=== PATIENT | female | born 1980 | race Caucasian/White ===

== ENCOUNTER 2022-11-09 16:04 | Outpatient (REF) | payer OTHER, SELFPAY ==
--- NOTE | 2022-11-09 16:15 | CRLHL7_ITS ---
For Patients: As a result of the Century Cures Act, medical imaging exams and procedure reports are released immediately into your electronic medical record. You may view this report before your referring provider. If you have questions, please contact your health care provider. UNILATERAL LEFT DIGITAL SCREENING MAMMOGRAM WITH TOMOSYNTHESIS AND COMPUTER-AIDED DETECTION CLINICAL HISTORY: Routine screening exam. COMPARISON: 08/19/2021, 04/09/2019, 03/06/2018, 03/14/2017, 02/02/2016, 01/31/2015. TECHNIQUE: Digital mammogram in CC and MLO projections including computer-aided detection (CAD). Tomosynthesis utilized. BREAST COMPOSITION: The breast is extremely dense, which lowers the sensitivity of mammography. FINDINGS: LEFT Breast: Microcalcifications are present within the lower inner quadrant 7 cm from the nipple. IMPRESSION: LEFT breast calcifications. RECOMMENDATIONS: Spot compression magnification views of the calcifications in the LEFT breast in CC and ML projections. BI-RADS Category 0: Incomplete: Need additional Imaging Evaluation and/or Prior Mammograms for Comparison [facility] will contact the patient for follow-up. A lay language report of this examination will be provided to the patient. Dictated by Kyree Blackmon MD @ 11/19/2022 9:12:16 AM jj/Dictated by: Kyree Blackmon MD @ 11/19/2022 9:12:00 AM (Electronically Signed)
== END 2022-11-09 16:05 | disposition home or self-care (01) ==
LOC: MAMMO 16:04
PROVIDERS: Visit Provider Obstetrics & Gynecology
DX: Z12.31 Encounter for screening mammogram for malignant neoplasm of breast (principal); R92.2 Inconclusive mammogram; R92.0 Mammographic microcalcification found on diagnostic imaging of breast; R92.1 Mammographic calcification found on diagnostic imaging of breast
CPT/HCPCS: 77063; 77067

== ENCOUNTER 2022-12-24 10:57 | Outpatient (CLI) | payer MEDICAID, SELFPAY ==
--- NOTE | 2022-12-24 11:15 | CRLHL7_ITS ---
For Patients: As a result of the 21st Century Cures Act, medical imaging exams and procedure reports are released immediately into your electronic medical record. You may view this report before your referring provider. If you have questions, please contact your health care provider. ----- ADDENDUM ----- Addendum: Pathology is negative for metastatic carcinoma in this sampling. This may be disconcordant and recommend axillary node dissection. Dictated by Kyree Blackmon MD @ Noel 2022 6:17AM Signed by:?Kyree Blackmon MD @12/27/2022 10:50:48 AM ULTRASOUND-GUIDED LEFT AXILLARY LYMPH NODE BIOPSY CLINICAL HISTORY: Left breast cancer. COMPARISON STUDIES: MRI breast 12/17/2022 TECHNIQUE: Real-time ultrasound with image documentation was used for targeting the left axillary lymph node lesion. Core biopsy specimens were obtained using an automated gun with a 18-gauge biopsy needle. CONSENT and TIME OUT: The procedure, risks, and alternatives were explained to the patient and a consent was signed. [place] Protocol was followed including pre-procedure verification that relevant information/documentation was available, reviewed and properly matched to the patient; consent accurate and complete; and equipment and supplies available. Time Out was conducted just prior to starting procedure to verify the four required elements: patient identity, correct side/site marked (if applicable), procedure, relevant images/results properly labeled and displayed (if applicable). PROCEDURE: The patient was positioned supine on the ultrasound table. The left axilla was prepped with ChloraPrep. 10 cc of 1 percent lidocaine was used for local anesthesia. Core samples were obtained. A sterile metal biopsy clip was placed percutaneously to ena the lesion position within the breast. The specimens were placed in 10% formalin and sent to the pathology department. Pressure was held on the biopsy site until all bleeding subsided. The skin incision was closed with Steri-Strips. An ice pack was positioned over the biopsy site. Post-biopsy instructions were reviewed with the patient, and a written copy was given to her. LATERALITY: Left axilla LESION: Enlarged left axillary lymph node measuring 2.2 cm with thickened hypoechoic cortex SUSPICION FOR MALIGNANCY: High NUMBER OF SAMPLES: 5 BIOPSY CLIP SHAPE: Oval PROXIMITY OF CLIP TO TARGET: Within the lesion IMPRESSION: Ultrasound-guided left axillary lymph node biopsy. When the pathology report is available, an addendum to this report will be made. ACR not applicable Dictated by Kyree Blackmon MD @ 12/25/2022 6:17:05 AM (Electronically Signed)
== END 2022-12-24 10:58 | disposition home or self-care (01) ==
LOC: US 10:59
PROVIDERS: Visit Provider Surgery
DX: R92.8 Other abnormal and inconclusive findings on diagnostic imaging of breast (principal)
CPT/HCPCS: 38505; 76942; 88305; T1013; A4648; A4649

== ENCOUNTER 2022-12-28 07:45 | Day surgery (SDC) | payer MEDICAID, SELFPAY ==
[2022-12-28] VITALS (21 sets, daily range): BP systolic 94–144; BP diastolic 59–104; PULSE 72–108; RESP 16–23; TEMP 36.4–37.1; O2SAT 93–100; BMI 24.5; BMI 24.6
--- NOTE | 2022-12-28 | CRLHL7_ITS ---
For Patients: As a result of the Cures Act, medical imaging exams and procedure reports are released immediately into your electronic medical record. You may view this report before your referring provider. If you have questions, please contact your health care provider. LEFT BREAST SPECIMEN RADIOGRAPH CLINICAL HISTORY: New LEFT breast cancer. Previously biopsied LEFT axillary lymph node. COMPARISON: 12/28/2022. FINDINGS: Specimen film contains the biopsy lymph node along with biopsy clip and localization wire. IMPRESSION: Specimen film contains the biopsy lymph node. ACR not applicable Dictated by Kyree Blackmon MD @ 12/28/2022 12:51:25 PM jj/Dictated by: Kyree Blackmon MD @ 12/28/2022 12:51:00 PM (Electronically Signed)
--- NOTE | 2022-12-28 08:17 | CRLHL7_ITS ---
For Patients: As a result of the Cures Act, medical imaging exams and procedure reports are released immediately into your electronic medical record. You may view this report before your referring provider. If you have questions, please contact your health care provider. Left axillary lymph node WIRE LOCALIZATION USING ULTRASOUND GUIDANCE CLINICAL HISTORY: Left breast cancer. Previously biopsied left axillary lymph node. LATERALITY: Left axilla. LESION: Mildly prominent left axillary lymph node. LOCALIZATION WIRE: [place] hookwire. TECHNIQUE: The localization wire was placed using real-time ultrasound guidance with image documentation. CONSENT and TIME OUT: The procedure, risks, and alternatives were explained to the patient through an commercial baking teacher and a consent was signed. [place] Protocol was followed including pre-procedure verification that relevant information/documentation was available, reviewed and properly matched to the patient; consent accurate and complete; and equipment and supplies available. Time Out was conducted just prior to starting procedure to verify the four required elements: patient identity, correct side/site marked (if applicable), procedure, relevant images/results properly labeled and displayed (if applicable). PROCEDURE: The skin was prepped with ChloraPrep and 8 cc of 1% lidocaine was injected for local anesthesia. The localization wire was placed within the targeted left axillary lymph node lesion using ultrasound guidance. The patient tolerated the procedure well. PROXIMITY OF WIRE TO LESION: Within the lesion. IMPRESSION: Successful breast wire localization. ACR not applicable Dictated by Kyree Blackmon MD @ 12/28/2022 12:52:56 PM (Electronically Signed)
[2022-12-28 08:19] LABS: HCG Qualitative* Negative (Negative)
[2022-12-28] MEDS: SODIUM CHLORIDE 0.9 % (FLUSH) 10 ML SYRINGE IVF (08:34)
[2022-12-28] MEDS: LACTATED RINGERS 1000 ML 1,000 ML 100 ML IV (08:34)
--- NOTE | 2022-12-28 09:03 | CRLHL7_ITS ---
For Patients: As a result of the Century Cures Act, medical imaging exams and procedure reports are released immediately into your electronic medical record. You may view this report before your referring provider. If you have questions, please contact your health care provider. HISTORY: 42-year-old female. Left breast cancer. TECHNIQUE: 0.70 millicuries of [id number] sulfur colloid was injected in the left breast for sentinel lymph node localization. Images were not obtained. Dictated by Aristides Virk MD @ 12/28/2022 9:27:08 AM (Electronically Signed)
--- NOTE | 2022-12-28 10:12 | P.GSOP_ITS ---
Operative Note Date of procedure: 12/28/22 Pre-op diagnosis: 1. 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 2. Left enlarged axillary lymph node benign on core biopsy. Post-op diagnosis: Same Type of Procedure: 1. Left skin sparing mastectomy. 2. Left axillary sentinel lymph node biopsy. 3. Excision of previously biopsied left axillary lymph node. 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 Patient underwent a routine mammogram and was found to have a suspicious grouping of calcifications in the lower inner quadrant of the left breast. There was no defined mass. This was biopsied in 2 different spots at 9:00 5 cm and 8 cm from the nipple. Pathology of the biopsy at 9:00 5 cm from the nipple came back with multiple foci of micro invasive ductal carcinoma up to 1 mm with no angiolymphatic invasion and with associated grade 3 solid and comedo DCIS ER//NE negative and HER2 positive. The biopsy at 9:00 8 cm from the nipple showed grade 3 comedo and solid type DCIS with associated calcifications and necrosis. Patient then underwent a bilateral breast MRI that showed that nearly the entire inner quadrant of the left breast and extending into the upper inner quadrant there was mass a non mass enhancement measuring 8.8 x 6.4 cm. There was also adjacent post biopsy hematoma. There were 3 additional masses described in the left breast with this suspicious irregular mass noted at 2:00 9 cm from the nipple measuring 1 x 1.2 cm. There was an adjacent satellite mass measuring 0.4 cm. In addition, there was 1 lymph node in the left axilla was diffuse cortical thickening measuring 1.8 x 1.1 cm. This lymph node was biopsied and biopsy came back with benign lymphoid tissue with no evidence of metastatic disease. Given this patient's clinical history and her findings on MRI, a left mastectomy with left sentinel lymph node biopsy was recommended. We also discussed excising the biopsied left axillary node. The procedures were discussed in detail. The risks associated procedures including infection, bleeding, postoperative seroma, and the need for axillary node dissection were all discussed with the patient, and she agreed to proceed. Procedure Description: After discussing the risks and benefits of the procedure, the patient signed informed consent.? The operative site was marked and the patient was brought to the operating room and placed on the operating table in supine position.? Care was taken to pad the patient's pressure points.?? The patient was then intubated by anesthesia.??The Carrillo catheter was placed under sterile conditions. The operative site was then prepped and draped in the usual sterile fashion.? A time-out was then performed. I first proceeded with the left mastectomy. An elliptical horizontal skin incision was made around the nipple-areolar complex using a scalpel.? Dermis was divided with cautery.? Marlo retractors were used for retraction throughout the case.? There was essentially no subcutaneous fat between the skin Skin flaps were developed circumferentially in a relatively avascular placed between subcutaneous fat and breast tissue using manual traction between the skin flaps and breast tissue.? Dissection was performed to just below the clavicle superiorly, to the lateral border of pectoralis major muscle laterally, to the sternal border medially, and to the inframammary fold inferiorly.? This was all done with cautery.? Hemostasis throughout the case was achieved with cautery and Vicryl ties. ? When the breast tissue was dissected circumferentially, it was then removed in a medial to lateral fashion from Pectoralis using electrocautery. The pectoralis major fascia was included with the specimen. The specimen was labeled for orientation with a single stitch at 12:00 and sent to pathology for margins.? I then proceeded with left sentinel lymph node biopsy. Four ml (milliliters) of Lymphazurin blue was personally injected by me near the left nipple for sentinel lymph node identification prior to patient's left breast being prepped. We first excised wire localized left axillary node. I was able to palpate this node and was measuring slightly larger than 1 cm. The node was soft on palpation. The node was excised with cautery with the wire still in place. This had a count of 243. This was sent to mammography where the presence of the wire and biopsy clip were confirmed. This was then sent to pathology for frozen section. Now through the mastectomy incision a [place] counter was brought onto the field in the left axilla to identify sentinel nodes. Guided by the signal from the [place] counter, sentinel lymph node #1 with a count of 7136 was removed. This was sent to pathology for frozen section. This node was not green. Additional signal was noted in the left axilla. A second sentinel lymph node was excised with cautery. This had a count of 1773. All 3 nodes were evaluated by pathology, and preliminary results confirmed no presence of cancer. Axillary melania tissue was examined again with the [place] counter and and no additional significant signal was identified. Additional lymph melania tissue that was excised during search for sentinel nodes was sent to pathology as additional axillary melania tissue. Hemostasis was achieved with cautery. The axillary fascia was reapproximated with interrupted Vicryl sutures. Mastectomy cavity was irrigated with normal saline.? Hemostasis was achieved with cautery.? A 15F Ziyad drain was placed inferior and lateral to the breast through a small stab incision and secured in place with nylon suture. The edges of surgical incision were re-approximated using interrupted 3-0 Vicryl sutures.? The skin was closed with a running subcuticular 4-0 Monocryl stitch. Steri strips, sterile fluffs, and ABD pad were applied over the incision.? A drain sponge was placed under the drain.? The chest was wrapped with an Rasheed wrap.? All counts were correct at the end of the case. The patient tolerated this procedure well and was transferred to the?PACU in stable condition. Sterile dressings were then applied. ? The patient was then woken and transported to the recovery area in stable condition. ? The patient tolerated the procedure well. Findings: Two sentinel lymph nodes and previously biopsied lymph node were removed and wer e preliminary without metastatic disease. Anesthesia: GETA Surgeon: Zoe Correa MD Estimated blood loss (mL): 30 Additional Specimen Information: 1. Left mastectomy. 2. Left axillary wire localized lymph node. 3. Left sentinel lymph node 1. 4. Left sentinel lymph node 2. Condition: stable Disposition: PACU
[2022-12-28] MEDS: ISOSULFAN BLUE 5 ML VIAL 4 ML INJECTION (10:30)
[2022-12-28] MEDS: CEFAZOLIN 2 GM INJ IVP (10:32)
--- NOTE | 2022-12-28 10:50 | W.ANESCHARGE ---
Anesthesia Charges Start Date/Time Anesthesia Start Date: 12/28/22 Anesthesia Start Time: 10:12 Stop Date/Time Anesthesia Stop Date: 12/28/22 Anesthesia Stop Time: 13:13
--- NOTE | 2022-12-28 10:51 | W.PM.NB ---
Nerve Block Nerve Block Date Seen: 12/28/22 Type of block requested by surgeon for post-operative analgesia: intercostal and intercostal add on Side: left Time out performed: Yes Verification of patient name: Yes Verification of date of : Yes Site marking: site marked Name of person performing procedure: Cristopher Nicole, if any: Butch Continuous monitoring Was continuous monitoring of O2 sat, B/P, phototypesetting equipment monitor, recorded every 15 minutes?: Yes Procedure Checklist: sterile prep, needles and gloves Ultrasound guided. Images saved: Yes Medications given in 5ml increments after negative aspiration: Marcaine %: 0.25 mL: 20 Needle gauge: 20 and Exparel mL: 10 Needle gauge: 20 Patient tolerated procedure well: Yes Block Charges Block Charge (with Pro Fee): Intercostal Nerve Block Use of Ultrasound Machine for Block: Yes- US Guidance/pain block
--- NOTE | 2022-12-28 13:20 | W.ANESCHARGE ---
Anesthesia Charges Start Date/Time Anesthesia Start Date: 12/28/22 Anesthesia Start Time: 10:12 Stop Date/Time Anesthesia Stop Date: 12/28/22 Anesthesia Stop Time: 13:13
--- NOTE | 2022-12-28 13:51 | SUR.PHASEI ---
patient met discharge criteria per anesthesia
[2022-12-28] MEDS: LACTATED RINGERS 1000 ML 1,000 ML 35 ML IV (15:09)
[2022-12-28] MEDS: ACETAMINOPHEN 325 MG TABLET 650 MG PO ×2 (15:57→22:52)
--- NOTE | 2022-12-28 19:57 | PC.NURSE ---
[id number] Shift Summary? 89 C.F. 42 Left Mastectomy? Hx: Right mastectomy, Malignant neoplasm of breast,?IUD (intrauterine device) in place, cervical dysplasia, delivery? Pt arrived to floor around 1400. Tajik speaking but [place]an is her second language. Utilized buckle attacher x2 for assessment, orientation to room, and teaching. Family at bedside.?Post op vitals done. Some HTN toward end of vitals but otherwise stable. Been up to BR x2, SBA. Carrillo removed upon arrival- some bloody drainage/discharge on a pad on ashish area. Urine is blue/green from contrast dye. No Flatus or BM yet. On 100mL LR to R PIV. Upper torso is bandaged and wrapped with LYN. OLENA in place and emptied for 30mL of dark red fluid. On room air. Advanced to regular diet without nausea/vomiting. Some dizziness upon arrival but has since resolved. 7/10 pain managed with Tylenol. Aware of other PRNs. Likely to DC home with tomorrow. Needs some hands on teaching regarding cares and OLENA management. ?
[2022-12-28] MEDS: HYDROCODONE-ACETAMIN 5-325 MG 1 TAB PO (19:58)
[2022-12-28] MEDS: BENZOCAINE/MENTHOL 1 EACH LOZENGE MUCOUS MEM (21:38)
[2022-12-29] MEDS: LACTATED RINGERS 1000 ML 1,000 ML 35 ML IV (02:50)
[2022-12-29 03:06] VITALS: BP 108/73; PULSE 73; RESP 16; TEMP 36.8; O2SAT 97
[2022-12-29] MEDS: HYDROCODONE-ACETAMIN 5-325 MG 1 TAB PO ×2 (03:25→10:39)
--- NOTE | 2022-12-29 06:26 | PC.NURSE ---
[id number]: Patient pleasant and cooperative with cares. supportive and at bedside. OLENA drain intact and draining minimal amounts of sanguineous fluids. Pain controlled with PRN [place]. SBA. Chief Privacy Officer offered and declined by patient. Waiver form signed and in chart. Denies N/V. Eating and voiding.
[2022-12-29] MEDS: ACETAMINOPHEN 325 MG TABLET 650 MG PO (07:31)
[2022-12-29 07:45] VITALS: PULSE 76; RESP 16
[2022-12-29 08:00] VITALS: BP 115/80; PULSE 76; RESP 16; TEMP 36.6; O2SAT 96
--- NOTE | 2022-12-29 08:38 | P.DS_ITS ---
DS: Providers Provider Date Seen: 12/29/22 Primary care physician: Kyree Funez MD Attending Physician on discharge: Zoe Correa MD DS: Summary Hospital Course Hospital Course: Patient was admitted to the hospital after she underwent left mastectomy and left sentinel lymph node biopsy yesterday. Patient did well overnight. Her OLENA drain had minimal amounts of bloody serosanguineous fluid. She was tolerating regular diet, urinating, and ambulating. Time Spent with Patient Time attestation: Total time spent providing and/or coordinating discharge services: Exam Narrative: Exam Narrative: Left mastectomy incision without erythema. There is no expanding hematoma. The incision is healthy in appearance. OLENA drain with Mildly bloody serosanguineous fluid. Const: Vital Signs, click to edit/add: Vital Signs - 24 hr 12/28/22 13:09 12/28/22 13:15 12/28/22 13:20 Temperature 97.5 F L 97.5 F L 97.5 F L Pulse Rate 86 78 75 Pulse Rate [Pulse Oximeter] Respiratory Rate 23 19 16 Blood Pressure 101/62 94/59 L 97/61 Blood Pressure [Ri ght Arm] Pulse Oximetry 93 93 94 Oxygen Delivery Me thod Room Air Room Air Room Air 12/28/22 13:25 12/28/22 13:30 12/28/22 13:35 Temperature 97.5 F L 97.5 F L 97.7 F Pulse Rate 86 74 77 Pulse Rate [Pulse Oximeter] Respiratory Rate 20 17 16 Blood Pressure 105/68 101/67 105/73 Blood Pressure [Ri ght Arm] Pulse Oximetry 94 94 95 Oxygen Delivery Me thod Room Air Room Air Room Air 12/28/22 13:40 12/28/22 13:52 12/28/22 13:52 Temperature 97.7 F 97.5 F L 97.5 F L Pulse Rate 76 Pulse Rate [Pulse Oximeter] 84 76 Respiratory Rate 20 16 16 Blood Pressure 105/72 Blood Pressure [Ri ght Arm] 124/86 124/86 Pulse Oximetry 95 96 94 Oxygen Delivery Me thod Room Air Room Air Room Air 12/28/22 14:00 12/28/22 14:15 12/28/22 14:27 Temperature Pulse Rate Pulse Rate [Pulse Oximeter] 78 Respiratory Rate 16 18 16 Blood Pressure Blood Pressure [Ri ght Arm] 121/87 127/87 Pulse Oximetry 95 Oxygen Delivery Me thod Room Air Room Air Room Air 12/28/22 14:30 12/28/22 14:45 12/28/22 15:00 Temperature Pulse Rate Pulse Rate [Pulse Oximeter] 93 85 Respiratory Rate 18 18 Blood Pressure Blood Pressure [Ri ght Arm] 125/89 134/90 H 130/89 Pulse Oximetry 95 94 Oxygen Delivery Me thod Room Air Room Air Room Air 12/28/22 15:00 12/28/22 15:30 12/28/22 16:00 Temperature Pulse Rate Pulse Rate [Pulse Oximeter] 100 78 96 Respiratory Rate 16 18 Blood Pressure Blood Pressure [Ri ght Arm] 119/81 138/100 H Pulse Oximetry 96 Oxygen Delivery Me thod Room Air 12/28/22 17:35 12/28/22 18:30 12/28/22 20:00 Temperature 97.8 F Pulse Rate Pulse Rate [Pulse Oximeter] 100 108 H Respiratory Rate 16 18 Blood Pressure Blood Pressure [Ri ght Arm] 125/85 144/104 H 139/100 H Pulse Oximetry 95 100 Oxygen Delivery Me thod Room Air Room Air 12/28/22 22:26 12/29/22 03:06 Temperature 98.8 F 98.2 F Pulse Rate Pulse Rate [Pulse Oximeter] 89 73 Respiratory Rate 20 16 Blood Pressure Blood Pressure [Ri ght Arm] 121/85 108/73 Pulse Oximetry 99 97 Oxygen Delivery Me thod Room Air Room Air Discharge Plan Discharge Disposition: Home, Self-Care Discharging Surgeon: Zoe Correa Follow-Up Appointment: 1 week [facility] Morgan/Davis(drain removal), 1 weeks [facility] Prescriptions: New hydrocodone-acetaminophen 5-325 mg tablet 1 tab PO Q6H PRN (Reason: pain) Qty: 25 0RF Continued multivitamin Tablet 1 tab PO QAM Activity Level: No strenuous activity Activity Detail: Avoid lifting anything more than 10 lb with the left arm. Avoid reason your left arm above the shoulder level. Discharge Diet: Regular Patient Instructions: Surgical Site Infections (DC), Deep Sedation (DC), Breast Lumpectomy (DC), Post-Operative Instructions: Breast Surgery Additional Instructions: Continue wearing compressive dressing over your left breast all the time The next 2 weeks except okay to take off for showers. please see H the patient and her how to do drain care. The drain should be stripped at least 3 times a day. The drain output should be recorded daily. Follow-up: Zoe Correa MD [Staff Physician] - Discharge Orders: Discharge Order (Routine); Ordered 12/29/22 Ordered By: Zoe Correa
[2022-12-29 09:12] VITALS: BP 105/72; PULSE 76; RESP 16; TEMP 36.8
--- NOTE | 2022-12-29 12:07 | PC.NURSE ---
VSS AND AFEBRILE. PAIN CONTROLLED WITH PRN TYLENOL AND NORCO. TOLERATING REGULAR DIET WITH NO C/O N/V. REVIEWED OLENA USE WITH AND HE WAS ABLE TO DRAIN OLENA SUCCESSFULLY AND TAUGHT DRESSING CHANGE. EXTRA DRESSINGS SENT HOME WITH PATIENT. REVIEWED DC INSTRUCTIONS WITH INTEGRITY ASSESSOR, SHEEBA. BOTH PATIENT AND DENIED QUESTIONS OR CONCERNS. PATIENT DC'D HOME WITH .
== END 2022-12-29 11:30 | disposition home or self-care (01) ==
LOC: MEDSURG 13:21 → SS 14:35 → MEDSURG 14:35
PROVIDERS: PCP Family Medicine; Visit Provider Surgery
PROC: (CPT 19303; principal; 2022-12-28 09:45)
PROC: (CPT 19303; 2022-12-28 09:45)
DX: C50.812 Malignant neoplasm of overlapping sites of left female breast (principal); Z17.0 Estrogen receptor positive status [ER+]; G89.18 Other acute postprocedural pain
CPT/HCPCS: 19303; 38500; 01610; 10035; 38792; 64420; 64421; 76942; 84703; 88307; 88309; 88312; 88341; 88342; T1013; A9270; A9541; C1769; C9290; J0330; J0690; J1100; J1200; J1885; J2405; J2704; J3010; J3475; J3490; J7120

== ENCOUNTER 2023-04-11 15:50 | Outpatient (CLI) | payer OTHER, SELFPAY ==
--- NOTE | 2023-04-11 16:00 | CRLHL7_ITS ---
For Patients: As a result of the Century Cures Act, medical imaging exams and procedure reports are released immediately into your electronic medical record. You may view this report before your referring provider. If you have questions, please contact your health care provider. INDICATION: elevated LFTs. COMPARISON: none TECHNIQUE: Real time bocanegra scale imaging and color Doppler analysis was performed of the right upper quadrant. FINDINGS: There is no intrahepatic mass. The IVC is normal. The aorta is gassed out. There is no evidence of ascites. The gallbladder is of normal size and there are echogenic foci in fundal region. The gallbladder wall measures 1.4 mm in thickness. The common bile duct is of normal size and measures 3 mm in diameter at the level of the faisal hepatis. The pancreas appears normal. There is no evidence of a stone or hydronephrosis within the right kidney. The right kidney measures 9.8 cm in length. IMPRESSION: Mobile echogenic foci within the gallbladder lumen compatible with cholesterol stones. No biliary obstruction. No intrahepatic mass. Dictated by Kyree Blackmon MD @ 04/12/2023 9:27:08 AM (Electronically Signed)
== END 2023-04-11 15:51 | disposition home or self-care (01) ==
PROVIDERS: PCP Family Medicine; Visit Provider Physician Assistant
DX: R79.89 Other specified abnormal findings of blood chemistry (principal)
CPT/HCPCS: 76705; T1013

== ENCOUNTER 2023-05-12 14:52 | Outpatient (CLI) | payer MEDICAID, SELFPAY | END 2023-05-12 14:53 | disposition home or self-care (01) | LOC: RAD 14:53 | PROVIDERS: PCP Family Medicine; Visit Provider Physician Assistant | DX: C50.912 Malignant neoplasm of unspecified site of left female breast (principal); Z51.81 Encounter for therapeutic drug level monitoring; Z79.899 Other long term (current) drug therapy | CPT/HCPCS: 93306; T1013 ==

== ENCOUNTER 2023-07-07 10:30 | Outpatient (RCR) | payer MEDICAID, SELFPAY ==
[2023-01-13 11:20] LABS: Hemoglobin* 11.4 gm/dL (12.0-16.0); Red Blood Count 4.26 m/uL (4.00-5.20); White Blood Count* 8.24 K/uL (4.50-11.00)
[2023-01-13 11:21] LABS: Basophils Percent Auto 0.5 % (0.0-3.0); Eosinophils Percent Auto 2.8 % (0.0-7.0); Hematocrit 34.9 % (33.0-51.0); Lymphocytes Percent Auto 17.8 % (20-44); Mean Corpuscular HGB Conc 33 gm/dL (32-36); Mean Corpuscular Hemoglobin 27 pg (26-34); Mean Corpuscular Volume 82 fL (80-100); Neutrophils Percent Auto 72.9 % (42.0-72.0); Platelet Count* 377 K/uL (140-440); Slide Review Reflex No
[2023-01-13 11:22] LABS: Albumin* 4.6 g/dL (3.3-5.0)
[2023-01-13 11:23] LABS: Chloride* 105 mmol/L (96-114); Potassium* 4.1 mmol/L (3.6-5.1); Sodium* 138 mmol/L (135-149)
[2023-01-13 11:25] LABS: Bilirubin Total* 0.4 mg/dL (0.1-1.5); Carbon Dioxide* 23 mmol/L (20-32); Creatinine* 0.6 mg/dL (0.5-1.5); Estimated Glomerular Filt Rate 116 ml/min
[2023-01-13 11:26] LABS: Alanine Aminotransferase* 80 U/L (4-35); Alkaline Phosphatase* 136 U/L (40-150); Aspartate Amino Transferase* 46 U/L (12-35); Blood Urea Nitrogen* 14 mg/dL (5-24); Calcium* 9.2 mg/dL (8.4-10.6); Glucose* 126 mg/dL (60-115); Total Protein* 7.9 g/dL (6.0-8.3)
--- NOTE | 2023-01-20 11:59 | URNOTE ---
Request received for authorization for Docetaxel (J9171), Pertuzumab (J9306), Trastuzumab ([id number]). [place] 12/16/2022 to 02/14/2023. Prior [place] is not required per [place] schedule during this time frame.
--- NOTE | 2023-02-01 16:24 | ONC.NURNOTE ---
I met with patient for chemotherapy teaching. With the assistance of the medical interpreter, the contents of the chemotherapy binder were reviewed. Side effects of treatment reviewed. We discussed what to report and how to report side effects to provider. Plan of care reviewed including upcoming ECHO, labs and new start chemotherapy. Patient encouraged to call with questions or concerns.
[2023-02-07 15:59] LABS: Basophils Absolute Auto 0.04 K/uL (0.00-0.30); Basophils Percent Auto 0.4 % (0.0-3.0); Eosinophils Absolute Auto 0.23 K/uL (0.00-0.50); Eosinophils Percent Auto 2.5 % (0.0-7.0); Hematocrit 31.7 % (33.0-51.0); Hemoglobin* 10.3 gm/dL (12.0-16.0); Immature Granulocytes Abs Auto 0.01 K/uL (0.00-0.30); Immature Granulocytes Pct Auto 0.1 %; Lymphocytes Absolute Auto 2.39 K/uL (0.90-2.90); Lymphocytes Percent Auto 26.2 % (20-44); Mean Corpuscular HGB Conc 33 gm/dL (32-36); Mean Corpuscular Hemoglobin 27 pg (26-34); Mean Corpuscular Volume 82 fL (80-100); Monocytes Percent Auto 5.3 % (0.0-11.0); Neutrophils Absolute Auto 5.98 K/uL (1.7-7.0); Neutrophils Percent Auto 65.5 % (42.0-72.0); Platelet Count* 301 K/uL (140-440); RDW Coefficient of Variation % 14.3 % (11.5-15.5); Red Blood Count 3.86 m/uL (4.00-5.20); White Blood Count* 9.13 K/uL (4.50-11.00)
[2023-02-07 16:08] LABS: Slide Review Reflex No
[2023-02-07 16:24] LABS: Albumin* 4.1 g/dL (3.3-5.0); Chloride* 104 mmol/L (96-114)
[2023-02-07 16:25] LABS: Potassium* 3.7 mmol/L (3.6-5.1); Sodium* 139 mmol/L (135-149)
[2023-02-07 16:27] LABS: Alkaline Phosphatase* 107 U/L (40-150); Aspartate Amino Transferase* 33 U/L (12-35); Bilirubin Total* 0.2 mg/dL (0.1-1.5); Blood Urea Nitrogen* 12 mg/dL (5-24); Carbon Dioxide* 23 mmol/L (20-32); Creatinine* 0.5 mg/dL (0.5-1.5); Estimated Glomerular Filt Rate 121 ml/min; Total Protein* 7.3 g/dL (6.0-8.3)
[2023-02-07 16:28] LABS: Alanine Aminotransferase* 26 U/L (4-35); Calcium* 8.6 mg/dL (8.4-10.6); Glucose* 104 mg/dL (60-115)
[2023-02-10 08:27] VITALS: BP 101/68; PULSE 83; RESP 16; TEMP 36.3; O2SAT 99
[2023-02-10] MEDS: 0.9 % SODIUM CHLORIDE 250 ml IV (08:50)
[2023-02-10] MEDS: ONDANSETRON 2 MG/ML inj 8 MG IV (08:52)
[2023-02-10] MEDS: PERTUZUMAB 840 MG, TUBING SECONDARY 1 EACH in 0.9 % SODIUM CHLORIDE 250 ml 250 ML 278 MG IVPB (09:12)
--- NOTE | 2023-02-28 14:35 | URNOTE ---
Request received for authorization for Docetaxel (J9171), Pertuzumab (J9306), Trastuzumab (J9355). [place] starting 02/15/23- no end date noted when reveiwed 02/28/23. Prior authorization is not required Docetaxel (J9171), Pertuzumab (J9306), Trastuzumab (J9355) per [place].
[2023-03-02 12:01] LABS: Sodium* 141 mmol/L (135-149)
[2023-03-02 12:03] LABS: Basophils Absolute Auto 0.04 K/uL (0.00-0.30); Basophils Percent Auto 0.5 % (0.0-3.0); Eosinophils Absolute Auto 0.02 K/uL (0.00-0.50); Eosinophils Percent Auto 0.3 % (0.0-7.0); Hematocrit 32.5 % (33.0-51.0); Hemoglobin* 10.4 gm/dL (12.0-16.0); Lymphocytes Absolute Auto 1.73 K/uL (0.90-2.90); Lymphocytes Percent Auto 22.2 % (20-44); Mean Corpuscular HGB Conc 32 gm/dL (32-36); Mean Corpuscular Hemoglobin 26 pg (26-34); Mean Corpuscular Volume 82 fL (80-100); Monocytes Percent Auto 3.7 % (0.0-11.0); Neutrophils Percent Auto 73.3 % (42.0-72.0); Platelet Count* 456 K/uL (140-440); RDW Coefficient of Variation % 15.5 % (11.5-15.5); Red Blood Count 3.97 m/uL (4.00-5.20); White Blood Count* 7.78 K/uL (4.50-11.00)
[2023-03-02 12:12] LABS: Slide Review Reflex No
[2023-03-02 12:41] LABS: Albumin* 4.2 g/dL (3.3-5.0); Chloride* 104 mmol/L (96-114); Potassium* 4.2 mmol/L (3.6-5.1)
[2023-03-02 12:43] LABS: Creatinine* 0.6 mg/dL (0.5-1.5); Estimated Glomerular Filt Rate 116 ml/min
[2023-03-02 12:44] LABS: Alanine Aminotransferase* 44 U/L (4-35); Alkaline Phosphatase* 152 U/L (40-150); Aspartate Amino Transferase* 31 U/L (12-35); Bilirubin Total* 0.3 mg/dL (0.1-1.5); Blood Urea Nitrogen* 11 mg/dL (5-24); Carbon Dioxide* 27 mmol/L (20-32); Glucose* 106 mg/dL (60-115); Total Protein* 7.8 g/dL (6.0-8.3)
[2023-03-02 12:45] LABS: Calcium* 9.4 mg/dL (8.4-10.6)
[2023-03-03] MEDS: 0.9 % SODIUM CHLORIDE 250 ml IV (12:15)
[2023-03-03] MEDS: dexAMETHasone 20 MG in 0.9 % SODIUM CHLORIDE 100 ml 100 ML 420 MG IVPB (12:30)
[2023-03-03] MEDS: ONDANSETRON 2 MG/ML inj 8 MG IV (12:32)
[2023-03-03] MEDS: PERTUZUMAB 420 MG, TUBING SECONDARY 1 EACH in 0.9 % SODIUM CHLORIDE 250 ml 250 ML 528 MG IVPB (12:58)
[2023-03-03 14:18] VITALS: BP 96/63; PULSE 88; RESP 16; TEMP 36.3; O2SAT 96
[2023-03-23 11:49] LABS: Basophils Absolute Auto 0.06 K/uL (0.00-0.30); Basophils Percent Auto 0.6 % (0.0-3.0); Eosinophils Absolute Auto 0.07 K/uL (0.00-0.50); Eosinophils Percent Auto 0.7 % (0.0-7.0); Hematocrit 34.6 % (33.0-51.0); Hemoglobin* 11.1 gm/dL (12.0-16.0); Immature Granulocytes Abs Auto 0.01 K/uL (0.00-0.30); Immature Granulocytes Pct Auto 0.1 %; Lymphocytes Percent Auto 14.9 % (20-44); Mean Corpuscular HGB Conc 32 gm/dL (32-36); Mean Corpuscular Hemoglobin 26 pg (26-34); Mean Corpuscular Volume 81 fL (80-100); Monocytes Percent Auto 4.8 % (0.0-11.0); Neutrophils Percent Auto 78.9 % (42.0-72.0); Platelet Count* 356 K/uL (140-440); RDW Coefficient of Variation % 15.9 % (11.5-15.5); Red Blood Count 4.27 m/uL (4.00-5.20); White Blood Count* 10.54 K/uL (4.50-11.00)
[2023-03-23 11:51] LABS: Slide Review Reflex No
[2023-03-23 12:04] LABS: Albumin* 4.7 g/dL (3.3-5.0); Chloride* 104 mmol/L (96-114)
[2023-03-23 12:05] LABS: Potassium* 4.7 mmol/L (3.6-5.1); Sodium* 140 mmol/L (135-149)
[2023-03-23 12:07] LABS: Anion Gap 10 mEq/L (7-15); Bilirubin Total* 0.4 mg/dL (0.1-1.5); Carbon Dioxide* 26 mmol/L (20-32); Creatinine* 0.6 mg/dL (0.5-1.5); Estimated Glomerular Filt Rate 116 ml/min
[2023-03-23 12:08] LABS: Alanine Aminotransferase* 81 U/L (4-35); Alkaline Phosphatase* 129 U/L (40-150); Aspartate Amino Transferase* 62 U/L (12-35); Blood Urea Nitrogen* 12 mg/dL (5-24); Calcium* 9.7 mg/dL (8.4-10.6); Glucose* 99 mg/dL (60-115); Total Protein* 8.4 g/dL (6.0-8.3)
[2023-03-24] MEDS: PERTUZUMAB 420 MG, TUBING SECONDARY 1 EACH in 0.9 % SODIUM CHLORIDE 250 ml 250 ML 528 MG IVPB (10:25)
[2023-03-24] MEDS: dexAMETHasone 12 MG in 0.9 % SODIUM CHLORIDE 100 ml 100 ML 404.8 MG IVPB (11:44)
[2023-03-24] MEDS: ONDANSETRON 2 MG/ML inj 8 MG IV (11:44)
[2023-03-24] MEDS: 0.9 % SODIUM CHLORIDE 250 ml IV (13:28)
[2023-03-30 15:37] LABS: Albumin* 4.4 g/dL (3.3-5.0)
[2023-03-30 15:40] LABS: Alanine Aminotransferase* 101 U/L (4-35); Alkaline Phosphatase* 144 U/L (40-150); Aspartate Amino Transferase* 72 U/L (12-35); Bilirubin Total* 0.4 mg/dL (0.1-1.5); Total Protein* 7.9 g/dL (6.0-8.3)
[2023-03-30 19:23] LABS: Hepatitis B Surface Antigen* Negative (Negative)
[2023-03-30 19:40] LABS: Hepatitis C Virus Antibody* Negative (Negative)
--- NOTE | 2023-03-31 14:57 | ONC.NURNOTE ---
Sayra Bingham discussed pt labs with Dr. Castle. At this time ultrasound on hold, appt cancelled for next weeks ultrasound. Will continue to monitor labs and schedule Ultrasound if LFTS continue to worsen. Pt notified via panelboard tank [employer].
[2023-04-01 17:02] LABS: Hepatitis B Core Antibody, IgM Negative (Negative)
[2023-04-06 15:45] LABS: Albumin* 4.3 g/dL (3.3-5.0)
[2023-04-06 15:48] LABS: Aspartate Amino Transferase* 58 U/L (12-35); Bilirubin Total* 0.3 mg/dL (0.1-1.5); Total Protein* 7.9 g/dL (6.0-8.3)
[2023-04-06 15:49] LABS: Alanine Aminotransferase* 102 U/L (4-35); Alkaline Phosphatase* 208 U/L (40-150)
[2023-04-13 15:33] LABS: Basophils Absolute Auto 0.03 K/uL (0.00-0.30); Basophils Percent Auto 0.3 % (0.0-3.0); Eosinophils Absolute Auto 0.04 K/uL (0.00-0.50); Eosinophils Percent Auto 0.4 % (0.0-7.0); Hematocrit 34.6 % (33.0-51.0); Hemoglobin* 11.2 gm/dL (12.0-16.0); Immature Granulocytes Abs Auto 0.07 K/uL (0.00-0.30); Immature Granulocytes Pct Auto 0.8 %; Lymphocytes Absolute Auto 1.87 K/uL (0.90-2.90); Lymphocytes Percent Auto 20.6 % (20-44); Mean Corpuscular HGB Conc 32 gm/dL (32-36); Mean Corpuscular Hemoglobin 25 pg (26-34); Mean Corpuscular Volume 78 fL (80-100); Monocytes Percent Auto 5.3 % (0.0-11.0); Neutrophils Percent Auto 72.6 % (42.0-72.0); Platelet Count* 353 K/uL (140-440); RDW Coefficient of Variation % 16.7 % (11.5-15.5); Red Blood Count 4.42 m/uL (4.00-5.20); White Blood Count* 9.06 K/uL (4.50-11.00)
[2023-04-13 15:37] LABS: Slide Review Reflex No
[2023-04-13 15:52] LABS: Albumin* 4.7 g/dL (3.3-5.0); Chloride* 104 mmol/L (96-114); Potassium* 4.3 mmol/L (3.6-5.1); Sodium* 140 mmol/L (135-149)
[2023-04-13 15:54] LABS: Creatinine* 0.7 mg/dL (0.5-1.5); Estimated Glomerular Filt Rate 111 ml/min
[2023-04-13 15:55] LABS: Alanine Aminotransferase* 41 U/L (4-35); Alkaline Phosphatase* 143 U/L (40-150); Anion Gap 12 mEq/L (7-15); Aspartate Amino Transferase* 35 U/L (12-35); Bilirubin Total* 0.4 mg/dL (0.1-1.5); Blood Urea Nitrogen* 11 mg/dL (5-24); Calcium* 9.9 mg/dL (8.4-10.6); Carbon Dioxide* 24 mmol/L (20-32); Glucose* 113 mg/dL (60-115); Total Protein* 8.4 g/dL (6.0-8.3)
[2023-04-14] MEDS: ONDANSETRON 2 MG/ML inj 8 MG IV (11:03)
[2023-04-14] MEDS: dexAMETHasone 12 MG in 0.9 % SODIUM CHLORIDE 100 ml 100 ML 404.8 MG IVPB (11:03)
[2023-04-14] MEDS: PERTUZUMAB 420 MG, TUBING SECONDARY 1 EACH in 0.9 % SODIUM CHLORIDE 250 ml 250 ML 528 MG IVPB (11:26)
[2023-04-14] MEDS: 0.9 % SODIUM CHLORIDE 250 ml IV (15:29)
[2023-05-05 09:06] VITALS: BP 101/73; PULSE 88; RESP 16; TEMP 35.9; O2SAT 100
[2023-05-05 09:22] LABS: Basophils Absolute Auto 0.03 K/uL (0.00-0.30); Basophils Percent Auto 0.4 % (0.0-3.0); Eosinophils Absolute Auto 0.02 K/uL (0.00-0.50); Eosinophils Percent Auto 0.2 % (0.0-7.0); Hematocrit 34.3 % (33.0-51.0); Hemoglobin* 10.8 gm/dL (12.0-16.0); Immature Granulocytes Abs Auto 0.01 K/uL (0.00-0.30); Immature Granulocytes Pct Auto 0.1 %; Lymphocytes Percent Auto 20.3 % (20-44); Mean Corpuscular HGB Conc 32 gm/dL (32-36); Mean Corpuscular Hemoglobin 25 pg (26-34); Mean Corpuscular Volume 79 fL (80-100); Monocytes Percent Auto 4.2 % (0.0-11.0); Neutrophils Percent Auto 74.8 % (42.0-72.0); Platelet Count* 394 K/uL (140-440); RDW Coefficient of Variation % 17.6 % (11.5-15.5); Red Blood Count 4.35 m/uL (4.00-5.20); White Blood Count* 8.38 K/uL (4.50-11.00)
[2023-05-05 09:25] LABS: Slide Review Reflex No
[2023-05-05 09:35] LABS: Albumin* 4.4 g/dL (3.3-5.0); Chloride* 100 mmol/L (96-114); Sodium* 139 mmol/L (135-149)
[2023-05-05 09:36] LABS: Potassium* 4.6 mmol/L (3.6-5.1)
[2023-05-05 09:38] LABS: Alanine Aminotransferase* 40 U/L (4-35); Alkaline Phosphatase* 112 U/L (40-150); Anion Gap 15 mEq/L (7-15); Aspartate Amino Transferase* 48 U/L (12-35); Bilirubin Total* 0.5 mg/dL (0.1-1.5); Blood Urea Nitrogen* 12 mg/dL (5-24); Carbon Dioxide* 24 mmol/L (20-32); Creatinine* 0.6 mg/dL (0.5-1.5); Estimated Glomerular Filt Rate 116 ml/min; Glucose* 129 mg/dL (60-115); Total Protein* 7.7 g/dL (6.0-8.3)
[2023-05-05 09:39] LABS: Calcium* 8.9 mg/dL (8.4-10.6)
[2023-05-05] MEDS: 0.9 % SODIUM CHLORIDE 250 ml IV (10:15)
[2023-05-05] MEDS: PERTUZUMAB 420 MG, TUBING SECONDARY 1 EACH in 0.9 % SODIUM CHLORIDE 250 ml 250 ML 528 MG IV (10:32)
[2023-05-25 14:16] LABS: Basophils Absolute Auto 0.04 K/uL (0.00-0.30); Basophils Percent Auto 0.6 % (0.0-3.0); Eosinophils Absolute Auto 0.29 K/uL (0.00-0.50); Hematocrit 33.9 % (33.0-51.0); Hemoglobin* 10.8 gm/dL (12.0-16.0); Lymphocytes Absolute Auto 1.84 K/uL (0.90-2.90); Lymphocytes Percent Auto 25.5 % (20-44); Mean Corpuscular HGB Conc 32 gm/dL (32-36); Mean Corpuscular Hemoglobin 24 pg (26-34); Mean Corpuscular Volume 77 fL (80-100); Monocytes Percent Auto 5.4 % (0.0-11.0); Neutrophils Absolute Auto 4.66 K/uL (1.7-7.0); Neutrophils Percent Auto 64.5 % (42.0-72.0); Platelet Count* 403 K/uL (140-440); RDW Coefficient of Variation % 17.8 % (11.5-15.5); Red Blood Count 4.42 m/uL (4.00-5.20); White Blood Count* 7.22 K/uL (4.50-11.00)
[2023-05-25 14:22] LABS: Slide Review Reflex No
[2023-05-25 14:29] LABS: Albumin* 4.8 g/dL (3.3-5.0); Chloride* 105 mmol/L (96-114); Potassium* 4.2 mmol/L (3.6-5.1); Sodium* 140 mmol/L (135-149)
[2023-05-25 14:32] LABS: Alanine Aminotransferase* 40 U/L (4-35); Alkaline Phosphatase* 106 U/L (40-150); Anion Gap 9 mEq/L (7-15); Aspartate Amino Transferase* 33 U/L (12-35); Bilirubin Total* 0.4 mg/dL (0.1-1.5); Blood Urea Nitrogen* 14 mg/dL (5-24); Calcium* 9.3 mg/dL (8.4-10.6); Carbon Dioxide* 26 mmol/L (20-32); Creatinine* 0.7 mg/dL (0.5-1.5); Estimated Glomerular Filt Rate 111 ml/min; Glucose* 125 mg/dL (60-115)
[2023-05-26] MEDS: PERTUZUMAB 420 MG, TUBING SECONDARY 1 EACH in 0.9 % SODIUM CHLORIDE 250 ml 250 ML 528 MG IV (11:05)
[2023-05-26] MEDS: SODIUM CHLORIDE 0.9 % (FLUSH) 10 ML SYRINGE IVF (11:50)
[2023-05-26] MEDS: 0.9 % SODIUM CHLORIDE 250 ml IV (11:50)
[2023-06-15 14:37] LABS: Basophils Absolute Auto 0.02 K/uL (0.00-0.30); Basophils Percent Auto 0.3 % (0.0-3.0); Eosinophils Absolute Auto 0.21 K/uL (0.00-0.50); Eosinophils Percent Auto 3.2 % (0.0-7.0); Hematocrit 33.6 % (33.0-51.0); Hemoglobin* 10.7 gm/dL (12.0-16.0); Immature Granulocytes Abs Auto 0.01 K/uL (0.00-0.30); Immature Granulocytes Pct Auto 0.2 %; Mean Corpuscular HGB Conc 32 gm/dL (32-36); Mean Corpuscular Hemoglobin 24 pg (26-34); Mean Corpuscular Volume 77 fL (80-100); Monocytes Percent Auto 8.9 % (0.0-11.0); Neutrophils Absolute Auto 4.39 K/uL (1.7-7.0); Neutrophils Percent Auto 67.4 % (42.0-72.0); Platelet Count* 343 K/uL (140-440); RDW Coefficient of Variation % 17.7 % (11.5-15.5); Red Blood Count 4.39 m/uL (4.00-5.20); White Blood Count* 6.51 K/uL (4.50-11.00)
[2023-06-15 14:43] LABS: Slide Review Reflex No
[2023-06-15 14:50] LABS: Albumin* 4.7 g/dL (3.3-5.0)
[2023-06-15 14:51] LABS: Chloride* 103 mmol/L (96-114); Potassium* 4.2 mmol/L (3.6-5.1); Sodium* 140 mmol/L (135-149)
[2023-06-15 14:53] LABS: Anion Gap 12 mEq/L (7-15); Bilirubin Total* 0.4 mg/dL (0.1-1.5); Carbon Dioxide* 25 mmol/L (20-32); Creatinine* 0.6 mg/dL (0.5-1.5); Estimated Glomerular Filt Rate 116 ml/min
[2023-06-15 14:54] LABS: Alanine Aminotransferase* 33 U/L (4-35); Alkaline Phosphatase* 93 U/L (40-150); Aspartate Amino Transferase* 33 U/L (12-35); Blood Urea Nitrogen* 11 mg/dL (5-24); Calcium* 9.2 mg/dL (8.4-10.6); Glucose* 105 mg/dL (60-115)
[2023-06-16 09:07] VITALS: BP 110/72; PULSE 88; RESP 16; TEMP 36.1; O2SAT 98
[2023-06-16] MEDS: PERTUZUMAB 420 MG, TUBING SECONDARY 1 EACH in 0.9 % SODIUM CHLORIDE 250 ml 250 ML 528 MG IV (09:57)
[2023-06-16] MEDS: 0.9 % SODIUM CHLORIDE 250 ml IV (09:58)
[2023-06-16] MEDS: SODIUM CHLORIDE 0.9 % (FLUSH) 10 ML SYRINGE IVF (09:58)
[2023-07-06 14:38] LABS: Basophils Absolute Auto 0.03 K/uL (0.00-0.30); Basophils Percent Auto 0.4 % (0.0-3.0); Eosinophils Absolute Auto 0.18 K/uL (0.00-0.50); Eosinophils Percent Auto 2.7 % (0.0-7.0); Hematocrit 33.3 % (33.0-51.0); Hemoglobin* 10.5 gm/dL (12.0-16.0); Immature Granulocytes Abs Auto 0.06 K/uL (0.00-0.30); Immature Granulocytes Pct Auto 0.9 %; Lymphocytes Percent Auto 18.1 % (20-44); Mean Corpuscular HGB Conc 32 gm/dL (32-36); Mean Corpuscular Hemoglobin 24 pg (26-34); Mean Corpuscular Volume 77 fL (80-100); Monocytes Percent Auto 7.2 % (0.0-11.0); Neutrophils Absolute Auto 4.72 K/uL (1.7-7.0); Neutrophils Percent Auto 70.7 % (42.0-72.0); Platelet Count* 327 K/uL (140-440); RDW Coefficient of Variation % 17.2 % (11.5-15.5); Red Blood Count 4.32 m/uL (4.00-5.20); White Blood Count* 6.68 K/uL (4.50-11.00)
[2023-07-06 14:39] LABS: Slide Review Reflex No
[2023-07-06 14:50] LABS: Albumin* 4.7 g/dL (3.3-5.0); Chloride* 102 mmol/L (96-114); Potassium* 4.5 mmol/L (3.6-5.1); Sodium* 137 mmol/L (135-149)
[2023-07-06 14:52] LABS: Anion Gap 8 mEq/L (7-15); Aspartate Amino Transferase* 28 U/L (12-35); Bilirubin Total* 0.3 mg/dL (0.1-1.5); Carbon Dioxide* 27 mmol/L (20-32); Creatinine* 0.6 mg/dL (0.5-1.5); Estimated Glomerular Filt Rate 116 ml/min
[2023-07-06 14:53] LABS: Alanine Aminotransferase* 44 U/L (4-35); Alkaline Phosphatase* 112 U/L (40-150); Blood Urea Nitrogen* 19 mg/dL (5-24); Calcium* 8.9 mg/dL (8.4-10.6); Glucose* 83 mg/dL (60-115)
[2023-07-07 11:02] LABS: HCG Quantitative* < 2.39 mIU/mL
[2023-07-07] MEDS: PERTUZUMAB 420 MG, TUBING SECONDARY 1 EACH in 0.9 % SODIUM CHLORIDE 250 ml 250 ML 528 MG IV (11:21)
== END 2023-07-12 23:59 | disposition home or self-care (01) ==
LOC: CCIC 10:30
PROVIDERS: Clinical Nurse Specialist; Internal Medicine Hematology & Oncology; PCP Family Medicine; Referring Provider Family Medicine; Visit Provider Physician Assistant
DX: Z51.11 Encounter for antineoplastic chemotherapy (principal); C50.912 Malignant neoplasm of unspecified site of left female breast; Z17.1 Estrogen receptor negative status [ER-]; Z90.12 Acquired absence of left breast and nipple; R79.89 Other specified abnormal findings of blood chemistry; L58.9 Radiodermatitis, unspecified; Z51.81 Encounter for therapeutic drug level monitoring; Z79.899 Other long term (current) drug therapy; Z87.410 Personal history of cervical dysplasia
CPT/HCPCS: 36415; 80053; 80076; 84702; 85025; 86705; 86803; 87340; 93306; 96376; 96413; 96415; 96417; 99202; 99205; 99211; 99212; 99215; T1013; J1100; J2405; J7050; J9171; J9306; J9355

== ENCOUNTER 2023-08-05 10:03 | Outpatient (CLI) | payer MEDICAID, SELFPAY ==
--- OUTSIDE RECORDS SUMMARY | 2023-08-05 10:05 | XMS_ITS | Clinical Summary ---
Author Name Unknown Organization [facility] Address [address] [place] [address] Care Team Providers Care Multi Operation Forming Machine Setter Name Role Phone Suman Sheets MD Primary Care Provider [phone]- [phone] Source Comments You are receiving this document as you are listed as the primary care provider,follow-up provider, or the patient has been referred to you for consultation.This is in compliance with the Medicare and[facility] E[facility]centive [facility],which states Providers who transition their patient to another setting of careor provider of care or refers their patient to another provider of care shouldprovide summary care record for each transition of care or referral. [facility] Allergies No known active allergies Medications Medication Sig Dispensed Refills Start Date End Date Status MV-Min-Fe Fum-FA-DHA (+DHA OR)Indications:Pt is taking two kinds of PNV. One has DHA. Indications: Pt is taking two kinds of PNV. One has DHA. 0 Active polyethylene glycol (MIRALAX) 17 g packetIndications:Cons tipation in in second trimester Take 1 Packet by mouth daily. 21 Each 2 01/07/2020 Active Active Problems Problem Noted Date Diagnosed Date Careplan: [facility] 03/12/2020 Overview: This patient is enrolled in the [facility] Program. The program provides patients with support, education, referrals and resources during their . Reason for enrollment: Pyschosocial Next Urine Drug Screen: N/A For more information, please contact Gemini Guillaume RN, [facility]nings Specialist, at [phone]. 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 - Rx is optional, good uncorrected [facility]. Rx dispensed at patient request. 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 Discussed that discomfort, fatigue, redness, increased tearing, a shaylee/gritty or burning sensation, and/or fluctuating vision are all symptoms of surface dryness. - Start artificial tear ointment QHS both eyes (refills provided) - Increase artificial tears to QID both eyes (refills provided) - Return if symptoms worsen or do not improve as anticipated. Pterygium of left eye 05/01/2015 Overview: Last Assessment & Plan: Non-inflamed early nasal pterygium of the left eye, not encroaching on visual axis. - Avoid irritants including dust, dirt, wind, allergens, and direct eye rubbing. - Limit sun exposure with hats and consistent sunglasses wear. - Excisional surgery not recommended at this time. - Continue artificial tears QID PRN for discomfort/irritation and to help prevent further growth. Cervical high risk HPV (human papillomavirus) te st positive 08/01/2014 Overview: 10/16/2010- LGSIL Pap 11/30/2010 - Normal Colpo (ECC and cervical biopsy) 10/22/2011 - Normal Pap 06/29/2012 - Normal Pap 07/24/2013 - Normal Pap 08/15/2014 - Ascus Pap with positive HPV 09/13/2014 - Colpo normal. 09/01/2015 - Pap smear normal with positive HPV. Recommend repeat Pap smear in one year with co-testing. Rubi Fernandes MD, 09/15/2015 7:36 PM 2019 NILM, HPV High Risk Other Than 16/18 38 y.o. Plan: [place] BRCA negative 12/21/2012 Overview: Patient had BRCA gene testing, sequencing and large rearrangement panel. No mutations were detected in either the BRCA1 or BRCA2 genes. H/O mastectomy 04/26/2012 Malignant neoplasm of right female breast 2011 Overview: Last Assessment & Plan: History of Stage IIA (T2, N0, cM0) Right breast Neuroendocrine cancer, ER/WA positive, HER-2 negative, diagnosed 12/2011. S/p right mastectomy, chemotherapy, radiation.??She started endocrine therapy with Tamoxifen 07/2012 with a plan to continue for at least 5 years. Stopped Tamoxifen in fall 2016 due to depressed mood and weight gain. ?? At least visit we discussed obtaining BCI testing to evaluate benefit of further endocrine therapy. Discussed tat this test is not validated in general, especially with her rare pathology. Given her young age and results of ATLAS would recommend extended course of endocrine therapy for a total of 10 years to reduce risks of recurrence and mortality (absolute risk reduction in mortality is about 2.8%). After extensive discussion given her side effects and desire to have children in the near future, we have decided not to continued further adjuvant endocrine therapy. I will see her back in a few months when she is due for mammogram. Otherwise doing well. She did meet with Dr. Youssef on 10/20/17 regarding nipple reconstruction and plan to proceed with this procedure. Screening for breast cancer 10/28/2010 Overview: 10/16/10 - XFA 194 - FLORI visit with sherita at [facility]. Pap -na. Mammo - diagnostic right- ACR 0 Enrollment form sent:10/28/10 [place] summary form sent:01/25/11 DX Mammo or US form sent: benign 01/25/11 [facility] F/U sent: Plan : under age 40 for lump on cbe. mammo due age 41 Immunizations Name Administration Dates Next Due DTaP 11/20/2002 Flu Vac (3+ yrs) 10/18/2011,10/16/2010 Flu Vac Preserv Free (3+yrs) 05/26/2015,08/15/19 15,05/21/2013 HepB, Unspecified Formulation 11/20/2002 Influenza (Fluzone 0.25, 6-35 mos) 05/21/2013 Influenza IIV4 (Quadrivalent) 0.5mL (70127) 03/19,05/26/2015,08/15/2014 Influenza, Unspecified Formulation 10/18/2011, MMR 11/20/2002 Positive Rubella Titer 11/14/2019 Td 11/20/2002 Tdap 04/15/2020,08/13/2013 Tetanus Toxoid, Absorbed 11/20/2002 Family History Medical History Relation Name Comments Hypertension Mother Diabetes, Type II Negative Family History Relation Name Status Comments Mother Social History Tobacco Use Types Packs/Day Years Used Date Smoking Tobacco: Former Cigarettes Q uit: 07/27/2004 Smokeless Tobacco: Never Alcohol Use Standard Drinks/Week Comments Not Currently 0 (1 standard drink = 0.6 oz pur e alcohol) hasn't for 12 years Sex and Gender Information Value Date Recorded Sex Assigned at Not on file Gender Identity Not on file Sexual Orientation Not on file Last Filed Vital Signs Vital Sign Reading Time Taken Comments Blood Pressure 118/73 04/15/2020 11:27 AM CDT Pulse 90 04/15/2020 11:27 AM CDT Temperature 36.3 ??C (97.3 ??F) 11/01/2018 3:00 PM CD T Respiratory Rate 20 11/01/2018 3:00 PM CDT Oxygen Saturation 96% 11/01/2018 3:00 PM CDT Inhaled Oxygen Concentration - - Weight 76.8 kg (169 lb 6.4 oz) 04/15/2020 11:27 AM CDT Height 163 cm (5' 4.17) 11/14/2019 9:56 AM CDT Body Mass Index 28.92 11/14/2019 9:56 AM CDT Plan of Treatment Health Maintenance Due Date Last Done Comments Hep C Screening (Preventive Services) 1981 COVID-19 Vaccine (#1) 06/15/1982 Adult Preventive Visit 12/14/1999 HepB (2) 12/18/2002 11/20/2002 Cervical Cancer Screening 11/13/2020 11/14/2019 Influenza (#1) 2023 04/15/2020, 11/0 03/2015, 05/26/2015, Additional history exists DTaP/Tdap/Td (4 - Tdap) 04/15/2030 04/15/20 20, 08/13/2013, 11/20/2002, Additional history exists Zoster/Shingles (1 of 2) 12/14/2031 HIV Screening (Preventive Services) Completed 11/14/2019 HPV Vaccine Aged Out No longer eligi ble based on patient's age to complete this topic HepA Aged Out No longer eligi ble based on patient's age to complete this topic Hib Aged Out No longer eligi ble based on patient's age to complete this topic IPV (Polio) Aged Out No longer eligi ble based on patient's age to complete this topic MCV4 Aged Out No longer eligi ble based on patient's age to complete this topic Pneumococcal Aged Out No longer eligi ble based on patient's age to complete this topic Medical Devices Implanted Type Area Sql Server Consultant Device Identifier Shelf Expiration Date Model / Serial / Lot Imp Mamm Full th St 520cc - [id number] Implanted:Qty: 1 on 11/01/2018 by Yana Li MD at [facility] DEVICE Right: BREAST [employer] 04/03/2022 [facility]-520 / [id number] / [id number] Care Teams Multi Operation Forming Machine Setter Relationship Specialty Start Date End Date Suman Sheets MD [address] [place] [address] PCP - General Internal Medicine 11/01/18
--- OUTSIDE RECORDS SUMMARY | 2023-08-05 10:05 | XMS_ITS | Encounter Summary ---
Author Name Unknown Organization [facility] Address [address] [address] Care Team Providers Care Sprinkler Truck Driver Name Role Phone Suman Sheets MD Primary Care Provider [phone] Encounter Details Date Type Department Care Team Description 07/27/2018 Scanned History External to Transferred Record, Provider [facility] Social History Tobacco Use Types Packs/Day Years Used Date Smoking Tobacco: Former Cigarettes Q uit: 07/27/2004 Smokeless Tobacco: Never Alcohol Use Standard Drinks/Week Comments Not Currently 0 (1 standard drink = 0.6 oz pur e alcohol) Sex and Gender Information Value Date Recorded Sex Assigned at Not on file Gender Identity Not on file Sexual Orientation Not on file documented as of this encounter Plan of Treatment Not on file documented as of this encounter Visit Diagnoses Not on filedocumented in this encounter Care Teams Sprinkler Truck Driver Relationship Specialty Start Date End Date Suman Sheets MD [address] [place] [address] [id number] PCP - General Internal Medicine 11/01/18 documented as of this encounter
--- OUTSIDE RECORDS SUMMARY | 2023-08-05 10:05 | XMS_ITS | Encounter Summary ---
Author Name Unknown Organization [facility] Address [address], [place] [address] Care Team Providers Care Auto Transmission Technician Name Role Phone Suman Sheets MD Primary Care Provider [phone]- [phone] Encounter Details Date Type Department Care Team Description 07/27/2018 [facility] [address] [facility] [address] [facility] [place], [place] [id number] Yana Li MD [address] [place] [address] CONSIGNMENT [employer]PANDERS Social History Tobacco Use Types Packs/Day Years [...] on filedocumented in this encounter Care Teams Auto Transmission Technician Relationship Specialty Start Date End Date Suman Sheets MD [address] [address] PCP - General Internal Medicine 11/01/18 documented as of this encounter
--- OUTSIDE RECORDS SUMMARY | 2023-08-05 10:05 | XMS_ITS | Encounter Summary ---
Author Name Unknown Organization [facility] Address [address], [place] [address] Care Team Providers Care Patternmaker Plaster Name Role Phone Suman Sheets MD Primary Care Provider Encounter Details Date Type Department Care Team Description 11/01/2018 Consent for Procedure/Treatment [facility] Department INFORMED CONSENT RECORD Social History Tobacco Use Types Packs/Day Years [...] on filedocumented in this encounter Care Teams Patternmaker Plaster Relationship Specialty Start Date End Date Suman Sheets MD [address] [address] PCP - General Internal Medicine 11/01/18 documented as of this encounter
--- OUTSIDE RECORDS SUMMARY | 2023-08-05 10:06 | XMS_ITS | Encounter Summary ---
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 [address] [place] [address] T Radiation Oncology at [place] [address] [place] [phone] Referral ID Status Reason Start Date Expiration Date V isits Requested Visits Authorized [id number] Authorized 05/16/2023 02/02/2024 30 30 Encounter Details Date Type Department Care Team (Latest Contact Info) Description 06/24/2023 12:19 PM ASSEMBLY RIVETER - 06/24/2023 1:59 PM [facility] Hospital Encounter Department of Radiation Oncology in [address] [phone] Roslyn Colorado M.D. [address] [facility] [place] [phone] Discharge Disposition: Home or Self Care Social History Tobacco Use Types Packs/Day Years Used Date Smoking Tobacco: Former Cigarettes Smokeless Tobacco: Never Comments:Minimal smoking his tory, quit approximately 15 years ago. Alcohol Use Standard Drinks/Week Comments Not Currently 0 (1 standard drink = 0.6 oz pur e alcohol) Nutrition Answer Date Recorded Nutrition: EVOO Fat Source Unknown 01/10 Nutrition: Servings of Fruits/Vegetables per Day Not on file 01/10/2023 Dental Answer Date Recorded Dental: Regular Dentist Unknown 01/11/20 23 Sex and Gender Information Value Date Recorded Sex Assigned at Not on file Gender Identity Not on file Sexual Orientation Not on file documented as of this encounter Medications at Time of Discharge Medication Sig Dispensed Refills Start Date End Date multivitamin capsule Take 1 capsule by mouth daily. 0 documented as of this encounter Plan of Treatment Not on file documented as of this encounter Visit Diagnoses Not on filedocumented in this encounter
--- OUTSIDE RECORDS SUMMARY | 2023-08-05 10:06 | XMS_ITS | Encounter Summary ---
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 [address] [place] [address] T Radiation Oncology at [place] [address] [place] [phone] Referral ID Status Reason Start Date Expiration Date V isits Requested Visits Authorized [id number] Authorized 05/16/2023 02/02/2024 30 30 Encounter Details Date Type Department Care Team (Latest Contact Info) Description 06/27/2023 12:16 PM HOTEL SERVICES SUPERVISOR - 06/27/2023 11:59 PM [facility] Hospital Encounter Department of Radiation Oncology in [address] [address] Roslyn Colorado M.D. [address] [place] [phone] Discharge Disposition: Home or Self Care Social [...]
--- OUTSIDE RECORDS SUMMARY | 2023-08-05 10:06 | XMS_ITS | Encounter Summary ---
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 [address] [place] [address] T Radiation Oncology at [place] [address] [place] [phone] Referral ID Status Reason Start Date Expiration Date V isits Requested Visits Authorized [id number] Authorized 05/16/2023 02/02/2024 30 30 Encounter Details Date Type Department Care Team (Latest Contact Info) Description 06/17/2023 12:17 PM GUN SYNCHRONIZER - 06/17/2023 11:59 PM [facility] Hospital Encounter Department of Radiation Oncology in [address] [phone] Roslyn Colorado M.D. [address] [place] [phone] Discharge Disposition: Home or Self Care Social [...]
--- OUTSIDE RECORDS SUMMARY | 2023-08-05 10:06 | XMS_ITS | Encounter Summary ---
Author Name Unknown Organization [facility] Address [address] [place] [address] Care Team Providers Care Skin Installer Name Role Phone Unavailable Primary Care Provider Unavailabl e Encounter Details Date Type Department Care Team (Late st Contact Info) Description 06/27/2023 Documentation Department of Radiation Oncology in [place], [place] [address] [place] [phone] Roslyn Colorado M.D. [address] [place] [phone] Social History Tobacco Use Types Packs/Day Years [...] on file documented as of this encounter Miscellaneous Notes * Radiation Completion Notes - Corinna Givens R.N. - 06/27/2023 11:59 PM CST DIAGNOSIS: 1. 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 Treatment Intent: Curative Concomitant Therapy: None Single Plan Treatment Course: 1xBreast Plan ID Fractions Dose / Fraction (cGy) Dose Treated (cGy) Dose Planned (cGy) First Treatment Last Treatment Elapsed Days [id number] 17 220 3740 3740 05/23/2023 06/15/2023 23 [id number] 220 1760 1760 06/16/2023 06/27/2023 11 Treatment Site Summary 5500 5500 05/23/2023 06/27/2023 35 Course Summary 05/23/2023 06/27/2023 35 Radiation Modality: Photons CLINICAL SUMMARY Miss Carmen Angel completed radiation treatment as planned without interruptions. The course of treatment was tolerated well and with anticipated side effects. The patient experienced toxicities of grade 2 radiation dermatitis and grade 1 fatigue during radiation treatment. TREATMENT RESPONSE: Response to treatment will be determined by post-treatment imaging and/or laboratory work. RECOMMENDED FOLLOW UP: Primary Medical Oncologist. Dr. Castle Signed by: Corinna Givens R.N., 07/28/2023 10:12 AM ACCREDITATION COORDINATOR [facility] [address] [place] [address] EDITATION COORDINATOR documented in this encounter Plan of Treatment Not on file documented as of this encounter Visit Diagnoses Diagnosis Malignant Neoplasm Of Breast Lower Inner Quadrant Female Left (HCC)- Primary documented in this encounter
--- OUTSIDE RECORDS SUMMARY | 2023-08-05 10:06 | XMS_ITS | Encounter Summary ---
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 [address] [place] [address] T Radiation Oncology at [place] [address] [place] [phone] Referral ID Status Reason Start Date Expiration Date V isits Requested Visits Authorized [id number] Authorized 05/16/2023 02/02/2024 30 30 Encounter Details Date Type Department Care Team (Latest Contact Info) Description 06/21/2023 12:13 PM PUBLIC RELATIONS SUPERVISOR - 06/21/2023 12:48 PM [facility] Encounter Department of Radiation Oncology in [place], [place] [address] [place] [phone] Roslyn Colorado M.D. [address] [place] [phone] Discharge Disposition: Home or Self Care Social [...]
--- OUTSIDE RECORDS SUMMARY | 2023-08-05 10:06 | XMS_ITS | Encounter Summary ---
Author Name Unknown Organization [facility] Address [address] [place] [address] Care Team Providers Care Cement Kiln Operator Name Role Phone Unavailable Primary Care Provider Unavailabl e Reason for Referral * Radiation Therapy (Routine) - Authorized Specialty Diagnoses / Procedures Referred By Collins trevino Referred To Contact Diagnoses Malignant Neoplasm Of Breast Lower Inner Quadrant Female Left (HCC) Procedures Management Visit Roslyn Colorado M.D. [address] [place] [address] [facility] Region Referral ID Status Reason Start Date Expiration Date V isits Requested Visits Authorized [id number] Authorized 02/02/2023 02/02/2024 10 10 CASTER APPRENTICE Reason for Visit * Radiation Therapy (Routine) - Authorized Specialty Diagnoses / Procedures Referred By Collins trevino Referred To Contact Diagnoses Malignant Neoplasm Of Breast Lower Inner Quadrant Female Left (HCC) Procedures Management Visit Roslyn Colorado M.D. [address] [place] [address] [facility] Region Referral ID Status Reason Start Date Expiration Date V isits Requested Visits Authorized [id number] Authorized 02/02/2023 02/02/2024 10 10 Encounter Details Date Type Department Care Team (Latest Contact Info) Description 06/23/2023 12:31 PM SAND CASTER APPRENTICE - 06/23/2023 4:15 PM SAND CASTER APPRENTICE Hospital Encounter Department of Radiation Oncology in [place], [place] [address] [place] [address] Roslyn Colorado M.D. [address] [place] [address] Malignant Neoplasm Of Breast Lower Inner Quadrant Female Left (HCC) Social History Tobacco Use Types Packs/Day Years [...] on file documented as of this encounter Last Filed Vital Signs Vital Sign Reading Time Taken Comments Blood Pressure - - Pulse - - Temperature - - Respiratory Rate - - Oxygen Saturation - - Inhaled Oxygen Concentration - - Weight 68 kg (149 lb 14.6 oz) 06/23/2023 1:13 PM SAND CASTER APPRENTICE Height - - Body Mass Index - - documented in this encounter Medications at Time of Discharge Medication Sig Dispensed Refills Start Date End Date multivitamin capsule Take 1 capsule by mouth daily. 0 documented as of this encounter Progress Notes * Roslyn Colorado M.D. - 06/23/2023 1:00 PM CST ATTESTATION FOR MANAGEMENT VISIT I saw and evaluated the patient and participated in the hutchins portions of the service as noted below.I reviewed the documentation of Ms. Lottie Lima RN and agree with the findings and plan. The patient appears well on exam. We will continue with radiation as planned and we anticipate that she willcomplete treatments this coming Tuesday. We anticipate that Miss Carmen Angel will complete radiation treatment as planned without interruptions. The course of treatment was tolerated well. The patient experienced toxicities of grade 2 radiation dermatitis and grade 1 fatigue during radiation treatment. Follow-up will be with Dr. Castle; we will see her again as needed. We discussed the anticipated recovery from treatment. She knows to call us if she has difficulties. Roslyn Colorado M.D., 06/23/2023 SUBJECTIVE REASON FOR VISIT Evaluation for side effects while receiving radiation treatment for 1. Malignant Neoplasm Of Breast Lower Inner Quadrant Female Left (HCC) SUPERVISED BY: Roslyn Colorado M.D. HISTORY OF PRESENT ILLNESS Miss Carmen Angel is a 42 y.o. female with invasive ductal carcinoma of the left breast who is now undergoing radiotherapy. Treatment Course: 1xBreast Plan ID Fractions Dose / Fraction (cGy) Dose Treated (cGy) Dose Planned (cGy) First Treatment Last Treatment Elapsed Days [id number] 220 [id number] 3740 05/23/2023 06/15/2023 [id number] 220 1320 1760 06/16/2023 06/23/2023 7 Treatment Site Summary [id number] 05/23/2023 06/23/2023 Course Summary 05/23/2023 06/23/2023 31 The patient was seen and examined today with Dr. Colorado. Akash, [employer] Exercise Scientist ([id number]) was used during this visit. The patient reports that she is now completing white vinegar soaks and Aquaphor 4 times a day. Xeroform dressing changes twice a day to mid left chest region. Patient reports intermittent mild sunburn pain to treatment field area. Patient denies any changes to her upper extremity range of motion orother side effects from radiation therapy. PATIENT REPORTED SYMPTOM SCREEN FATIGUE (Scale: 0 = no fatigue; 10 = worst fatigue you can imagine): PAIN (Scale: 0 = no pain; 10 = worst pain you can imagine): 2-3 OVERALL QUALITY OF LIFE (Scale: 0 = as bad as can be; 10 = as good as can be): OBJECTIVE Wt 68 kg PHYSICAL EXAM General: Alert and oriented in no apparent distress. Skin: Hyperpigmentation noted to left chest and left axilla. Dryness noted to left axilla and mid left chest. Small area of moist desquamation and mild erythema to mid left chest. ASSESSMENT / PLAN #1 Stage IA (pT1c, pN0 (i+)(sn), cM0, G3, ER-, MA-, HER2+) invasive ductal carcinoma of the left breast s/p left breast mastectomy and left axillary lymph node excision on December 28, 2022 #2 Neuroendocrine tumor of the right breast s/p right mastectomy and sentinel lymph node excision on February 11, 2012 followed by chemotherapy, radiation therapy to the right chest wall, and tamoxifen for 5 years as well as reconstruction in 2012 #3 Radiotherapy to left breast initiated on May 23, 2023; anticipated date of completion 06/27/2023 The patient is tolerating radiation treatment well overall. Patient will continue with her current skin care routine. Mepitel to axilla region was bothering patient therefore removed today. Patient will apply Aquaphor to treatment areas not covered in Mepitel 4 times a day. Skin changes should start to improve in 2-3 weeks. White vinegar soaks and Xeroform application to continue until skin no longer opened/peeling. Aquaphor use can stop when skin not dry and any areas of erythema have resolved. Dr. Castle will follow up with patient assisted. We will keep Radiation Oncology follow up to an asneeded basis only. I provided patient with our phone contact card today. Our desk staff will contact Dr. Castle's office to ask that follow up appointment be scheduled and patient contacted. She will continue with radiation treatment as planned. She can contact our care team with any questions or concerns. Toxicities reviewed with Dr. Colorado today. Signed by: Lottie Lima R.N. 06/23/2023 1:30 PM SAND CASTER APPRENTICE CASTER APPRENTICE documented in this encounter Plan of Treatment Scheduled Orders Name Type Priority Associated Diagnoses Orde r Schedule Management Visit Radiation Oncology Routine Malignant Neoplasm Of Breast Lower Inner Quadrant Female Left (HCC) Once for 1 Occurrences starting 06/23/2023 until 06/23/2023 documented as of this encounter Visit Diagnoses Diagnosis Malignant Neoplasm Of Breast Lower Inner Quadrant Female Left (HCC) documented in this encounter
--- OUTSIDE RECORDS SUMMARY | 2023-08-05 10:06 | XMS_ITS | Encounter Summary ---
Author Name Unknown Organization [facility] Address [address] [place] [address] Care Team Providers Care Manager Compliance Name Role Phone Unavailable Primary Care Provider Unavailabl e Reason for Referral * Outpatient (Routine) - Authorized Specialty Diagnoses / Procedures Referred By Collins trevino Referred To Contact Radiation Oncology Diagnoses Malignant Neoplasm Of Breast Lower Inner Quadrant Female Left (HCC) Roslyn Colorado M.D. [address] [place] [address] [facility] Region Referral ID Status Reason Start Date Expiration Date V isits Requested Visits Authorized [id number] Authorized 06/13/2023 06/12/2026 10 10 WARE TECHNICIAN Reason for Visit * Outpatient (Routine) - Authorized Specialty Diagnoses / Procedures Referred By Collins trevino Referred To Contact Radiation Oncology Diagnoses Malignant Neoplasm Of Breast Lower Inner Quadrant Female Left (HCC) Roslyn Colorado M.D. [address] [place] [address] [facility] Region Referral ID Status Reason Start Date Expiration Date V isits Requested Visits Authorized [id number] Authorized 06/13/2023 06/12/2026 10 10 Encounter Details Date Type Department Care Team (Latest Contact Info) Description 06/21/2023 12:49 PM HARDWARE TECHNICIAN - 06/21/2023 2:59 PM HARDWARE TECHNICIAN Hospital Encounter Department of Radiation Oncology in [place], [place] [address] [place] [phone] Roslyn Colorado M.D. [address] [place] [address] Corinna Givens R.N. [address] [place] [address] Malignant Neoplasm Of Breast Lower Inner Quadrant [...] Date Recorded Dental: Regular Dentist Unknown 01/11/20 Sex and Gender Information Value Date Recorded Sex Assigned at Not on file Gender Identity Not on file Sexual Orientation Not on file documented as of this encounter Medications at Time of Discharge Medication Sig Dispensed Refills Start Date End Date multivitamin capsule Take 1 capsule by mouth daily. 0 documented as of this encounter Progress Notes * Lottie Lima RJaimee. - 06/21/2023 1:00 PM CST SUBJECTIVE REASON FOR VISIT Evaluation for side effects while receiving radiation treatment Nurse visit HISTORY OF PRESENT ILLNESS Miss Carmen Angel is a 42 y.o. female with invasive ductal carcinoma of the left breast who is now undergoing radiotherapy. Treatment Course: 1xBreast Plan ID Fractions Dose / Fraction (cGy) Dose Treated (cGy) Dose Planned (cGy) First Treatment Last Treatment Elapsed Days [id number] 220 3740 3740 05/23/2023 06/15/2023 23 [id number] 320 312 8500 06/16/2023 06/21/2023 5 Treatment Site Summary [id number] 05/23/2023 06/21/2023 29 Course Summary 05/23/2023 06/21/2023 29 Patient declined interpreting services today. Patient requested nurse visit today due to development of skin changes with in the treatment field area. Patient notices slight discomfort to the treatment field area. Patient asking if these symptoms are expected. Patient denies fevers or chills. OBJECTIVE There were no vitals taken for this visit. PHYSICAL EXAM General: Alert and oriented in no apparent distress. Skin: Area of moist desquamation with yellow tinged exudate noted to mid right side of left chest region. ASSESSMENT / PLAN I removed Mepitel that was covering area of moist skin desquamation. I had patient complete white vinegar soak to area of desquamation; air dry; then Aquaphor; then Xeroform covering and Pro Net to secure. Patient stated a full understanding on recommendations for white vinegar soaks 2-4 times a day depending her schedule; air dry; Aquaphor 3-4 times a day and Xeroform 2 times a day. I provided patient with samples of skin care products today. Patient states that she has white vinegar at home. We will reassess at management visit this week. She will continue with radiation treatment as planned. She can contact our care team with any questions or concerns. Signed by: Lottie Lima R.N. 06/21/2023 2:11 PM HARDWARE TECHNICIAN WARE TECHNICIAN documented in this encounter Plan of Treatment Scheduled Referrals Name Type Priority Associated Diagnoses Order Schedule Radiation Oncology nurse visit (clinic) Outpatient Referral Routine Malignant Neoplasm Of Breast Lower Inner Quadrant Female Left (HCC) Once for 1 Occurrences starting 06/21/2023 until 06/21/2023 documented as of this encounter Visit Diagnoses Diagnosis Malignant Neoplasm Of Breast Lower Inner Quadrant Female Left (HCC) documented in this encounter
--- OUTSIDE RECORDS SUMMARY | 2023-08-05 10:06 | XMS_ITS | Encounter Summary ---
Author Name Unknown Organization [facility] Address [address] [place] [address] Care Team Providers Care Supervisor Pairing And Inspecting Name Role Phone Unavailable Primary Care Provider Unavailabl e Reason for Referral * Radiation Therapy (Routine) - Authorized Specialty Diagnoses / Procedures Referred By Collins trevino Referred To Contact Diagnoses Malignant Neoplasm Of Breast Lower Inner Quadrant Female Left (HCC) Procedures Management Visit Roslyn Colorado M.D. [address] [place] [address] [facility] Region Referral ID Status Reason Start Date Expiration Date V isits Requested Visits Authorized [id number] Authorized 02/02/2023 02/02/2024 10 10 IFIED SOCIAL WORKERS IN HEALTH CARE Reason for Visit * Radiation Therapy (Routine) - Authorized Specialty Diagnoses / Procedures Referred By Collins trevino Referred To Contact Diagnoses Malignant Neoplasm Of Breast Lower Inner Quadrant Female Left (HCC) Procedures Management Visit Roslyn Colorado M.D. [address] [place] [address] [facility] Region Referral ID Status Reason Start Date Expiration Date V isits Requested Visits Authorized [id number] Authorized 02/02/2023 02/02/2024 10 10 Encounter Details Date Type Department Care Team (Latest Contact Info) Description 06/16/2023 12:20 PM CERTIFIED SOCIAL WORKERS IN HEALTH CARE - 06/16/2023 5:18 PM CERTIFIED SOCIAL WORKERS IN HEALTH CARE Hospital Encounter Department of Radiation Oncology in [place], [place] [address] [place] [address] Roslyn Colorado M.D. [address] [place] [address] Malignant Neoplasm Of Breast Lower Inner Quadrant [...] Pressure - - Pulse - - Temperature 36.4 ??C (97.6 ??F) 06/16/2023 12:[address] Respiratory Rate - - Oxygen Saturation - - Inhaled Oxygen Concentration - - Weight - - Height - - Body Mass Index - - documented in this encounter Medications at Time of Discharge Medication Sig Dispensed Refills Start Date End Date multivitamin capsule Take 1 capsule by mouth daily. 0 documented as of this encounter Progress Notes * Roslyn Colorado M.D. - 06/16/2023 1:00 PM CST ATTESTATION FOR MANAGEMENT VISIT I saw and evaluated the patient and participated in the hutchins portions of the service as noted below.I reviewed the documentation of Ms. Corinna Givens RN and agree with the findings and plan. Thepatient appears well on exam. We will continue with radiation as planned and monitor weekly. Roslyn Colorado M.D., 06/16/2023 SUBJECTIVE REASON FOR VISIT Evaluation for side [...] (cGy) First Treatment Last Treatment Elapsed Days [id number] 220 3740 3740 05/23/2023 06/15/2023 23 [id number] 201 312 4535 06/16/2023 06/16/2023 0 Treatment Site Summary [id number] 05/23/2023 06/16/2023 24 Course Summary 05/23/2023 06/16/2023 24 The patient was seen and examined today with Dr. Colorado. Ipad Home Designer was used during this visit. The patient reports to be feeling well overall. She reports mild upper back pain. She took Ibuprofen and reported that it was helpful. She reports numbness and pin/needles sensation along her scar line that this more noticeable this week. She denies any fatigue, skin concerns or chest discomfort. Mepitel is intact. PATIENT REPORTED SYMPTOM SCREEN FATIGUE (Scale: 0 = no fatigue; 10 = worst fatigue you can imagine): 0 PAIN (Scale: 0 = no pain; 10 = worst pain you can imagine): 2-3 OVERALL QUALITY OF LIFE (Scale: 0 = as bad as can be; 10 = as good as can be): 9 OBJECTIVE Temp 36.4 ??C (Temporal) PHYSICAL EXAM General: Alert and oriented in no apparent distress. Skin: No erythema or hyperpigmentation noted. Mepitel intact ASSESSMENT / PLAN #1 Stage IA (pT1c, pN0 (i+)(sn), cM0, G3, ER-, AR-, HER2+) invasive ductal carcinoma of the left breast s/p left breast mastectomy and left axillary lymph node excision on December 28, 2022 #2 Neuroendocrine tumor of the right breast s/p right mastectomy and sentinel lymph node excision on February 11, 2012 followed by chemotherapy, radiation therapy to the right chest wall, and tamoxifen for 5 years as well as reconstruction in 2013 #3 Radiotherapy to left breast initiated on May 23, 2023; anticipated date of completion 06/27/2023 The patient is tolerating radiation treatment well overall. Mepitel was patched during visit. She will continue with radiation treatment as planned. She can contact our care team with any questions or concerns. Signed by: Corinna Givens R.N. 06/16/2023 4:03 PM CERTIFIED SOCIAL WORKERS IN HEALTH CARE IFIED SOCIAL WORKERS IN HEALTH CARE documented in this encounter Plan of Treatment Scheduled Orders Name Type Priority Associated Diagnoses Orde r Schedule Management Visit Radiation Oncology Routine Malignant Neoplasm Of Breast Lower Inner Quadrant Female Left (HCC) Once for 1 Occurrences starting 06/16/2023 until 06/16/2023 documented as of this encounter Visit Diagnoses Diagnosis Malignant Neoplasm Of Breast Lower Inner Quadrant Female Left (HCC) documented in this encounter
--- OUTSIDE RECORDS SUMMARY | 2023-08-05 10:06 | XMS_ITS | Encounter Summary ---
Author Name Unknown Organization [facility] Address [address] [place] [address] Care Team Providers Care Supervisor Detasseling Crew Name Role Phone Unavailable Primary Care Provider Unavailabl e Reason for Referral * Outpatient (Routine) - Closed Specialty Diagnoses / Procedures Referred By Collins trevino Referred To Contact Social Work Diagnoses Malignant Neoplasm Of Breast Lower Inner Quadrant Female Left (HCC) Lizbet Babb P.A.-C., M.S. [address] [place] [address] [facility] Region Referral ID Status Reason Start Date Expiration Date Visits Re quested Visits Authorized [id number] Closed 05/12/2023 05/11/2024 1 1 UTER LAB PARA PROFESSIONAL Reason for Visit * Outpatient (Routine) - Closed Specialty Diagnoses / Procedures Referred By Collins trevino Referred To Contact Social Work Diagnoses Malignant Neoplasm Of Breast Lower Inner Quadrant Female Left (HCC) Lizbet Babb P.A.-C., M.S. [address] [place] [address] [facility] Region Referral ID Status Reason Start Date Expiration Date Visits Re quested Visits Authorized [id number] Closed 05/12/2023 05/11/2024 1 1 Encounter Details Date Type Department Care Team (Latest Contact Info) Description 06/24/2023 2:00 PM COMPUTER LAB PARA PROFESSIONAL - 06/24/2023 11:59 PM COMPUTER LAB PARA PROFESSIONAL Hospital Encounter Department of Radiation Oncology in [place], [place] [address] [place] [address] Lizbet Babb P.A.-C., M.S. [address] [place] [address] Malignant Neoplasm Of Breast Lower Inner Quadrant Female Left (HCC) Discharge Disposition: Home or Self Care Social [...] as of this encounter Plan of Treatment Scheduled Referrals Name Type Priority Associated Diagnoses Order Schedule Social Work - General consult (clinic) Outpatient Referral Routine Malignant Neoplasm Of Breast Lower Inner Quadrant Female Left (HCC) Once for 1 Occurrences starting 06/24/2023 until 06/24/2023 documented as of this encounter Visit Diagnoses Diagnosis Malignant Neoplasm Of Breast Lower Inner Quadrant Female Left (HCC) documented in this encounter
--- OUTSIDE RECORDS SUMMARY | 2023-08-05 10:06 | XMS_ITS | Referral Summary ---
Author Name Unknown Organization [facility] Address [address] [place] [address] Care Team Providers Care Treasury Analyst Name Role Phone Unavailable Primary Care Provider Unavailabl e Source Comments Patient records contain information from all sites at [facility]. For routine questions regarding patient records, call [phone] during business hours, M-F 8:00 AM - 5:00 PM Central Time. Record requests for emergency care only can be directed to [phone] at any time.[facility] Encounters Date Type Department Care Team Description 06/27/2023 Documentation Department of Radiation Oncology in [address] [phone] Roslyn Colorado M.D. 06/27/2023 12:16 PM SUPERVISOR PYROTECHNIC LOADING - 06/27/2023 11:59 PM SUPERVISOR PYROTECHNIC LOADING Hospital Encounter Department of Radiation Oncology in [address] [address] Roslyn Colorado M.D. Discharge Disposition: Home or Self Care 06/24/2023 2:00 PM SUPERVISOR PYROTECHNIC LOADING - 06/24/2023 11:59 PM SUPERVISOR PYROTECHNIC LOADING Hospital Encounter Department of Radiation Oncology in [address] [phone] Lizbet Babb P.A.-C., M.S. 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 Discharge Disposition: Home or Self Care 06/23/2023 12:31 PM SUPERVISOR PYROTECHNIC LOADING - 06/23/2023 4:15 PM SUPERVISOR PYROTECHNIC LOADING Hospital Encounter Department of Radiation Oncology in [address] [address] Roslyn Colorado M.D. 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 Discharge Disposition: Home or Self Care 06/22/2023 12:14 PM SUPERVISOR PYROTECHNIC LOADING - 06/22/2023 11:59 PM SUPERVISOR PYROTECHNIC LOADING Hospital Encounter Department of Radiation Oncology in [address] [address] Roslyn Colorado M.D. Discharge Disposition: Home or Self Care 06/21/2023 12:49 PM SUPERVISOR PYROTECHNIC LOADING - 06/21/2023 2:59 PM SUPERVISOR PYROTECHNIC LOADING Hospital Encounter Department of Radiation Oncology in [address] [phone] Roslyn Colorado M.D. Retterath, Chelsey A, R.N. 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 Discharge Disposition: Home or Self Care 06/20/2023 12:14 PM SUPERVISOR PYROTECHNIC LOADING - 06/20/2023 11:59 PM SUPERVISOR PYROTECHNIC LOADING Hospital Encounter Department of Radiation Oncology in [address] [address] Roslyn Colorado M.D. Discharge Disposition: Home or Self Care 06/17/2023 12:17 PM SUPERVISOR PYROTECHNIC LOADING - 06/17/2023 11:59 PM SUPERVISOR PYROTECHNIC LOADING Hospital Encounter Department of Radiation Oncology in [address] [address] Roslyn Colorado M.D. Discharge Disposition: Home or Self Care 06/16/2023 12:20 PM SUPERVISOR PYROTECHNIC LOADING - 06/16/2023 5:18 PM SUPERVISOR PYROTECHNIC LOADING Hospital Encounter Department of Radiation Oncology in [address] [address] Roslyn Colorado M.D. 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 Discharge Disposition: Home or Self Care 06/15/2023 12:17 PM SUPERVISOR PYROTECHNIC LOADING - 06/15/2023 11:59 PM SUPERVISOR PYROTECHNIC LOADING Hospital Encounter Department of Radiation Oncology in [address] [address] Roslyn Colorado M.D. Discharge Disposition: Home or Self Care 06/14/2023 12:16 PM SUPERVISOR PYROTECHNIC LOADING - 06/14/2023 11:59 PM SUPERVISOR PYROTECHNIC LOADING Hospital Encounter Department of Radiation Oncology in [address] [address] Roslyn Colorado M.D. Discharge Disposition: Home or Self Care 06/13/2023 12:54 PM SUPERVISOR PYROTECHNIC LOADING - 06/13/2023 11:59 PM SUPERVISOR PYROTECHNIC LOADING Hospital Encounter Department of Radiation Oncology in [address] [address] Roslyn Colorado M.D. 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 Discharge Disposition: Home or Self Care 06/10/2023 12:17 PM SUPERVISOR PYROTECHNIC LOADING - 06/10/2023 11:59 PM SUPERVISOR PYROTECHNIC LOADING Hospital Encounter Department of Radiation Oncology in [address] [address] Roslyn Colorado M.D. Discharge Disposition: Home or Self Care 06/08/2023 10:45 AM SUPERVISOR PYROTECHNIC LOADING - 06/08/2023 11:59 PM SUPERVISOR PYROTECHNIC LOADING Hospital Encounter Department of Radiation Oncology in [address] [address] Roslyn Colorado M.D. Discharge Disposition: Home or Self Care 06/07/2023 12:23 PM SUPERVISOR PYROTECHNIC LOADING - 06/07/2023 5:13 PM SUPERVISOR PYROTECHNIC LOADING Hospital Encounter Department of Radiation Oncology in [address] [address] Roslyn Colorado M.D. 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 Discharge Disposition: Home or Self Care 06/06/2023 12:12 PM SUPERVISOR PYROTECHNIC LOADING - 06/06/2023 11:59 PM SUPERVISOR PYROTECHNIC LOADING Hospital Encounter Department of Radiation Oncology in [address] [address] Roslyn Colorado M.D. Discharge Disposition: Home or Self Care 06/02/2023 12:15 PM SUPERVISOR PYROTECHNIC LOADING - 06/04/2023 6:45 AM SUPERVISOR PYROTECHNIC LOADING Hospital Encounter Department of Radiation Oncology in [address] [address] Roslyn Colorado M.D. 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 Discharge Disposition: Home or Self Care 06/02/2023 12:30 PM SUPERVISOR PYROTECHNIC LOADING - 06/02/2023 11:59 PM SUPERVISOR PYROTECHNIC LOADING Hospital Encounter Department of Radiation Oncology in [address] [phone] Roslyn Colorado M.D. Discharge Disposition: Home or Self Care 06/01/2023 11:21 AM SUPERVISOR PYROTECHNIC LOADING - 06/01/2023 11:59 PM SUPERVISOR PYROTECHNIC LOADING Hospital Encounter Department of Radiation Oncology in [address] [address] Roslyn Colorado M.D. Discharge Disposition: Home or Self Care 05/31/2023 12:16 PM SUPERVISOR PYROTECHNIC LOADING - 05/31/2023 11:59 PM SUPERVISOR PYROTECHNIC LOADING Hospital Encounter Department of Radiation Oncology in [address] [address] Roslyn Colorado M.D. Discharge Disposition: Home or Self Care 05/30/2023 12:17 PM SUPERVISOR PYROTECHNIC LOADING - 05/30/2023 11:59 PM SUPERVISOR PYROTECHNIC LOADING Hospital Encounter Department of Radiation Oncology in [address] [address] Roslyn Colorado M.D. Discharge Disposition: Home or Self Care 05/27/2023 12:16 PM SUPERVISOR PYROTECHNIC LOADING - 05/27/2023 1:30 PM SUPERVISOR PYROTECHNIC LOADING Hospital Encounter Department of Radiation Oncology in [address] [address] Roslyn Colorado M.D. 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 Discharge Disposition: Home or Self Care 05/26/2023 12:15 PM SUPERVISOR PYROTECHNIC LOADING - 05/26/2023 12:29 PM SUPERVISOR PYROTECHNIC LOADING Hospital Encounter Department of Radiation Oncology in [address] [address] Roslyn Colorado M.D. 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 Discharge Disposition: Home or Self Care 05/25/2023 12:18 PM SUPERVISOR PYROTECHNIC LOADING - 05/25/2023 11:59 PM SUPERVISOR PYROTECHNIC LOADING Hospital Encounter Department of Radiation Oncology in [address] [phone] Roslyn Colorado M.D. Discharge Disposition: Home or Self Care 05/24/2023 10:46 AM SUPERVISOR PYROTECHNIC LOADING - 05/24/2023 11:59 PM SUPERVISOR PYROTECHNIC LOADING Hospital Encounter Department of Radiation Oncology in [address] [address] Roslyn Colorado M.D. Discharge Disposition: Home or Self Care 05/23/2023 12:50 PM SUPERVISOR PYROTECHNIC LOADING - 05/23/2023 3:19 PM SUPERVISOR PYROTECHNIC LOADING Hospital Encounter Department of Radiation Oncology in [address] [address] Roslyn Colorado M.D. 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 Discharge Disposition: Home or Self Care 05/11/2023 10:30 AM CDT - 05/11/2023 12:30 PM CDT Hospital Encounter Department of Radiation Oncology in [address] [address] Roslyn Colorado M.D. 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 0 Active Active Problems Problem Noted Date Diagnosed Date Other Malignant Neuroendocrine Tumors 01/28/2023 Malignant Neoplasm Of Breast Lower Inner Quadrant Female Left 03/03/2012 Cancer Staging:Pathologic stage from 12/28/2022:Stage IA(pT1c, pN0(i+)(sn), cM0, G3, ER-, WA-, HER2+) - Unsigned Overview: Last Assessment & Plan: History of Stage IIA (T2, N0, cM0) Right breast Neuroendocrine cancer, ER/WA positive, HER-2 negative, diagnosed 12/2011. S/p right mastectomy, chemotherapy, radiation. She started endocrine therapy with Tamoxifen 07/2012 with a plan to continue for at least 5 years. Stopped Tamoxifen in fall 2016 due to depressed mood and weight gain. At least visit we discussed obtaining BCI [...] and plan to proceed with this procedure. Social History Tobacco Use Types Packs/Day Years [...] Sign Reading Time Taken Comments Blood Pressure 108/73 06/02/2023 12:23 PM SUPERVISOR PYROTECHNIC LOADING Pulse 88 06/02/2023 12:23 PM SUPERVISOR PYROTECHNIC LOADING Temperature 36.4 ??C (97.6 ??F) 06/16/2023 12:[address] Respiratory Rate - - Oxygen Saturation - - Inhaled Oxygen Concentration - - Weight 68 kg (149 lb 14.6 oz) 06/23/2023 1:13 PM SUPERVISOR PYROTECHNIC LOADING Height - - Body Mass Index - - Plan of Treatment Not on file Procedures Procedure Name Priority Date/Time Associated Diagnosis Comments ARIA COURSE COMPLETE TREATMENT INFORMATION Routine 06/27/2023 12:40 PM SUPERVISOR PYROTECHNIC LOADING ARIA DAILY TREATMENT INFORMATION Routine 06/27/2023 12:40 PM SUPERVISOR PYROTECHNIC LOADING ARIA DAILY TREATMENT INFORMATION Routine 06/24/2023 12:36 PM SUPERVISOR PYROTECHNIC LOADING ARIA DAILY TREATMENT INFORMATION Routine 06/23/2023 12:36 PM SUPERVISOR PYROTECHNIC LOADING ARIA DAILY TREATMENT INFORMATION Routine 06/22/2023 12:53 PM SUPERVISOR PYROTECHNIC LOADING ARIA DAILY TREATMENT INFORMATION Routine 06/21/2023 12:43 PM SUPERVISOR PYROTECHNIC LOADING ARIA DAILY TREATMENT INFORMATION Routine 06/20/2023 12:47 PM SUPERVISOR PYROTECHNIC LOADING ARIA DAILY TREATMENT INFORMATION Routine 06/17/2023 12:32 PM SUPERVISOR PYROTECHNIC LOADING ARIA DAILY TREATMENT INFORMATION Routine 06/16/2023 12:49 PM SUPERVISOR PYROTECHNIC LOADING ARIA DAILY TREATMENT INFORMATION Routine 06/15/2023 12:42 PM SUPERVISOR PYROTECHNIC LOADING ARIA DAILY TREATMENT INFORMATION Routine 06/14/2023 12:45 PM SUPERVISOR PYROTECHNIC LOADING ARIA DAILY TREATMENT INFORMATION Routine 06/13/2023 12:53 PM SUPERVISOR PYROTECHNIC LOADING ARIA DAILY TREATMENT INFORMATION Routine 06/10/2023 1:15 PM SUPERVISOR PYROTECHNIC LOADING ARIA DAILY TREATMENT INFORMATION Routine 06/08/2023 11:28 AM SUPERVISOR PYROTECHNIC LOADING ARIA DAILY TREATMENT INFORMATION Routine 06/07/2023 12:42 PM SUPERVISOR PYROTECHNIC LOADING ARIA DAILY TREATMENT INFORMATION Routine 06/06/2023 12:50 PM SUPERVISOR PYROTECHNIC LOADING ARIA DAILY TREATMENT INFORMATION Routine 06/03/2023 12:32 PM SUPERVISOR PYROTECHNIC LOADING ARIA DAILY TREATMENT INFORMATION Routine 06/02/2023 1:05 PM SUPERVISOR PYROTECHNIC LOADING ARIA DAILY TREATMENT INFORMATION Routine 06/01/2023 11:44 AM SUPERVISOR PYROTECHNIC LOADING ARIA DAILY TREATMENT INFORMATION Routine 05/31/2023 12:49 PM SUPERVISOR PYROTECHNIC LOADING ARIA DAILY TREATMENT INFORMATION Routine 05/30/2023 12:46 PM SUPERVISOR PYROTECHNIC LOADING ARIA DAILY TREATMENT INFORMATION Routine 05/27/2023 12:47 PM SUPERVISOR PYROTECHNIC LOADING ARIA DAILY TREATMENT INFORMATION Routine 05/26/2023 1:37 PM SUPERVISOR PYROTECHNIC LOADING ARIA DAILY TREATMENT INFORMATION Routine 05/25/2023 12:52 PM SUPERVISOR PYROTECHNIC LOADING ARIA DAILY TREATMENT INFORMATION Routine 05/24/2023 11:15 AM SUPERVISOR PYROTECHNIC LOADING ARIA DAILY TREATMENT INFORMATION Routine 05/23/2023 1:46 PM SUPERVISOR PYROTECHNIC LOADING ARIA COURSE COMPLETE TREATMENT INFORMATION Routine 05/20/2023 4:30 PM CDT ARIA COURSE COMPLETE TREATMENT INFORMATION Routine 05/20/2023 4:30 PM CDT INITIAL RAD ONC TREATMENT PLANNING CT SIMULATION Routine 05/11/2023 10:30 AM CDT 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 Pathologist [facility] [place] Course ID 1xBreast KELLOGG ARIA Course Start Date 3 09:27 SUPERVISOR PYROTECHNIC LOADING KELLOGG ARIA Course End Date 4 09:43 SUPERVISOR PYROTECHNIC LOADING KELLOGG ARIA First Treatment Date 3 13:41 SUPERVISOR PYROTECHNIC LOADING KELLOGG ARIA Last Treatment Date 3 12:40 SUPERVISOR PYROTECHNIC LOADING KELLOGG ARIA Treatment Elapsed Days 35 KELLOGG ARIA Reference Point [id number] KELLOGG ARIA Dosage Given to Date cGy 5500 KELLOGG ARIA Plan ID [id number] KELLOGG ARIA Fractions Treated to Date 8 KELLOGG ARIA Planned Total Fractions 8 KELLOGG ARIA Prescribed Dose Per Fraction 220 KELLOGG ARIA Prescription Dose in cGy 1760 KELLOGG ARIA Plan Primary Reference Point [id number] KELLOGG ARIA Plan ID [id number] KELLOGG ARIA Fractions Treated to Date 17 KELLOGG ARIA Planned Total Fractions 17 KELLOGG ARIA Prescribed Dose Per Fraction 220 KELLOGG ARIA Prescription Dose in cGy 3740 KELLOGG ARIA Plan Primary Reference Point [id number] KELLOGG ARIA 06/27/2023 12:4 0 PM SUPERVISOR PYROTECHNIC LOADING Provider Not In System RADIATION ONCOLOG Y ORDERABLES BESS RUIZ na * Aria Daily Treatment Information (06/27/2023 12:40 PM SUPERVISOR PYROTECHNIC LOADING) Only the most recent of25 resultswithin the time period is included. Course ID 1xBreast KELLOGG ARIA Course Start Date 3 09:27 SUPERVISOR PYROTECHNIC LOADING KELLOGG ARIA First Treatment Date 3 13:41 SUPERVISOR PYROTECHNIC LOADING KELLOGG ARIA Last Treatment Date 3 12:40 SUPERVISOR PYROTECHNIC LOADING KELLOGG ARIA Treatment Elapsed Days 35 KELLOGG ARIA Reference Point [id number] KELLOGG ARIA Dosage Given to Date cGy 5500 KELLOGG ARIA Session Dosage Given 220 KELLOGG ARIA Plan ID [id number] L KELLOGG ARIA Fractions Treated to Date 8 KELLOGG ARIA Planned Total Fractions 8 KELLOGG ARIA Prescribed Dose Per Fraction 220 KELLOGG ARIA Prescription Dose in cGy 1760 KELLOGG ARIA Plan Primary Reference Point [id number] KELLOGG ARIA 06/27/2023 12:4 0 PM SUPERVISOR PYROTECHNIC LOADING Provider Not In System RADIATION ONCOLOG Y ORDERABLES Performing Organization Address City/[facility] Co de Phone Number BESS RUIZ na * Initial Rad Onc Treatment Planning CT Simulation (05/11/2023 10:30 AM CDT) Narrative KELLOGG JIMA - 05/11/2023 10:30 AM CDT Marcella Whaley, RTT ? 05/11/2023 11:37 AM Initial Rad Onc Treatment Planning CT Simulation Performed by: Roslyn Colorado M.D. Authorized by: Roslyn Colorado M.D. ?? Roslyn Colorado M.D. RADIATION ONCOLOG Y ORDERABLES BESS RUIZ na from Last 3 Months
--- OUTSIDE RECORDS SUMMARY | 2023-08-05 10:06 | XMS_ITS ---
Author Name Unknown Organization [facility] Address [address] [place] [address] Care Team Providers Care Appeals Coordinator Name Role Phone Unavailable Primary Care Provider Unavailabl e Active Problems Problem Noted Date Diagnosed Date Other Malignant Neuroendocrine Tumors 01/28/2023 Malignant Neoplasm Of Breast Lower Inner Quadrant Female Left 03/03/2012 Cancer Staging:Pathologic stage from 12/28/2022:Stage IA(pT1c, pN0(i+)(sn), cM0, G3, ER-, [place]-, HER2+) - Unsigned Overview: Last Assessment & Plan: History of Stage IIA (T2, N0, cM0) Right breast Neuroendocrine cancer, ER/IL positive, HER-2 negative, diagnosed 12/2011. S/p right [...] and plan to proceed with this procedure. Current Oncology Plans No current plan information found. Past Plans No past plan information found. Radiation Treatments * Plan Last Treated On Elapsed Days Fractions Treated Prescribed Fraction Dose Prescribed Total Dose [id number] 06/27/2023 35 8 of 8 220 cGy 1,760 cG y [id number] 06/15/2023 23 17 of 17 220 cGy 3,740 cGy Reference Point Last Treated On Elapsed Days Session Dose Total Dose [id number] 06/27/2023 35 220 cGy 5,500 cGy
--- OUTSIDE RECORDS SUMMARY | 2023-08-05 10:06 | XMS_ITS | Encounter Summary ---
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 [address] [place] [address] [facility] [place] [address] [place] [phone] Referral ID Status Reason Start Date Expiration Date V isits Requested Visits Authorized [id number] Authorized 05/16/2023 02/02/2024 30 30 Encounter Details Date Type Department Care Team (Latest Contact Info) Description 06/23/2023 12:19 PM LEAD ELECTRICAL ENGINEER - 06/23/2023 12:30 PM [facility] Hospital Encounter Department of Radiation Oncology in [place], [place] [address] [place] [phone] Roslyn Colorado M.D. [address] [place] [phone] Discharge Disposition: Home or Self Care Social [...]
--- OUTSIDE RECORDS SUMMARY | 2023-08-05 10:06 | XMS_ITS | Clinical Summary ---
Author Name Unknown Organization [employer] [facility] Address [place], [place] [address] Care Team Providers Care Teacher Dramatics Name Role Phone Pcp, No Primary Care Provider Unavailabl e Encounters Date Type Department Care Team Description 05/12/2023 3:00 PM CDT Orders Only [facility] [address] [place] [address] 2 scans: (2-Ord) ECHO TTE COMPLETE WO CONTRAST ([id number]) from Last 3 Months Social History Tobacco Use Types Packs/Day Years Used Date Smoking Tobacco: Never Assessed Sex and Gender Information Value Date Recorded Sex Assigned at Not on file Gender Identity Not on file Sexual Orientation Not on file Plan of Treatment Health Maintenance Due Date Last Done Comments Tdap 1992 Depression screening for age 12+ 1993 HIV for age 15-65 1996 BMI (ht and wt on same day) for age 18+ 12/14/1999 Hepatitis C screening for age 18-79 12/14/1999 Tetanus booster 2001 COVID-19 vaccine series (2022- season) 2023 06/25/2021, 05/15/2021 Influenza for age 9-49 03/18/2023 Pap test for age 21-65 08/13/2025 , 08/13/2022, 07/23/2020, Additional history exists Pneumococcal series for age 6-64 Aged Out No longer eligible based on patient's age to complete this topic Procedures Procedure Name Priority Date/Time Associated Diagnosis Comments ECHO TTE COMPLETE WO CONTRAST Routine 05/12/2023 3:46 PM CDT Malignant neoplasm (HC) from Last 3 Months Results * ECHO TTE COMPLETE WO CONTRAST (05/12/2023 3:46 PM CDT) AORTIC VALVE MEAN PG 4 mmHg EJECTION FRACTION 54 % LVEDD 4.0 cm EJECTION FRACTION 60 - 65% Anatomical Region Laterality Modality Ultrasound 05/12/2023 3:11 PM CDT Narrative 05/12/2023 3:54 PM CDT ECHOCARDIOGRAM CARMEN ANGEL ? Accession#: ?? [id number] : ?1980 42 years Study Date: ?? 05/12/2023 3:11:51 PM Gender: F ?BP: ? 128/73 mmHg Height: 165.00 cm ?BSA: ?1.74 m? ? ? Weight: 67.00 kg ? Tech: ? MHR ? Referring MD: PROVIDER REFERRING Site: ? [facility] Reading Location: MOBILE OP Patient Location: Outpatient. Procedure: 2D, Color Doppler and Spectral Doppler. Indication for study: malignant neoplasm Cardiac Rhythm: Regular.Study quality: Fair. Final Impressions: 1. Normal LV size, normal wall thickness, normal function with an estimated EF of 60 - 65%. 2. Right ventricular cavity size is normal, global systolic RV function is normal. 3. No significant valve disease detected. Comparison Compared to prior exam of 02/07/2023, there has been no significant change. Chamber Sizes and Function Normal left ventricular size, normal wall thickness, normal global systolic function with an estimated EF of 60 - 65%. Left atrial size is normal. Left atrial pressure is normal. Right ventricular cavity size is normal, global systolic RV function is normal. RV wall thickness is normal. The right atrium is normal. Right atrial volume index is 13 ml/m? ? ?. Right atrial area is 10 cm? ? ?. The pulmonary artery is of normal size and origin. The sinus of Valsalva is normal sized. The ascending aorta is normal sized. Valves, RV Pressures and Diastolic Function The aortic valve is normal in structure and trileaflet, no stenosis and trivial regurgitation. The mitral valve is normal in structure, mild mitral regurgitation. Normal diastolic function. The tricuspid valve is normal in structure. Tricuspid regurgitation is trace regurgitation. The pulmonic valve is normal. No pulmonary regurgitation. Masses, Effusion, Shunts There is no pericardial effusion. The inferior vena cava is normal sized, respiratory size variation greater than 50%. No left to right shunting was detected by limited color flow Doppler interrogation of the interatrial septum. MEASUREMENTS AND CALCULATIONS 2-D Measurements and LV Function: LVID (d) ?4.0 cm LV FS% (2D) ?? 24 % LVID (s) ?3.0 cm LVOT diameter 2.0 cm IVS (d) ? 1.0 cm HR ?82 bpm LVPW (d) ?0.9 cm LA Vol index ??16 ml/m2 Ao Sinus ?2.8 cm RA Vol index ??13 ml/m2 Ao ST junct 2.3 cm RA area ? 10 cm? ? ? Asc Ao ?2.8 cm RV Max 4C (d) 2.3 cm LA ?3.6 cm Diastology: Mitral ?Tissue Doppler E Peak 0.7 m/s ??e', Septum ? 0.11 m/s A Peak 0.7 m/s ??e', Lateral ?0.15 m/s E/A ?1.0 ?E/e' Average ?? 5.39 DT ? 189 msec Aortic Valve: Vmax ? 1.2 m/s ??KEVEN (V) ?? 2.66 cm? ? ? VTI ?0.24 m ?? KEVEN (I) ?? 2.58 cm? ? ? LVOT V max 1.0 m/s ??Max PG ?6 mmHg LVOT VTI ?? 0.19 m ?? Mean PG ?? 4 mmHg SV ? 61 ml ?Dim Index 0.80 SV index ?? 35 ml/m? ? ? CO ?5.0 l/min ?CI ?2.9 l/min/m? ? ? Mitral Valve: MVA ?4.0 cm? ? ? MV P 1/2 55 msec Tricuspid Valve and estimated PA pressures: TAPSE 1.9 cm . This study was interpreted by an [facility] accredited facility. CC: [facility] ([facility]) [facility]. ??Final ?? Procedure Note Martin Mays MD - 05/12/2023 ECHOCARDIOGRAM CARMEN ANGEL : 1980 42 years Study Date: 05/12/2023 3:11:51 PM Gender: F BP: 128/73 mmHg Height: 165.00 cm BSA: 1.74 m? ? ? Weight: 67.00 kg Tech: [facility] Referring MD: PROVIDER REFERRING Site: [facility] Reading Location: MOBILE OP Patient Location: Outpatient. Procedure: 2D, Color Doppler and Spectral Doppler. Indication for study: malignant neoplasm Cardiac Rhythm: Regular.Study quality: Fair. Final Impressions: 1. Normal LV size, normal wall thickness, normal function with anestimated EF of 60 - 65%. 2. Right ventricular cavity size is normal, global systolic RV functionis normal. 3. No significant valve disease detected. Comparison Compared to prior exam of 02/07/2023, there has been no significantchange. Chamber Sizes and Function Normal left ventricular size, normal wall thickness, normal globalsystolic function with an estimated EF of 60 - 65%. Left atrial size isnormal. Left atrial pressure is normal. Right ventricular cavity size isnormal, global systolic RV function is normal. RV wall thickness isnormal. The right atrium is normal. Right atrial volume index is 13ml/m? ? ?. Right atrial area is 10 cm? ? ?. The pulmonary artery is of normalsize and origin. The sinus of Valsalva is normal sized. The ascendingaorta is normal sized. Valves, RV Pressures and Diastolic Function The aortic valve is normal in structure and trileaflet, no stenosis andtrivial regurgitation. The mitral valve is normal in structure, mildmitral regurgitation. Normal diastolic function. The tricuspid valve isnormal in structure. Tricuspid regurgitation is trace regurgitation. Thepulmonic valve is normal. No pulmonary regurgitation. Masses, Effusion, Shunts There is no pericardial effusion. The inferior vena cava is normal sized,respiratory size variation greater than 50%. No left to right shunting wasdetected by limited color flow Doppler interrogation of the interatrialseptum. MEASUREMENTS AND CALCULATIONS 2-D Measurements and LV Function: LVID (d) 4.0 cm LV FS% (2D) 24 % LVID (s) 3.0 cm LVOT diameter 2.0 cm IVS (d) 1.0 cm HR 82 bpm LVPW (d) 0.9 cm LA Vol index 16 ml/m2 Ao Sinus 2.8 cm RA Vol index 13 ml/m2 Ao ST junct 2.3 cm RA area 10 cm? ? ? Asc Ao 2.8 cm RV Max 4C (d) 2.3 cm LA 3.6 cm Diastology: Mitral Tissue Doppler E Peak 0.7 m/s e', Septum 0.11 m/s A Peak 0.7 m/s e', Lateral 0.15 m/s E/A 1.0 E/e' Average 5.39 DT 189 msec Aortic Valve: Vmax 1.2 m/s KEVEN (V) 2.66 cm? ? ? VTI 0.24 m KEVEN (I) 2.58 cm? ? ? LVOT V max 1.0 m/s Max PG 6 mmHg LVOT VTI 0.19 m Mean PG 4 mmHg SV 61 ml Dim Index 0.80 SV index 35 ml/m? ? ? CO 5.0 l/min CI 2.9 l/min/m? ? ? Mitral Valve: MVA 4.0 cm? ? ? MV P 1/2 55 msec Tricuspid Valve and estimated PA pressures: TAPSE 1.9 cm . This study was interpreted by an [facility] accredited facility. CC: RANDI (med records) [facility]. Final Provider Referring ECHO ORD from Last 3 Months Care Teams Teacher Dramatics Relationship Specialty Start Date End Date Pcp, No . PCP - General 06/23/23
--- OUTSIDE RECORDS SUMMARY | 2023-08-05 10:06 | XMS_ITS ---
Author Name Unknown Organization [facility] Address [address] [place] [address] Care Team Providers Care Optical Fabricator Name Role Phone Unavailable Unavailable Unavailable Surgery Details Not on file Complications Check Surgery Details section. Procedure Estimated Blood Loss Check Surgery Details section. Procedure Findings Check Surgery Details section. Procedure Specimens Taken Check Surgery Details section.
--- OUTSIDE RECORDS SUMMARY | 2023-08-05 10:06 | XMS_ITS | Encounter Summary ---
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 [address] [place] [address] [facility] at [place] [address] [place] [phone] Referral ID Status Reason Start Date Expiration Date V isits Requested Visits Authorized [id number] Authorized 05/16/2023 02/02/2024 30 30 Encounter Details Date Type Department Care Team (Latest Contact Info) Description 06/22/2023 12:14 PM FORMULA CHECKER - 06/22/2023 11:59 PM [facility] Hospital Encounter Department of Radiation Oncology in [address] [phone] Roslyn Colorado M.D. [address] [place] [address] Discharge Disposition: Home or Self Care Social [...]
--- OUTSIDE RECORDS SUMMARY | 2023-08-05 10:06 | XMS_ITS | Clinical Summary ---
Author Name Unknown Organization [facility] Address [address] [place] [address] Care Team Providers Care Universal Grinder Set Up Operator Name Role Phone Unavailable Primary Care Provider Unavailabl e Source Comments Patient records contain information from all sites at [facility]. For routine questions regarding patient records, call [phone] during business hours, M-F 8:00 AM - 5:00 PM Central Time. Record requests for emergency care only can be directed to [phone] at any time.[facility] Allergies No known active allergies Medications Medication Sig Dispensed Refills Start Date End Date Status multivitamin capsule Take 1 capsule by mouth daily. 0 Active Active Problems Problem Noted Date Diagnosed Date Other Malignant Neuroendocrine Tumors 01/28/2023 Malignant Neoplasm Of Breast Lower Inner Quadrant Female Left 03/03/2012 Cancer Staging:Pathologic stage from 12/28/2022:Stage IA(pT1c, pN0(i+)(sn), cM0, G3, ER-, UT-, HER2+) - Unsigned Overview: Last Assessment & Plan: History of Stage IIA (T2, N0, cM0) Right breast Neuroendocrine cancer, ER/UT positive, HER-2 negative, diagnosed 12/2011. S/p right [...] and plan to proceed with this procedure. Encounters Date Type Department Care Team Description 06/27/2023 12:16 PM CLINICAL SECRETARY - 06/27/2023 11:59 PM CLINICAL SECRETARY Hospital Encounter Department of Radiation Oncology in [address] [phone] Roslyn Colorado M.D. Discharge Disposition: Home or Self Care 06/27/2023 Documentation Department of Radiation Oncology in [address] [phone] Roslyn Colorado M.D. 06/24/2023 2:00 PM CLINICAL SECRETARY - 06/24/2023 11:59 PM CLINICAL SECRETARY Hospital Encounter Department of Radiation Oncology in [address] [phone] Lizbet Babb P.A.-C., M.S. Malignant Neoplasm Of Breast Lower Inner Quadrant Female Left (HCC) Discharge Disposition: Home or Self Care 06/24/2023 12:19 PM CLINICAL SECRETARY - 06/24/2023 1:59 PM CLINICAL SECRETARY Hospital Encounter Department of Radiation Oncology in [address] [address] Roslyn Colorado M.D. Discharge Disposition: Home or Self Care 06/23/2023 12:31 PM CLINICAL SECRETARY - 06/23/2023 4:15 PM CLINICAL SECRETARY Hospital Encounter Department of Radiation Oncology in [address] [address] Roslyn Colorado M.D. Malignant Neoplasm Of Breast Lower Inner Quadrant Female Left (HCC) 06/23/2023 12:19 PM CLINICAL SECRETARY - 06/23/2023 12:30 PM CLINICAL SECRETARY Hospital Encounter Department of Radiation Oncology in [address] [address] Roslyn Colorado M.D. Discharge Disposition: Home or Self Care 06/22/2023 12:14 PM CLINICAL SECRETARY - 06/22/2023 11:59 PM CLINICAL SECRETARY Hospital Encounter Department of Radiation Oncology in [address] [address] Roslyn Colorado M.D. Discharge Disposition: Home or Self Care 06/21/2023 12:49 PM CLINICAL SECRETARY - 06/21/2023 2:59 PM CLINICAL SECRETARY Hospital Encounter Department of Radiation Oncology in [address] [phone] Roslyn Colorado M.D. Retterath, Chelsey A, R.N. Malignant Neoplasm Of Breast Lower Inner Quadrant Female Left (HCC) 06/21/2023 12:13 PM CLINICAL SECRETARY - 06/21/2023 12:48 PM CLINICAL SECRETARY Hospital Encounter Department of Radiation Oncology in [address] [phone] Roslyn Colorado M.D. Discharge Disposition: Home or Self Care 06/20/2023 12:14 PM CLINICAL SECRETARY - 06/20/2023 11:59 PM CLINICAL SECRETARY Hospital Encounter Department of Radiation Oncology in [address] [phone] oRslyn Colorado M.D. Discharge Disposition: Home or Self Care 06/17/2023 12:17 PM CLINICAL SECRETARY - 06/17/2023 11:59 PM CLINICAL SECRETARY Hospital Encounter Department of Radiation Oncology in [address] [phone] Roslyn Colorado M.D. Discharge Disposition: Home or Self Care 06/16/2023 12:20 PM CLINICAL SECRETARY - 06/16/2023 5:18 PM CLINICAL SECRETARY Hospital Encounter Department of Radiation Oncology in [address] [address] Roslyn Colorado M.D. Malignant Neoplasm Of Breast Lower Inner Quadrant Female Left (HCC) 06/16/2023 12:19 PM CLINICAL SECRETARY Hospital Encounter Department of Radiation Oncology in [address] [address] Roslyn Colorado M.D. Discharge Disposition: Home or Self Care 06/15/2023 12:17 PM CLINICAL SECRETARY - 06/15/2023 11:59 PM CLINICAL SECRETARY Hospital Encounter Department of Radiation Oncology in [address] [phone] Roslyn Colorado M.D. Discharge Disposition: Home or Self Care 06/14/2023 12:16 PM CLINICAL SECRETARY - 06/14/2023 11:59 PM CLINICAL SECRETARY Hospital Encounter Department of Radiation Oncology in [address] [phone] Roslyn Colorado M.D. Discharge Disposition: Home or Self Care 06/13/2023 12:54 PM CLINICAL SECRETARY - 06/13/2023 11:59 PM CLINICAL SECRETARY Hospital Encounter Department of Radiation Oncology in [address] [address] Roslyn Colorado M.D. Grieman, Kari A, RLaishaNLaisha Malignant Neoplasm Of Breast Lower Inner Quadrant Female Left (HCC) Discharge Disposition: Home or Self Care 06/13/2023 12:17 PM CLINICAL SECRETARY - 06/13/2023 12:53 PM CLINICAL SECRETARY Hospital Encounter Department of Radiation Oncology in [address] [address] Roslyn Colorado M.D. Discharge Disposition: Home or Self Care 06/10/2023 12:17 PM CLINICAL SECRETARY - 06/10/2023 11:59 PM CLINICAL SECRETARY Hospital Encounter Department of Radiation Oncology in [address] [address] Roslyn Colorado M.D. Discharge Disposition: Home or Self Care 06/08/2023 10:45 AM CLINICAL SECRETARY - 06/08/2023 11:59 PM CLINICAL SECRETARY Hospital Encounter Department of Radiation Oncology in [address] [phone] Roslyn Colorado M.D. Discharge Disposition: Home or Self Care 06/07/2023 12:23 PM CLINICAL SECRETARY - 06/07/2023 5:13 PM CLINICAL SECRETARY Hospital Encounter Department of Radiation Oncology in [address] [phone] Roslyn Colorado M.D. Malignant Neoplasm Of Breast Lower Inner Quadrant Female Left (HCC) 06/07/2023 12:22 PM CLINICAL SECRETARY Hospital Encounter Department of Radiation Oncology in [address] [address] Roslyn Colorado M.D. Discharge Disposition: Home or Self Care 06/06/2023 12:12 PM CLINICAL SECRETARY - 06/06/2023 11:59 PM CLINICAL SECRETARY Hospital Encounter Department of Radiation Oncology in [address] [phone] Roslyn Colorado M.D. Discharge Disposition: Home or Self Care 06/03/2023 12:20 PM CLINICAL SECRETARY - 06/03/2023 11:59 PM CLINICAL SECRETARY Hospital Encounter Department of Radiation Oncology in [address] [address] Roslyn Colorado M.D. Discharge Disposition: Home or Self Care 06/02/2023 12:30 PM CLINICAL SECRETARY - 06/02/2023 11:59 PM CLINICAL SECRETARY Hospital Encounter Department of Radiation Oncology in [address] [address] Roslyn Colorado M.D. Discharge Disposition: Home or Self Care 06/02/2023 12:15 PM CLINICAL SECRETARY - 06/04/2023 6:45 AM CLINICAL SECRETARY Hospital Encounter Department of Radiation Oncology in [address] [phone] Roslyn Colorado M.D. Malignant Neoplasm Of Breast Lower Inner Quadrant Female Left (HCC) 06/01/2023 11:21 AM CLINICAL SECRETARY - 06/01/2023 11:59 PM CLINICAL SECRETARY Hospital Encounter Department of Radiation Oncology in [address] [address] Roslyn Colorado M.D. Discharge Disposition: Home or Self Care 05/31/2023 12:16 PM CLINICAL SECRETARY - 05/31/2023 11:59 PM CLINICAL SECRETARY Hospital Encounter Department of Radiation Oncology in [address] [address] Roslyn Colorado M.D. Discharge Disposition: Home or Self Care 05/30/2023 12:17 PM CLINICAL SECRETARY - 05/30/2023 11:59 PM CLINICAL SECRETARY Hospital Encounter Department of Radiation Oncology in [address] [address] Roslyn Colorado M.D. Discharge Disposition: Home or Self Care 05/27/2023 12:16 PM CLINICAL SECRETARY - 05/27/2023 1:30 PM CLINICAL SECRETARY Hospital Encounter Department of Radiation Oncology in [address] [address] Roslyn Colorado M.D. Grieman, Kari A, R.NLaisha Malignant Neoplasm Of Breast Lower Inner Quadrant Female Left (HCC) Discharge Disposition: Home or Self Care 05/27/2023 12:16 PM CLINICAL SECRETARY - 05/27/2023 11:59 PM CLINICAL SECRETARY Hospital Encounter Department of Radiation Oncology in [address] [phone] Roslyn Colorado M.D. Discharge Disposition: Home or Self Care 05/26/2023 12:30 PM CLINICAL SECRETARY - 05/26/2023 11:59 PM CLINICAL SECRETARY Hospital Encounter Department of Radiation Oncology in [address] [address] Roslyn Colorado M.D. Discharge Disposition: Home or Self Care 05/26/2023 12:15 PM CLINICAL SECRETARY - 05/26/2023 12:29 PM CLINICAL SECRETARY Hospital Encounter Department of Radiation Oncology in [address] [phone] Roslyn Colorado M.D. Malignant Neoplasm Of Breast Lower Inner Quadrant Female Left (HCC) 05/25/2023 12:18 PM CLINICAL SECRETARY - 05/25/2023 11:59 PM CLINICAL SECRETARY Hospital Encounter Department of Radiation Oncology in [address] [address] Roslyn Colorado M.D. Discharge Disposition: Home or Self Care 05/24/2023 10:46 AM CLINICAL SECRETARY - 05/24/2023 11:59 PM CLINICAL SECRETARY Hospital Encounter Department of Radiation Oncology in [address] [address] Roslyn Colorado M.D. Discharge Disposition: Home or Self Care 05/23/2023 12:50 PM CLINICAL SECRETARY - 05/23/2023 3:19 PM CLINICAL SECRETARY Hospital Encounter Department of Radiation Oncology in [address] [phone] Roslyn Colorado M.D. Grieman, Kari A, RLaishaNLaisha Malignant Neoplasm Of Breast Lower Inner Quadrant Female Left (HCC) (Primary Dx) 05/23/2023 12:50 PM CLINICAL SECRETARY - 05/23/2023 11:59 PM CLINICAL SECRETARY Hospital Encounter Department of Radiation Oncology in [address] [address] Roslyn Colorado M.D. Discharge Disposition: Home or Self Care 05/11/2023 10:30 AM CDT - 05/11/2023 12:30 PM CDT Hospital Encounter Department of Radiation Oncology in [address] [address] Roslyn Colorado M.D. Malignant Neoplasm Of Breast Lower Inner Quadrant Female Left (HCC) 05/11/2023 9:46 AM CDT - 05/11/2023 10:29 AM CDT Hospital Encounter Department of Radiation Oncology in [place], [place] [address] [place] [phone] Roslyn Colorado M.D. Malignant Neoplasm Of Breast Lower Inner Quadrant Female Left (HCC) (Primary Dx) from Last 3 Months Family History Medical History Relation Name Comments Gastric carcinoma Uncle Paternal Relation Name Status Comments Uncle Social History Tobacco Use Types Packs/Day Years [...] Comments Blood Pressure 108/73 06/02/2023 12:23 PM CLINICAL SECRETARY Pulse 88 06/02/2023 12:23 PM CLINICAL SECRETARY Temperature 36.4 ??C (97.6 ??F) 06/16/2023 12:[address] Respiratory Rate - - Oxygen Saturation - - Inhaled Oxygen Concentration - - Weight 68 kg (149 lb 14.6 oz) 06/23/2023 1:13 PM CLINICAL SECRETARY Height - - Body Mass Index - - Plan of Treatment Health Maintenance Due Date Last Done Comments Cervical Cancer Screening 1981 HIV Screening 1981 Hepatitis C Screening 1981 Lipid (Cholesterol) Screening 1981 Pneumococcal vaccine (0-64 years) (1 of 2 - PCV) 12/14/1987 Zoster Vaccines (1 of 2) 2000 Hepatitis B Vaccines (2 of 3 - 19+ 3-dose series) 12/18/2002 11/20/2002, 11/20/2002 COVID-19 Vaccine (3 - Pfizer risk series) 07/23/2021 06/25/2021, 05/15/2021 Influenza Vaccine (#1) 2023 0, 05/26/2015, 05/26/2015, Additional history exists Depression Screening (Annual PHQ-2) 07/18/2023 DTaP,Tdap,and Td Vaccines (5 - Td or Tdap) 04/15/2030 04/15/2020, 08/13/2013, 11/20/2002, Additional history exists Mammogram Discontinued 12/28/2022, 11/15, 12/02/2022, Additional history exists HPV Vaccines Aged Out No longer eligi ble based on patient's age to complete this topic Procedures Procedure Name Priority Date/Time Associated Diagnosis Comments ARIA COURSE COMPLETE TREATMENT INFORMATION Routine 06/27/2023 12:40 PM CLINICAL SECRETARY ARIA DAILY TREATMENT INFORMATION Routine 06/27/2023 12:40 PM CLINICAL SECRETARY ARIA DAILY TREATMENT INFORMATION Routine 06/24/2023 12:36 PM CLINICAL SECRETARY ARIA DAILY TREATMENT INFORMATION Routine 06/23/2023 12:36 PM CLINICAL SECRETARY ARIA DAILY TREATMENT INFORMATION Routine 06/22/2023 12:53 PM CLINICAL SECRETARY ARIA DAILY TREATMENT INFORMATION Routine 06/21/2023 12:43 PM CLINICAL SECRETARY ARIA DAILY TREATMENT INFORMATION Routine 06/20/2023 12:47 PM CLINICAL SECRETARY ARIA DAILY TREATMENT INFORMATION Routine 06/17/2023 12:32 PM CLINICAL SECRETARY ARIA DAILY TREATMENT INFORMATION Routine 06/16/2023 12:49 PM CLINICAL SECRETARY ARIA DAILY TREATMENT INFORMATION Routine 06/15/2023 12:42 PM CLINICAL SECRETARY ARIA DAILY TREATMENT INFORMATION Routine 06/14/2023 12:45 PM CLINICAL SECRETARY ARIA DAILY TREATMENT INFORMATION Routine 06/13/2023 12:53 PM CLINICAL SECRETARY ARIA DAILY TREATMENT INFORMATION Routine 06/10/2023 1:15 PM CLINICAL SECRETARY ARIA DAILY TREATMENT INFORMATION Routine 06/08/2023 11:28 AM CLINICAL SECRETARY ARIA DAILY TREATMENT INFORMATION Routine 06/07/2023 12:42 PM CLINICAL SECRETARY ARIA DAILY TREATMENT INFORMATION Routine 06/06/2023 12:50 PM CLINICAL SECRETARY ARIA DAILY TREATMENT INFORMATION Routine 06/03/2023 12:32 PM CLINICAL SECRETARY ARIA DAILY TREATMENT INFORMATION Routine 06/02/2023 1:05 PM CLINICAL SECRETARY ARIA DAILY TREATMENT INFORMATION Routine 06/01/2023 11:44 AM CLINICAL SECRETARY ARIA DAILY TREATMENT INFORMATION Routine 05/31/2023 12:49 PM CLINICAL SECRETARY ARIA DAILY TREATMENT INFORMATION Routine 05/30/2023 12:46 PM CLINICAL SECRETARY ARIA DAILY TREATMENT INFORMATION Routine 05/27/2023 12:47 PM CLINICAL SECRETARY ARIA DAILY TREATMENT INFORMATION Routine 05/26/2023 1:37 PM CLINICAL SECRETARY ARIA DAILY TREATMENT INFORMATION Routine 05/25/2023 12:52 PM CLINICAL SECRETARY ARIA DAILY TREATMENT INFORMATION Routine 05/24/2023 11:15 AM CLINICAL SECRETARY ARIA DAILY TREATMENT INFORMATION Routine 05/23/2023 1:46 PM CLINICAL SECRETARY ARIA COURSE COMPLETE TREATMENT INFORMATION Routine 05/20/2023 4:30 PM CDT ARIA COURSE COMPLETE TREATMENT INFORMATION Routine 05/20/2023 4:30 PM CDT INITIAL RAD ONC TREATMENT PLANNING CT SIMULATION Routine 05/11/2023 10:30 AM CDT Malignant Neoplasm Of Breast Lower Inner Quadrant Female Left (HCC) from Last 3 Months Results * Aria Course Complete Treatment Information (06/27/2023 12:40 PM CLINICAL SECRETARY) Only the most recent of3 resultswithin the time period is included. Course ID 1xBreast KELLOGG ARIA Course Start Date 3 09:27 CLINICAL SECRETARY KELLOGG ARIA Course End Date 4 09:43 CLINICAL SECRETARY KELLOGG ARIA First Treatment Date 3 13:41 CLINICAL SECRETARY KELLOGG ARIA Last Treatment Date 3 12:40 CLINICAL SECRETARY KELLOGG ARIA Treatment Elapsed Days 35 KELLOGG ARIA Reference Point [id number] KELLOGG ARIA Dosage Given to Date cGy 5500 KELLOGG ARIA Plan ID [id number] KELLOGG ARIA Fractions Treated to Date 8 KELLOGG ARIA Planned Total Fractions 8 KELLOGG ARIA Prescribed Dose Per Fraction 220 KELLOGG ARIA Prescription Dose in cGy 1760 KELLOGG ARIA Plan Primary Reference Point [id number] KELLOGG ARIA Plan ID [id number] KELLOGG ARIA Fractions Treated to Date 17 KELLOGG ARIA Planned Total Fractions 17 KELLOGG ARIA Prescribed Dose Per Fraction 220 KELLOGG ARIA Prescription Dose in cGy 3740 KELLOGG ARIA Plan Primary Reference Point [id number] KELLOGG ARIA 06/27/2023 12:4 0 PM CLINICAL SECRETARY Provider Not In System RADIATION ONCOLOG Y ORDERABLES KELLOGG SARA na * Aria Daily Treatment Information (06/27/2023 12:40 PM CLINICAL SECRETARY) Only the most recent of25 resultswithin the time period is included. Course ID 1xBreast KELLOGG ARIA Course Start Date 3 09:27 CLINICAL SECRETARY KELLOGG ARIA First Treatment Date 3 13:41 CLINICAL SECRETARY KELLOGG ARIA Last Treatment Date 3 12:40 CLINICAL SECRETARY KELLOGG ARIA Treatment Elapsed Days 35 KELLOGG ARIA Reference Point [id number] KELLOGG ARIA Dosage Given to Date cGy 5500 KELLOGG ARIA Session Dosage Given 220 KELLOGG ARIA Plan ID [id number] KELLOGG ARIA Fractions Treated to Date 8 KELLOGG ARIA Planned Total Fractions 8 KELLOGG ARIA Prescribed Dose Per Fraction 220 KELLOGG ARIA Prescription Dose in cGy 1760 KELLOGG ARIA Plan Primary Reference Point [id number] KELLOGG ARIA 06/27/2023 12:4 0 PM CLINICAL SECRETARY Provider Not In System RADIATION ONCOLOG Y ORDERABLES Performing Organization Address City/State/[facility] Co de Phone Number BESS RUIZ na * Initial Rad Onc Treatment Planning CT Simulation (05/11/2023 10:30 AM CDT) Narrative BESS RUIZ - 05/11/2023 10:30 AM CDT Marcella Whaley, RTT ? 05/11/2023 11:37 AM Initial Rad Onc Treatment Planning CT Simulation Performed by: Roslyn Colorado M.D. Authorized by: Roslyn Colorado M.D. ?? Roslyn Colorado M.D. RADIATION ONCOLOG Y ORDERABLES Performing Organization Address City/[facility] de Phone Number BESS RUIZ na from Last 3 Months
--- OUTSIDE RECORDS SUMMARY | 2023-08-05 10:06 | XMS_ITS | Encounter Summary ---
Author Name Unknown Organization [facility] Address [address] [place] [address] Care Team Providers Care Registered Art Therapist Name Role Phone Unavailable Primary Care Provider Unavailabl e Reason for Visit * Radiation Therapy (Routine) - Authorized Specialty Diagnoses / Procedures Referred By Collins t Referred To Contact Diagnoses Malignant Neoplasm Of Breast Lower Inner Quadrant Female Left (HCC) Procedures Prior Auth Rad Tx [place] RADTN TX DEL >=1 MEV COMPLEX 3D Roslyn Colorado M.D. [address] [place] [address] T Radiation Oncology at [place] [address] [place] [phone] Referral ID Status Reason Start Date Expiration Date V isits Requested Visits Authorized [id number] Authorized 05/16/2023 02/02/2024 30 30 Encounter Details Date Type Department Care Team (Latest Contact Info) Description 06/20/2023 12:14 PM ASSISTANT DIRECTOR OF ADMISSIONS - 06/20/2023 11:59 PM [facility] Hospital Encounter Department of Radiation Oncology in [address] [phone] Roslyn Colorado M.D. [address] [place] [phone] Discharge Disposition: Home or Self Care Social [...]
--- OUTSIDE RECORDS SUMMARY | 2023-08-05 10:06 | XMS_ITS | Encounter Summary ---
Author Name Unknown Organization [facility] Address [address] [place] [address] Care Team Providers Care Vegetable Cutter Name Role Phone Unavailable Primary Care Provider Unavailabl e Reason for Visit * Radiation Therapy (Routine) - Authorized Specialty Diagnoses / Procedures Referred By Collins t Referred To Contact Diagnoses Malignant Neoplasm Of Breast Lower Inner Quadrant Female Left (HCC) Procedures Prior Auth Rad Tx [place] RADTN [place] DEL >=1 MEV COMPLEX 3D Roslyn Colorado M.D. [address] [place] [address] T Radiation Oncology at [place] [address] [place] [phone] Referral ID Status Reason Start Date Expiration Date V isits Requested Visits Authorized [id number] Authorized 05/16/2023 02/02/2024 30 30 Encounter Details Date Type Department Care Team (Latest Contact Info) Description 06/16/2023 12:19 PM [facility] Hospital Encounter Department of Radiation Oncology in [place], [place] [address] [place] [phone] Roslyn Colorado M.D. [address] [place] [phone] Discharge Disposition: Home or Self Care Social [...]
--- OUTSIDE RECORDS SUMMARY | 2023-08-05 10:07 | XMS_ITS | Encounter Summary ---
Author Name Unknown Organization [facility] Address [address] [place] [address] Care Team Providers Care Hepatologist Name Role Phone Unavailable Primary Care Provider Unavailabl e Reason for Visit * Radiation Therapy (Routine) - Authorized Specialty Diagnoses / Procedures Referred By Collins t Referred To Contact Diagnoses Malignant Neoplasm Of Breast Lower Inner Quadrant Female Left (HCC) Procedures Prior Auth Rad Tx [place] RADTN TX DEL >=1 MEV COMPLEX 3D Roslyn Colorado M.D. [address] [place] [address] T Radiation Oncology at [place] [address] [place] [phone] Referral ID Status Reason Start Date Expiration Date V isits Requested Visits Authorized [id number] Authorized 05/16/2023 02/02/2024 30 30 Encounter Details Date Type Department Care Team (Latest Contact Info) Description 06/02/2023 12:30 PM FLOORING MACHINE OPERATOR - 06/02/2023 11:59 PM [facility] Hospital Encounter Department of Radiation Oncology in [place], [place] [address] [place] [phone] Roslyn Colorado M.D. [address] [place] [phone] Discharge Disposition: Home or Self Care Social [...]
--- OUTSIDE RECORDS SUMMARY | 2023-08-05 10:07 | XMS_ITS | Encounter Summary ---
Author Name Unknown Organization [facility] Address [address] [place] [address] Care Team Providers Care Electrogalvanizing Machine Operator Name Role Phone Unavailable Primary Care Provider Unavailabl e Reason for Visit * Radiation Therapy (Routine) - Authorized Specialty Diagnoses / Procedures Referred By Collins t Referred To Contact Diagnoses Malignant Neoplasm Of Breast Lower Inner Quadrant Female Left (HCC) Procedures Prior Auth Rad Tx [place] RADTN TX DEL >=1 MEV COMPLEX 3D Roslyn Colorado M.D. [address] [place] [address] T Radiation Oncology at [place] [address] [place] [phone] Referral ID Status Reason Start Date Expiration Date V isits Requested Visits Authorized [id number] Authorized 05/16/2023 02/02/2024 30 30 Encounter Details Date Type Department Care Team (Latest Contact Info) Description 06/06/2023 12:12 PM DISH ROOM WORKER - 06/06/2023 11:59 PM [facility] Hospital Encounter Department of Radiation Oncology in [place], [place] [address] [place] [phone] Roslyn Colorado M.D. [address] [place] [phone] Discharge Disposition: Home or Self [...]
--- OUTSIDE RECORDS SUMMARY | 2023-08-05 10:07 | XMS_ITS | Encounter Summary ---
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 [address] [place] [address] [facility] Region Referral ID Status Reason Start Date Expiration Date V isits Requested Visits Authorized [id number] Authorized 02/02/2023 02/02/2024 10 10 Encounter Details Date Type Department Care Team (Latest Contact Info) Description 05/26/2023 12:15 PM VICE PRESIDENT PROCESS - 05/26/2023 12:29 PM VICE PRESIDENT PROCESS Hospital Encounter Department of Radiation Oncology in [place], [place] [address] [place] [address] Roslyn Colorado M.D. [address] [place] [address] Malignant Neoplasm Of Breast Lower Inner Quadrant [...] Pressure - - Pulse - - Temperature 36.3 ??C (97.4 ??F) 05/26/2023 12:[address] Respiratory Rate - - Oxygen Saturation - - Inhaled Oxygen Concentration - - Weight 67.7 kg (149 lb 4 oz) 05/26/2023 12:39 PM VICE PRESIDENT PROCESS Height - - Body Mass Index - - documented in this encounter Medications at Time of Discharge Medication Sig Dispensed Refills Start Date End Date multivitamin capsule Take 1 capsule by mouth daily. 0 documented as of this encounter Progress Notes * Roslyn Colorado M.D. - 05/26/2023 12:15 PM CST ATTESTATION FOR MANAGEMENT VISIT I saw and evaluated the patient and participated in the hutchins portions of the service as noted below.I reviewed the documentation of Ms. Corinna Givens RN and agree with the findings and plan. Thepatient appears well on exam. We will continue with radiation as planned and monitor weekly. Roslyn Colorado M.D., 05/26/2023 SUBJECTIVE REASON FOR VISIT Evaluation for side [...] (cGy) First Treatment Last Treatment Elapsed Days [id number] 0235 05/23/2023 05/26/2023 3 Course Summary 05/23/2023 05/26/2023 3 The patient was seen and examined today with Dr. Colorado. Siding Installer Pauly [id number] The patient reports to be feeling well overall. She denies any side effects from radiation at this time. She is apply moisturizing lotion to left upper back. Mepitel is intact PATIENT REPORTED SYMPTOM SCREEN FATIGUE (Scale: 0 = no fatigue; 10 = worst fatigue you can imagine): PAIN (Scale: 0 = no pain; 10 = worst pain you can imagine): OVERALL QUALITY OF LIFE (Scale: 0 = as bad as can be; 10 = as good as can be): OBJECTIVE Temp 36.3 ??C (Temporal) Wt 67.7 kg PHYSICAL EXAM General: Alert and oriented in no apparent distress. 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 She will continue with radiation treatment as planned. She can contact our care team with any questions or concerns. Signed by: Corinna Givens R.N. 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
--- OUTSIDE RECORDS SUMMARY | 2023-08-05 10:07 | XMS_ITS | Encounter Summary ---
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 [address] [place] [address] T Radiation On[facility] at [place] [address] [place] [phone] Referral ID Status Reason Start Date Expiration Date V isits Requested Visits Authorized [id number] Authorized 05/16/2023 02/02/2024 30 30 Encounter Details Date Type Department Care Team (Latest Contact Info) Description 05/30/2023 12:17 PM LEATHER TOGGLER - 05/30/2023 11:59 PM [facility] Hospital Encounter Department of Radiation Oncology in [place], [place] [address] [place] [address] Roslyn Colorado M.D. [address] [place] [phone] Discharge Disposition: Home or Self Care Social [...]
--- OUTSIDE RECORDS SUMMARY | 2023-08-05 10:07 | XMS_ITS | Encounter Summary ---
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 [address] [place] [address] 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 [address] [place] [address] [facility] Region Referral ID Status Reason Start Date Expiration Date V isits Requested Visits Authorized [id number] Authorized 02/02/2023 02/02/2024 10 10 Encounter Details Date Type Department Care Team (Latest Contact Info) Description 06/07/2023 12:23 PM GLASS BLOCK INSTALLER - 06/07/2023 5:13 PM GLASS BLOCK INSTALLER Hospital Encounter Department of Radiation Oncology in [place], [place] [address] [place] [address] Roslyn Colorado M.D. [address] [place] [address] Malignant Neoplasm Of Breast Lower Inner Quadrant [...] - Inhaled Oxygen Concentration - - Weight 67.4 kg (148 lb 9.4 oz) 06/07/2023 12:58 PM GLASS BLOCK INSTALLER Height - - Body Mass Index - - documented in this encounter Medications at Time of Discharge Medication Sig Dispensed Refills Start Date End Date multivitamin capsule Take 1 capsule by mouth daily. 0 documented as of this encounter Progress Notes * Roslyn Colorado M.D. - 06/07/2023 1:00 PM CST ATTESTATION FOR MANAGEMENT VISIT I saw and evaluated the patient and participated in the hutchins portions of the service as noted below.I reviewed the documentation of Ms. Corinna Givens RN and agree with the findings and plan. Thepatient appears well on exam. We will continue with radiation as planned and monitor weekly. Roslyn Colorado M.D., 06/07/2023 SUBJECTIVE REASON FOR VISIT Evaluation for side [...] (cGy) First Treatment Last Treatment Elapsed Days [id number] 05/23/2023 06/07/2023 15 Course Summary 05/23/2023 06/07/2023 15 The patient was seen and examined today with Dr. Colorado. Port Crane Operator: [id number] Adama The patient reports to be feeling well overall. She reports that her skin itches and has a slight burning sensation at times. She is applying moisturizing lotion to left upper back. Mepitel is intact. She denies any other issues or concerns. PATIENT REPORTED SYMPTOM SCREEN FATIGUE (Scale: 0 = no fatigue; 10 = worst fatigue you can imagine): 1 PAIN (Scale: 0 = no pain; 10 = worst pain you can imagine): 0 OVERALL QUALITY OF LIFE (Scale: 0 = as bad as can be; 10 = as good as can be): 9 OBJECTIVE Wt 67.4 kg PHYSICAL EXAM General: Alert and oriented in no apparent distress. Skin: No erythema or hyperpigmentation noted. 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 Mepitel was patched during visit. Patient can trial Benadryl for pruritus if needed. She will continue with radiation treatment as planned.She can contact our care team with any questions or concerns. Signed by: Corinna Givens R.N. 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
--- OUTSIDE RECORDS SUMMARY | 2023-08-05 10:07 | XMS_ITS | Encounter Summary ---
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 [address] [place] [address] T Radiation Oncology at [place] [address] [place] [phone] Referral ID Status Reason Start Date Expiration Date V isits Requested Visits Authorized [id number] Authorized 05/16/2023 02/02/2024 30 30 Encounter Details Date Type Department Care Team (Latest Contact Info) Description 05/27/2023 12:16 PM REPAIR SERVICE DISPATCHER - 05/27/2023 11:59 PM [facility] Hospital Encounter Department of Radiation Oncology in [address] [address] Roslyn Colorado M.D. [address] [place] [phone] Discharge Disposition: Home or Self Care Social [...]
--- OUTSIDE RECORDS SUMMARY | 2023-08-05 10:07 | XMS_ITS | Encounter Summary ---
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 [address] [place] [address] [facility] Region Referral ID Status Reason Start Date Expiration Date V isits Requested Visits Authorized [id number] Authorized 02/02/2023 02/02/2024 10 10 Encounter Details Date Type Department Care Team (Latest Contact Info) Description 06/02/2023 12:15 PM MARKETING RESEARCH INTERN - 06/04/2023 6:45 AM MARKETING RESEARCH INTERN Hospital Encounter Department of Radiation Oncology in [place], [place] [address] [place] [address] Roslyn Colorado M.D. [address] [place] [address] Malignant Neoplasm Of Breast Lower Inner Quadrant [...] Comments Blood Pressure 108/73 06/02/2023 12:23 PM MARKETING RESEARCH INTERN Pulse 88 06/02/2023 12:23 PM MARKETING RESEARCH INTERN Temperature 36.3 ??C (97.4 ??F) 06/02/2023 1 2:23 PM MARKETING RESEARCH INTERN Respiratory Rate - - Oxygen Saturation - - Inhaled Oxygen Concentration - - Weight 67.1 kg (147 lb 14.9 oz) 023 12:23 PM MARKETING RESEARCH INTERN Height - - Body Mass Index - - documented in this encounter Medications at Time of Discharge Medication Sig Dispensed Refills Start Date End Date multivitamin capsule Take 1 capsule by mouth daily. 0 documented as of this encounter Progress Notes * Roslyn Colorado M.D. - 06/02/2023 12:15 PM CST ATTESTATION FOR MANAGEMENT VISIT I saw and evaluated the patient and participated in the hutchins portions of the service as noted below.I reviewed the documentation of Ms. Corinna Givens RN and agree with the findings and plan. Thepatient appears well on exam. We will continue with radiation as planned and monitor weekly. Roslyn Colorado M.D., 06/02/2023 SUBJECTIVE REASON FOR VISIT Evaluation for side [...] (cGy) First Treatment Last Treatment Elapsed Days [id number] 197905/23/2023 06/02/2023 10 Course Summary 05/23/2023 06/02/2023 10 The patient was seen and examined today with Dr. Colorado. Manuscript Editor: [id number] The patient reports to be feeling well overall. She notes chest pain over the treatment field and rates the pain a 5 out of 10. She isn't taking anything for pain. Patient reports that her Oncology doctor told her to avoid taking Tylenol but she could take Ibuprofen if needed. She is apply moisturizing lotion to left [...] = as good as can be): OBJECTIVE BP 108/73 (BP Location: Right arm, Patient Position: Sitting, Cuff Size: Regular) Pulse 88 Temp36.3 ??C (Temporal) Wt 67.1 kg PHYSICAL EXAM General: Alert and oriented in no apparent distress. Skin: No erythema or hyperpigmentation noted. 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 Patient can trial Ibuprofen for discomfort if needed. She will continue with radiation treatment as planned. She can contact our care team with any questions or concerns. Signed by: Corinna Givens R.N. 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
--- OUTSIDE RECORDS SUMMARY | 2023-08-05 10:07 | XMS_ITS | Encounter Summary ---
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 [address] [place] [address] T Radiation Oncology at [place] [address] [place] [phone] Referral ID Status Reason Start Date Expiration Date V isits Requested Visits Authorized [id number] Authorized 05/16/2023 02/02/2024 30 30 Encounter Details Date Type Department Care Team (Latest Contact Info) Description 05/25/2023 12:18 PM COMPUTER METEOROLOGIST - 05/25/2023 11:59 PM [facility] Hospital Encounter Department of Radiation Oncology in [address] [address] Roslyn Colorado M.D. [address] [place] [phone] Discharge Disposition: Home or Self Care Social [...]
--- OUTSIDE RECORDS SUMMARY | 2023-08-05 10:07 | XMS_ITS | Encounter Summary ---
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 [address] [place] [address] T Radiation Oncology at [place] [address] [place] [phone] Referral ID Status Reason Start Date Expiration Date V isits Requested Visits Authorized [id number] Authorized 05/16/2023 02/02/2024 30 30 Encounter Details Date Type Department Care Team (Latest Contact Info) Description 05/31/2023 12:16 PM BILINGUAL LEGAL ASSISTANT - 05/31/2023 11:59 PM [facility] Hospital Encounter Department of Radiation Oncology in [address] [address] Roslyn Colorado M.D. [address] [place] [phone] Discharge Disposition: Home or Self Care Social [...]
--- OUTSIDE RECORDS SUMMARY | 2023-08-05 10:07 | XMS_ITS | Encounter Summary ---
Author Name Unknown Organization 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 [address] [place] [address] T Radiation Oncology at [place] [address] [place] [phone] Referral ID Status Reason Start Date Expiration Date V isits Requested Visits Authorized [id number] Authorized 05/16/2023 02/02/2024 30 30 Encounter Details Date Type Department Care Team (Latest Contact Info) Description 06/13/2023 12:17 PM TRAINING AND DEVELOPMENT PROJECT LEADER - 06/13/2023 12:53 PM [facility] Hospital Encounter Department of Radiation Oncology in [place], [place] [address] [place] [phone] Roslyn Colorado M.D. [address] [place] [phone] Discharge Disposition: Home or Self [...]
--- OUTSIDE RECORDS SUMMARY | 2023-08-05 10:07 | XMS_ITS | Encounter Summary ---
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 [address] [place] [address] T Radiation Oncology at [place] [address] [place] [phone] Referral ID Status Reason Start Date Expiration Date V isits Requested Visits Authorized [id number] Authorized 05/16/2023 02/02/2024 30 30 Encounter Details Date Type Department Care Team (Latest Contact Info) Description 06/08/2023 10:45 AM MANAGER HOUSEKEEPING - 06/08/2023 11:59 PM [facility] Hospital Encounter Department of Radiation Oncology in [address] [address] Roslyn Colorado M.D. [address] [place] [phone] Discharge Disposition: Home or Self Care Social [...]
--- OUTSIDE RECORDS SUMMARY | 2023-08-05 10:07 | XMS_ITS | Encounter Summary ---
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 [address] [place] [address] T Radiation Oncology at [place] [address] [place] [phone] Referral ID Status Reason Start Date Expiration Date V isits Requested Visits Authorized [id number] Authorized 05/16/2023 02/02/2024 30 30 Encounter Details Date Type Department Care Team (Latest Contact Info) Description 06/07/2023 12:22 PM [facility] Hospital Encounter Department of Radiation Oncology in [place], [place] [address] [place] [address] Roslyn Colorado M.D. [address] [place] [phone] Discharge Disposition: Home or Self Care Social [...]
--- OUTSIDE RECORDS SUMMARY | 2023-08-05 10:07 | XMS_ITS | Encounter Summary ---
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 [address] [place] [address] T Radiation Oncology at [place] [address] [place] [phone] Referral ID Status Reason Start Date Expiration Date V isits Requested Visits Authorized [id number] Authorized 05/16/2023 02/02/2024 30 30 Encounter Details Date Type Department Care Team (Latest Contact Info) Description 06/10/2023 12:17 PM EMBEDDED FIRMWARE ENGINEER - 06/10/2023 11:59 PM [facility] Hospital Encounter Department of Radiation Oncology in [place], [place] [address] [place] [phone] Roslyn Colorado M.D. [address] [place] [phone] Discharge Disposition: Home or Self Care Social [...]
--- OUTSIDE RECORDS SUMMARY | 2023-08-05 10:07 | XMS_ITS | Encounter Summary ---
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 [address] [place] [address] T Radiation Oncology at [place] [address] [place] [phone] Referral ID Status Reason Start Date Expiration Date V isits Requested Visits Authorized [id number] Authorized 05/16/2023 02/02/2024 30 30 Encounter Details Date Type Department Care Team (Latest Contact Info) Description 06/14/2023 12:16 PM DISTRICT RECRUITER - 06/14/2023 11:59 PM [facility] Hospital Encounter Department of Radiation Oncology in [address] [address] Roslyn Colorado M.D. [address] [place] [phone] Discharge Disposition: Home or Self Care Social [...]
--- OUTSIDE RECORDS SUMMARY | 2023-08-05 10:07 | XMS_ITS | Encounter Summary ---
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 [address] [place] [address] T Rad[facility] On[facility] at [place] [address] [place] [phone] Referral ID Status Reason Start Date Expiration Date V isits Requested Visits Authorized [id number] Authorized 05/16/2023 02/02/2024 30 30 Encounter Details Date Type Department Care Team (Latest Contact Info) Description 06/03/2023 12:20 PM CUSHION PADDER - 06/03/2023 11:59 PM [facility] Hospital Encounter Department of Radiation Oncology in [place], [place] [address] [place] [phone] Roslyn Colorado M.D. [address] [place] [phone] Discharge Disposition: Home or Self [...]
--- OUTSIDE RECORDS SUMMARY | 2023-08-05 10:07 | XMS_ITS | Encounter Summary ---
Author Name Unknown Organization [facility] Address [address] [place] [address] Care Team Providers Care Department Operations Manager Name Role Phone Unavailable Primary Care Provider Unavailabl e Reason for Visit * Radiation Therapy (Routine) - Authorized Specialty Diagnoses / Procedures Referred By Collins t Referred To Contact Diagnoses Malignant Neoplasm Of Breast Lower Inner Quadrant Female Left (HCC) Procedures Prior Auth Rad Tx NM RADTN TX DEL >=1 MEV COMPLEX 3D Roslyn Colorado M.D. [address] [place] [address] T Radiation Oncology at [place] [address] [place] [phone] Referral ID Status Reason Start Date Expiration Date V isits Requested Visits Authorized [id number] Authorized 05/16/2023 02/02/2024 30 30 Encounter Details Date Type Department Care Team (Latest Contact Info) Description 06/15/2023 12:17 PM BIOLOGICAL ENGINEER - 06/15/2023 11:59 PM [facility] Hospital Encounter Department of Radiation Oncology in [place], [place] [address] [place] [phone] Roslyn Colorado M.D. [address] [place] [address] Discharge Disposition: Home or Self [...]
--- OUTSIDE RECORDS SUMMARY | 2023-08-05 10:07 | XMS_ITS | Encounter Summary ---
Author Name Unknown Organization [facility] Address [address] [place] [address] Care Team Providers Care Psychiatric Therapist Name Role Phone Unavailable Primary Care Provider Unavailabl e Reason for Visit * Radiation Therapy (Routine) - Authorized Specialty Diagnoses / Procedures Referred By Collins t Referred To Contact Diagnoses Malignant Neoplasm Of Breast Lower Inner Quadrant Female Left (HCC) Procedures Prior Auth Rad Tx CT RADTN TX DEL >=1 MEV COMPLEX 3D Roslyn Colorado M.D. [address] [place] [address] T Radiation Oncology at [place] [address] [place] [phone] Referral ID Status Reason Start Date Expiration Date V isits Requested Visits Authorized [id number] Authorized 05/16/2023 02/02/2024 30 30 Encounter Details Date Type Department Care Team (Latest Contact Info) Description 05/26/2023 12:30 PM CONSTRUCTION CREW MEMBER - 05/26/2023 11:59 PM [facility] Hospital Encounter Department of Radiation Oncology in [address] [phone] Roslyn Colorado M.D. [address] [place] [phone] Discharge Disposition: Home or Self Care Social [...]
--- OUTSIDE RECORDS SUMMARY | 2023-08-05 10:07 | XMS_ITS | Encounter Summary ---
Author Name Unknown Organization [facility] Address [address] [place] [id number] Care Team Providers Care Dry Cure Worker Name Role Phone Unavailable Primary Care Provider Unavailabl e Reason for Referral * Specialty Diagnoses / Procedures Referred By Collins trevino Referred To Contact Lizbet Babb P.A.-C., M.S. [address] [place] [phone] [facility] Region Referral ID Status Reason Start Date Expiration Date Visits Re quested Visits Authorized RANGE OPERATOR CLOTH Encounter Details Date Type Department Care Team (Latest Contact Info) Description 05/27/2023 12:16 PM DYE RANGE OPERATOR CLOTH - 05/27/2023 1:30 PM DYE RANGE OPERATOR CLOTH Hospital Encounter Department of Radiation Oncology in [place], [place] [address] [place] [phone] Roslyn Colorado M.D. [address] [place] [phone] Lottie Lima RLaishaNLaisha [address] [place] [phone] Malignant Neoplasm Of Breast Lower Inner Quadrant [...] Weight 67.7 kg (149 lb 4 oz) 05/27/2023 1:00 PM DYE RANGE OPERATOR CLOTH Height - - Body Mass Index - - documented in this encounter Medications at Time of Discharge Medication Sig Dispensed Refills Start Date End Date multivitamin capsule Take 1 capsule by mouth daily. 0 documented as of this encounter Progress Notes * Lottie Lima RLaishaN. - 05/27/2023 1:00 PM CST Patient was educated on side effects of radiation therapy. Their questions were answered to the best of my ability. The patient was encouraged to contact the team at any point, with questions or concerns. Social Work consult was offered to patient but patient notes not needed at this time. Sdv Pilot/Navigator/Dds OperatorCarlita, [id number] via iPAD utilized for today's appointment. RANGE OPERATOR CLOTH documented in this encounter Plan of Treatment Scheduled Referrals Name Type Priority Associated Diagnoses Order Schedule Radiation Oncology - Nurse education visit (clinic) Outpatient Referral Routine Malignant Neoplasm Of Breast Lower Inner Quadrant Female Left (HCC) Once for 1 Occurrences starting 05/27/2023 until 05/27/2023 documented as of this encounter Visit Diagnoses Diagnosis Malignant Neoplasm Of Breast Lower Inner Quadrant Female Left (HCC) documented in this encounter
--- OUTSIDE RECORDS SUMMARY | 2023-08-05 10:07 | XMS_ITS | Encounter Summary ---
Author Name Unknown Organization [facility] Address [address] [place] [address] Care Team Providers Care Key Carrier Name Role Phone Unavailable Primary Care Provider Unavailabl e Reason for Referral * Outpatient (Routine) - Authorized Specialty Diagnoses / Procedures Referred By Collins trevino Referred To Contact Radiation Oncology Diagnoses Malignant Neoplasm Of Breast Lower Inner Quadrant Female Left (HCC) Roslyn Colorado M.D. [address] [place] [address] [facility] Region Referral ID Status Reason Start Date Expiration Date V isits Requested Visits Authorized [id number] Authorized 06/13/2023 06/12/2026 10 10 RAFT ACCESSORIES MECHANIC Reason for Visit * Outpatient (Routine) - Authorized Specialty Diagnoses / Procedures Referred By Collins trevino Referred To Contact Radiation Oncology Diagnoses Malignant Neoplasm Of Breast Lower Inner Quadrant Female Left (HCC) Roslyn Colorado M.D. [address] [place] [address] [facility] Region Referral ID Status Reason Start Date Expiration Date V isits Requested Visits Authorized [id number] Authorized 06/13/2023 06/12/2026 10 10 Encounter Details Date Type Department Care Team (Latest Contact Info) Description 06/13/2023 12:54 PM AIRCRAFT ACCESSORIES MECHANIC - 06/13/2023 11:59 PM AIRCRAFT ACCESSORIES MECHANIC Hospital Encounter Department of Radiation Oncology in [place], [place] [address] [place] [phone] Roslyn Colorado M.D. [address] [place] [address] Lottie Lima R.N. [address] [place] [phone] Malignant Neoplasm Of Breast Lower Inner Quadrant [...] Left (HCC) Once for 1 Occurrences starting 06/13/2023 until 06/13/2023 documented as of this encounter Visit Diagnoses Diagnosis Malignant Neoplasm Of Breast Lower Inner Quadrant Female Left (HCC) documented in this encounter
--- OUTSIDE RECORDS SUMMARY | 2023-08-05 10:07 | XMS_ITS | Encounter Summary ---
Author Name Unknown Organization [facility] Address [address] [place] [address] Care Team Providers Care File Keeper Name Role Phone Unavailable Primary Care Provider Unavailabl e Reason for Visit * Radiation Therapy (Routine) - Authorized Specialty Diagnoses / Procedures Referred By Collins t Referred To Contact Diagnoses Malignant Neoplasm Of Breast Lower Inner Quadrant Female Left (HCC) Procedures Prior Auth Rad Tx ID RADTN TX DEL >=1 MEV COMPLEX 3D Roslyn Colorado M.D. [address] [place] [address] [facility] Radiation Oncology at [place] [address] [place] [phone] Referral ID Status Reason Start Date Expiration Date V isits Requested Visits Authorized [id number] Authorized 05/16/2023 02/02/2024 30 30 Encounter Details Date Type Department Care Team (Latest Contact Info) Description 06/01/2023 11:21 AM STRATEGY INTERN - 06/01/2023 11:59 PM [facility] Hospital Encounter Department of Radiation Oncology in [address] [phone] Roslyn Colorado M.D. [address] [place] [phone] Discharge Disposition: Home or Self Care Social [...]
--- OUTSIDE RECORDS SUMMARY | 2023-08-05 10:07 | XMS_ITS | Encounter Summary ---
Author Name Unknown Organization [facility] Address [address] [place] [address] Care Team Providers Care Stone Mason Name Role Phone Unavailable Primary Care Provider Unavailabl e Reason for Visit * Radiation Therapy (Routine) - Authorized Specialty Diagnoses / Procedures Referred By Collins t Referred To Contact Diagnoses Malignant Neoplasm Of Breast Lower Inner Quadrant Female Left (HCC) Procedures Prior Auth Rad Tx [place] RADTN TX DEL >=1 MEV COMPLEX 3D Roslyn Colorado M.D. [address] [place] [address] T Radiation Oncology at [place] [address] [place] [phone] Referral ID Status Reason Start Date Expiration Date V isits Requested Visits Authorized [id number] Authorized 05/16/2023 02/02/2024 30 30 Encounter Details Date Type Department Care Team (Latest Contact Info) Description 05/24/2023 10:46 AM TREATMENT TECHNICIAN - 05/24/2023 11:59 PM [facility] Hospital Encounter Department of Radiation Oncology in [address] [phone] Roslyn Colorado M.D. [address] [place] [phone] Discharge Disposition: Home or Self Care Social [...]
--- OUTSIDE RECORDS SUMMARY | 2023-08-05 10:08 | XMS_ITS | Encounter Summary ---
Author Name Unknown Organization [facility] Address [address] [place] [address] Care Team Providers Care Winder Tender Name Role Phone Unavailable Primary Care Provider Unavailabl e Reason for Referral * Radiation Therapy (Routine) - Closed Specialty Diagnoses / Procedures Referred By Collins trevino Referred To Contact Diagnoses Malignant Neoplasm Of Breast Lower Inner Quadrant Female Left (HCC) Procedures Initial Rad Onc Treatment Planning CT Simulation Roslyn Colorado M.D. [address] [place] [address] [facility] Region Referral ID Status Reason Start Date Expiration Date Visits Re quested Visits Authorized [id number] Closed 02/02/2023 02/02/2024 1 1 Reason for Visit * Radiation Therapy (Routine) - Closed Specialty Diagnoses / Procedures Referred By Collins trevino Referred To Contact Diagnoses Malignant Neoplasm Of Breast Lower Inner Quadrant Female Left (HCC) Procedures Initial Rad Onc Treatment Planning CT Simulation Roslyn Colorado M.D. [address] [place] [address] [facility] Region Referral ID Status Reason Start Date Expiration Date Visits Re quested Visits Authorized [id number] Closed 02/02/2023 02/02/2024 1 1 Encounter Details Date Type Department Care Team (Latest Contact Info) Description 05/11/2023 10:30 AM CDT - 05/11/2023 12:30 PM CDT Hospital Encounter Department of Radiation Oncology in [place] [phone] [place] [address] Roslyn Colorado M.D. [address] [place] [address] Malignant Neoplasm Of Breast Lower Inner Quadrant [...] daily. 0 documented as of this encounter Procedure Notes * Marcella Whaley, RTT - 05/11/2023 10:30 AM CDTAssociated Order(s): Initial Rad Onc Treatment Planning CT Simulation Pre-Procedure Diagnose(s): Malignant Neoplasm Of Breast Lower Inner Quadrant Female Left (HCC) Post-Procedure Diagnose(s): Malignant Neoplasm Of Breast Lower Inner Quadrant Female Left (HCC) Initial Rad Onc Treatment Planning CT Simulation Performed by: Roslyn Colorado M.D. Authorized by: Roslyn Colorado M.D. Simulation was performed under physician supervision based on physician order in preparation for radiation therapy. Physician was immediately available to provide assistance and direction throughout the procedure. Written consent for treatment was completed or confirmed. The patient was appropriately identified and placed in the treatment position using the necessary immobilization to ensure a reproducible treatment position. Reference torres were placed to facilitate marking of isocenter. Area scanned:Chest Contrast used for the simulation procedure: None Patient position:head first supine and arms up Custom immobilization: Vac-ludin and Knee Cushion Motion management: Breath hold scan Bolus: Yes CT guidance: Following positioning of the patient, a series of slices was obtained to be utilized in treatment planning. CT images were transferred to the easy2comply ([employer]) treatment planning system, after a reference isocenter was determined and marked. Segmentation and treatment planning will take place prior to treatment delivery. Patient set up and imaging was appropriate and completed without incident. Plumbing Warehouse Helper use:Yes, method: Celia roberson, Plumbing Warehouse Helper ID: [email or web address] Associated attestation - Roslyn Colorado M.D. - 05/11/2023 12:30 PM CDT I was present during all critical and hutchins portions of the procedure(s) and immediately available [facility] services the entire duration. See note for details. documented in this encounter Plan of Treatment Not on file documented as of this encounter Procedures Procedure Name Priority Date/Time Associated Diagnosis Comments INITIAL RAD ONC TREATMENT PLANNING CT SIMULATION Routine 05/11/2023 10:30 AM CDT Malignant Neoplasm Of Breast Lower Inner Quadrant Female Left (HCC) documented in this encounter Results * Initial Rad Onc Treatment Planning CT Simulation (05/11/2023 10:30 AM CDT) Narrative BESS RUIZ - 05/11/2023 10:30 AM CDT Marcella Whaley, RTT ? 05/11/2023 11:37 AM Initial Rad Onc Treatment Planning CT Simulation Performed by: Roslyn Coloraod M.D. Authorized by: Roslyn Colorado M.D. ?? Roslyn Colorado M.D. RADIATION ONCOLOG Y ORDERABLES BESS RUIZ na documented in this encounter Visit Diagnoses Diagnosis Malignant Neoplasm Of Breast Lower Inner Quadrant Female Left (HCC) documented in this encounter
--- OUTSIDE RECORDS SUMMARY | 2023-08-05 10:08 | XMS_ITS | Encounter Summary ---
Author Name Unknown Organization [facility] Address [address] [place] [address] Care Team Providers Care Oil Well Driller Name Role Phone Unavailable Primary Care Provider Unavailabl e Reason for Visit * Radiation Therapy (Routine) - Authorized Specialty Diagnoses / Procedures Referred By Collins t Referred To Contact Diagnoses Malignant Neoplasm Of Breast Lower Inner Quadrant Female Left (HCC) Procedures Prior Auth Rad Tx RI RADTN TX DEL >=1 MEV COMPLEX 3D Roslyn Colorado M.D. [address] [place] [address] T Radiation Oncology at [place] [address] [place] [phone] Referral ID Status Reason Start Date Expiration Date V isits Requested Visits Authorized [id number] Authorized 05/16/2023 02/02/2024 30 30 Encounter Details Date Type Department Care Team (Latest Contact Info) Description 05/23/2023 12:50 PM TESTS SUPERINTENDENT - 05/23/2023 11:59 PM [facility] Hospital Encounter Department of Radiation Oncology in [address] [phone] Roslyn Colorado M.D. [address] [place] [phone] Discharge Disposition: Home or Self [...]
--- OUTSIDE RECORDS SUMMARY | 2023-08-05 10:08 | XMS_ITS | Encounter Summary ---
Author Name Unknown Organization [facility] Address [address] [place] [address] Care Team Providers Care Ground Crew Supervisor Name Role Phone Unavailable Primary Care Provider Unavailabl e Encounter Details Date Type Department Care Team (Late st Contact Info) Description 01/13/2023 Orders Only Department of Oncology in [place], [place] [address] [place] [phone] Haily Castle M.D. [address] [place] [phone] Social History Tobacco Use Types Packs/Day Years Used Date Smoking Tobacco: Never Assessed Nutrition Answer Date Recorded Nutrition: EVOO Fat [...]
--- OUTSIDE RECORDS SUMMARY | 2023-08-05 10:08 | XMS_ITS | Encounter Summary ---
Author Name Unknown Organization [facility] Address [address] [place] [id number] Care Team Providers Care Human Resources District Manager Name Role Phone Unavailable Primary Care Provider Unavailabl e Reason for Referral * Outpatient (Routine) - Closed Specialty Diagnoses / Procedures Referred By Collins t Referred To Contact Radiation Oncology Roslyn Colorado M.D. [address] [place] [phone] [facility] Region Referral ID Status Reason Start Date Expiration Date Visits Re quested Visits Authorized [id number] Closed 02/02/2023 02/01/2026 1 1 * Specialty Diagnoses / Procedures Referred By Contac t Referred To Contact Lizbet Babb P.A.-C., M.S. [address] [place] [phone] [facility] Region Referral ID Status Reason Start Date Expiration Date Visits Re quested Visits Authorized * Specialty Diagnoses / Procedures Referred By Contac t Referred To Contact Lizbet Babb P.A.-C., M.S. [address] [place] [phone] [facility] Region Referral ID Status Reason Start Date Expiration Date Visits Re quested Visits Authorized * Radiation Therapy (Routine) - Authorized Specialty Diagnoses / Procedures Referred By Collins trevino Referred To Contact Diagnoses Malignant Neoplasm Of Breast Lower Inner Quadrant Female Left (HCC) Procedures Prior Auth Rad Tx CO RADTN TX DEL >=1 MEV COMPLEX 3D Roslyn Colorado M.D. [address] [place] [address] [facility] Radiation Oncology at [place] [address] [place] [phone] Referral ID Status Reason Start Date Expiration Date V isits Requested Visits Authorized [id number] Authorized 05/16/2023 02/02/2024 30 30 * Radiation Therapy (Routine) - Authorized Specialty Diagnoses / Procedures Referred By Collins trevino Referred To Contact Diagnoses Malignant Neoplasm Of Breast Lower Inner Quadrant Female Left (HCC) Procedures Management Visit Roslyn Colorado M.D. [address] [place] [phone] [facility] Region Referral ID Status Reason Start Date Expiration Date V isits Requested Visits Authorized [id number] Authorized 02/02/2023 02/02/2024 10 10 * Radiation Therapy (Routine) - Closed Specialty Diagnoses / Procedures Referred By Collins trevino Referred To Contact Diagnoses Malignant Neoplasm Of Breast Lower Inner Quadrant Female Left (HCC) Procedures Initial Rad Onc Treatment Planning CT Simulation Roslyn Colorado M.D. [address] [place] [address] [facility] Region Referral ID Status Reason Start Date Expiration Date Visits Re quested Visits Authorized [id number] Closed 02/02/2023 02/02/2024 1 1 * Outpatient (Routine) - Closed Specialty Diagnoses / Procedures Referred By Collins trevino Referred To Contact Radiation Oncology Roslyn Colorado M.D. [address] [place] [address] [place] [address] Referral ID Status Reason Start Date Expiration Date Visits Re quested Visits Authorized [id number] Closed 02/02/2023 02/01/2026 1 1 Scheduling Instructions Please schedule with simulation approximately 3 weeks after patient completes chemotherapy ([facility] - Dr. Castle), please get recent Med Onc notes and chemo records. Reason for Visit * Appointment Request (Routine) - Closed Specialty Diagnoses / Procedures Referred By Collins trevino Referred To Contact Radiation Oncology Diagnoses Malignant Neoplasm Of Unspecified Site Of Laterality Unknown Female Breast (HCC) Haily Castle M.D. [address] [place] [phone] Referral ID Status Reason Start Date Expiration Date Visits Re quested Visits Authorized [id number] Closed 01/20/2023 01/20/2024 1 1 Encounter Details Date Type Department Care Team (Latest Contact Info) Description 02/02/2023 1:18 PM CDT - 02/02/2023 4:59 PM CDT Hospital Encounter Department of Radiation Oncology in [place], [place] [address] [place] [phone] Roslyn Colorado M.D. [address] [place] [phone] Malignant Neoplasm Of Breast Lower Inner Quadrant Female Left (HCC) (Primary Dx) Social History Tobacco Use Types Packs/Day Years [...] Sign Reading Time Taken Comments Blood Pressure 110/73 02/02/2023 1:21 PM CDT Pulse 82 02/02/2023 1:21 PM CDT Temperature 36.7 ??C (98 ??F) 02/02/2023 1:21 PM CDT Respiratory Rate - - Oxygen Saturation - - Inhaled Oxygen Concentration - - Weight 65.9 kg (145 lb 3.2 oz) 02/02/2023 1:21 P M CDT Height - - Body Mass Index - - documented in this encounter Medications at Time of Discharge Medication Sig Dispensed Refills Start Date End Date multivitamin capsule Take 1 capsule by mouth daily. 0 documented as of this encounter Consult Notes * Lizbet Babb P.A.-C., M.S. - 02/02/2023 1:30 PM CDT SUBJECTIVE REQUESTING PROVIDER Haily Castle M.D. REASON FOR CONSULT 1. Malignant Neoplasm Of Breast Lower Inner Quadrant Female Left (HCC) SUPERVISED BY: Roslyn Colorado M.D. HISTORY OF PRESENT ILLNESS Miss Carmen Angel is a 42-year-old female with stage IA (pT1c, pN0 (i+)(sn), cM0, G3, ER-, CO-, HER2+) invasive ductal carcinoma of the left breast, who presents today for an opinion regarding the role of radiation therapy in the management of the patient's disease. Her oncologic history is as follows: Oncology History Malignant Neoplasm Of Breast Lower Inner Quadrant Female Left (HCC) 11/09/2022 Critical Imaging Screening mammogram demonstrated left breast microcalcifications present within the lower inner quadrant, 7 cm from the nipple. Recommended diagnostic mammogram. 12/01/2022 Critical Imaging Diagnostic mammogram of the left breast demonstrated a loosely grouped regional distribution of slightly pleomorphic calcifications within the lower inner quadrant left breast, new from prior studies, concerning for DCIS. Recommend stereotactic biopsy. BI-RADS category 4: Suspicious. 12/02/2022 Biopsy/Pathology Final Diagnosis A) LEFT BREAST, 9:00, 5 CM FROM NIPPLE, STEREOTACTIC-GUIDED CORE BIOPSY: 1. Multiple foci of microinvasive ductal carcinoma a. Size: Up to 1 mm in this sample b. Angio-lymphatic invasion: Absent c. Associated DCIS: Present d. Subtype: Solid and comedo with calcifications e. Grade of DCIS: 3 of 3 2. Breast Ancillary Testing: a. Hormone Receptors: Estrogen receptor: Negative Progesterone receptor: Negative b. HER2 by IHC: Positive (3+ by manual morphometry) B) LEFT BREAST, 9:00, 8 CM FROM NIPPLE, STEREOTACTIC-GUIDED CORE BIOPSY: 1. Ductal carcinoma in situ (DCIS) a. Subtype: Comedo and Solid b. Nuclear grade: 3 of 3 c. Calcifications: Are associated with DCIS d. Necrosis: Is associated with DCIS 2. Negative for invasive tumor 3. Estrogen receptor immunohistochemistry is deferred to part A 12/17/2022 Critical Imaging MRI bilateral breast Impression: Mass and non-mass enhancement occupying nearly the entire lower inner quadrant of the left breast as well as extending into the upper inner quadrant measures up to at least 8.8 cm on MRI and is consistent with the biopsy-proven malignancy Additional masses within the upper outer quadrant the largest of which is at 2 o'clock, posterior depth measuring up to 1.2 cm. If it would alter surgical/clinical management, recommend ultrasound and ultrasound-guided biopsy of 1 or more sites. Abnormal left axillary lymph node. Recommend ultrasound and ultrasound-guided biopsy Benign postsurgical changes in the right breast. No MRI evidence of contralateral malignancy. BI-RADS category 4: Suspicious 12/24/2022 Biopsy/Pathology Final Diagnosis A) LEFT AXILLA, LYMPH NODE, ULTRASOUND-GUIDED CORE BIOPSY: 1. Fragments of benign lymph node 2. Negative for metastatic carcinoma in this sampling 12/28/2022 Surgery and Procedures Left breast mastectomy with sentinel lymph node biopsy was performed by Dr. Zoe Correa. Final Diagnosis A) LEFT BREAST, MASTECTOMY: 1. Invasive ductal carcinoma, multifocal, Santosh grade III of III a. Size: Invasive tumors measure 14 mm, 10 mm and at least additional 20 foci measuring from 4 mm to less than 1 mm, see comment b. Breast Ancillary Testing: Performed on prior case ([id number]) Hormone Receptors: Estrogen receptor: Negative Progesterone receptor: Negative HER2 by IHC: Positive (3+ by manual morphometry) 2. Extensive ductal carcinoma in situ (DCIS), nuclear grade 3, Solid, cribriform and Comedo types a. Size: DCIS spans 180 mm 3. Margins: a. Invasive carcinoma is 2 mm from the anterior inferior margin and 4 mm from the posterior margin b. DCIS is present at the anterior inferior margin (focal - 1 mm span) and less than 1 mm from the posterior margin 4. Biopsy sites (2) identified 5. DCIS involves large ducts of nipple B) LEFT AXILLARY WIRE LOCALIZED LYMPH NODE, BIOPSY: 1. Isolated tumor cells measuring 0.1 mm involve 1 lymph node 2. Focal granulomatous inflammation, see comment C) LEFT AXILLARY SENTINEL LYMPH NODE, 1, BIOPSY: 1. Negative for malignancy in 1 lymph node (0/1) D) LEFT AXILLARY SENTINEL LYMPH NODE, 2, BIOPSY: 1. Negative for malignancy in 1 lymph node (0/1) E) ADDITIONAL LEFT AXILLARY TISSUE, BIOPSY: 1. Negative for malignancy in 2 lymph nodes (0/2) SYNOPTIC REPORTING INVASIVE CARCINOMA OF THE BREAST: Resection INVASIVE CARCINOMA OF THE BREAST: COMPLETE EXCISION - All Specimens SPECIMEN Procedure: Total mastectomy Specimen Laterality: Left TUMOR Tumor Site: Upper outer quadrant Tumor Site: Lower outer quadrant Tumor Site: Lower inner quadrant Tumor Site: Central Histologic Type: Invasive carcinoma of no special type (ductal) Histologic Grade (Weir Histologic Score): Glandular (Acinar) / Tubular Differentiation: Score 3 Nuclear Pleomorphism: Score 3 Mitotic Rate: Score 2 Overall Grade: Grade 3 (scores of 8 or 9) Tumor Size: Greatest dimension of largest invasive focus (Millimeters): 14 mm Tumor Focality: Multiple foci of invasive carcinoma Number of Foci: >20 (14 mm, 10 mm, 4 mm to less than 1 mm - at least 20) Ductal Carcinoma In Situ (DCIS): Present : Positive for extensive intraductal component (EIC) Size (Extent) of DCIS: Estimated size (extent) of DCIS is at least (Millimeters): 180 mm Architectural Patterns: Comedo Architectural Patterns: Cribriform Architectural Patterns: Solid Nuclear Grade: Grade III (high) Necrosis: Present, central (expansive comedo necrosis) Lobular Carcinoma In Situ (LCIS): Not identified Lymphovascular Invasion: Present Dermal Lymphovascular Invasion: Not identified Microcalcifications: Present in DCIS Treatment Effect in the Breast: No known presurgical therapy MARGINS Margin Status for Invasive Carcinoma: All margins negative for invasive carcinoma Distance from Invasive Carcinoma to Closest Margin: 2 mm Closest Margin(s) to Invasive Carcinoma: Anterior inferior Margin Status for DCIS: DCIS present at margin Margin(s) Involved by DCIS: Anterior inferior, focal Distance from DCIS to Posterior Margin: Less than: 1 mm REGIONAL LYMPH NODES Regional Lymph Node Status: : Tumor present in regional lymph node(s) Number of Lymph Nodes with Macrometastases: 0 Number of Lymph Nodes with Micrometastases: 0 Number of Lymph Nodes with Isolated Tumor Cells: 1 Size of Largest Michele Metastatic Deposit: 0.1 mm Extranodal Extension: Not identified Total Number of Lymph Nodes Examined (sentinel and non-sentinel): 5 Number of Nuevo Nodes Examined: 2 PATHOLOGIC STAGE CLASSIFICATION (pTNM, AJCC 8th Edition) TNM Descriptors: m (multiple foci of invasive carcinoma) pT Category: pT1c pN Category: pN0 (i+) 01/12/2023 Other Follow-up appointment with Dr. Correa who felt that the patient will likely need postoperative radiation. The patient had an appointment with Medical Oncology the next day for discussion of chemotherapy. Follow-up with surgery as needed. 01/13/[address] Haily Castle, Medical Oncology. Recommended trastuzumab/pertuzumab immunotherapy every 3 weeks for 1 year with concurrent Taxotere every 3 weeks for 4 cycles. Recommended radiation referral due to positive margins with DCIS. Other Malignant Neuroendocrine Tumors (HCC) 2011 Initial Diagnosis Patient noted to have palpable lump in right breast in October 2010. Initial workup demonstrated fibroadenoma. Mass continued to grow. Ultrasound of the right breast in November 2011 demonstrated 4.8 x 4.6 x 3.1 cm, and still consistent with fibroadenoma. 01/05/2012: Right breast biopsy demonstrated neuroendocrine tumor, ER/CO positive, HER2 not amplified. PET-CT and brain MRI demonstrated no evidence of metastatic disease. 02/11/2012: Right mastectomy with sentinel lymph node excision demonstrated neuroendocrine carcinoma, well differentiated (3.2 x 3.2 x 2.7 cm). Tumor was central and subareolar, negative margins (by 1.2 cm superiorly), negative sentinel lymph node biopsy (0/1). No evidence of lymph vascular or dermal invasion (pT2, pN0, cM0). ER+, CO+, HER2- by FISH, Ki67 18% 02/2012 - 05/2012: Received 2 cycles Carbo/Taxol, but due to elevated LFTs and transaminases with Taxol infusion switched to Adriamycin Cytoxan. She proceeded to receive 2 cycles of AC. 06/14/2012 - 07/2012: Received 5040 cGy in 28 fractions to the right chest wall at [facility]. Patient went onto complete 5 years of tamoxifen. 2013 Surgery and Procedures Right chest wall reconstruction. INTERVAL HISTORY The patient was seen and examined today with Dr. Colorado. A Macedonian interpretor was on the iPad language line today during our encounter. The patient reports doing well overall. She denies fatigue. She reports healing well overall following her recent surgery. She reports occasional, mild pain of the left chest wall that comes and goes. She denies left chest wall numbness, tingling, or swelling. She denies any surgical incision healing concerns. She does report that there was extra skin left behind to help with planned future reconstruction. She reports good left arm range of motion. She denies left arm lymphedema. She reports that she has her first physical therapy appointment later today. She denies shortness of breath or cough. The patient has had previous right chest wall radiation therapy. The patient reports that she semaj erated her previous radiation therapy well overall without any specific side effects that she recalls. She denies a history of connective tissue disorders or inflammatory bowel disease. Her ECOG performance status is 0. REVIEW OF SYSTEMS Review of systems was negative except as documented above. PATIENT REPORTED SYMPTOM SCREEN FATIGUE (Scale: 0 = no fatigue; 10 = worst fatigue you can imagine): 0 PAIN (Scale: 0 = no pain; 10 = worst pain you can imagine): 0 OVERALL QUALITY OF LIFE (Scale: 0 = as bad as can be; 10 = as good as can be): 10 PAST MEDICAL HISTORY Past Medical History: Diagnosis Date Cervical Dysplasia Personal History Malignant Neoplasm Of Breast Lower Inner Quadrant Female Left (HCC) 03/03/2012 Other Malignant Neuroendocrine Tumors (HCC) 01/28/2023 History of Stage IIA (T2, N0, cM0) Right breast Neuroendocrine cancer, ER/CO positive, HER-2 negative, diagnosed 12/2011. S/p right mastectomy, chemotherapy, radiation. She started endocrine therapy with Tamoxifen 07/2012 with a plan to continue for at least 5 years. Stopped Tamoxifen in fall 2016 due to depressed mood. PAST SURGICAL HISTORY Past Surgical History: Procedure Laterality Date SECTION, CLASSIC 05/2020 MASTECTOMY Right 01/2012 MASTECTOMY W/ SENTINEL NODE BIOPSY Left 12/2022 FAMILY HISTORY Family History Problem Relation Age of Onset Gastric carcinoma Uncle Paternal SOCIAL HISTORY Social History Socioeconomic History Marital status: Life Partnership Number of children: 1 Tobacco Use Smoking status: Former Types: Cigarettes Smokeless tobacco: Never Tobacco comments: Minimal smoking history, quit approximately 15 years ago. Vaping Use Vaping Use: never used Substance and Sexual Activity Alcohol use: Not Currently Social History Narrative She is a [id number] mom. She has a 2.5 year old daughter. OBJECTIVE BP 110/73 (BP Location: Right arm, Patient Position: Sitting, Cuff Size: Regular) Pulse 82 Temp36.7 ??C (Temporal) Wt 65.9 kg PHYSICAL EXAM GENERAL: Alert and oriented in no apparent distress. HEART: Regular rate and rhythm. LUNGS: Clear to auscultation bilaterally. LYMPH: No palpable cervical lymphadenopathy. ASSESSMENT / PLAN #1 Stage IA (pT1c, pN0 (i+)(sn), cM0, G3, ER-, CO-, HER2+) invasive ductal carcinoma of the left breast s/p left breast mastectomy and left axillary lymph node excision on December 28, 2022 #2 Neuroendocrine tumor of the right breast s/p right mastectomy and sentinel lymph node excision on February 11, 2012 followed by chemotherapy, radiation therapy to the right chest wall, and tamoxifen for 5 years as well as reconstruction in 2012 I had a discussion with the patient regarding her breast cancer diagnosis including information regarding her staging. We reviewed her oncologic history as detailed above. We also had a detailed discussion regarding the risks, benefits, and alternatives of radiotherapy in this setting. Dr. Colorado offered radiation therapy to the left chest wall and regional lymph nodes in 25 fractions. We also discussed the possible addition of a 5 fraction boost which would then equal a total of 30 fractions. I discussed the logistics as well as the acute and chronic side effects of radiotherapy. The acute side effects are common and include, but are not limited to, fatigue, radiation dermatitis, chest wall swelling and discomfort, and possible sore throat . Long-term side effects include, but are not limited to, skin changes and texture changes of the chest wall, pulmonary scarring, radiation pneumonitis, increased risk of rib fracture with significant trauma, lymphedema, small increased risk of coronary artery disease, very small risk of nerve injury to the brachial plexus, hypothyroidism, and cain small risk of secondary malignancy. We briefly discussed the use of Mepitel during radiation therapy. We also discussed utilizing a breath-hold technique for treatments. The patient was providedwith a written summary of recommendations (the patient reports that she does speak and read Englishand she declined having the written material translated to Macedonian). Her questions were answered toher verbalized satisfaction. The patient reports that she is scheduled to initiate chemotherapy on February 10, 2023. We reviewed that radiation therapy would typically begin approximately one month after completion of chemotherapy.The patient also reports that she is planning on future left breast reconstruction and she has already been told that this would be done after the completion of chemotherapy and radiation therapy. Dr. Colorado also met with the patient today, please see her attestation for details. We will order for a return visit with planned CT simulation to be scheduled here approximately 3 weeks after the patient completes chemotherapy. The patient was provided with our contact information. She will contact us with questions or concerns. She verbally expressed her understanding of the plan. EDUCATION Ready to learn, no apparent learning barriers were identified; learning preferences include listening. Explained diagnosis and treatment plan; patient expressed understanding of the content. PRIMARY PROVIDER Dr. Kyree Funez I personally spent 48 minutes in care of the patient today. Time includes both non face to face andface to face patient care. Signed by: Lizbet Babb P.A.-C., M.S. 02/02/2023 3:37 PM CDT [facility] [address] [place] [address] Associated attestation - Roslyn Colorado M.D. - 02/02/2023 4:58 PM CDT RADIATION ONCOLOGY CONSULT I saw and evaluated the patient and participated in the hutchins portions of the service. I reviewed thedocumentation of Ms. Lizbet Babb PA-C, and agree with the findings and plan. Please see Ms. Babb's detailed note for the patient's initial presentation and work-up. Briefly, Ms. Angel is a very pleasant 42 year old female with a history of a right sided breast cancer when she was 31 years old that was treated with surgery, radiation and chemotherapy who now has a left sided multifocal breast cancer that has positive DCIS margin and a single lymph node with ITCs (1 LN with 0.1mm focus), 4 additional nodes were negative. The breast had more than 20 tumors with the IDC measuring 14mm, 10mm and then most 1-4mm. The tumor was grade 3, ER/CO negative and HER2 positive. Margins were negative by 2mm on the invasive and DCIS was present at the anterior inferior margin. She is recovering well and anticipates starting chemotherapy next week. I have reviewed her imaging, operative and pathology reports. On exam, She appears well. She has no worrisome lumps or masses along her left mastectomy incision.She does have some extra skin, which is slightly tethered. No adenopathy. The right breast is reconstructed with no worrisome skin nodules or masses. We discussed the findings above and below in this note with the patient with the aid of a manager assisted living. We discussed her treatment alternatives. Given her young age, narrow margins, ER/CO negative status and ITC with in a lymph node, we discussed advjuant chest wall and michele radiation. She is hoping for reconstruction down the road, so we discussed conventional radiation therapy in 25-30 fractions. I think it would be good to present her case at our [facility] board for review and discussion. I did share her case with one of my [facility] [facility] On[facility] Subspecialist and they agreed with adjuvant therapy as well. We discussed the rationale, risks, side effects and goals of radiation therapy. We discussed the rationale, risks, side effects and adjuvant goals of radiation therapy. We discussed the acute as wellas buttermaker helper risks, including, but not limited to fatigue, skin erythema/desquamation, sore throat,fibrosis of the breast/chest wall, lymphedema, small risks of bone fracture, radiation pneumonitis,cardiac disease, brachial plexopathy and secondary malignancies. We discussed possibly utilizing a breath hold technique for treatment if this is better. They understood and their questions were answered. We will see her back 2-3 week after completion of chemotherapy. My thanks to Drs. Correa and Corrine for the opportunity to participate in this patient's care. EDUCATION Ready to learn, no apparent learning barriers were identified; learning preferences include listening. Explained diagnosis and treatment plan; patient expressed understanding of the content. CONSENT Discussed the risks, benefits, alternatives, and the necessity of other members of the healthcare team participating in the procedure. All questions answered and consent given. DIAGNOSIS #1 Stage IA (pT1c, pN0 (i+)(sn), cM0, G3, ER-, CO-, HER2+) invasive ductal carcinoma of the left breast s/p left breast mastectomy and left axillary lymph node excision on December 28, 2022 #2 Neuroendocrine tumor of the right breast s/p right mastectomy and sentinel lymph node excision on February 11, 2012 followed by chemotherapy, radiation therapy to the right chest wall, and tamoxifen for 5 years as well as reconstruction in 2012 Signed by: Roslyn Colorado M.D. 02/02/2023 4:48 PM CDT Radiation Oncology [facility] [address] [place], [place] [id number] documented in this encounter Plan of Treatment Scheduled Orders Name Type Priority Associated Diagnoses Order Schedule Management Visit Radiation Oncology Routine Malignant Neoplasm Of Breast Lower Inner Quadrant Female Left (HCC) 10 Occurrences starting 02/02/2023 until 02/03/2024 Prior Auth Rad Tx Radiation Oncology Routine Malignant Neoplasm Of Breast Lower Inner Quadrant Female Left (HCC) Ordered: 02/02/2023 Scheduled Referrals Name Type Priority Associated Diagnoses Orde r Schedule Radiation Oncology office visit (clinic) Outpatient Referral Routine Expected: 05/05/2023 (Approximate), Expires: 02/03/2024 Radiation Oncology - PRO education visit Outpatient Referral Routine Malignant Neoplasm Of Breast Lower Inner Quadrant Female Left (HCC) Expected: 02/02/2023 (Approximate), Expires: 05/05/2024 Radiation Oncology - Nurse education visit (clinic) Outpatient Referral Routine Malignant Neoplasm Of Breast Lower Inner Quadrant Female Left (HCC) Expected: 02/02/2023 (Approximate), Expires: 02/03/2024 Radiation Oncology nurse visit (clinic) Outpatient Referral Routine Expected: 02/02/2023 (Approximate), Expires: 05/05/2024 documented as of this encounter Results * Initial Rad Onc [...] Lower Inner Quadrant Female Left (HCC)- Primary Malignant Neoplasm Of Breast Lower Inner Quadrant Female Left (HCC) documented in this encounter
--- OUTSIDE RECORDS SUMMARY | 2023-08-05 10:08 | XMS_ITS | Encounter Summary ---
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 [address] [place] [phone] [facility] Region Referral ID Status Reason Start Date Expiration Date Visits Re quested Visits Authorized [id number] Closed 05/12/2023 05/11/2024 1 1 * Outpatient (Routine) - Closed Specialty Diagnoses / Procedures Referred By Collins trevino Referred To Contact Radiation Oncology Roslyn Colorado M.D. [address] [place] [phone] Roslyn Colorado M.D. [address] [place] [phone] Referral ID Status Reason Start Date Expiration Date Visits Re quested Visits Authorized [id number] Closed 02/02/2023 02/01/2026 1 1 Scheduling Instructions Please schedule with simulation approximately 3 weeks after patient completes chemotherapy ([facility] - Dr. Castle), please get recent Med Onc notes and chemo records. Reason for Visit * Outpatient (Routine) - Closed Specialty Diagnoses / Procedures Referred By Collins trevino Referred To Contact Radiation Oncology Roslyn Colorado M.D. [address] [place] [phone] Roslyn Colorado M.D. [address] [place] [phone] Referral ID Status Reason Start Date Expiration Date Visits Re quested Visits Authorized [id number] Closed 02/02/2023 02/01/2026 1 1 Encounter Details Date Type Department Care Team (Latest Contact Info) Description 05/11/2023 9:46 AM CDT - 05/11/2023 10:29 AM CDT Hospital Encounter Department of Radiation Oncology in [place], [place] [address] [place] [phone] Roslyn Colorado M.D. [address] [place] [phone] Malignant Neoplasm Of Breast Lower Inner Quadrant [...] Sign Reading Time Taken Comments Blood Pressure 114/75 05/11/2023 10:02 AM CDT Pulse 89 05/11/2023 10:02 AM CDT Temperature 37.1 ??C (98.7 ??F) 05/11/2023 10:02 AM C DT Respiratory Rate - - Oxygen Saturation - - Inhaled Oxygen Concentration - - Weight 67.2 kg (148 lb 2.4 oz) 05/11/2023 10:02 AM CDT Height - - Body Mass Index - - documented in this encounter Medications at Time of Discharge Medication Sig Dispensed Refills Start Date End Date multivitamin capsule Take 1 capsule by mouth daily. 0 documented as of this encounter Progress Notes * Lizbet Babb P.A.-C., M.S. - 05/11/2023 10:00 AM CDT SUBJECTIVE DIAGNOSIS 1. Malignant Neoplasm Of Breast Lower Inner Quadrant Female Left (HCC) SUPERVISED BY: Roslyn Colorado M.D. HISTORY OF PRESENT ILLNESS Miss Carmen Angel is a 42-year-old female with stage IA (pT1c, pN0 (i+)(sn), cM0, G3, ER-, WY-, HER2+) invasive ductal carcinoma of the left breast. Her oncologic history is as follows: Oncology [...] BREAST, MASTECTOMY: 1. Invasive ductal carcinoma, multifocal, [place] grade III of III a. Size: Invasive tumors measure 14 mm, 10 mm and at least additional 20 foci measuring from 4 mm to less than 1 mm, see comment b. Breast Ancillary Testing: Performed on prior case ([id number]) Hormone Receptors: Estrogen receptor: Negative Progesterone receptor: [...] of no special type (ductal) Histologic Grade (Santosh Histologic Score): Glandular (Acinar) / Tubular Differentiation: [...] Examined (sentinel and non-sentinel): 5 Number of [place] Nodes Examined: 2 PATHOLOGIC STAGE CLASSIFICATION (pTNM, [...] referral due to positive margins with DCIS. 02/10/2023 - 04/14/2023 Chemotherapy Taxotere/pertuzumab/trastuzumab x 4 cycles. 05/04/2023 - Biological/Targeted/Hormone Therapy Herceptin/Perjeta only 05/16/2023 - Radiation Therapy Radiation Therapy Treatment Details (Noted on 02/02/2023) Site: Left Chest wall Technique: No technique specified Goal: Curative Planned Treatment Start Date: 05/16/2023 Other Malignant Neuroendocrine Tumors (HCC) 2011 Initial Diagnosis Patient noted to have palpable lump in right breast in October 2010. Initial workup demonstrated fibroadenoma. Mass continued to grow. Ultrasound of the right breast in November 2011 demonstrated 4.8 x 4.6 x 3.1 cm, and still consistent with fibroadenoma. 01/05/2012: Right breast biopsy demonstrated neuroendocrine tumor, ER/WY positive, HER2 not amplified. PET-CT and brain MRI demonstrated no evidence of metastatic disease. 02/11/2012: Right mastectomy with sentinel lymph node excision demonstrated neuroendocrine carcinoma, well differentiated (3.2 x 3.2 x 2.7 cm). Tumor was central and subareolar, negative margins (by 1.2 cm superiorly), negative sentinel lymph node biopsy (0/1). No evidence of lymph vascular or dermal invasion (pT2, pN0, cM0). ER+, WY+, HER2- by FISH, Ki67 18% 02/2012 - 05/2012: Received 2 cycles Carbo/Taxol, but due to elevated LFTs and transaminases with Taxol infusion switched to Adriamycin Cytoxan. She proceeded to receive 2 cycles of AC. 06/14/2012 - 07/2012: Received 5040 cGy in 28 fractions to the right chest wall at [facility]. Patient went onto complete 5 years of tamoxifen. 2013 Surgery and Procedures Right chest wall reconstruction. INTERVAL HISTORY The patient was seen and examined today with Dr. Colorado. The encounter today was facilitated by a Divehi interpretor on the iPad. The patient reports doing well overall. She reports completing chemotherapy and starting immunotherapy only last week. She states that they were closely monitoring her liver during chemotherapy and that her labs had now improved. She otherwise denies any specific or persistent side effects with chemotherapy. She denies left chest wall pain, numbness, or tingling. She denies swelling of the left arm or left chest wall. She denies shortness of breath or cough. She reports good energy levels. REVIEW OF SYSTEMS Review of systems was negative except as documented above. PHYSICAL EXAM GENERAL: Alert and oriented in no apparent distress. ASSESSMENT / PLAN #1 Stage IA (pT1c, pN0 (i+)(sn), cM0, G3, ER-, WY-, HER2+) invasive ductal carcinoma of the left breast s/p left breast mastectomy and left axillary lymph node excision on December 28, 2022 #2 Neuroendocrine tumor of the right breast s/p right mastectomy and sentinel lymph node excision on February 11, 2012 followed by chemotherapy, radiation therapy to the right chest wall, and tamoxifen for 5 years as well as reconstruction in 2013 #3 Taxotere/trastuzumab/pertuzumab x 4 cycles completed on April 14, 2023 followed by trastuzumab/pertuzumab only for a planned one year The patient returns today in follow-up after completing 4 cycles of chemotherapy. She reports that she tolerated chemotherapy well overall and she denies any specific or persistent side effects or concerns at this time. We reviewed Dr. Colorado' recommendation for radiation therapy to the left chest wall and regional lymph nodes in 25 fractions. I reviewed the logistics as well as the acute and chronic side effects ofradiotherapy. For a complete listing of these, please see my consultation note from February 02, 2023. We discussed the use of Mepitel during radiation treatment and the patient was interested in using th is. She will receive complete Mepitel and skin care instructions from one of our nurses. Her questions were answered to her verbalized satisfaction. The patient was offered a social work consultation today and she was agreeable to wanting to proceed with this appointment. I have placed an order for this to be scheduled during her treatments. After discussion, the patient verbally stated that she would like to proceed with radiation treatment. She signed consent. She is scheduled for CT simulation today. She will be scheduled to initiate radiation treatment next week. Dr. Colorado also met with the patient today, please see her attestation for details. The patient was provided with our contact [...] procedure. All questions answered and consent given. I personally spent 35 minutes in care of the patient today. Time includes both non face to face andface to face patient care. Signed by: Lizbet Babb P.A.-C., M.S. 05/11/2023 11:06 AM CDT [facility] [address] [place] [address] Associated attestation - Roslyn Colorado M.D. - 05/11/2023 12:28 PM CDT RADIATION ONCOLOGY FOLLOW-UP VISIT I saw and evaluated the patient and participated in the hutchins portions of the service. I reviewed thedocumentation of Ms. Lizbet Babb PA-C, and agree with the findings and plan. Ms. Angel is a very pleasant 42 year old female with a history of a right sided breast cancer when she was 31 years old that was treated with surgery, radiation and chemotherapy who now has a left sided multifocal breast cancer that has positive DCIS margin and a single lymph node with ITCs (1 LNwith 0.1mm focus), 4 additional nodes were negative. The breast had more than 20 tumors with the IDC measuring 14mm, 10mm and then most 1-4mm. The tumor was grade 3, ER/WY negative and HER2 positive.Margins were negative by 2mm on the invasive and DCIS was present at the anterior inferior margin. She has now completed her chemotherapy and returns for continued discussion regarding radiation. We do have her prior radiation records. On exam, she appears well. She has no cervical, supra/infraclavicular or axillary adenopathy. Her right breast is intact with no nodules or skin changes. Her left breast is surgically absent. She hasa divot of tissue beneath where her breast was with some redundant skin tissue with no worrisome lumps, masses or skin changes. It does not feel tethered at this time. We discussed the rationale, risks, side effects and adjuvant goals of radiation therapy. 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 We discussed possibly utilizing a breath hold technique for treatment if this is better and she is able. We discussed the risks of re-irradiation which should be low. We might not treat the IMN lymph nodes with thecomprehensive michele panda. They understood and their questions were answered. She understood and her questions were answered. She wished to proceed with treatment. We tentatively plan on delivering 5000 cGy in 25 fractions to her chest wall and lymph nodes starting May 23, 2023. We also discussed a simultaneous integrated boost to her scar for the positive DCIS margin. We discussed how this could affect future reconstruction. My thanks to Drs. Correa and Corrine [...] IA (pT1c, pN0 (i+)(sn), cM0, G3, ER-, WY-, HER2+) invasive ductal carcinoma of the left [...] in 2012 Signed by: Roslyn Colorado M.D. 05/11/23 Radiation Oncology [facility] [address] [place] [phone] documented in this encounter Miscellaneous Notes * Addendum Note - Lizbet Babb P.A.-C., M.S. - 05/11/2023 10:00 AM CDTEncounter addended by: Lizbet Babb P.A.-C., M.S. on: 05/12/2023 9:28 AM Actions taken: Order list changed, Diagnosis association updated documented in this encounter Plan of Treatment Scheduled Referrals Name Type Priority Associated Diagnoses Order Schedule Radiation Oncology office visit (clinic) Outpatient Referral Routine Once for 1 Occurrences starting 05/11/2023 until 05/11/2023 Social Work - General consult (clinic) Outpatient Referral Routine Malignant Neoplasm Of Breast Lower Inner Quadrant Female Left (HCC) Expected: 05/12/2023 (Approximate), Expires: 08/12/2024 documented as of this encounter Visit Diagnoses Diagnosis Malignant Neoplasm Of Breast Lower Inner Quadrant Female Left (HCC)- Primary documented in this encounter
--- OUTSIDE RECORDS SUMMARY | 2023-08-05 10:08 | XMS_ITS | Encounter Summary ---
Author Name Unknown Organization [facility] Address [address] [place] [address] Care Team Providers Care Tapper Operator Name Role Phone Unavailable Primary Care Provider Unavailabl e Reason for Referral * Outpatient (Routine) - Closed Specialty Diagnoses / Procedures Referred By Collins trevino Referred To Contact Radiation Oncology Roslyn Colorado M.D. [address] [place] [phone] [facility] Referral ID Status Reason Start Date Expiration Date Visits Re quested Visits Authorized [id number] Closed 02/02/2023 02/01/2026 1 1 IZATION COORDINATOR Reason for Visit * Outpatient (Routine) - Closed Specialty Diagnoses / Procedures Referred By Collins trevino Referred To Contact Radiation Oncology Roslyn Colorado M.D. [address] [place] [phone] [facility] Referral ID Status Reason Start Date Expiration Date Visits Re quested Visits Authorized [id number] Closed 02/02/2023 02/01/2026 1 1 Encounter Details Date Type Department Care Team (Latest Contact Info) Description 05/23/2023 12:50 PM UTILIZATION COORDINATOR - 05/23/2023 3:19 PM UTILIZATION COORDINATOR Hospital Encounter Department of Radiation Oncology in [place], [place] [address] [place] [phone] Roslyn Colorado M.D. [address] [place] [phone] Lottie Lima R.N. [address] [place] [phone] Malignant Neoplasm Of Breast Lower Inner Quadrant [...] this encounter Progress Notes * Lottie Lima R.N. - 05/23/2023 1:45 PM CST Nurse visit [employer] Sugar Supervisor via iPad assisted with today's visit (#[id number]) Mepitel applied to radiation treatment field today. I reviewed Mepitel education with patient today. We will continue to see patient in weekly management visits through out her course of radiation therapy. Patient stated full understanding of nurse visit today. IZATION COORDINATOR documented in this encounter Plan of Treatment Scheduled Referrals Name Type Priority Associated Diagnoses Order Schedule Radiation Oncology nurse visit (clinic) Outpatient Referral Routine Once for 1 Occurrences starting 05/23/2023 until 05/23/2023 documented as of this encounter Visit Diagnoses Diagnosis Malignant Neoplasm Of Breast Lower Inner Quadrant Female Left (HCC)- Primary documented in this encounter
== END 2023-08-05 10:04 | disposition home or self-care (01) ==
PROVIDERS: PCP Family Medicine; Visit Provider Internal Medicine Hematology & Oncology
DX: C50.919 Malignant neoplasm of unspecified site of unspecified female breast (principal); Z51.81 Encounter for therapeutic drug level monitoring; Z79.899 Other long term (current) drug therapy
CPT/HCPCS: 93306; T1013

== ENCOUNTER 2023-12-20 10:15 | Outpatient (RCR) | payer MEDICAID, SELFPAY ==
--- NOTE | 2023-02-02 18:00 | OT.OPLE ---
OT Outpatient Lymphedema Eval OT Outpatient Lymphedema Eval Start: 02/01/23 18:09 Freq: Status: Active Protocol: Document 02/02/23 17:33 AMB (Rec: 02/02/23 18:00 AMB [id number]) E-signed By Pualine Qureshi, OTR/L, CLT, FINISHING INSPECTOR OT Outpatient Evaluation Details Type Type Eval Complexity Low OT OP Lymphedema Evaluation Insurance Information Insurance Information Medicaid Current Condition/Medical Diagnosis Referring Provider Dr Correa Treatment Diagnosis Left Breast Cancer / lymphedema risk Date Of Onset 12/28/22 left mastectomy Medical Contraindications CA Current Work Status Current Work Status Unemployed Subjective Subjective Pt states she has been feeling really good since her surgery . Pt denies pain today. Pt states she is looking forward to doing more exercise but states she hasn't done much since surgery, stays active caring for her 2 1/2 yo dtr. and tending to her garden. Pt states she also enjoys walking and jogging. Pt had consult with radiation yesterday, she will have 25-30 sessions of radiation which will start once she finishes her chemo. Pt states she will eventually have reconstruction on the left side as well. 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 Medical History Medical History Cancer Treatment/Surgery, Radiation,Diverticullitis Medical History Comments Pt has an extensive medical hx including breast cancer in the right breast. Pt had a right mastectomy in 2011, she also had chemo and radiation and eventually, reconstruction . Pt denied having LN removed on the right side but in medical chart, it was noted that pt had a SLN biopsy with her mastectomy. Pt is currently being treated now for left breast cancer see below (copied from oncology chart): Left Breast Cancer Oncology History #1 Presentation, premenopausal 11/09/2022 screening mammogram - microcalcifications within the lower inner quadrant left breast, 7cm from nipple 12/01/2022 diagnostic mammogram - loosely grouped mildly pleomorphic microcalcifications within the lower inner quadrant left breast, 6 cm from the nipple, concerning for DCIS - punctate group of calcifications posterior to this with no definitive underlying mass #2 Biopsy, Initial Diagnosis 12/02/2022 Biopsy Left Breast, 9:00, 5cm from nipple - multiple foci of microinvasive ductal carcinoma measuring up to 1 mm in this sample and without obvious ALI - 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 - ER negative <1% - OR negative <1% - HER2 positive (3+) 12/02/2022 Biopsy left breast, 9:00, 8cm from nipple - 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 and necrosis #3 Critical Imaging 12/17/2022 MRI Breast - mass and non-mass enhancement occupying nearly the entire lower inner quadrant of left breast and extending into upper inner quadrant, measuring at least 8 .8x4.9x6.4cm - 0.4cm mass at 3:00, anterior depth, adjacent to nipple - 0.9x0.9x0.8cm mass at 1:00, middle depth, 6cm from nipple - 1.0x1.2x1.2cm mass at 2:00, posterior depth, 9cm from nipple with adjacent 0.4cm satellite mass - abnormal left level 1 axillary lymph node with diffuse cortical thickening, 1 .8 x 1.1 cm - right breast with benign postsurgical changes #4 Biopsy 12/24/2022 ultrasound-guided left axillary lymph node biopsy - negative for metastatic carcinoma #5 Surgery 12/28/2022 left breast total mastectomy - multifocal grade 3 invasive ductal carcinoma with invasive tumors measuring 14 mm, 10 mm , and at least additional 20 foci measuring from 4 mm to less than 1 mm - extensive grade 3 solid, cribriform, and comedo type DCIS spanning 180 mm - DCIS is present at anterior inferior margin and <1 mm from posterior margin - DCIS involves large docs of nipple - 1 of 5 sampled left axillary lymph nodes with isolated tumor cells measuring 0.1 mm Stage: mpT1c pN0(i+), Stage IA #6 Genetics Endorses paternal uncle had gastric cancer. No other family history of malignancy including breast, ovarian, pancreatic, prostate, or melanoma cancers. Genetics done in 2011 negative for actionable mutations. As genetic testing panel has changed, this consult will be repeated. Results pending. Surgical History Surgical History and cancer surgeries as above. Medications Medications Per oncology record: Plan to proceed with adjuvant trastuzumab/pertuzumab given every 3 weeks for one year with concurrent taxotere given every 3 weeks for 4 cycles Family History Family History of Lymphedema No Living Situation Current Living Situation Home With Spouse Or SO Exercise History Does Patient Exercise Regularly Yes Exercise Comments Enjoys walking, jogging and riding bicycle Pain Pain No Loss of Function/Strength/Mobility Loss Of Function/Strength/Mobility No Loss Of Function/Strength/Mobility Mild limitations in LUE Comments shoulder ROM and strength. Pt will be seen in PT to address . Compression History Does Patient Currently Wear Compression No During Daytime Does Patient Currently Wear Compression No At Night Current Swelling (Location/Pitting/Texture) Pitting Scale: 0 = No pitting 1+ Tissue returns to normal almost immediately 2+ Tissue returns after 15-30 seconds 3+ Tissue returns after 1-1/2 minutes 4+ Tissue returns after 2-3 minutes N/A Tissue no longer pits due to induration Tissue texture: Soft or indurated Clinical Presentation Area Left chest wall, arm, axilla, hand, lateral trunk Clinical Presentation Pitting No swelling noted Staging Positive Stemmer's Sign No Skin Changes Skin Changes Comments Pt presents with mastectomy scar on left chest wall, very well healed, no drainage, no s /s of infection. Circumferential Measurements Upper Extremity Left Upper Extremity MCP 19.2 Palm 20.0 Wrist 15.5 10cm 18.3 20cm 23.8 30cm 24.9 40cm 27.2 50cm 34.5 Total 183.4 Right Upper Extremity MCP 19.4 Palm 20.2 Wrist 15.5 10cm 18.0 20cm 24.0 30cm 25.2 40cm 27.5 50cm 34.6 Total 184.4 Assessment Assessment Pt presents post-operatively for initiation of lymphedema surveillance program. Following her 12/28/22 left mastectomy with SLN biopsy x 5 , pt is at risk for lymphedema in her LUE / upper quadrant due to LN removal. Pt is also at risk for the development of lymphedema in her RUE secondary to right mastectomy with SLN biopsy and radiation. Pt will need radiation which would add to her risk. Pt will benefit from skilled OT intervention for pt education, monitoring / surveillance in order to provide early detection / intervention to assure best positive outcomes with fewer lymphedema related complications if the need arises. Pt demonstrates good interest and motivation to be an active participant in her care. Pt asked multiple pertinent questions and received satisfactory answers. Pt was given contact info and encouraged to reach out if more questions arise. Pt does like to regular exercise, especially swimming, and likes to keep active, lives a healthy lifestyle and acknowledges the value in regular medical visits. Problem List Problem List Limited Knowledge of Lymphedema Treatment/Condition /Precautions,Limited Knowledge of Skin Care & Infection Precautions,Significant Risk For Infection For Lymphedema Related Complications,Does Not Have a HEP Patient Goals Patient Goals 1. Pt will demonstrate a general understanding of the lymphatic system, s/s of lymphedema, treatment of lymphedema, implications of untreated lymphedema, s/s of infection and the correlation of infection related to lymphedema. 3 months 2. Pt will be compliant with quarterly assessments for lymphedema surveillance in order to obtain early intervention with best outcomes if needed. 12 months Treatment Plan Treatment Plan Evaluation,Edema Control,Joint Mobilization,Manual Therapy, Ultrasound,Wound Care/Scar Management,Therapeutic Exercise,Therapeutic Activities,Self-Care/Home Management,Caregiver Training, Education Expected Frequency Q 3months Expected Duration 12 months Certification Certification I Certify That: Therapy Services Provided, Therapy Plan Established Recertification Information Recertification Information Initial Certification Date 02/02/23 Recertification Due Date 05/03/23 Reasons to Continue Skilled Therapy Initiated lymphedema surveillance program following Left mastectomy. Rehabilitation Potential Good. Continued Plan of Care and Interventions Please see above Provider Signature Shows Agreement With POC & Medical Necessity Physician Comment/Change Comment or Changes Physician NPI Number #
--- NOTE | 2023-02-14 10:13 | ONC.NURNOTE ---
Addendum entered by Sandra Romero RN 02/16/23 11:18: Called pt via [employer] to f/u. She reports Tylenol worked well for her bone aches. She continues to have scant red vaginal drainage and will continue to monitor. Her nose is improving with use of vaporub; denies bloody noses and just notes scant blood when blowing nose. She is also asking if ok to take a B-Complex MVI; reviewed that regular strength MVI should be ok and cautioned against extremely high dose supplements. Asked pt to bring in bottle to review with Dr. Braswell at next appt; pt agreeable to this plan. Original Note: Pt called via [employer] today following first chemo 02/10. She notes she was feeling well Fri-Sun daytime, then now is having significant bone aches. She denies fevers and is asking how to manage. This is common with this regimen, especially with loading doses of Herceptin and Perjeta and with the timing of finishing her oral Dex for Taxotere on Tue. Recommended beginning Claritin daily through the week, to alternate Tylenol and Ibuprofen ~ every 3 hrs throughout daytime and to try warm showers/baths. She is agreeable to this plan. Pt also notes she is having scant blood-tinged drainage vaginal drainage; LMP was just finishing a few days ago and then this discharge has returned. Reviewed pt's gyncologic hx including colposcopy 2020; last Pap 08/2022. Her IUD is in place. 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 Pt is agreeable to this plan. Pt also notes scant blood in her nasal discharge and is asking if ok to use menthol vaporub. Recommended pt use a humidifier, saline nasal spray and vaseline as needed for likely dry nose/membrane changes and cautioned use of menthol rub if it irritates her nose. Pt agreeable to this plan. When asked about other side effects, pt denies nausea but notes she is starting to have constipation and is asking about using stool softeners from previous surgery. Recommended pt can use stool softeners on hand, but if having cramping/loose stools to try a gentler softeners like generic Miralax. Pt agreeable to this plan.
--- NOTE | 2023-05-05 16:36 | OT.OPLDN ---
OT Outpatient Lymphedema Daily Note OT Outpatient Lymphedema Daily Note Start: 02/01/23 18:09 Freq: Status: Active Protocol: Document 05/05/23 16:01 AMB (Rec: 05/05/23 16:34 AMB [id number]) E-signed By Pauline Qureshi, OTR/L, CLT, SUPERVISOR RUBBER COVERING OT OP Lymphedema Daily/Progress Note Note Type Note Type Daily,Recert/Progress Note Insurance Authorized Visits 2 Insurance Information Insurance Information Medicaid Current Condition/Medical Diagnosis Referring Provider Dr Correa Treatment Diagnosis Left Breast Cancer / lymphedema risk Date Of Onset 12/28/22 left mastectomy Medical Contraindications CA Recert Due Recert Due 05/03/23 Subjective Subjective Pt doing well, finished chemo 04/14/23 and is receiving immunotherapy currently. Pt will meet with radiation oncologist on 05/11/23 to discuss radiation. Pt is still considering reconstruction. Home Program Compliant To Home Program Yes Home Program Specifics Self monitoring, scar tissue mobilization Circumferential Measurements Upper Extremity Left Upper Extremity MCP 18.8 Palm 19.8 Wrist 15.5 10cm 18.3 20cm 24.0 30cm 24.9 40cm 27.4 50cm 34.5 Total 183.2 Right Upper Extremity MCP 19.4 Palm 20.2 Wrist 15.5 10cm 18.0 20cm 24.0 30cm 25.2 40cm 27.5 50cm 34.6 Total 184.4 Treatment Self Care Provided review of patient education regarding the lymphatic system, s/s of lymphedema, treatment options for lymphedema, implications of untreated lymphedema, infection and it's correlation to lymphedema as well as implications of untreated infection. Discussed risk reduction practices including skin care and monitoring strategies. Discussed the importance of regular exercise and healthy habits. Self Care Activity Minutes (minutes) 12 Therapeutic Activities Re-assessment of limb circumference, skin condition, ROM and strength of LUE. Therapeutic Activity Minutes (minutes) 7 Assessment Pt demonstrates full AROM and strength of the LUE, skin condition is good, no scar adhesions, full tissue mobility. There are no s/s of lymphedema or concerns for lymphedema expressed by patient. Plan for re- assessment in 3 months, sooner if concerns arise. Problem List Limited Knowledge of Lymphedema Treatment/Condition /Precautions,Limited Knowledge of Skin Care & Infection Precautions,Significant Risk For Infection For Lymphedema Related Complications,Does Not Have a HEP Patient Goals Patient Goals 1. Pt will demonstrate a general understanding of the lymphatic system, s/s of lymphedema, treatment of lymphedema, implications of untreated lymphedema, s/s of infection and the correlation of infection related to lymphedema. 3 months 2. Pt will be compliant with quarterly assessments for lymphedema surveillance in order to obtain early intervention with best outcomes if needed. 12 months Treatment Plan Treatment Plan Evaluation,Edema Control,Joint Mobilization,Manual Therapy, Ultrasound,Wound Care/Scar Management,Therapeutic Exercise,Therapeutic Activities,Self-Care/Home Management,Caregiver Training, Education Expected Frequency Q 3months Expected Duration 12 months Treatment Minutes Timed Treatment Minutes 19 Total Timed Treatment Minutes 19 Occupational Therapy Billing Units Billing Units Self Care/Home Management 1 Certification Certification I Certify That: Therapy Services Provided, Therapy Plan Established Recertification Information Recertification Information Initial Certification Date 02/02/23 Recertification Start Date 05/03/23 Recertification Due Date 08/03/23 Reasons to Continue Skilled Therapy Pt is participating in a lymphedema surveillance program and will benefit from continued surveillance to provide early intervention and treatment in the event that she develops lymphedema in order to achieve best outcomes as well as continued pt education on risk reduction practices. Rehabilitation Potential Good. Continued Plan of Care and Interventions Please see above Provider Signature Shows Agreement With POC & Medical Necessity Physician Comment/Change Comment or Changes Physician NPI Number #
--- NOTE | 2023-10-21 17:15 | OT.OPLDN ---
OT Outpatient Lymphedema Daily Note OT Outpatient Lymphedema Daily Note Start: 02/01/23 18:09 Freq: Status: Active Protocol: Document 10/20/23 15:38 AMB (Rec: 10/20/23 20:28 AMB [id number]) E-signed By Pauline Qureshi, OTR/L, CLT, BRIDGE PAINTER OT OP Lymphedema Daily/Progress Note Note Type Note Type Daily,Recert/Progress Note Insurance Authorized Visits 4 Insurance Information Insurance Information Medicaid Current Condition/Medical Diagnosis Referring Provider Dr Correa Treatment Diagnosis Left Breast Cancer / lymphedema risk Date Of Onset 12/28/22 left mastectomy Medical Contraindications CA Recert Due Recert Due 05/03/23 Subjective Subjective Pt feels she is doing well, her skin has healed from radiation. Pt is currently receiving immunotherapy every 3 weeks through January. 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 Pt states she has been trying to increase her activity levels, enjoys walking now that the weather is getting nicer. Pt states she has not noticed any major swelling anywhere but feels her scar is a little different, also having some tightness in her left shoulder . Pt is planning on having her reconstruction sometime this summer, not sure yet when. Home Program Compliant To Home Program Yes Home Program Specifics Self monitoring, scar tissue mobilization Circumferential Measurements Upper Extremity Left Upper Extremity MCP 18.7 Palm 19.8 Wrist 15.5 10cm 17.8 20cm 23.2 30cm 24.4 40cm 26.8 50cm 33.8 Total 180.0 Right Upper Extremity MCP 19.4 Palm 20.2 Wrist 15.5 10cm 18.0 20cm 24.0 30cm 25.2 40cm 27.5 50cm 34.6 Total 184.4 Treatment Self Care Provided reivew of good skin care practices today due to the significant skin changes following XRT and residual dryness in the treatment area. Recommended pt use her Eucerine cream 2x daily. Self Care Activity Minutes (minutes) 7 Therapeutic Exercise Pt demonstrates full AROM of the LUE shoulder but does have tightness at EROM of flex and abd. Discussed HEP, pt states she did have PT for a little while but stopped going because insurance would not pay. Provided pt training and practice in AROM for shoulder flex with end range stretch and chicken wing ex. for abd/ flex combo stretch. Inst pt to do this exercise 4 reps 3x daily to ensure that she does not loose ROM since she is already tight at EROM, pt agreeable. Therapeutic Exercise Minutes (minutes) 10 Therapeutic Activities Re-assessment of limb circumference, skin condition, ROM and strength of SUZANNA. Therapeutic Activity Minutes (minutes) 12 Assessment Pt returns for her 3 month lymphedema surveillance visit. Pt states she is feeling good , although she does notice some tightness in her left shoulder and had a question about a spot on her chest wall scar. SUZANNA shoulder is somewhat tight at end range of shoulder flexion with ER, however, following simple stretch it improves, she also had a concern about a small area on her left chest wall that she thought might be swollen. The are appears to be part of a normal scar, no s /s of lymphedema here and no s /s of lymphedema in her her L upper quadrant. Pt remains motivated to continue with lymphedema surveillance program. Pt was encouraged to contact designer/writer if she has any questions or concerns prior to her next visit. Will re- assess in 3 months, which will ikely be her final visit. Problem List Limited Knowledge of Lymphedema Treatment/Condition /Precautions,Limited Knowledge of Skin Care & Infection Precautions,Significant Risk For Infection For Lymphedema Related Complications,Does Not Have a HEP Patient Goals Patient Goals 1. Pt will demonstrate a general understanding of the lymphatic system, s/s of lymphedema, treatment of lymphedema, implications of untreated lymphedema, s/s of infection and the correlation of infection related to lymphedema. 3 months 2. Pt will be compliant with quarterly assessments for lymphedema surveillance in order to obtain early intervention with best outcomes if needed. 12 months Treatment Plan Treatment Plan Evaluation,Edema Control,Joint Mobilization,Manual Therapy, Ultrasound,Wound Care/Scar Management,Therapeutic Exercise,Therapeutic Activities,Self-Care/Home Management,Caregiver Training, Education Expected Frequency Q 3months Expected Duration 12 months Treatment Minutes Timed Treatment Minutes 29 Total Timed Treatment Minutes 29 Occupational Therapy Billing Units Billing Units Self Care/Home Management 1 Therapeutic Activities 1 Certification Certification I Certify That: Therapy Services Provided, Therapy Plan Established Recertification Information Recertification Information Initial Certification Date 02/02/23 Recertification Start Date 08/03/23 Recertification Due Date 11/02/23 Reasons to Continue Skilled Therapy Pt is participating in a lymphedema surveillance program and will benefit from continued surveillance to provide early intervention and treatment in the event that she develops lymphedema in order to achieve best outcomes as well as continued pt education on risk reduction practices. Rehabilitation Potential Good. Continued Plan of Care and Interventions Please see above Provider Signature Shows Agreement With POC & Medical Necessity Physician Comment/Change Comment or Changes Physician NPI Number #
--- NOTE | 2023-12-20 11:57 | OT.OPLDN ---
OT Outpatient Lymphedema Daily Note OT Outpatient Lymphedema Daily Note Start: 02/01/23 18:09 Freq: Status: Active Protocol: Document 12/20/23 10:08 AMB (Rec: 12/20/23 11:56 AMB [id number]) E-signed By Pauline Qureshi, OTR/L, CLT, AUDOGRAPH OPERATOR OT OP Lymphedema Daily/Progress Note Note Type Note Type Daily,Discharge Note,Recert/ Progress Note Insurance Authorized Visits 5 Insurance Information Insurance Information Medicaid Current Condition/Medical Diagnosis Referring Provider Dr Correa Treatment Diagnosis Left Breast Cancer / lymphedema risk Date Of Onset 12/28/22 left mastectomy Medical Contraindications CA Recert Due Recert Due 05/03/23 Subjective Subjective Pt having pain in her right shoulder scapula and into her right side, pt states she gets numbness goes from her shoulder blade into her breast . Pt had a fall a few weeks ago, laded on her back, wonders if that is why. Also states she noticed increased discomfort approximately 2-3 weeks ago after spending a lot of time out in the yard digging and pulling weeds. Regarding the left side, pt has not noticed any swelling or discomfort in this area, feels this has healed well. Pt still planning on reconstruction for the left side, hoping for some time this summer, has not yet been scheduled as she had to wait 6 months from the time she finished her XRT which was in June. Pt still working on increasing her activity levels , works hard around her house and caring for her very active 3yo daughter. Tightness in the LUE shoulder has resolved with the exs that were provided at last visit. Home Program Compliant To Home Program Yes Home Program Specifics Self monitoring, scar tissue mobilization Circumferential Measurements Upper Extremity Left Upper Extremity MCP 18.4 Palm 19.8 Wrist 15.5 10cm 17.8 20cm 23.0 30cm 24.0 40cm 26.6 50cm 33.5 Total 178.6 Right Upper Extremity MCP 19.0 Palm 20.2 Wrist 15.5 10cm 17.9 20cm 23.4 30cm 24.0 40cm 26.7 50cm 34.1 Total 180.8 Treatment Manual Therapy Provided MT to the RUE periscapular muscles with focus on MFR and TPR along with scapular mobilization. Manual Therapy Minutes (minutes) 20 Self Care Provided review of patient education regarding the lymphatic system, s/s of lymphedema, treatment options for lymphedema, implications of untreated lymphedema, infection and it's correlation to lymphedema as well as implications of untreated infection. Discussed risk reduction practices including skin care and monitoring strategies. Self Care Activity Minutes (minutes) 9 Therapeutic Exercise Pt demonstrates significant tightness and myofascial tightness throughout the right periscapular and UB area. Provided training and practice in stretch including child's pose, standing lat stretch at countertop, and seated side bending stretch with overhead reach. Following demo, pt is able to complete all exs with minimal cues. Pt was provided with written / photo instructions for use at home as well. Therapeutic Exercise Minutes (minutes) 14 Therapeutic Activities Re-assessment of limb circumference, skin condition, ROM and strength of BUE. [ End ] Therapeutic Activity Minutes (minutes) 10 Assessment Pt returns for her 3 month lymphedema surveillance visit. Skin condition has improved, LUE shoulder tightness has improved. Pt is now experiencing tightness in the RUE scapular region with occasional numbness from this area into her right breast. Pt has reported it to Dr Louise. Pt states she feels it has something to do with a fall she had but states it was much worse following a day where she spent a long time working in her yard, pulling weeds and digging. Pt states it hurts more when she lays on her left side. Pt has full AROM and good strength in her RUE and neck. Pt has many TPs throughout her lat, trap, and rhomboids, pt felt much better following MT during today's treatment. Her pain appears to be related to mm spasm/ tightness and myofascial restrictions. Pt was inst to try the exs for a couple weeks avoiding any position or stretch that causes numbness or pain, if the sxs are not better after a couple weeks, she should see her PCP Pt agreeable Pt has not had any s/s of lymphedema and verbalizes an understanding of precaution and s/s. Pt feels ready to discharge to independent monitoring. Problem List Limited Knowledge of Lymphedema Treatment/Condition /Precautions,Limited Knowledge of Skin Care & Infection Precautions,Significant Risk For Infection For Lymphedema Related Complications,Does Not Have a HEP Patient Goals Patient Goals 12/20/23 Goals have been met. 1. Pt will demonstrate a general understanding of the lymphatic system, s/s of lymphedema, treatment of lymphedema, implications of untreated lymphedema, s/s of infection and the correlation of infection related to lymphedema. 3 months 2. Pt will be compliant with quarterly assessments for lymphedema surveillance in order to obtain early intervention with best outcomes if needed. 12 months Treatment Plan Treatment Plan Evaluation,Edema Control,Joint Mobilization,Manual Therapy, Ultrasound,Wound Care/Scar Management,Therapeutic Exercise,Therapeutic Activities,Self-Care/Home Management,Caregiver Training, Education Expected Frequency Q 3months Expected Duration 12 months Treatment Minutes Timed Treatment Minutes 53 Total Timed Treatment Minutes 53 Occupational Therapy Billing Units Billing Units Manual Therapy 1 Self Care/Home Management 1 Therapeutic Activities 1 Therapeutic Exercise 1 Certification Certification I Certify That: Therapy Services Provided, Therapy Plan Established Recertification Information Recertification Information Initial Certification Date 02/02/23 Recertification Start Date 11/02/23 Recertification Due Date 01/15/24 Reasons to Continue Skilled Therapy Pt is participating in a lymphedema surveillance program and has been monitored for the past 12 months on a quarterly basis. Today will be pt's final visit. Pt has been seen for a total of 5 visits from 02/03/24 through today. Pt has met all of her goals and feels she is doing ok regarding lymphedema. However, pt has developed some pain/ tightness and myofascial restrictions in her RUE periscapular area. Pt will work on stretches that she has learned today, if sxs do not improve, she will see her PCP. [ End ] Rehabilitation Potential Good. Continued Plan of Care and Interventions Please see above Provider Signature Shows Agreement With POC & Medical Necessity Physician Comment/Change Comment or Changes Physician NPI Number # Discharge Note Discharge Note Discharge Summary Pt is participating in a lymphedema surveillance program and has been monitored for the past 12 months on a quarterly basis. Today will be pt's final visit. Pt has been seen for a total of 5 visits from 02/03/24 through today. Pt has met all of her goals and feels she is doing ok regarding lymphedema. However, pt has developed some pain/ tightness and myofascial restrictions in her RUE periscapular area. Pt will work on stretches that she has learned today, if sxs do not improve, she will see her PCP. [ End ] Interventions Provided During Treatment Manual Therapy,Therapeutic Activities,Therapeutic Exercise,Self Care/Home Management Recommendations/Reason for Discharge Met All Therapy Goals Discharge Instructions Follow up with PCP if right side periscapular pain does not resolve.
== END 2023-12-20 12:01 | disposition home or self-care (01) ==
PROVIDERS: PCP Family Medicine; Visit Provider Surgery
DX: C50.912 Malignant neoplasm of unspecified site of left female breast (principal); Z51.89 Encounter for other specified aftercare
CPT/HCPCS: 97110; 97140; 97161; 97165; 97530; 97535; T1013; X5282

== ENCOUNTER 2023-12-21 14:51 | Outpatient (CLI) | payer MEDICAID, SELFPAY ==
--- OUTSIDE RECORDS SUMMARY | 2023-12-21 14:53 | XMS_ITS ---
Author Organization [facility] Address [address] [place] [address] Care Team Providers Care Refrigerating Engineer Head Name Role Phone Unavailable Unavailable Unavailable Surgery Details Not on file Complications Check Surgery Details section. Procedure Estimated Blood Loss Check Surgery Details section. Procedure Findings Check Surgery Details section. Procedure Specimens Taken Check Surgery Details section.
--- OUTSIDE RECORDS SUMMARY | 2023-12-21 14:53 | XMS_ITS | Encounter Summary ---
[facility] Address [address], [place] [address] Care Team Providers Care Lapper Name Role Phone Suman Sheets MD Primary Care Provider [phone] Encounter Details Date Type Department Care Team (Late st Contact Info) Description 07/27/2018 Scanned History External to Transferred Record, Provider [facility] Social History Tobacco Use Types Packs/Day [...] on filedocumented in this encounter Care Teams Lapper Relationship Specialty Start Date End Date Suman Sheets MD [address] [address] PCP - General Internal Medicine 11/01/18 documented as of this encounter
--- OUTSIDE RECORDS SUMMARY | 2023-12-21 14:53 | XMS_ITS | Referral Summary ---
Author Organization [facility] Address [address] [place] [address] Care Team Providers Care Management Development Specialist Name Role Phone Unavailable Primary Care Provider Unavailabl e Source Comments Patient records contain information from all sites at [facility]. For routine questions regarding patient records, call [phone] during business hours, M-F 8:00 AM - 5:00 PM Central Time. Record requests for emergency care only can be directed to [phone] at any time.[facility] Allergies No known active allergies Medications Medication Sig Dispensed Refills Start Date End Date Status multivitamin capsule Take 1 capsule by mouth daily. Active Active Problems Problem Noted Date Diagnosed Date Other Malignant Neuroendocrine Tumors 01/28/2023 Malignant Neoplasm Of Breast Lower Inner Quadrant Female Left 03/03/2012 Cancer Staging:Pathologic stage from 12/28/2022:Stage IA(pT1c, pN0(i+)(sn), cM0, G3, ER-, [place]-, HER2+) - Unsigned Overview: Last Assessment & Plan: History of Stage IIA (T2, N0, cM0) Right breast Neuroendocrine cancer, ER/AK positive, HER-2 negative, diagnosed 12/2011. S/p right [...] Comments Blood Pressure 108/73 06/02/2023 12:23 PM SENIOR DENTIST Pulse 88 06/02/2023 12:23 PM SENIOR DENTIST Temperature 36.4 ??C (97.6 ??F) 06/16/2023 12:[address] Respiratory Rate - - Oxygen Saturation - - Inhaled Oxygen Concentration - - Weight 68 kg (149 lb 14.6 oz) 06/23/2023 1:13 PM SENIOR DENTIST Height - - Body Mass Index - - Plan of Treatment Not on file Procedures Procedure Name Priority Date/Time Associated Diagnosis Comments OUTSIDE MG MAMMOGRAM Routine 12/28/2022 12:15 PM CDT from Last 3 Months or Most Recently Relevant to Health Maintenance Results * MM surgical specimen LT-Outside Mammogram (12/28/2022 12:15 PM CDT) Narrative IIMS - 01/25/2023 9:09 AM CDT This order has been created and auto-finalized to support the import of outside images. If available, original interpretation can be found on the Media Tab in Chart Review, in Document Viewer, or as an image in QREADS. If a re-interpretation or overread is required please follow defined workflow. ?? Provider Not In System IMG BI PROCEDURES IIMS NA from Last 3 Months or Most Recently Relevant to Health Maintenance
--- OUTSIDE RECORDS SUMMARY | 2023-12-21 14:53 | XMS_ITS | Clinical Summary ---
Author Organization [facility] Address [address] [place] [address] Care Team Providers Care Transitions Manager Rn Name Role Phone Suman Sheets MD Primary Care Provider [phone] Source Comments You are receiving this document as you are listed as the primary care provider,follow-up provider, or the patient has been referred to you for consultation.This is in compliance with the Medicare and[facility] EHR Incentive Program,which states Providers who transition [...] two kinds of PNV. One has DHA. Active polyethylene glycol (MIRALAX) 17 g packetIndications:Cons [...] Gemini Guillaume RN, Healthy Beginnings Specialist, at [phone]. 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 Plan: [place] BRCA negative 12/21/2012 Overview: Patient had BRCA gene testing, sequencing and large rearrangement panel. No mutations were detected in either the BRCA1 or BRCA2 genes. H/O mastectomy 04/26/2012 Malignant neoplasm of right female breast 2011 Overview: Last Assessment & Plan: History of Stage IIA (T2, N0, cM0) Right breast Neuroendocrine cancer, ER/NM positive, HER-2 negative, diagnosed 12/2011. S/p right [...] 194 - [place] [facility] [place] -na. Mammo - diagnostic right- ACR 0 Enrollment form sent:10/28/10 [place] summary form sent:01/25/11 DX Mammo or US form sent: benign 01/25/11 F/U sent: Plan : under age 40 for lump on cbe. mammo due age 40 Immunizations Name Administration Dates Next Due DTaP 11/20/2002 Flu Vac (3+ yrs) 10/18/2011,10/16/2010 Flu Vac Preserv Free (3+yrs) 05/26/2015,08/15/19 15,05/21/2013 HepB, Unspecified Formulation 11/20/2002 Influenza (Fluzone 0.25, 6-35 mos) 05/21/2013 Influenza IIV4 (Quadrivalent) 0.5mL (20131) 03/19,05/26/2015,08/15/2014 Influenza, Unspecified Formulation 10/18/2011, MMR 11/20/2002 [...] Comments Hep C Screening (Preventive Services) 1981 Adult Preventive Visit 12/14/1999 HepB (2) 12/18/2002 11/20/2002 Cervical Cancer Screening 11/13/2020 11/14/2019 COVID-19 Vaccine (1 - 2023-24 season) 2023 Influenza (Season Ended) 2024 020, 05/26/2015, 05/26/2015, Additional history exists DTaP/Tdap/Td (4 - [...] this topic Medical Devices Implanted Type Area Accelerator Systems Director Device Identifier Shelf Expiration Date Model / Serial / Lot Imp Mamm Full th St 520cc - [id number] Implanted:Qty: 1 on 11/01/2018 by Yana Li MD at [facility] Same Day Surgery DEVICE Right: BREAST [employer] 04/03/2022 [facility]-520 / [id number] / [id number] Procedures Procedure Name Priority Date/Time Associated Diagnosis Comments PAP TEST Routine 11/14/2019 11:23 AM CDT Pap smear for cervical cancer screening HIV 1/2 AG/AB 4TH GEN Routine 11/14/2019 10:47 AM CDT Supervision of high-risk of elderly primigravida from Last 3 Months or Most Recently Relevant to Health Maintenance Results * PAP Test (11/14/2019 11:23 AM CDT) Case Report Pap ? Case: [id number] ? Authorizing Provider: ??Jackeline Harris APRN, Collected: ? 11/14/2019 11:23 AM ? CNM ? Ordering Location: ? [facility] ?Received: ?11/14/2019 11:26 AM ? Obstetrics and Gynecology ? First Screen: ?Gwendolyn Hess ? Specimen: ?Pap Test, Routine, Cervix/Endocervix ? 11/16/2019 9:56 AM [facility] Pap Specimen Adequacy Satisfactory for evaluation, endocervical/lorenz sformation zone component present. 11/16/2019 9:56 AM [facility] Pap Interpretation Negative for intraepithelial lesion or malignancy (NILM). 11/16/2019 9:56 AM [facility] Pap Disclaimer The Pap test is a screening test designed to aid in the detection of cervical cancer and its precursor lesions. It is not a diagnostic procedure and should not be used as the sole means of detecting cervical cancer. Both false-positive and false-negative reports may occur. 11/16/2019 9:56 AM [facility] Gross Description The specimen is received in SurePath fixative and properly labeled. 1 Pap-stained SurePath slide is prepared. 11/16/2019 9:56 AM [facility] Embedded Images 0 9:56 AM [facility] Other Specimen Type ENTIRE ENDOCERVIX / Unknown 11/14/2019 11:23 AM CDT 11/14/2019 11:26 AM CDT Comment:LMP: Patient's last menstrual period was 09/12/2019. Jackeline Harris APRN, CNM LAB PATHOLO GY Performing Organization Address City/[facility]/[place] [address], [facility] [phone] * HIV 1/2 AG/AB 4TH GEN (11/14/2019 10:47 AM CDT) HIV 1/2 Antigen/Anti body (4th generation) Negative (Non Reactive) Negative (Non Reactive) 11/14/2019 6:57 PM CDT [facility] Comment:HIV-1 p24 Antigen an d HIV-1/HIV-2 Antibody not detected Blood Venipuncture Butterfly / Unknown 11/14/2019 10:47 AM CDT 11/14/2019 10:48 AM CDT Jackeline Harris APRN, CNM LAB_1 [facility] [address] [address], [facility] [phone] from Last 3 Months or Most Recently Relevant to Health Maintenance Care Teams Transitions Manager Rn Relationship Specialty Start Date End Date Suman Sheets MD [address] [facility] [address] [address] PCP - General Internal Medicine 11/01/18
--- OUTSIDE RECORDS SUMMARY | 2023-12-21 14:53 | XMS_ITS ---
Author Organization [facility] Address [address] [place] [address] Care Team Providers Care Police Aide Name Role Phone Unavailable Primary Care Provider Unavailabl e Active Problems Problem Noted Date Diagnosed Date Other Malignant Neuroendocrine Tumors 01/28/2023 Malignant Neoplasm Of Breast Lower Inner Quadrant Female Left 03/03/2012 Cancer Staging:Pathologic stage from 12/28/2022:Stage IA(pT1c, pN0(i+)(sn), cM0, G3, ER-, [place]-, HER2+) - Unsigned Overview: Last Assessment & Plan: History of Stage IIA (T2, N0, cM0) Right breast Neuroendocrine cancer, ER/[place] positive, HER-2 negative, diagnosed 12/2011. S/p right [...] Treated Prescribed Fraction Dose Prescribed Total Dose [id number] 06/27/2023 35 8 of 8 220 cGy 1,760 cG y [id number] 06/15/2023 23 17 of 17 220 cGy 3,740 cGy Reference Point Last Treated On Elapsed Days Session Dose Total Dose [id number] 06/27/2023 35 220 cGy 5,500 cGy
--- OUTSIDE RECORDS SUMMARY | 2023-12-21 14:53 | XMS_ITS | Clinical Summary ---
Author Organization [facility] Address [address] [place] [address] Care Team Providers Care Side Stitcher Name Role Phone Unavailable Primary Care Provider Unavailabl e Source Comments Patient records contain information from all sites at [facility]. For routine questions regarding patient records, call [phone] during business hours, M-F 8:00 AM - 5:00 PM Central Time. Record requests for emergency care only can be directed to [phone] at any time.[facility] Allergies No known active allergies Medications Medication Sig Dispensed Refills Start Date End Date Status multivitamin capsule Take 1 capsule by mouth daily. Active Active Problems Problem Noted Date Diagnosed Date Other Malignant Neuroendocrine Tumors 01/28/2023 Malignant Neoplasm Of Breast Lower Inner Quadrant Female Left 03/03/2012 Cancer Staging:Pathologic stage from 12/28/2022:Stage IA(pT1c, pN0(i+)(sn), cM0, G3, ER-, [place]-, HER2+) - Unsigned Overview: Last Assessment & Plan: History of Stage IIA (T2, N0, cM0) Right breast Neuroendocrine cancer, ER/NH positive, HER-2 negative, diagnosed 12/2011. S/p right [...] and plan to proceed with this procedure. Family History Medical History Relation Name Comments [...] Comments Blood Pressure 108/73 06/02/2023 12:23 PM HOG STOMACH PREPARER Pulse 88 06/02/2023 12:23 PM HOG STOMACH PREPARER Temperature 36.4 ??C (97.6 ??F) 06/16/2023 12:[address] Respiratory Rate - - Oxygen Saturation - - Inhaled Oxygen Concentration - - Weight 68 kg (149 lb 14.6 oz) 06/23/2023 1:13 PM HOG STOMACH PREPARER Height - - Body Mass Index - - Plan of Treatment Health Maintenance Due Date Last Done Comments HIV Screening 1981 Hepatitis C Screening 1981 Lipid (Cholesterol) Screening 1981 Pneumococcal vaccine (0-64 years) (1 of 2 - PCV) 12/14/1987 Zoster Vaccines (1 of 2) 2000 Hepatitis B Vaccines (2 of 3 - 19+ 3-dose series) 12/18/2002 11/20/2002 COVID-19 Vaccine (3 - Pfizer risk series) 07/23/2021 06/25/2021, 05/15/2021 Cervical Cancer Screening 11/13/2022 11/14/2019 Influenza Vaccine (#1) 2023 0, 05/26/2015, 08/15/2014, Additional history exists Depression Screening (Annual PHQ-2) [...]
--- OUTSIDE RECORDS SUMMARY | 2023-12-21 14:53 | XMS_ITS | Clinical Summary ---
Author Organization [facility] Address [place], [place] [address] Care Team Providers Care Well Driller Helper Name Role Phone Pcp, No Primary Care Provider Unavailabl e Social History Tobacco Use Types Packs/Day Years Used Date Smoking Tobacco: Never Assessed Sex and Gender Information Value Date Recorded Sex Assigned at Not on file Gender Identity Not on file Sexual Orientation Not on file Plan of Treatment Upcoming Encounters Date Type Department Care Team (Late st Contact Info) Description 12/21/2023 3:00 PM CDT Ancillary Procedure [facility] [address] [place] [address] Health Maintenance Due Date Last Done Comments Tdap 1992 Depression screening for age 12+ 1993 HIV for age 15-65 1996 BMI (ht and wt on same day) for age 18+ 12/14/1999 Hepatitis C screening for age 18-79 12/14/1999 Tetanus booster 2001 COVID-19 vaccine series (2022-24 season) 2023 06/25/2021, 05/15/2021 Influenza for age 9-49 03/18/2024 Pap test for age 21-65 08/13/2025 , 08/13/2022, 07/23/2020, Additional history exists Pneumococcal series for age 6-64 Aged Out No longer eligible based on patient's age to complete this topic Procedures Procedure Name Priority Date/Time Associated Diagnosis Comments HPV THIN PREP Routine 08/13/2022 9:45 AM CONTENT COORDINATOR from Last 3 Months or Most Recently Relevant to Health Maintenance Results * HPV HIGH RISK (08/13/2022 9:45 AM CONTENT COORDINATOR) TYPE 16 Negative Negative 08/19/2022 4:45 PM CONTENT COORDINATOR [facility] TYPE 18 Negative Negative 08/19/2022 4:45 PM CONTENT COORDINATOR [facility] OTHER HIGH RISK TYPES Negative Negative 08/19/2022 4:45 PM CONTENT COORDINATOR [facility] Other (Cervical) 08/13/2022 9:45 AM CONTENT COORDINATOR 08/17/2022 11:37 AM CONTENT COORDINATOR Narrative [facility] - 08/19/2022 4:45 PM CONTENT COORDINATOR HPV types 16, 18, 31, 33, 35, 39, 45, 51, 52, 56, 58, 59, 66 and 68 DNA were undetectable or below the pre-set threshold. Methodology: Linnette Luann 4800 HPV Test Saima Millan MD [facility] G[facility] [address] [place] [address], [place] from Last 3 Months or Most Recently Relevant to Health Maintenance Care Teams Well Driller Helper Relationship Specialty Start Date End Date Pcp, No . PCP - General 06/23/23
--- OUTSIDE RECORDS SUMMARY | 2023-12-21 14:53 | XMS_ITS | Encounter Summary ---
[facility] Address [address], [place] [address] Care Team Providers Care Fitter/Welder Name Role Phone Suman Sheets MD Primary Care Provider [phone] Encounter Details Date Type Department Care Team (Late st Contact Info) Description 11/01/2018 Consent for Procedure/Treatme nt [facility] INFORMED CONSENT RECORD Social History [...] on filedocumented in this encounter Care Teams Fitter/Welder Relationship Specialty Start Date End Date Suman Shetes MD [address] [address] PCP - General Internal Medicine 11/01/18 documented as of this encounter
--- OUTSIDE RECORDS SUMMARY | 2023-12-21 14:53 | XMS_ITS | Encounter Summary ---
Author Organization [facility] Address [address], [place] [address] Care Team Providers Care Senior Editor Name Role Phone Suman Sheets MD Primary Care Provider +1- [phone] Encounter Details Date Type Department Care Team (Late st Contact Info) Description 07/27/2018 [facility] 401 Plastic & Hand Surgery 401 [facility]. [place], [place] [id number] Yana Li MD [address] [place] [address] CONSIGNMENT IMPLANT AND EXPANDERS Social History Tobacco [...] on filedocumented in this encounter Care Teams Senior Editor Relationship Specialty Start Date End Date Suman Sheets MD 701 [facility] [address] [address] PCP - General Internal Medicine 11/01/18 documented as of this encounter
== END 2023-12-21 14:52 | disposition home or self-care (01) ==
LOC: RAD 14:51
PROVIDERS: PCP Family Medicine; Visit Provider Physician Assistant
DX: C50.912 Malignant neoplasm of unspecified site of left female breast (principal); Z51.81 Encounter for therapeutic drug level monitoring; Z79.899 Other long term (current) drug therapy
CPT/HCPCS: 93306; T1013

== ENCOUNTER 2024-01-12 10:00 | Outpatient (RCR) | payer MEDICAID, SELFPAY ==
--- NOTE | 2023-07-25 12:10 | URNOTE ---
Docetaxel (J9171), Pertuzumab (J9306), Trastuzumab (J9355) are pending approval of [facility] Emergency Medical Assistance.
[2023-07-27 15:28] LABS: Basophils Absolute Auto 0.05 K/uL (0.00-0.30); Basophils Percent Auto 0.7 % (0.0-3.0); Eosinophils Absolute Auto 0.25 K/uL (0.00-0.50); Eosinophils Percent Auto 3.4 % (0.0-7.0); Hematocrit 33.8 % (33.0-51.0); Hemoglobin* 10.6 gm/dL (12.0-16.0); Immature Granulocytes Abs Auto 0.01 K/uL (0.00-0.30); Immature Granulocytes Pct Auto 0.1 %; Lymphocytes Percent Auto 19.3 % (20-44); Mean Corpuscular HGB Conc 31 gm/dL (32-36); Mean Corpuscular Hemoglobin 24 pg (26-34); Mean Corpuscular Volume 76 fL (80-100); Monocytes Percent Auto 6.6 % (0.0-11.0); Neutrophils Absolute Auto 5.19 K/uL (1.7-7.0); Neutrophils Percent Auto 69.9 % (42.0-72.0); Platelet Count* 384 K/uL (140-440); RDW Coefficient of Variation % 17.3 % (11.5-15.5); Red Blood Count 4.45 m/uL (4.00-5.20); White Blood Count* 7.42 K/uL (4.50-11.00)
[2023-07-27 15:50] LABS: HCG Qualitative Serum* Negative (Negative)
[2023-07-27 15:57] LABS: Albumin* 4.7 g/dL (3.3-5.0)
[2023-07-27 15:58] LABS: Chloride* 104 mmol/L (96-114); Potassium* 4.2 mmol/L (3.6-5.1); Sodium* 141 mmol/L (135-149)
[2023-07-27 16:00] LABS: Anion Gap 13 mEq/L (7-15); Aspartate Amino Transferase* 61 U/L (12-35); Bilirubin Total* 0.2 mg/dL (0.1-1.5); Carbon Dioxide* 24 mmol/L (20-32); Creatinine* 0.6 mg/dL (0.5-1.5); Estimated Glomerular Filt Rate 116 ml/min; Total Protein* 8.3 g/dL (6.0-8.3)
[2023-07-27 16:01] LABS: Alanine Aminotransferase* 260 U/L (4-35); Alkaline Phosphatase* 236 U/L (40-150); Blood Urea Nitrogen* 10 mg/dL (5-24); Calcium* 9.4 mg/dL (8.4-10.6); Glucose* 118 mg/dL (60-115)
[2023-07-27 16:03] LABS: Slide Review Reflex No
[2023-07-28 09:06] VITALS: BP 107/70; PULSE 95; RESP 16; TEMP 35.8; O2SAT 97
--- NOTE | 2023-07-28 09:41 | PC.NURSE ---
Pt present for treatment today. RN reviewed labs, LFT's elevated (see lab results). Pt reports that she was sick last week and took a lot of NyQuil. Pt also takes Ibuprofen and multivitamin from [place]. Reviewed with Dr. Castle. Chemo held today. Pt will return next week for LFT recheck. Pt was also instructed to hold her MVI at this time. Carmen verbalizes understanding. Pt scheduled for labs on 08/03/2023 and infusion on 08/04/2023. [employer] services and Breast NN aware. ALLEY Dove will follow results next week and call [employer] dedicated truck driver services who will call Carmen with results.
[2023-08-03 11:28] LABS: Albumin* 4.5 g/dL (3.3-5.0)
[2023-08-03 11:31] LABS: Alanine Aminotransferase* 54 U/L (4-35); Alkaline Phosphatase* 135 U/L (40-150); Aspartate Amino Transferase* 26 U/L (12-35); Bilirubin Total* 0.2 mg/dL (0.1-1.5); Total Protein* 7.9 g/dL (6.0-8.3)
[2023-08-03 13:46] LABS: HCG Quantitative* < 2.39 mIU/mL
[2023-08-04 09:57] VITALS: BP 104/66; PULSE 84; RESP 16; TEMP 35.9; O2SAT 98
[2023-08-04] MEDS: PERTUZUMAB 420 MG, TUBING SECONDARY 1 EACH in 0.9 % SODIUM CHLORIDE 250 ml 250 ML 528 MG IV (10:46)
[2023-08-24 14:36] LABS: Albumin* 4.6 g/dL (3.3-5.0); Chloride* 105 mmol/L (96-114)
[2023-08-24 14:37] LABS: Potassium* 4.4 mmol/L (3.6-5.1); Sodium* 138 mmol/L (135-149)
[2023-08-24 14:39] LABS: Anion Gap 13 mEq/L (7-15); Aspartate Amino Transferase* 41 U/L (12-35); Bilirubin Total* 0.3 mg/dL (0.1-1.5); Carbon Dioxide* 20 mmol/L (20-32); Creatinine* 0.6 mg/dL (0.5-1.5); Estimated Glomerular Filt Rate 116 ml/min
[2023-08-24 14:40] LABS: Alanine Aminotransferase* 46 U/L (4-35); Alkaline Phosphatase* 133 U/L (40-150); Blood Urea Nitrogen* 12 mg/dL (5-24); Calcium* 8.9 mg/dL (8.4-10.6); Glucose* 98 mg/dL (60-115); Total Protein* 7.9 g/dL (6.0-8.3)
[2023-08-24 15:49] LABS: Basophils Absolute Auto 0.02 K/uL (0.00-0.30); Basophils Percent Auto 0.3 % (0.0-3.0); Eosinophils Absolute Auto 0.17 K/uL (0.00-0.50); Eosinophils Percent Auto 2.2 % (0.0-7.0); Hematocrit 33.2 % (33.0-51.0); Hemoglobin* 10.6 gm/dL (12.0-16.0); Immature Granulocytes Abs Auto 0.01 K/uL (0.00-0.30); Immature Granulocytes Pct Auto 0.1 %; Lymphocytes Percent Auto 18.9 % (20-44); Mean Corpuscular HGB Conc 32 gm/dL (32-36); Mean Corpuscular Hemoglobin 24 pg (26-34); Mean Corpuscular Volume 75 fL (80-100); Monocytes Absolute Auto 0.43 K/UL (0.00-0.90); Monocytes Percent Auto 5.7 % (0.0-11.0); Neutrophils Percent Auto 72.8 % (42.0-72.0); Platelet Count* 292 K/uL (140-440); RDW Coefficient of Variation % 16.8 % (11.5-15.5); Red Blood Count 4.45 m/uL (4.00-5.20); White Blood Count* 7.61 K/uL (4.50-11.00)
[2023-08-24 15:59] LABS: Slide Review Reflex No
[2023-08-25 09:42] LABS: HCG Quantitative* < 2.39 mIU/mL
[2023-08-25] MEDS: 0.9 % SODIUM CHLORIDE 250 ml IV (10:30)
[2023-08-25] MEDS: SODIUM CHLORIDE 0.9 % (FLUSH) 10 ML SYRINGE IVF (10:30)
[2023-08-25] MEDS: PERTUZUMAB 420 MG, TUBING SECONDARY 1 EACH in 0.9 % SODIUM CHLORIDE 250 ml 250 ML 528 MG IV (10:37)
--- NOTE | 2023-09-07 13:58 | URNOTE ---
Odansetron(J2405, Docetaxel (J9171) and Dexamethasone (J1100)have been approved 03/03/2023-04/17/2023 Trastuzumab ([id number]) has been approved 03/03/2023-07/17/2023 Pertuzumab ([id number])has been approved 03/03/2023-10/12/2023
[2023-09-14 14:31] LABS: Basophils Absolute Auto 0.02 K/uL (0.00-0.30); Basophils Percent Auto 0.3 % (0.0-3.0); Eosinophils Percent Auto 2.7 % (0.0-7.0); Hematocrit 35.8 % (33.0-51.0); Hemoglobin* 11.5 gm/dL (12.0-16.0); Immature Granulocytes Abs Auto 0.01 K/uL (0.00-0.30); Immature Granulocytes Pct Auto 0.1 %; Lymphocytes Percent Auto 19.9 % (20-44); Mean Corpuscular HGB Conc 32 gm/dL (32-36); Mean Corpuscular Hemoglobin 25 pg (26-34); Mean Corpuscular Volume 76 fL (80-100); Monocytes Percent Auto 6.3 % (0.0-11.0); Neutrophils Absolute Auto 5.14 K/uL (1.7-7.0); Neutrophils Percent Auto 70.7 % (42.0-72.0); Platelet Count* 289 K/uL (140-440); RDW Coefficient of Variation % 19.4 % (11.5-15.5); Red Blood Count 4.69 m/uL (4.00-5.20); White Blood Count* 7.28 K/uL (4.50-11.00)
[2023-09-14 14:50] LABS: Slide Review Reflex No
[2023-09-14 15:02] LABS: Albumin* 4.4 g/dL (3.3-5.0); Chloride* 105 mmol/L (96-114)
[2023-09-14 15:03] LABS: Potassium* 4.1 mmol/L (3.6-5.1); Sodium* 139 mmol/L (135-149)
[2023-09-14 15:05] LABS: Alkaline Phosphatase* 148 U/L (40-150); Anion Gap 11 mEq/L (7-15); Aspartate Amino Transferase* 57 U/L (12-35); Bilirubin Total* 0.4 mg/dL (0.1-1.5); Carbon Dioxide* 23 mmol/L (20-32); Creatinine* 0.5 mg/dL (0.5-1.5); Est. Creatinine Clearance* 133.24; Estimated Glomerular Filt Rate 121 ml/min; Total Protein* 8.1 g/dL (6.0-8.3)
[2023-09-14 15:06] LABS: Alanine Aminotransferase* 69 U/L (4-35); Blood Urea Nitrogen* 15 mg/dL (5-24); Calcium* 9.3 mg/dL (8.4-10.6); Glucose* 100 mg/dL (60-115)
[2023-09-14 15:57] LABS: HCG Qualitative Serum* Negative (Negative)
[2023-09-15 08:55] VITALS: BP 98/62; PULSE 87; RESP 16; TEMP 36.2; O2SAT 97
[2023-09-15] MEDS: PERTUZUMAB 420 MG, TUBING SECONDARY 1 EACH in 0.9 % SODIUM CHLORIDE 250 ml 250 ML 528 MG IV (09:37)
[2023-09-15] MEDS: 0.9 % SODIUM CHLORIDE 250 ml IV (09:40)
[2023-09-15] MEDS: SODIUM CHLORIDE 0.9 % (FLUSH) 10 ML SYRINGE IVF (09:40)
[2023-10-05 14:20] LABS: Basophils Absolute Auto 0.01 K/uL (0.00-0.30); Basophils Percent Auto 0.1 % (0.0-3.0); Eosinophils Absolute Auto 0.23 K/uL (0.00-0.50); Eosinophils Percent Auto 3.1 % (0.0-7.0); Hemoglobin* 12.5 gm/dL (12.0-16.0); Immature Granulocytes Abs Auto 0.01 K/uL (0.00-0.30); Immature Granulocytes Pct Auto 0.1 %; Lymphocytes Absolute Auto 1.74 K/uL (0.90-2.90); Lymphocytes Percent Auto 23.5 % (20-44); Mean Corpuscular HGB Conc 33 gm/dL (32-36); Mean Corpuscular Hemoglobin 26 pg (26-34); Mean Corpuscular Volume 78 fL (80-100); Monocytes Percent Auto 6.6 % (0.0-11.0); Neutrophils Absolute Auto 4.92 K/uL (1.7-7.0); Neutrophils Percent Auto 66.6 % (42.0-72.0); Platelet Count* 235 K/uL (140-440); RDW Coefficient of Variation % 19.3 % (11.5-15.5); Red Blood Count 4.87 m/uL (4.00-5.20)
[2023-10-05 14:25] LABS: Slide Review Reflex No
[2023-10-05 14:38] LABS: Albumin* 4.5 g/dL (3.3-5.0); Chloride* 106 mmol/L (96-114); Potassium* 4.2 mmol/L (3.6-5.1); Sodium* 140 mmol/L (135-149)
[2023-10-05 14:40] LABS: Bilirubin Total* 0.5 mg/dL (0.1-1.5); Creatinine* 0.5 mg/dL (0.5-1.5); Est. Creatinine Clearance* 133.24; Estimated Glomerular Filt Rate 121 ml/min
[2023-10-05 14:41] LABS: Alanine Aminotransferase* 113 U/L (4-35); Alkaline Phosphatase* 196 U/L (40-150); Anion Gap 10 mEq/L (7-15); Aspartate Amino Transferase* 87 U/L (12-35); Blood Urea Nitrogen* 13 mg/dL (5-24); Calcium* 9.7 mg/dL (8.4-10.6); Carbon Dioxide* 24 mmol/L (20-32); Glucose* 118 mg/dL (60-115); Total Protein* 8.1 g/dL (6.0-8.3)
[2023-10-05 16:48] LABS: HCG Quantitative* < 2.39 mIU/mL
[2023-10-12 14:22] LABS: Albumin* 4.4 g/dL (3.3-5.0)
[2023-10-12 14:25] LABS: Aspartate Amino Transferase* 42 U/L (12-35); Bilirubin Direct* 0.1 mg/dL (0.0-0.5); Bilirubin Total* 0.3 mg/dL (0.1-1.5); Total Protein* 8.2 g/dL (6.0-8.3)
[2023-10-12 14:26] LABS: Alanine Aminotransferase* 75 U/L (4-35); Alkaline Phosphatase* 156 U/L (40-150)
--- NOTE | 2023-10-12 15:39 | ONC.NURNOTE ---
Labs reviewed. With the assistance of the interpreters, patient was informed that her LFTs have improved to acceptable levels to continue treatment. Patient should keep her infusion appointment for 10/12.
[2023-10-13 11:10] VITALS: BP 113/71; PULSE 82; RESP 16; TEMP 36.1; O2SAT 98
[2023-10-13] MEDS: PERTUZUMAB 420 MG, TUBING SECONDARY 1 EACH in 0.9 % SODIUM CHLORIDE 250 ml 250 ML 528 MG IV (12:07)
[2023-10-13] MEDS: SODIUM CHLORIDE 0.9 % (FLUSH) 10 ML SYRINGE IVF (14:00)
[2023-10-13] MEDS: 0.9 % SODIUM CHLORIDE 250 ml IV (14:00)
[2023-11-03 10:36] VITALS: BP 101/62; PULSE 92; RESP 16; TEMP 35.9; O2SAT 96
[2023-11-03 10:54] LABS: Basophils Absolute Auto 0.02 K/uL (0.00-0.30); Basophils Percent Auto 0.3 % (0.0-3.0); Eosinophils Absolute Auto 0.22 K/uL (0.00-0.50); Eosinophils Percent Auto 2.9 % (0.0-7.0); Hematocrit 38.3 % (33.0-51.0); Hemoglobin* 12.6 gm/dL (12.0-16.0); Lymphocytes Percent Auto 18.8 % (20-44); Mean Corpuscular HGB Conc 33 gm/dL (32-36); Mean Corpuscular Hemoglobin 27 pg (26-34); Mean Corpuscular Volume 81 fL (80-100); Monocytes Percent Auto 4.3 % (0.0-11.0); Neutrophils Percent Auto 73.7 % (42.0-72.0); Platelet Count* 360 K/uL (140-440); RDW Coefficient of Variation % 17.6 % (11.5-15.5); Red Blood Count 4.75 m/uL (4.00-5.20)
[2023-11-03 11:01] LABS: Slide Review Reflex No
[2023-11-03 11:15] LABS: Albumin* 4.2 g/dL (3.3-5.0); Chloride* 110 mmol/L (96-114); Potassium* 3.9 mmol/L (3.6-5.1); Sodium* 138 mmol/L (135-149)
[2023-11-03 11:17] LABS: Creatinine* 0.6 mg/dL (0.5-1.5); Est. Creatinine Clearance* 111.03; Estimated Glomerular Filt Rate 116 ml/min
[2023-11-03 11:18] LABS: Alanine Aminotransferase* 24 U/L (4-35); Alkaline Phosphatase* 137 U/L (40-150); Anion Gap 3 mEq/L (7-15); Aspartate Amino Transferase* 22 U/L (12-35); Bilirubin Total* 0.4 mg/dL (0.1-1.5); Blood Urea Nitrogen* 13 mg/dL (5-24); Calcium* 9.1 mg/dL (8.4-10.6); Carbon Dioxide* 25 mmol/L (20-32); Glucose* 113 mg/dL (60-115)
[2023-11-03 11:42] LABS: HCG Quantitative* < 2.39 mIU/mL
[2023-11-03] MEDS: PERTUZUMAB 420 MG, TUBING SECONDARY 1 EACH in 0.9 % SODIUM CHLORIDE 250 ml 250 ML 528 MG IV (11:59)
[2023-11-03] MEDS: 0.9 % SODIUM CHLORIDE 250 ml IV (12:00)
[2023-11-03] MEDS: SODIUM CHLORIDE 0.9 % (FLUSH) 10 ML SYRINGE IVF (12:00)
--- NOTE | 2023-11-08 10:11 | URNOTE ---
Trastuzumab ([id number]) has been approved for a total of 9 doses, 400mg every 3 weeks. PA#[id number] 10/13/2023-04/09/2024 Pertuzumab ([id number]) has been approved for a total of 9 doses, 420mg every 3 weeks. PA#[id number] 10/13/2023-04/09/2024
[2023-11-24 09:18] LABS: Basophils Absolute Auto 0.03 K/uL (0.00-0.30); Basophils Percent Auto 0.5 % (0.0-3.0); Eosinophils Absolute Auto 0.25 K/uL (0.00-0.50); Eosinophils Percent Auto 3.9 % (0.0-7.0); Hematocrit 39.5 % (33.0-51.0); Hemoglobin* 12.9 gm/dL (12.0-16.0); Lymphocytes Percent Auto 19.9 % (20-44); Mean Corpuscular HGB Conc 33 gm/dL (32-36); Mean Corpuscular Hemoglobin 27 pg (26-34); Mean Corpuscular Volume 83 fL (80-100); Monocytes Percent Auto 5.4 % (0.0-11.0); Neutrophils Absolute Auto 4.53 K/uL (1.7-7.0); Neutrophils Percent Auto 70.3 % (42.0-72.0); Platelet Count* 287 K/uL (140-440); RDW Coefficient of Variation % 16.5 % (11.5-15.5); Red Blood Count 4.78 m/uL (4.00-5.20); Slide Review Reflex No; White Blood Count* 6.44 K/uL (4.50-11.00)
[2023-11-24 09:31] LABS: Albumin* 4.8 g/dL (3.3-5.0); Chloride* 105 mmol/L (96-114); Potassium* 3.8 mmol/L (3.6-5.1); Sodium* 141 mmol/L (135-149)
[2023-11-24 09:33] LABS: Creatinine* 0.7 mg/dL (0.5-1.5); Est. Creatinine Clearance* 95.17; Estimated Glomerular Filt Rate 111 ml/min
[2023-11-24 09:34] LABS: Alanine Aminotransferase* 23 U/L (4-35); Alkaline Phosphatase* 137 U/L (40-150); Anion Gap 6 mEq/L (7-15); Aspartate Amino Transferase* 30 U/L (12-35); Bilirubin Total* 0.6 mg/dL (0.1-1.5); Blood Urea Nitrogen* 17 mg/dL (5-24); Carbon Dioxide* 30 mmol/L (20-32); Glucose* 98 mg/dL (60-115); Total Protein* 8.7 g/dL (6.0-8.3)
[2023-11-24 09:35] LABS: Calcium* 9.2 mg/dL (8.4-10.6)
[2023-11-24 10:50] LABS: Magnesium* 2.3 mg/dL (1.5-2.6)
[2023-11-24 11:12] LABS: HCG Quantitative* < 2.39 mIU/mL
[2023-11-24] MEDS: PERTUZUMAB 420 MG, TUBING SECONDARY 1 EACH in 0.9 % SODIUM CHLORIDE 250 ml 250 ML 528 MG IV (11:34)
[2023-11-24 11:40] LABS: Vitamin B12* 927 pg/mL (243-894)
[2023-11-24] MEDS: 0.9 % SODIUM CHLORIDE 250 ml IV (12:10)
[2023-11-25 07:09] LABS: Folate, Serum >22.3 ng/mL (>=5.9)
[2023-12-15 10:06] LABS: Basophils Absolute Auto 0.02 K/uL (0.00-0.30); Basophils Percent Auto 0.2 % (0.0-3.0); Eosinophils Absolute Auto 0.15 K/uL (0.00-0.50); Eosinophils Percent Auto 1.7 % (0.0-7.0); Hematocrit 36.3 % (33.0-51.0); Hemoglobin* 12.1 gm/dL (12.0-16.0); Immature Granulocytes Abs Auto 0.01 K/uL (0.00-0.30); Immature Granulocytes Pct Auto 0.1 %; Lymphocytes Percent Auto 12.8 % (20-44); Mean Corpuscular HGB Conc 33 gm/dL (32-36); Mean Corpuscular Hemoglobin 28 pg (26-34); Mean Corpuscular Volume 83 fL (80-100); Monocytes Percent Auto 6.7 % (0.0-11.0); Neutrophils Percent Auto 78.5 % (42.0-72.0); Platelet Count* 307 K/uL (140-440); RDW Coefficient of Variation % 14.5 % (11.5-15.5); Red Blood Count 4.39 m/uL (4.00-5.20); White Blood Count* 8.83 K/uL (4.50-11.00)
[2023-12-15 10:12] LABS: Albumin* 4.6 g/dL (3.3-5.0); Chloride* 106 mmol/L (96-114); Sodium* 139 mmol/L (135-149)
[2023-12-15 10:13] LABS: Potassium* 3.8 mmol/L (3.6-5.1); Slide Review Reflex No
[2023-12-15 10:15] VITALS: BP 111/77; PULSE 85; RESP 16; TEMP 36.1; O2SAT 99
[2023-12-15 10:15] LABS: Alkaline Phosphatase* 207 U/L (40-150); Anion Gap 6 mEq/L (7-15); Aspartate Amino Transferase* 200 U/L (12-35); Bilirubin Total* 0.7 mg/dL (0.1-1.5); Blood Urea Nitrogen* 14 mg/dL (5-24); Carbon Dioxide* 27 mmol/L (20-32); Creatinine* 0.6 mg/dL (0.5-1.5); Est. Creatinine Clearance* 109.91; Estimated Glomerular Filt Rate 115 ml/min; Total Protein* 8.7 g/dL (6.0-8.3)
[2023-12-15 10:16] LABS: Alanine Aminotransferase* 135 U/L (4-35); Calcium* 8.7 mg/dL (8.4-10.6); Glucose* 110 mg/dL (60-115)
[2023-12-15 10:38] LABS: HCG Quantitative* < 2.39 mIU/mL
--- NOTE | 2023-12-15 10:51 | PC.NURSE ---
Pt present for labs and treatment. LFT's elevated. Discussed with Sayra Bingham PA-C. Treatment held and pt rescheduled for labs next Tuesday and potential treatment next . Discussed with pt without an sales and marketing vice president. Pt verbalized understanding. Of note, [place] states that she was sick last week and took NyQuill. Pt is not currently taking any. Pt also states that she drinks no alcohol. Again, Sayra Bingham PA-C aware.
[2023-12-21 15:05] LABS: Basophils Absolute Auto 0.01 K/uL (0.00-0.30); Basophils Percent Auto 0.1 % (0.0-3.0); Eosinophils Absolute Auto 0.22 K/uL (0.00-0.50); Hematocrit 35.5 % (33.0-51.0); Hemoglobin* 11.6 gm/dL (12.0-16.0); Immature Granulocytes Abs Auto 0.12 K/uL (0.00-0.30); Immature Granulocytes Pct Auto 1.1 %; Mean Corpuscular HGB Conc 33 gm/dL (32-36); Mean Corpuscular Hemoglobin 27 pg (26-34); Mean Corpuscular Volume 83 fL (80-100); Monocytes Percent Auto 5.9 % (0.0-11.0); Neutrophils Percent Auto 76.9 % (42.0-72.0); Platelet Count* 373 K/uL (140-440); RDW Coefficient of Variation % 13.9 % (11.5-15.5); Red Blood Count 4.26 m/uL (4.00-5.20); White Blood Count* 10.87 K/uL (4.50-11.00)
[2023-12-21 15:06] LABS: Slide Review Reflex No
[2023-12-21 15:19] LABS: Albumin* 4.5 g/dL (3.3-5.0); Chloride* 102 mmol/L (96-114)
[2023-12-21 15:20] LABS: Potassium* 4.3 mmol/L (3.6-5.1); Sodium* 137 mmol/L (135-149)
[2023-12-21 15:22] LABS: Anion Gap 6 mEq/L (7-15); Aspartate Amino Transferase* 55 U/L (12-35); Bilirubin Total* 0.6 mg/dL (0.1-1.5); Carbon Dioxide* 29 mmol/L (20-32); Creatinine* 0.6 mg/dL (0.5-1.5); Est. Creatinine Clearance* 109.91; Estimated Glomerular Filt Rate 115 ml/min
[2023-12-21 15:23] LABS: Alanine Aminotransferase* 109 U/L (4-35); Alkaline Phosphatase* 261 U/L (40-150); Blood Urea Nitrogen* 11 mg/dL (5-24); Calcium* 8.8 mg/dL (8.4-10.6); Glucose* 104 mg/dL (60-115); Total Protein* 8.3 g/dL (6.0-8.3)
[2023-12-21 15:39] LABS: HCG Qualitative Serum* Negative (Negative)
--- NOTE | 2023-12-22 08:14 | ONC.NURNOTE ---
12/20 lab results reviewed with ALOK Luna. Okay to proceed with treatment today. Will continue to work on GI referral.
[2023-12-22 11:19] VITALS: BP 103/70; PULSE 97; RESP 16; TEMP 35.9; O2SAT 96
[2023-12-22] MEDS: PERTUZUMAB 420 MG, TUBING SECONDARY 1 EACH in 0.9 % SODIUM CHLORIDE 250 ml 250 ML 528 MG IV (12:06)
[2023-12-22] MEDS: 0.9 % SODIUM CHLORIDE 250 ml IV (12:07)
--- NOTE | 2024-01-04 10:05 | ONC.NURNOTE ---
SUMAN has been working with Melyssa Martinez, Fuel Operator at [facility] to coordinate GI Referral. [facility] is [facility] with [facility] to add an extension to her current [facility] care plan for her elevated LFTs.
[2024-01-11 12:18] LABS: Basophils Absolute Auto 0.03 K/uL (0.00-0.30); Basophils Percent Auto 0.4 % (0.0-3.0); Eosinophils Percent Auto 3.6 % (0.0-7.0); Hematocrit 35.4 % (33.0-51.0); Hemoglobin* 11.5 gm/dL (12.0-16.0); Immature Granulocytes Abs Auto 0.02 K/uL (0.00-0.30); Immature Granulocytes Pct Auto 0.2 %; Lymphocytes Percent Auto 19.8 % (20-44); Mean Corpuscular HGB Conc 33 gm/dL (32-36); Mean Corpuscular Hemoglobin 27 pg (26-34); Mean Corpuscular Volume 84 fL (80-100); Monocytes Percent Auto 5.1 % (0.0-11.0); Neutrophils Absolute Auto 5.85 K/uL (1.7-7.0); Neutrophils Percent Auto 70.9 % (42.0-72.0); Platelet Count* 104 K/uL (140-440); RDW Coefficient of Variation % 13.9 % (11.5-15.5); Red Blood Count 4.22 m/uL (4.00-5.20); White Blood Count* 8.25 K/uL (4.50-11.00)
[2024-01-11 12:19] LABS: Slide Review Reflex No
[2024-01-11 12:34] LABS: Albumin* 4.4 g/dL (3.3-5.0); Chloride* 104 mmol/L (96-114); Potassium* 4.6 mmol/L (3.6-5.1); Sodium* 138 mmol/L (135-149)
[2024-01-11 12:37] LABS: Alanine Aminotransferase* 95 U/L (4-35); Alkaline Phosphatase* 166 U/L (40-150); Anion Gap 8 mEq/L (7-15); Aspartate Amino Transferase* 53 U/L (12-35); Bilirubin Total* 0.6 mg/dL (0.1-1.5); Blood Urea Nitrogen* 11 mg/dL (5-24); Carbon Dioxide* 26 mmol/L (20-32); Creatinine* 0.5 mg/dL (0.5-1.5); Est. Creatinine Clearance* 131.89; Estimated Glomerular Filt Rate 120 ml/min; Glucose* 90 mg/dL (60-115); Total Protein* 8.1 g/dL (6.0-8.3)
[2024-01-11 13:20] LABS: HCG Quantitative* < 2.39 mIU/mL
[2024-01-12] MEDS: PERTUZUMAB 420 MG, TUBING SECONDARY 1 EACH in 0.9 % SODIUM CHLORIDE 250 ml 250 ML 528 MG IV (10:25)
[2024-01-12] MEDS: 0.9 % SODIUM CHLORIDE 250 ml IV (10:27)
[2024-01-12] MEDS: SODIUM CHLORIDE 0.9 % (FLUSH) 10 ML SYRINGE IVF (10:27)
== END 2024-01-23 23:59 | disposition home or self-care (01) ==
LOC: CCIC 10:00
PROVIDERS: Clinical Nurse Specialist; Physician Assistant; PCP Family Medicine; Referring Provider Family Medicine; Visit Provider Internal Medicine Hematology & Oncology
DX: C50.812 Malignant neoplasm of overlapping sites of left female breast (principal); Z51.12 Encounter for antineoplastic immunotherapy; Z17.1 Estrogen receptor negative status [ER-]; R79.89 Other specified abnormal findings of blood chemistry; D69.6 Thrombocytopenia, unspecified
CPT/HCPCS: 36415; 80053; 80076; 82607; 82746; 83735; 84443; 84702; 84703; 85025; 93306; 96413; 96415; 96417; 99211; 99213; 99214; 99215; G0463; T1013; J7050; J9306; J9355; Q5114

== ENCOUNTER 2024-04-16 10:30 | Outpatient (RCR) | payer MEDICAID, SELFPAY | END 2024-05-17 15:33 | disposition home or self-care (01) | PROVIDERS: PCP Family Medicine; Visit Provider Physician Assistant | DX: M54.9 Dorsalgia, unspecified (principal); M25.519 Pain in unspecified shoulder; M54.6 Pain in thoracic spine; Z51.89 Encounter for other specified aftercare | CPT/HCPCS: 97110; 97140; 97161; 97535; T1013 ==

== ENCOUNTER 2024-05-18 13:53 | Outpatient (CLI) | payer MEDICAID, SELFPAY ==
--- OUTSIDE RECORDS SUMMARY | 2024-05-18 13:56 | XMS_ITS ---
Author Organization [facility] Address [address] [place] [address] Care Team Providers Care Saw Edge Fuser Circular Name Role Phone Unavailable Primary Care Provider Unavailabl e Active Problems Problem Noted Date Diagnosed Date Other Malignant Neuroendocrine Tumors 01/28/2023 Malignant Neoplasm Of Breast Lower Inner Quadrant Female Left 03/03/2012 Cancer Staging:Pathologic stage from 12/28/2022:Stage IA(pT1c, pN0(i+)(sn), cM0, G3, ER-, NC-, HER2+) - Unsigned Overview (01/28/2023): Last Assessment & Plan: History of Stage IIA (T2, N0, cM0) Right breast Neuroendocrine cancer, ER/NC positive, HER-2 negative, diagnosed 12/2011. S/p right [...] Treated Prescribed Fraction Dose Prescribed Total Dose [id number] 06/27/2023 35 8 of 8 220 cGy 1,760 cG y [id number] 06/15/2023 23 17 of 17 220 cGy 3,740 cGy Reference Point Last Treated On Elapsed Days Session Dose Total Dose [id number] 06/27/2023 35 220 cGy 5,500 cGy
--- OUTSIDE RECORDS SUMMARY | 2024-05-18 13:56 | XMS_ITS | Encounter Summary ---
Author Organization [facility] Address [address], [place] [address] Care Team Providers Care Greenstone Polisher Operator Name Role Phone Suman Sheets MD Primary Care Provider [phone]- [phone] Encounter Details Date Type Department Care Team (Late st Contact Info) Description 07/27/2018 [facility] 401 Plastic & Hand Surgery 401 [facility]. [place], [place] [id number] Yana Li MD [address] [place] [address] CONSIGNMENT IMPLANT AND EXPANDERS Social History Tobacco [...] on filedocumented in this encounter Care Teams Greenstone Polisher Operator Relationship Specialty Start Date End Date Suman Sheets MD 701 [facility] [address] [id number] PCP - General Internal Medicine 11/01/18 documented as of this encounter
--- OUTSIDE RECORDS SUMMARY | 2024-05-18 13:56 | XMS_ITS | Referral Summary ---
Author Organization [facility] Address [address] [place] [address] Care Team Providers Care Geoduck Diver Name Role Phone Unavailable Primary Care Provider Unavailabl e Source Comments Patient records contain information from all sites at [facility]. For routine questions regarding patient records, call [phone] during business hours, M-F 8:00 AM - 5:00 PM Central Time. Record requests for emergency care only can be directed to [phone] at any time.[facility] Allergies No known active allergies Medications multivitamin capsule Take 1 capsule by mouth daily. Active Active Problems Problem Noted Date Diagnosed Date Other Malignant Neuroendocrine Tumors 01/28/2023 Malignant Neoplasm Of Breast Lower Inner Quadrant Female Left 03/03/2012 Cancer Staging:Pathologic stage from 12/28/2022:Stage IA(pT1c, pN0(i+)(sn), cM0, G3, ER-, [place]-, HER2+) - Unsigned Overview (01/28/2023): Last Assessment [...] Date Recorded Dental: Regular Dentist Unknown 01/11/20 Comments Unknown Sex and Gender Information Value Date Recorded Sex Assigned at Not on file Legal Sex Female 3:56 PM CDT Gender Identity Not on file Sexual Orientation Not on file Last Filed Vital Signs Vital Sign Reading Time Taken Comments Blood Pressure 108/73 06/02/2023 12:23 PM MATERIAL MAN Pulse 88 06/02/2023 12:23 PM MATERIAL MAN Temperature 36.4 ??C (97.6 ??F) 06/16/2023 12:[address] Respiratory Rate - - Oxygen Saturation - - Inhaled Oxygen Concentration - - Weight 68 kg (149 lb 14.6 oz) 06/23/2023 1:13 PM MATERIAL MAN Height - - Body Mass Index - - Plan of Treatment Not on file Procedures Procedure Name Priority Date/Time Associated Diagnosis Comments OUTSIDE CT BODY Routine 05/14/2024 2:15 PM CDT OUTSIDE NM PET Routine 05/10/2024 3:30 PM CDT OUTSIDE MG MAMMOGRAM Routine 12/28/2022 12:15 PM CDT from Last 3 Months or Most Recently Relevant to Health Maintenance Results * CT Angio Chest PE Protocol-Outside CT Body (05/14/2024 2:15 PM CDT) Narrative [facility] - 05/14/2024 8:58 PM CDT This order has been created and auto-finalized to support the import of outside images. If available, original interpretation can be found on the Media Tab in Chart Review, in Document Viewer, as an image in QREADS or as an Addendum. If a re-interpretation or overread is required please follow defined workflow.?? us Provider Not In System IMG CT PROCEDURES Final R esult Performing Organization Address [facility] de Phone Number [facility] NA * PET skull to mid thigh-Outside NM Pet (05/10/2024 3:30 PM CDT) Narrative [facility] - 05/10/2024 9:13 PM CDT This order has been created and auto-finalized to support the import of outside images. If available, original interpretation can be found on the Media Tab in Chart Review, in Document Viewer, as an image in QREADS or as an Addendum. If a re-interpretation or overread is required please follow defined workflow.?? us Provider Not In System IMG NM PROCEDURES Final R esult Performing Organization Address [facility] de Phone Number [facility] NA * MM surgical specimen LT-Outside Mammogram (12/28/2022 12:15 PM CDT) Narrative [facility] - 01/25/2023 9:09 AM CDT This order has been created and auto-finalized to support the import of outside images. If available, original interpretation can be found on the Media Tab in Chart Review, in Document Viewer, or as an image in QREADS. If a re-interpretation or overread is required please follow defined workflow. ?? us Provider Not In System IMG BI PROCEDURES Final R esult Performing Organization Address [facility] de Phone Number [facility] NA from Last 3 Months or Most Recently Relevant to Health Maintenance Insurance [place]
--- OUTSIDE RECORDS SUMMARY | 2024-05-18 13:56 | XMS_ITS | Clinical Summary ---
Author Organization [facility] Address [address] [place] [address] Care Team Providers Care Assembler Dielectric Heater Name Role Phone Suman Sheets MD Primary Care Provider [phone] Source Comments You are receiving this document as you are listed as the primary care provider,follow-up provider, or the patient has been referred to you for consultation.This is in compliance with the Medicare and[facility] EHR Incentive Program,which states Providers who transition [...] Date Diagnosed Date Careplan: Healthy Beginnings 03/12/2020 Overview (03/12/2020): This patient is enrolled in the Healthy Beginnings Program. The program provides patients with support, education, referrals and resources during their . Reason for enrollment: Pyschosocial Next Urine Drug Screen: N/A For more information, please contact Gemini Guillaume RN, Healthy Beginnings Specialist, at [phone]. Not immune to hepatitis B virus 11/15/2019 Primigravida of advanced maternal age in first t rimester 11/14/2019 Overview (11/14/2019): EDC 06/18/2020 by LMP, confirmed by U/S at 9 wks NIPS discussed RI CNM pt Needs per diem interpreter Encounter for screening mammogram for breast can cer 10/27/2018 Personal history of malignant neoplasm of breast 09/07/2018 Overview (09/07/2018): Added automatically from request for surgery [id number] Myopia of both eyes with astigmatism 02/09/2018 Overview (10/27/2018): Last Assessment & Plan: Refractive Error - Discussed results of refraction with the patient and a new glasses Rx dispensed. - Rx is optional, good uncorrected [facility]. Rx dispensed at patient request. Dry eyes, bilateral 05/01/2015 Overview (10/27/2018): Last Assessment & Plan: Symptomatic ocular surface [...] as anticipated. Pterygium of left eye 05/01/2015 Overview (10/27/2018): Last Assessment & Plan: Non-inflamed early nasal [...] HPV (human papillomavirus) te st positive 08/01/2014 Overview (11/19/2019): 10/16/2010- LGSIL Pap 11/30/2010 - Normal Colpo [...] Risk Other Than 16/18 38 y.o. Plan: Pedro BRCA negative 12/21/2012 Overview (10/27/2018): Patient had BRCA gene testing, sequencing and large rearrangement panel. No mutations were detected in either the BRCA1 or BRCA2 genes. H/O mastectomy 04/26/2012 Malignant neoplasm of right female breast 2011 Overview (10/27/2018): Last Assessment & Plan: History of Stage IIA (T2, N0, cM0) Right breast Neuroendocrine cancer, ER/VT positive, HER-2 negative, diagnosed 12/2011. S/p right [...] this procedure. Screening for breast cancer 10/28/2010 Overview (10/27/2018): 10/16/10 - XFA 194 - FLORI visit with sherita at [facility]. Pap -na. Mammo - diagnostic right- ACR 0 Enrollment form sent:10/28/10 [facility] summary form sent:01/25/11 DX Mammo or US form sent: benign 01/25/11 [facility] F/U sent: Plan : under age 40 for lump on cbe. mammo due age 40 Immunizations Name Administration Dates Next Due DTaP 11/20/2002 Flu Vac (3+ yrs) 10/18/2011,10/16/2010 Flu Vac Preserv Free (3+yrs) 05/26/2015,08/15/19 15,05/21/2013 HepB, Unspecified Formulation 11/20/2002 Influenza (Fluzone 0.25, 6-35 mos) 05/21/2013 Influenza IIV4 (Quadrivalent) 0.5mL ([id number]) 03/19,05/26/2015,08/15/2014 Influenza, Unspecified Formulation 10/18/2011, MMR 11/20/2002 [...] Comments Hep C Screening (Preventive Services) 1981 Mammogram 1981 Adult Preventive Visit 12/14/1999 HepB (2) 12/18/2002 11/20/2002 Cervical Cancer Screening 11/13/2020 11/14/2019 COVID-19 Vaccine ( season) 2024 Influenza (#1) 2024 04/15/2020, 11/0 03/2015, 05/26/2015, Additional history exists DTaP/Tdap/Td (4 - Tdap) 04/15/2030 04/15/20, 08/13/2013, 11/20/2002, Additional history exists Zoster/Shingles (1 [...] on patient's age to complete this topic RSV Aged Out No longer eligi ble based on patient's age to complete this topic MCV4 Aged Out No longer eligi ble based on patient's age to complete this topic Pneumococcal Aged Out No longer eligi ble based on patient's age to complete this topic Medical Devices Implanted Type Area Warping Machine Operator Device Identifier Shelf Expiration Date Model / Serial / Lot Imp Mamm Full [facility] 520cc - [id number] Implanted:Qty: 1 on 11/01/2018 by Yana Li MD at [facility] DEVICE Right: BREAST [employer] 04/03/2022 [facility]-520 / [id number] / [id number] Procedures Procedure Name Priority Date/Time Associated Diagnosis Comments PAP TEST Routine 11/14/2019 11:23 AM CDT Pap smear for cervical cancer screening HIV 1/2 AG/AB 4TH GEN Routine 11/14/2019 10:47 AM CDT Supervision of high-risk of elderly primigravida from Last 3 Months or Most Recently Relevant to Health Maintenance Results * PAP Test (11/14/2019 11:23 AM CDT) Case Report Pap ? Case: [id number] ? Authorizing Provider: ??Jackeline Harris, NOÉ, Collected: ? 11/14/2019 11:23 AM ? CNM ? [facility]ing Location: ? [facility] ?Received: ?11/14/2019 11:26 AM ? Obstetrics and Gynecology ? First Screen: ?Gwendolyn Hess ? Specimen: ?Pap Test, Routine, Cervix/Endocervix ? 11/16/2019 9:56 AM [facility] Pap Specimen Adequacy Satisfactory for evaluation, endocervical/lorenz sformation zone component present. 11/16/2019 9:56 AM [facility] Pap Interpretation Negative for intraepithelial lesion or malignancy (NILM). 11/16/2019 9:56 AM [facility] Pap Disclaimer The Pap test is a screening test designed to aid in the detection of cervical cancer and its precursor lesions. It is not a diagnostic procedure and should not be used as the sole means of detecting cervical cancer. Both false-positive and false-negative reports may occur. 11/16/2019 9:56 AM [facility] Gross Description The specimen is received in SurePath fixative and properly labeled. 1 Pap-stained SurePath slide is prepared. 11/16/2019 9:56 AM [facility] Embedded Images 0 9:56 AM [facility] Other Specimen Type ENTIRE ENDOCERVIX / Unknown 11/14/2019 11:23 AM CDT 11/14/2019 11:26 AM CDT Comment:LMP: Patient's last menstrual period was 09/12/2019. Jackeline Harris APRN, [facility] PATHOLO GY Performing Organization Address [facility]/State/[facility] Co de Phone Number [address] [address], [facility] [phone] * HIV 1/2 AG/AB 4TH GEN (11/14/2019 10:47 AM CDT) HIV 1/2 Antigen/Anti body (4th generation) Negative (Non Reactive) Negative (Non Reactive) 11/14/2019 6:57 PM CDT [facility] Comment:HIV-1 p24 Antigen an d HIV-1/HIV-2 Antibody not detected Blood Venipuncture Butterfly / Unknown 11/14/2019 10:47 AM CDT 11/14/2019 10:48 AM CDT [facility] Yeyo Harris APRN, CNM LAB_1 [facility] [address] [place] [id number] [phone] from Last 3 Months or Most Recently Relevant to Health Maintenance Care Teams Assembler Dielectric Heater Relationship Specialty Start Date End Date Suman Sheets MD [address] [place] [address] [address] PCP - General Internal Medicine 11/01/18
--- OUTSIDE RECORDS SUMMARY | 2024-05-18 13:56 | XMS_ITS ---
Author Organization [facility] Address [address] [place] [address] Care Team Providers Care Modern Languages Professor Name Role Phone Unavailable Unavailable Unavailable Surgery Details Not on file Complications Check Surgery Details section. Procedure Estimated Blood Loss Check Surgery Details section. Procedure Findings Check Surgery Details section. Procedure Specimens Taken Check Surgery Details section.
--- OUTSIDE RECORDS SUMMARY | 2024-05-18 13:56 | XMS_ITS | Encounter Summary ---
Author Organization [facility] Address [address], [place] [address] Care Team Providers Care Millinery Designer Name Role Phone Suman Sheets MD Primary Care Provider [phone]- [phone] Encounter Details Date Type Department Care Team [...] on filedocumented in this encounter Care Teams Millinery Designer Relationship Specialty Start Date End Date Suman Sheets MD [address] [address] PCP - General Internal Medicine 11/01/18 documented as of this encounter
--- OUTSIDE RECORDS SUMMARY | 2024-05-18 13:56 | XMS_ITS | Clinical Summary ---
Author Organization [facility] Address [address] [place] [address] Care Team Providers Care Fish Farm Laborer Name Role Phone Unavailable Primary Care Provider Unavailabl e Source Comments Patient records contain information from all sites at [facility]. For routine questions regarding patient records, call [phone] during business hours, M-F 8:00 AM - 5:00 PM Central Time. Record requests for emergency care only can be directed to [phone] at any time.[facility] Allergies No known active allergies Medications multivitamin capsule Take 1 capsule by mouth daily. Active Active Problems Problem Noted Date Diagnosed Date Other Malignant Neuroendocrine Tumors 01/28/2023 Malignant Neoplasm Of Breast Lower Inner Quadrant Female Left 03/03/2012 Cancer Staging:Pathologic stage from 12/28/2022:Stage IA(pT1c, pN0(i+)(sn), cM0, G3, ER-, [place]-, HER2+) - Unsigned Overview (01/28/2023): Last Assessment & Plan: History of Stage IIA (T2, N0, cM0) Right breast Neuroendocrine cancer, ER/HI positive, HER-2 negative, diagnosed 12/2011. S/p right [...] doing well. She did meet with Dr. Youssfe on 10/20/17 regarding nipple reconstruction and plan [...] Comments Blood Pressure 108/73 06/02/2023 12:23 PM CONTENT ASSISTANT Pulse 88 06/02/2023 12:23 PM CONTENT ASSISTANT Temperature 36.4 ??C (97.6 ??F) 06/16/2023 12:[address] Respiratory Rate - - Oxygen Saturation - - Inhaled Oxygen Concentration - - Weight 68 kg (149 lb 14.6 oz) 06/23/2023 1:13 PM CONTENT ASSISTANT Height - - Body Mass Index - [...] - Pfizer risk series) 07/23/2021 06/25/2021, 05/15/2021 Cervical/Vaginal Cancer Screening 11/13/2022 11/14/2019 Depression Screening (Annual PHQ-2) 07/18/2023 Influenza Vaccine (#1) 2024 0, 05/26/2015, 08/15/2014, Additional history exists DTaP,Tdap,and Td Vaccines (5 - Td or Tdap) 04/15/2030 04/15/2020, 08/13/2013, 11/20/2002, Additional history exists Mammogram Discontinued 12/28/2022, 11/15, 12/02/2022, Additional history exists HPV Vaccines Aged Out No longer eligi ble based on patient's age to complete this topic IPV Vaccines Aged Out No longer eligi ble [...] CT Body (05/14/2024 2:15 PM CDT) Narrative [facility] - 05/14/2024 8:58 PM CDT This order [...] System IMG CT PROCEDURES Final R esult [facility] NA * PET skull to mid thigh-Outside NM Pet (05/10/2024 3:30 PM CDT) Narrative [facility] - 05/10/2024 9:13 PM CDT This order [...] PROCEDURES Final R esult Performing Organization Address [facility] Co de Phone Number [facility] NA * MM [...] PROCEDURES Final R esult Performing Organization Address [facility] de Phone Number I[facility] NA from Last 3 Months or Most Recently Relevant to Health Maintenance Insurance [place]
--- OUTSIDE RECORDS SUMMARY | 2024-05-18 13:56 | XMS_ITS | Encounter Summary ---
[facility] Address [address], [place] [address] Care Team Providers Care Laundry Route Driver Name Role Phone Suman Sheets MD Primary Care Provider [phone] Encounter Details Date Type Department Care Team (Late st Contact Info) Description 07/27/2018 Scanned History External to Transferred Record, Provider [facility] Social History Tobacco Use Types Packs/Day [...] on filedocumented in this encounter Care Teams Laundry Route Driver Relationship Specialty Start Date End Date Suman Sheets MD [address] [address] PCP - General Internal Medicine 11/01/18 documented as of this encounter
--- OUTSIDE RECORDS SUMMARY | 2024-05-18 13:56 | XMS_ITS | Clinical Summary ---
Author Organization [facility] Address [place], [place] [address] Care Team Providers Care Tugboat Mate Name Role Phone Pcp, No Primary Care Provider Unavailabl e Encounters Date Type Department Care Team Description 05/17/2024 Telephone [facility] [address] [place] [address] Lee Ann Davison Cancer Genetics 05/17/2024 Orders Only [facility] [address] [place] [address] Haily [place] 1 scan: (1-Ord) [facility], PET SKULL TO MID THIGH, 05/10/2024 05/16/2024 Telephone [facility] Alfred [address] [facility] [address] [place] [phone] Jose Daniel MD 05/14/2024 Orders Only [facility] Scanner 1 scan: (1-Ord) [facility], CT ANGIO CHEST PE PROTOCOL, 05/14/2024 05/14/2024 Transcribe Orders [facility] [address] [place] [address] Syeda Bingham PA-C from Last 3 Months Social History Tobacco Use Types Packs/Day Years Used Date Smoking Tobacco: Never Assessed Sex and Gender Information Value Date Recorded Sex Assigned at Not on file Gender Identity Not on file Sexual Orientation Not on file Plan of Treatment Upcoming Encounters Date Type Department Care Team (Late st Contact Info) Description 05/18/2024 2:00 PM CDT Ancillary Procedure [facility] [address] [place] [address] 05/22/2024 1:00 PM FRUIT FARMWORKER Telemedicine [facility] [address] [place] [address] Tish Roberts, MS, [facility] [address] [facility] Daniel [address] [place] [address] Arrived 05/25/2024 8:00 AM FRUIT FARMWORKER Appointment [facility] [address] [place] [address] Health Maintenance Due Date Last Done Comments Tdap 1992 Depression screening for age 12+ 1993 HIV for age 15-65 1996 BMI (ht and wt on same day) for age 18+ 12/14/1999 Hepatitis C screening for age 18-79 12/14/1999 Tetanus booster 2001 COVID-19 vaccine series ( season) 2024 06/25/2021, 05/15/2021 Influenza for age 9-49 03/18/2024 Pap test for age 21-65 08/13/2025 3, 08/13/2022, 07/23/2020, Additional history exists Pneumococcal series for age 6-64 Aged Out No longer eligible based on patient's age to complete this topic Procedures Procedure Name Priority Date/Time Associated Diagnosis Comments SCAN-CT INTERPRETATION 12:[address] SKULL BASE TO MID THIGH SUBSEQUENT TREAT Routine 05/10/2024 12:00 AM CDT Malignant neoplasm of midline of breast, left (HC) HPV HIGH RISK Routine 08/13/2022 9:45 AM FRUIT FARMWORKER from Last 3 Months or Most Recently Relevant to Health Maintenance Results * SCAN-CT INTERPRETATION (05/14/2024 12:00 AM CDT) Anatomical Region Laterality Modality Other Scanner OTHER * PET CT SKULL BASE TO MID THIGH SUBSEQUENT TREAT (05/10/2024 12:00 AM CDT) Anatomical Region Laterality Modality Positron Emissio n Tomography (PET) [place] PET * HPV HIGH RISK (08/13/2022 9:45 AM FRUIT FARMWORKER) TYPE 16 Negative Negative 08/19/2022 4:45 PM FRUIT FARMWORKER [facility] TYPE 18 Negative Negative 08/19/2022 4:45 PM FRUIT FARMWORKER [facility] OTHER HIGH RISK TYPES Negative Negative 08/19/2022 4:45 PM FRUIT FARMWORKER [facility] Other (Cervical) 08/13/2022 9:45 AM FRUIT FARMWORKER 08/17/2022 11:37 AM FRUIT FARMWORKER Narrative [facility] - 08/19/2022 4:45 PM FRUIT FARMWORKER HPV types 16, 18, 31, 33, 35, 39, 45, 51, 52, 56, 58, 59, 66 and 68 DNA were undetectable or below the pre-set threshold. Methodology: Linnette Luann 4800 HPV Test Saima Millan MD MICROBIOLO GY [facility] [address] [place] [address], [place] from Last 3 Months or Most Recently Relevant to Health Maintenance Care Teams Tugboat Mate Relationship Specialty Start Date End Date Pcp, No . PCP - General 06/23/23
== END 2024-05-18 13:54 | disposition home or self-care (01) ==
LOC: RAD 13:54
PROVIDERS: PCP Family Medicine; Visit Provider Physician Assistant
DX: Z51.81 Encounter for therapeutic drug level monitoring (principal); C50.812 Malignant neoplasm of overlapping sites of left female breast
CPT/HCPCS: 93306; T1013

== ENCOUNTER 2024-06-01 14:55 | Outpatient (CLI) | payer MEDICAID, SELFPAY ==
--- OUTSIDE RECORDS SUMMARY | 2024-05-31 15:24 | XMS_ITS | Clinical Summary ---
Author Organization [facility] Address [address] [place] [address] Care Team Providers Care Liability Claims Manager Name Role Phone Unavailable Primary Care Provider Unavailabl e Source Comments Patient records contain information from all sites at [facility]. For routine questions regarding patient records, call [phone] during business hours, M-F 8:00 AM - 5:00 PM Central Time. Record requests for emergency care only can be directed to [phone] at any time.[facility] Allergies No known active allergies Medications multivitamin capsule Take 1 capsule by mouth daily. Active Active Problems Problem Noted Date Diagnosed Date Other Malignant Neuroendocrine Tumors 01/28/2023 Malignant Neoplasm Of Breast Lower Inner Quadrant Female Left 03/03/2012 Cancer Staging:Pathologic stage from 12/28/2022:Stage IA(pT1c, pN0(i+)(sn), cM0, G3, ER-, WI-, HER2+) - Unsigned Overview (01/28/2023): Last Assessment & Plan: History of Stage IIA (T2, N0, cM0) Right breast Neuroendocrine cancer, ER/WI positive, HER-2 negative, diagnosed 12/2011. S/p right [...] Blood Pressure 108/73 06/02/2023 12:23 PM MARKETING AUTOMATION ANALYST Pulse 88 06/02/2023 12:23 PM MARKETING AUTOMATION ANALYST Temperature 36.4 ??C (97.6 ??F) 06/16/2023 12:[address] Respiratory Rate - - Oxygen Saturation - - Inhaled Oxygen Concentration - - Weight 68 kg (149 lb 14.6 oz) 06/23/2023 1:13 PM MARKETING AUTOMATION ANALYST Height - - Body Mass Index - [...] CT Body (05/14/2024 2:15 PM CDT) Narrative [facility] - 05/14/2024 8:58 PM CDT This order [...] NM Pet (05/10/2024 3:30 PM CDT) Narrative [facility] - 05/10/2024 9:13 PM CDT This order [...] PROCEDURES Final R esult Performing Organization Address City/[facility] Co de Phone Number IIMS NA * [...] PROCEDURES Final R esult Performing Organization Address [facility] de Phone Number IIMS NA from Last 3 Months or Most Recently Relevant to Health Maintenance Insurance [place] MED[place]
--- OUTSIDE RECORDS SUMMARY | 2024-05-31 15:24 | XMS_ITS | Encounter Summary ---
Author Organization [facility] Address [address], [place] [address] Care Team Providers Care Toolroom Checker Name Role Phone Suman Sheets MD Primary Care Provider [phone] Encounter Details Date Type Department Care Team (Late st Contact Info) Description 07/27/2018 Scanned History External to Transferred Record, Provider [facility] Social History Tobacco Use Types Packs/Day [...] on filedocumented in this encounter Care Teams Toolroom Checker Relationship Specialty Start Date End Date Suman Sheets MD [address] [address] PCP - General Internal Medicine 11/01/18 documented as of this encounter
--- OUTSIDE RECORDS SUMMARY | 2024-05-31 15:24 | XMS_ITS | Encounter Summary ---
Author Organization [facility] Address [address], [place] [address] Care Team Providers Care Child And Youth Program Assistant Name Role Phone Suman Sheets MD Primary Care Provider [phone]- [phone] Encounter Details Date Type Department Care Team [...] on filedocumented in this encounter Care Teams Child And Youth Program Assistant Relationship Specialty Start Date End Date Suman Sheets MD [address] [address] PCP - General Internal Medicine 11/01/18 documented as of this encounter
--- OUTSIDE RECORDS SUMMARY | 2024-05-31 15:24 | XMS_ITS | Clinical Summary ---
Author Organization [facility] Address [address] [place] [address] Care Team Providers Care Mule Tender Name Role Phone Suman Sheets MD Primary Care Provider [phone] Source Comments You are receiving this document as you are listed as the primary care provider,follow-up provider, or the patient has been referred to you for consultation.This is in compliance with the Medicare and[facility] Cent[facility]any EHR Incentive Program,which states Providers who transition [...] Gemini Guillaume RN, Healthy Beginnings Specialist, at [phone]. Not immune to hepatitis B virus 11/15/2019 Primigravida of advanced maternal age in first t rimester 11/14/2019 Overview (11/14/2019): EDC 06/18/2020 by LMP, confirmed by U/S at 9 wks NIPS discussed RI CNM pt Needs rug cleaner Encounter for screening mammogram for breast can cer 10/27/2018 Personal history of malignant neoplasm of breast 09/07/2018 Overview (09/07/2018): Added automatically from request for surgery [id number] Myopia of both eyes with astigmatism 02/09/2018 [...] Risk Other Than 16/18 38 y.o. Plan: [place] BRCA negative 12/21/2012 Overview (10/27/2018): Patient had BRCA gene testing, sequencing and large rearrangement panel. No mutations were detected in either the BRCA1 or BRCA2 genes. H/O mastectomy 04/26/2012 Malignant neoplasm of right female breast 2011 Overview (10/27/2018): Last Assessment & Plan: History of Stage IIA (T2, N0, cM0) Right breast Neuroendocrine cancer, ER/ND positive, HER-2 negative, diagnosed 12/2011. S/p right [...] 194 - FLORI visit with sherita at [facility]. Pap -na. Mammo - diagnostic right- ACR 0 Enrollment form sent:10/28/10 [place] summary form sent:01/25/11 DX Mammo or US form sent: benign 01/25/11 [facility] F/U sent: Plan : under age 40 for lump on cbe. mammo due age 40 Immunizations Name Administration Dates Next Due DTaP 11/20/2002 Flu Vac (3+ yrs) 10/18/2011,10/16/2010 Flu Vac Preserv Free (3+yrs) 05/26/2015,08/15/19 15,05/21/2013 HepB, Unspecified Formulation 11/20/2002 Influenza (Fluzone 0.25, 6-35 mos) 05/21/2013 Influenza IIV4 (Quadrivalent) 0.5mL ([id number]) 03/19,05/26/2015,08/15/2014 Influenza, Unspecified Formulation 10/18/2011, MMR 11/20/2002 [...] this topic Medical Devices Implanted Type Area Travel Guide Device Identifier Shelf Expiration Date Model / Serial / Lot Imp Mamm Full [facility] 520cc - [id number] Implanted:Qty: 1 on 11/01/2018 by Yana Li MD at [facility] Same Day Surgery DEVICE Right: BREAST [employer] 04/03/2022 [facility]-520 / [id number] / [id number] Procedures Procedure Name Priority Date/Time Associated Diagnosis Comments PAP TEST Routine 11/14/2019 11:23 AM CDT Pap smear for cervical cancer screening HIV 1/2 AG/AB 4TH GEN Routine 11/14/2019 10:47 AM CDT Supervision of high-risk of elderly primigravida from Last 3 Months or Most Recently Relevant to Health Maintenance Results * PAP Test (11/14/2019 11:23 AM CDT) Case Report Pap ? Case: [id number] ? Authorizing Provider: ??Jackeline Harris, NOÉ, Collected: ? 11/14/2019 11:23 AM ? CNM ? [facility] ?Received: ?11/14/2019 11:26 AM ? Obstetrics and Gynecology ? First Screen: ?Gwendolyn Hess ? Specimen: ?Pap Test, Routine, Cervix/Endocervix ? 11/16/2019 9:56 AM [facility] Pap Specimen Adequacy Satisfactory for evaluation, endocervical/lorenz sformation zone component present. 11/16/2019 9:56 AM [facility] Pap Interpretation Negative for intraepithelial lesion or malignancy (NILM). 11/16/2019 9:56 AM [facility] Pap Disclaimer The Pap test is a screening test designed to aid in the detection of cervical cancer and its precursor lesions. It is not a diagnostic procedure and should not be used as the sole means of detecting cervical cancer. Both false-positive and false-negative reports may occur. 11/16/2019 9:56 AM [facility] Gross Description The specimen is received in SurePath fixative and properly labeled. 1 Pap-stained SurePath slide is prepared. 11/16/2019 9:56 AM [facility] Embedded Images 0 9:56 AM [facility] Other Specimen Type ENTIRE ENDOCERVIX / Unknown 11/14/2019 11:23 AM CDT 11/14/2019 11:26 AM CDT Comment:LMP: Patient's last menstrual period was 09/12/2019. Jackeline Harris APRN, [facility] PATHOLO GY Performing Organization Address [facility]/State/[facility] Co de Phone Number [address] [address], [facility] [phone] * HIV 1/2 AG/AB 4TH GEN (11/14/2019 10:47 AM CDT) HIV 1/2 Antigen/Anti body (4th generation) Negative (Non Reactive) Negative (Non Reactive) 11/14/2019 6:57 PM CDT [facility] Comment:HIV-1 p24 Antigen an d HIV-1/HIV-2 Antibody not detected Blood Venipuncture Butterfly / Unknown 11/14/2019 10:47 AM CDT 11/14/2019 10:48 AM CDT Yadytato Yeyo Harris APRN, CNM LAB_1 [facility] [address] [place] [address] [phone] from Last 3 Months or Most Recently Relevant to Health Maintenance Care Teams Mule Tender Relationship Specialty Start Date End Date Suman Sheets MD [address] [address] PCP - General Internal Medicine 11/01/18
--- OUTSIDE RECORDS SUMMARY | 2024-05-31 15:24 | XMS_ITS | Encounter Summary ---
Author Organization [facility] Address [address], [place] [address] Care Team Providers Care Operations Leader Name Role Phone Suman Sheets MD Primary Care Provider [phone] Encounter Details Date Type Department Care Team (Late st Contact Info) Description 07/27/2018 [facility] [address] Plastic [facility] Surgery [address] [facility] [place], [place] [id number] Yana Li MD [address] [place] [address] [employer] Social History Tobacco [...] on filedocumented in this encounter Care Teams Operations Leader Relationship Specialty Start Date End Date Suman Sheets MD [address] [facility] [address] [address] PCP - General Internal Medicine 11/01/18 documented as of this encounter
--- OUTSIDE RECORDS SUMMARY | 2024-05-31 15:24 | XMS_ITS ---
Author Organization [facility] Address [address] [place] [address] Care Team Providers Care Wireless Team Member Name Role Phone Unavailable Primary Care Provider Unavailabl e Active Problems Problem Noted Date Diagnosed Date Other Malignant Neuroendocrine Tumors 01/28/2023 Malignant Neoplasm Of Breast Lower Inner Quadrant Female Left 03/03/2012 Cancer Staging:Pathologic stage from 12/28/2022:Stage IA(pT1c, pN0(i+)(sn), cM0, G3, ER-, GA-, HER2+) - Unsigned Overview (01/28/2023): Last Assessment & Plan: History of Stage IIA (T2, N0, cM0) Right breast Neuroendocrine cancer, ER/GA positive, HER-2 negative, diagnosed 12/2011. S/p right [...] Treated Prescribed Fraction Dose Prescribed Total Dose [id number] 06/27/2023 35 8 of 8 220 cGy 1,760 cG y [id number] 06/15/2023 23 17 of 17 220 cGy 3,740 cGy Reference Point Last Treated On Elapsed Days Session Dose Total Dose [id number] 06/27/2023 35 220 cGy 5,500 cGy
--- OUTSIDE RECORDS SUMMARY | 2024-05-31 15:24 | XMS_ITS | Clinical Summary ---
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 Active multivit with iron,minerals (MULTIVITAMIN AND MINERALS ORAL) Take by mouth. Active Active Problems Problem Noted Date Diagnosed Date Malignant neoplasm of overla pping sites of left female breast 05/23/2024 Encounters Date Type Department Care Team Description 05/28/2024 Telephone [facility] [address] [place] [address] Anthony Mckinley MD 05/25/2024 7:59 AM GRAY MIXING OPERATOR - 05/25/2024 11:59 PM GRAY MIXING OPERATOR Hospital Encounter [facility] [address] [place] [address] Syeda Bingham PA-C Breast cancer (HC) 05/25/2024 Travel 05/23/2024 3:00 PM GRAY MIXING OPERATOR Anesthesia Event [facility] [address] [place] [address] Lata Fontanez MD Dylla, Kimberly Marie, CRNA 05/23/2024 1:44 PM GRAY MIXING OPERATOR - 05/23/2024 2:46 PM GRAY MIXING OPERATOR Surgery [facility] [address] [place] [address] Anthony Mckinley MD ENDOBRONCHIAL ULTRASOUND FNA 05/23/2024 12:51 PM GRAY MIXING OPERATOR - 05/23/2024 5:10 PM GRAY MIXING OPERATOR Hospital Encounter [facility] [address] [place] [address] Anthony Mckinley MD Discharge Disposition: Home Self Care 05/23/2024 Travel 05/22/2024 1:00 PM GRAY MIXING OPERATOR Telemedicine [facility] [place] [address] [place] [address] Tish Roberts MS, CGC Counseling (Cancer genetic counseling) 05/21/2024 Telephone [facility] [place] [address] [place] [phone] Jose Daniel MD Prior Authorization (MARKETING MANAGER (Care Plan Certificate) needed for DOS 05/23 CAROL) 05/18/2024 2:00 PM CDT Ancillary Procedure [facility] [address] [place] [address] 05/18/2024 Travel 05/17/2024 Telephone [facility] [address] [place] [phone] Lee Ann Davison Cancer Genetics 05/17/2024 Orders Only [facility] [address] [place] [address] Haily [place] 1 scan: (1-Ord) [facility], PET SKULL TO MID THIGH, 05/10/2024 05/16/2024 Telephone [facility] [place] [address] [place] [phone] Jose Daniel MD 05/14/2024 Orders Only [facility] Scanner 1 scan: (1-Ord) [facility], CT ANGIO CHEST PE PROTOCOL, 05/14/2024 05/14/2024 Transcribe Orders [facility] [address] [place] [phone] Syeda Bingham PA-C from Last 3 Months Social History Tobacco Use Types Packs/Day Years Used Date Smoking Tobacco: Never Smokeless Tobacco: Never Tobacco Cessation:Counseling Given: Not Answered Alcohol Use Standard Drinks/Week Comments Not Currently 0 (1 standard drink = 0.6 oz pur e alcohol) Sex and Gender Information Value Date Recorded Sex Assigned at Not on file Gender Identity Not on file Sexual Orientation Not on file Obstetrics History Last Filed Vital Signs Vital Sign Reading Time Taken Comments Blood Pressure 99/69 05/25/2024 10:45 AM GRAY MIXING OPERATOR Pulse 96 05/25/2024 10:30 AM GRAY MIXING OPERATOR Temperature 35.6 ??C (96 ??F) 05/25/2024 10:00 AM GRAY MIXING OPERATOR Respiratory Rate 14 05/25/2024 10:45 AM GRAY MIXING OPERATOR Oxygen Saturation 91% 05/25/2024 10:45 AM GRAY MIXING OPERATOR Inhaled Oxygen Concentration - - Weight 63.5 kg (140 lb) 05/25/2024 8:25 AM GRAY MIXING OPERATOR Height 165.1 cm (5' 5) 05/25/2024 8:25 AM GRAY MIXING OPERATOR Body Mass Index 23.3 05/25/2024 8:25 AM GRAY MIXING OPERATOR Plan of Treatment Upcoming Encounters Date Type Department Care Team (Late st Contact Info) Description 06/08/2024 1:00 PM GRAY MIXING OPERATOR Orders Only [facility] [address] [place] [address] Lab, [facility] Maintenance Due Date Last Done Comments [...] Procedure Name Priority Date/Time Associated Diagnosis Comments CT BIOPSY BONE DEEP Routine 05/25/2024 1 0:07 AM GRAY MIXING OPERATOR Breast cancer (HC) PATH FNA CYTOLOGY ASP CYTOLOGY Today 05/25/2024 9:59 AM GRAY MIXING OPERATOR URINE Preop 05/25/2024 8:17 AM GRAY MIXING OPERATOR HEMOGLOBIN STAT 05/25/2024 8:04 AM GRAY MIXING OPERATOR PLATELET COUNT STAT 05/25/2024 8:04 AM GRAY MIXING OPERATOR PROTIME-INR STAT 05/25/2024 8:04 AM GRAY MIXING OPERATOR SCAN CORRESP-IMAGING 05/24/2024 8:19 AM GRAY MIXING OPERATOR PATH NON SR. MANAGER CYTOLOGY Today 05/23/2024 3:15 PM GRAY MIXING OPERATOR ENDOTRACHEAL TUBE Routine 05/23/2024 3:1 0 PM GRAY MIXING OPERATOR ENDOTRACHEAL TUBE Routine 05/23/2024 3:1 0 PM GRAY MIXING OPERATOR ENDOTRACHEAL TUBE Routine 05/23/2024 3:1 0 PM GRAY MIXING OPERATOR ENDOBRONCHIAL ULTRASOUND FINE NEEDLE ASPIRATION 05/23/2024 2:50 PM GRAY MIXING OPERATOR See notes BRONCHOSCOPY 05/23/2024 2:49 PM GRAY MIXING OPERATOR URINE Preop 05/23/2024 1:45 PM GRAY MIXING OPERATOR ECHO TTE COMPLETE WO CONTRAST Routine 05/18/2024 2:44 PM CDT Encounter for therapeutic drug level monitoring SCAN-CT INTERPRETATION 12:[address] SKULL BASE TO MID THIGH SUBSEQUENT TREAT Routine 05/10/2024 12:00 AM CDT Malignant neoplasm of midline of breast, left (HC) HPV HIGH RISK Routine 08/13/2022 9:45 AM GRAY MIXING OPERATOR from Last 3 Months or Most Recently Relevant to Health Maintenance Results * CT BIOPSY BONE DEEP (05/25/2024 10:07 AM GRAY MIXING OPERATOR) Anatomical Region Laterality Modality Computed Tomogra phy, Other, Other, Other Narrative 05/25/2024 11:00 AM GRAY MIXING OPERATOR RADIOLOGY POST PROCEDURE NOTE ?? 05/25/2024 Carmen Estrada [id number] 1980 INFORMEDCONSENT: In my discussion, prior to the signing of the consent, I reviewed the procedure, benefits, risks, long-term effects, treatment options, possible use of pain or sedation medications, and how the procedure will meet the treatment goal with the patient and/or family. The patient was given ample time to ask questions. All questions were answered. ?? MODERATESEDATION: Under physician supervision, midazolam and fentanyl were administered intravenously for moderate sedation. Pulse oximetry, heart rate, and blood pressure were continuously monitored by a trained, dedicated nurse. The physician who performed the procedure provided 37 minutes of intra-service time with the patient. INDICATIONS: Lytic bone lesion PROCEDURE PERFORMED: CT-guided biopsy lytic bone lesion left iliac crest. PROCEDURE NARRATIVE : After timeout, administration of conscious sedation and local anesthetic lytic bone lesion in the left posterior iliac crest was targeted. ??11-gauge bone biopsy needle was placed. ??Multiple samples were obtained. ??Cytology was adequate on preliminary evaluation. ??The needle was removed. ??No immediate complication. POST-PROCEDURE DIAGNOSIS: ??Status post lytic lesion left posterior iliac crest status post biopsy. PATIENT POSITION: Prone ANTISEPTIC PREPARATION and BARRIER TECHNIQUES USED: ??Skin was prepped and draped in the usual sterile fashion. IMAGING GUIDANCE FOR ACCESS / PROCEDURE: CT-guided permanently recorded images are archived in PACS. ACCESS LOCATION / SITE / TECHNIQUE: Left side. EQUIPMENT UTILIZED: 11-gauge bone biopsy needle system. CLOSURE: None. RADIATION DOSE: ?? total exam DLP: Recorded on CT images in the PACS system. ??mGy-cm MEDICATIONS GIVEN: ??versed 3.0 mg IV and fentanyl 150 mcg IV. ??1% Lidocaine was used for local anesthesia. SPECIMEN(S): Core samples COMPLICATIONS: No complications. DRAINS: No drains. ESTIMATED BLOOD LOSS: ??Less than 10 cc. PHYSICIAN(S) AND ASSISTANTS (if any): ??Kb Pickett MD Additional Comments: Please call with questions. Kb Pickett MD [place] Protocol A. Pre-procedure verification complete yes 1-relevant information / documentation available, reviewed and properly matched to the patient; 2-consent accurate and complete, 3-equipment and supplies available B. Site marking complete Yes Site marked if not in continuous attendance with patient C. TIME OUT completed yes Time Out was conducted just prior to starting procedure to verify the eight required elements: 1-patient identity, 2-consent accurate and complete, 3-position, 4-correct side/site marked (if applicable), 5-procedure, 6-relevant images / results properly labeled and displayed (if applicable), 7-antibiotics / irrigation fluids (if applicable), 8-safety precautions. Please note that all CT scans at this facility use dose modulation, iterative reconstruction, and/or weight-based dosing when appropriate to reduce radiation dose to as low as reasonably achievable. ?? Syeda Bingham PA-C CT * PATH FNA CYTOLOGY ASP CYTOLOGY (05/25/2024 9:59 AM GRAY MIXING OPERATOR) Case Report Medical Cytology Report ? Case: [id number] ? Authorizing Provider: ??Kb Pickett MD ?? Collected: ? 05/25/2024958 ? Ordering Location: ? [facility] ?Received: ?05/25/2024958 ? [facility] ? Pathologist: ? Jessica Platt, DO ? Specimen: ?Bone Biopsy, left iliac crest ? 4 2:04 PM [facility] Amendment 05/29/2024 - Amendme nt issued to incorporate ancillary studies. 4 2:04 PM [facility] Final Diagnosis A) BONE, LEFT POSTERIOR ILIAC CREST LYTIC LESION, CT-GUIDED NEEDLE CORE ?? BIOPSY WITH TOUCH IMPRINTS: 1. Positive for malignancy, metastatic carcinoma consistent with metastasis from breast primary 2. Breast Ancillary Testing: ?a. Hormone Receptors: ?Estrogen receptor: Positive (91%, moderate staining) ?Progesterone receptor: Positive (47%, moderate staining) ?b. HER2 by IHC: Negative (1+ by manual morphometry) 4 2:04 PM [facility] Amendment electronically signed by Kyree De Leon MD on 05/29/2024 at 2:04 PM Comment The tumor is cytologically and immunophenotypically similar to the patient's metastatic breast cancer involving the right hilum ([id number] reviewed for morphologic comparison). 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 Per report, she also has a history of neuroendocrine carcinoma of the breast in 2011 ([facility] case [id number]) CT scan of the chest on 05/06/2024 revealed a large confluent mass measuring 7 cm in the right upper lobe which is contiguous with the right hilum. Also noted were multiple skeletal lytic lesions, including lesions in the ??iliac wing, lumbar vertebrae, and manubrium. 4 2:04 PM [facility] Gross Description A) Received identified as Left posterior Illiac Crest is a radiologic guided bone biopsy specimen. The core biopsy sampling measures 0.2 cm x 0.3 cm in aggregate. The specimen consists of: ? -6 Air dried slides ? -1 Formalin vial ? -0 RPMI vials The following were prepared from the specimen submitted: ? -6 Diff-Quik stained slides ? -4 H&E stained cell block slides The biopsy material is entirely submitted in 4 cassettes. A2 Cell block material was removed from the patient and placed directly in formalin at 0945 on 05/25/24 and fixed in formalin at least 6 hours and no more than 72 hours. The cell block was decalcified. A3 Cell block material was removed from the patient and placed directly in formalin at 0945 on 05/25/24 and fixed in formalin at least 6 hours and no more than 72 hours. The cell block was decalcified. A4 Cell block material was removed from the patient and placed directly in formalin at 0945 on 05/25/24 and fixed in formalin at least 6 hours and no more than 72 hours. A5 Cell block material was removed from the patient and placed directly in formalin at 0945 on 05/25/24 and fixed in formalin at least 6 hours and no more than 72 hours. ?? 4 2:04 PM [facility] Adequacy Assessment A) D.S. assessed adequacy from the air-dried smears at the time of the procedure with an impression of Adequate. 4 2:04 PM [facility] Microscopic Description Specimen adequacy: Adequate for interpretation. All slides were reviewed. The microscopic appearance substantiates the diagnosis. Immunohistochemical stains were performed on block A4, and the results the tumor cells are summarized below: GATA3: Positive (diffuse) TTF-1: Negative P40: Negative INSM1: Positive (patchy) Synaptophysin: Positive (diffuse) Support for the interpretation of this case may have included the use of immunohistochemistry and/or in situ hybridization tests that were performed by [facility] and whose performance characteristics were evaluated by pathologists from [facility]. These tests have not been cleared or approved by the U.S. Food and Drug Administration. The FDA has determined that such clearance or approval is not necessary. These tests are used for clinical purposes and should not be regarded as investigational or for research. This laboratory is certified under the Clinical Laboratory Improvement Amendments of 1988 (CLIA) as qualified to perform high complexity clinical laboratory testing. 4 2:04 PM [facility] SYNOPTIC REPORTING Breast Biomarker Reporting Template BREAST BIOMARKER REPORTING TEMPLATE - A Protocol posted: 06/29/2023 ?? Test(s) Performed: ? Estrogen Receptor (ER) Status: ?Positive (greater than 10% of cells demonstrate nuclear positivity) ? Percentage of Cells with Nuclear Positivity: ?91 % ? Average Intensity of Staining: ?Moderate ? Test Type: ?Laboratory-developed test ? Primary Antibody: ?SP1 ?? Test(s) Performed: ? Progesterone Receptor (PgR) Status: ?Positive ? Percentage of Cells with Nuclear Positivity: ?47 % ? Average Intensity of Staining: ?Moderate ? Test Type: ?Laboratory-developed test ? Primary Antibody: ?16 ?? Test(s) Performed: ? HER2 by Immunohistochemistry: ?Negative (Score 1+) ? Test Type: ?Laboratory-developed test ? Primary Antibody: ?4B5 ?? Cold Ischemia and Fixation Times: ?Meet requirements specified in latest version of the ASCO / CAP Guidelines ?? Testing Performed on Block Number(s): ?A4 METHODS ?? Fixative: ?Formalin ?? Image Analysis: ?Performed ? Method: ?Aperio morphometric analysis ? Biomarkers Scored by Image Analysis: ?ER ? Biomarkers Scored by Image Analysis: ?PgR 4 2:04 PM GRAY MIXING OPERATOR [facility] Additional Information Cytology is screened at [facility] - [address], [place] [address] and [facility] - [address], [place] [address] and [facility] - [address] [place] [address] Patients with breast cancers that are HER2 IHC 3+ or IHC 2+/CHOCO amplified may be eligible for several therapies that disrupt HER2 signaling pathways. Invasive breast cancers that test 'HER2-negative' (IHC 0, 1+ or 2+/CHOCO not-amplified) are more specifically considered 'HER2-negative for protein overexpression/gene amplification' since non-overexpressed levels of the HER2 protein may be present in these cases. Patients with breast cancers that are HER2 IHC 1+ or IHC 2+/CHOCO not amplified may be eligible for a treatment that targets non-amplified/non-over expressed levels of HER2 expression for cytotoxic drug delivery (IHC 0 results do not result in eligibility currently). Interpreted at [facility] - [address], [place] [address] Immunohistochemistry controls were reviewed and approved by the pathologist during this examination. 4 2:04 PM GRAY MIXING OPERATOR [facility] Aspirate (Bone Biopsy) 05/25/2024 9:59 AM GRAY MIXING OPERATOR 05/25/2024 9:59 AM GRAY MIXING OPERATOR Kb Pickett MD PATHOLOGY/CYTOLOG Y [facility] [address] [place] [address], * Urine (05/25/2024 8:17 AM GRAY MIXING OPERATOR) Only the most recent of2 resultswithin the time period is included. ,URIN E Negative Negative 05/25/2024 8:34 AM GRAY MIXING OPERATOR [facility] Urine URINE SPECIMEN / Unknown Non-Blood / Unknown 05/25/2024 8:17 AM GRAY MIXING OPERATOR 05/25/2024 8:25 AM GRAY MIXING OPERATOR Kb Pickett MD URINE Performing Organization Address [facility] Co de Phone Number [facility] [address] [place] [phone], [place] * Platelet Count (05/25/2024 8:04 AM GRAY MIXING OPERATOR) PLATELET COUNT 321 140 - 440 thou/cu mm 05/25/2024 8:26 AM GRAY MIXING OPERATOR [facility] MPV 10.3 6.5 - 11.0 fL 05/25/2024 8:26 AM GRAY MIXING OPERATOR [facility] Blood BLOOD SPECIMEN / Unknown Venipuncture / Unknown 05/25/2024 8:04 AM GRAY MIXING OPERATOR 05/25/2024 8:11 AM GRAY MIXING OPERATOR Kb Pickett MD HEMATOLOGY Performing Organization Address [facility] de Phone Number [facility] [address] [place], [place] [id number], [place] * Hemoglobin (05/25/2024 8:04 AM GRAY MIXING OPERATOR) HEMOGLOBIN 12.0 12.0 - 16.0 g/dL 05/25/2024 8:26 AM GRAY MIXING OPERATOR [facility] MCV 83 80 - 100 fL 05/25/2024 8:26 AM GRAY MIXING OPERATOR [facility] Blood BLOOD SPECIMEN / Unknown Venipuncture / Unknown 05/25/2024 8:04 AM GRAY MIXING OPERATOR 05/25/2024 8:11 AM GRAY MIXING OPERATOR Kb Pickett MD HEMATOLOGY Performing Organization Address [facility] Co de Phone Number [facility] [address] [place] [address], [place] * (ABNORMAL) Protime-INR (05/25/2024 8:04 AM GRAY MIXING OPERATOR) INR 1.3(H) <1.3 05/25/2024 8:50 AM GRAY MIXING OPERATOR [facility] PROTIME 14.5(H) 10.6 - 12.4 sec 05/25/2024 8:50 AM GRAY MIXING OPERATOR [facility] Blood BLOOD SPECIMEN / Unknown Venipuncture / Unknown 05/25/2024 8:04 AM GRAY MIXING OPERATOR 05/25/2024 8:11 AM GRAY MIXING OPERATOR Narrative [facility] - 05/25/2024 8:50 AM GRAY MIXING OPERATOR ?Therapeutic Range 2.0-3.0 for most anticoagulated patients 2.5-3.5 or 4.0 for high risk patients The INR is only used for patients on stable oral anticoagulant therapy. It makes no significant contribution to the diagnosis or treatment of patients whose Protime is prolonged for other reasons. INR results are increased when heparin levels exceed 1.0 U/mL, which corresponds to an aPTT >125 seconds if the patient is on UFH. Kb Pickett MD HEMATOLOGY [facility] [address] [place] [address], * SCAN CORRESP-IMAGING (05/24/2024 8:19 AM GRAY MIXING OPERATOR) Anatomical Region Laterality Modality Other Narrative 05/24/2024 8:19 AM GRAY MIXING OPERATOR Ordered by an unspecified provider. Other Clinical Staff OTHER * PATH NON SR. MANAGER CYTOLOGY (05/23/2024 3:15 PM GRAY MIXING OPERATOR) Case Report Medical Cytology Report ? Case: [id number] ? Authorizing Provider: ??Anthony Mckinley MD Collected: ? 05/23/2024 1515 ? Ordering Location: ? [facility] ?Received: ?05/23/2024 1538 ? Hospital ? Pathologist: ? Christiano Rees MD ? Specimen: ?Mass, R Hilar Mass ? 4 5:14 PM [facility] Final Diagnosis A) RIGHT HILAR MASS, ENDOBRONCHIAL ULTRASOUND-GUIDED FINE-NEEDLE ASPIRATION: 1. Positive for malignancy; metastatic carcinoma consistent with breast origin 2. Breast Ancillary Testing: ?a. Hormone Receptors: ?Estrogen receptor: Positive (98%, strong staining) ?Progesterone receptor: Positive (85%, moderate staining) ?b. HER2 by IHC: Negative (1+ by manual morphometry) 4 5:14 PM [facility] Comment The current tumor castillo s a neuroendocrine immunophenotype by immunohistochemistry as well as neuroendocrine morphology. GATA3 (suggestive of breast origin) is diffusely positive in the current case. Although the original slides from the 2011 invasive breast carcinoma ([facility] case [id number]) are not available for review, the current metastatic carcinoma appears to more closely resemble the patient's 2011 breast carcinoma with neuroendocrine differentiation based on the results of breast ancillary testing. The metastatic carcinoma is morphologically dissimilar to the 2023 HER2 positive ER/ME negative breast carcinoma. Dr. Rees discussed the preliminary findings with Dr. Syeda Bingham on 05/24/2024. Dr. Weir discussed the final results with her. 5:14 PM [facility] Clinical Information History of grade 3 invasive ductal carcinoma of the left breast in 2022, ER/ME negative, HER2 positive. History of a neuroendocrine tumor of the breast ([facility] case [id number]), ER/ME positive, HER2 negative. Now with numerous PET avid skeletal, right upper lobe, endocervical lesions worrisome for metastasis. 4 5:14 PM [facility] Gross Description A) Received identified as Right Hilar Mass, is a fine needle aspirate specimen. The specimen consists of: ? -5 Air dried slides ? -1 CytoLyt vial ? -0 RPMI vials ? -2 Formalin vials The following were prepared from the specimen submitted: ? -5 Diff-Quik stained slides ? -1 Papanicolaou stained ThinPrep slide ? -2 H&E stained cell block slides A2 Cell block material was removed from the patient and placed directly in formalin at 1520 on 05/23/24 and fixed in formalin at least 6 hours and no more than 72 hours. A3 Cell block material was removed from the patient and placed directly in formalin at 1524 on 05/23/24 and fixed in formalin at least 6 hours and no more than 72 hours. ?? 4 5:14 PM [facility] Adequacy Assessment A) KAkash. assessed adequacy from the air-dried smears at the time of the procedure with an impression of Adequate. 5:14 PM [facility] Microscopic Description Specimen adequacy: Adequate for interpretation. All slides were reviewed. The microscopic appearance substantiates the diagnosis. The material shows metastatic malignancy. Immunohistochemical stains are necessary and indicated to assess the process. The following staining pattern is seen: Synaptophysin: Positive in a minority of the cells INSM-1: Positive in a subset of the cells MARELY 2 F3: Negative GATA3: Diffusely positive Mammoglobin: Positive in a minority of the cells SOX10: Negative Cytokeratin cocktail: Diffusely positive CDX2: Negative TTF-1: Negative Ki-67: Positive in a minority of the cells (less than 10% by manual morphometry) Support for the interpretation of this case may have included the use of immunohistochemistry and/or in situ hybridization tests that were performed by [facility] and whose performance characteristics were evaluated by pathologists from [facility]. These tests have not been cleared or approved by the U.S. Food and Drug Administration. The FDA has determined that such clearance or approval is not necessary. These tests are used for clinical purposes and should not be regarded as investigational or for research. This laboratory is certified under the Clinical Laboratory Improvement Amendments of 1988 (CLIA) as qualified to perform high complexity clinical laboratory testing. 4 5:14 PM [facility] SYNOPTIC REPORTING Breast Biomarker Reporting Template BREAST BIOMARKER REPORTING TEMPLATE - A Protocol posted: 06/29/2023 ?? Test(s) Performed: ? Estrogen Receptor (ER) Status: ?Positive (greater than 10% of cells demonstrate nuclear positivity) ? Percentage of Cells with Nuclear Positivity: ?98 % ? Average Intensity of Staining: ?Strong ? Test Type: ?Laboratory-developed test ? Primary Antibody: ?SP1 ?? Test(s) Performed: ? Progesterone Receptor (PgR) Status: ?Positive ? Percentage of Cells with Nuclear Positivity: ?85 % ? Average Intensity of Staining: ?Moderate ? Test Type: ?Laboratory-developed test ? Primary Antibody: ?16 ?? Test(s) Performed: ? HER2 by Immunohistochemistry: ?Negative (Score 1+) ? Test Type: ?Laboratory-developed test ? Primary Antibody: ?4B5 ?? Cold Ischemia and Fixation Times: ?Meet requirements specified in latest version of the ASCO / CAP Guidelines ?? Testing Performed on Block Number(s): ?A2 METHODS ?? Fixative: ?Formalin ?? Image Analysis: ?Performed ? Method: ?Aperio morphometric analysis ? Biomarkers Scored by Image Analysis: ?ER ? Biomarkers Scored by Image Analysis: ?PgR 4 5:14 PM GRAY MIXING OPERATOR [facility] Additional Information Cytology is screened at [facility] - [address], [place] [address] and [facility] - [address], [place] [address] and [facility] - [address] [place] [address] Interpreted at [facility] Central Laboratory - [address], [place] [address] Immunohistochemistry controls were reviewed and approved by the pathologist during this examination. 4 5:14 PM GRAY MIXING OPERATOR [facility] Aspirate (Mass) 05/23/2024 3 :15 PM GRAY MIXING OPERATOR 05/23/2024 3:38 PM GRAY MIXING OPERATOR Anthony Mckinley MD PATHOLOGY/CYTOL OGY [facility] [address] [place] [address], * HCHG TUBE PR1, HCHG KIT CO2 DETECTOR PR5, HCHG STYLET PR1 (05/23/2024 3:10 PM GRAY MIXING OPERATOR) Narrative Munira Ryan CRNA - 05/23/2024 3:10 PM GRAY MIXING OPERATOR Munira Ryan CRNA ? 05/23/2024 ??3:11 PM Procedure: ETT Patient location during procedure: procedure room ETT Properties Mask Ventilation: easy Final Technique: direct laryngoscopy Type: straight Location: oral Cuffed: yes Tube Size: 8.5 mm Stylet: yes Laryngoscope Blade: Mahoney Blade Size: 2 Cormack-Lehane Grade View: 1 Insertion Attempts: 1 Placement Verification: auscultation, end tidal CO2 and symmetrical chest wall movement Assessment: pharynx clear, atraumatic and dentition unchanged Secured at: 21 Measured From: teeth Tube secured with: Bronch bite block. Difficulty: 0 (not difficult) Lata Fontanez MD ANESTHESIA PX N OTE ORDERABLES * BRONCHOSCOPY (05/23/2024 2:49 PM GRAY MIXING OPERATOR) 05/23/2024 2:49 PM GRAY MIXING OPERATOR Narrative Transcriptions Anthony Mckinley MD - 05/23/2024 3:49 PM CST [facility] Patient Name: Carmen Estrada Procedure Date: 05/23/2024 Gender: Female Date of : 1980 Admit Type: Ambulatory Instrument Name: BRONCH [id number] [id number] Procedure: Bronchoscopy with EBUS-TBNA R Hilar mass; Therapeutic Aspiration Proceduralist: Anthony Mckinley MD [facility] Indications/Pre-Op Diagnosis: C50.812 - breast cancer; FDG avidadenopathy Procedure Description: Risks of bleeding, infection, pneumothorax, need for surgery, remote chance of and alternatives were discussed, and the patient gave informed consent. The endoscope [id number] was introducedthrough the mouth, via the endotracheal tube (the patient was intubated forthe procedure) and advanced to the tracheobronchial tree of both lungs.The endoscope [id number] was introduced through the mouth, via the endotracheal tube (the patient was intubated for the procedure) and advanced to the tracheobronchial tree of both lungs. The patient tolerated the procedure well. Complications: No immediate complications. Estimated blood loss: Minimal Estimated Blood Loss & Specimen: Estimated blood loss was minimal. Specimen collected: Yes and sent to Laboratory Findings: The endoscope bronchoscope was introduced through the entry and intothe trachea. The tracheo-bronchial tree was then examined. The trachea isof normal caliber. The lulu is sharp. The tracheobronchial tree was examined. Bronchial mucosa and anatomy are normal on the left. Some extrinsic compression of the RUL, no endobronchial lesions. EBUS-TBNAx 7 to a R hilar mass conglomeration. Tolerated well. Mild bleeding and tenacious secretions were therapeutically aspirated. Impression/Post-Op Diagonsis: - No Complications - Bronchoscopy with EBUS-TBNA R Hilar mass; Therapeutic Aspiration Recommendation: - Await biopsy results. Anthony Mckinley MD 05/23/2024 3:49:30 PM This report has been signed electronically. Note Initiated On: 05/23/2024 2:49 PM Anthony Mckinley MD PROCEDURE ORD * ECHO TTE COMPLETE WO CONTRAST (05/18/2024 2:44 PM CDT) AORTIC VALVE MEAN PG 4 mmHg EJECTION FRACTION 67 % LVEDD 4.4 cm EJECTION FRACTION 65 - 70% Anatomical Region Laterality Modality Ultrasound 05/18/2024 2:10 PM CDT Narrative 05/18/2024 3:28 PM CDT ECHOCARDIOGRAM CARMEN SCHMIDTCHANELLELUBA ? Accession#: ?? [id number] : ?1980 43 years Study Date: ?? 05/18/2024 2:10:26 PM Gender: F ?BP: ? 104/71 mmHg Height: 165.00 cm ?BSA: ?1.75 m? ? ? Weight: 68.00 kg ? Tech: ? MSR ? Referring MD: SYEDA BINGHAM Site: ? [facility] & [facility] Reading Location: Mobile OP Patient Location: Outpatient. Procedure: 2D, Color Doppler, Spectral Doppler and strain. Indication for study: Encounter for therapeutic drug level monitoring Cardiac Rhythm: Regular.Study quality: Good. Final Impressions: 1. Normal LV size, normal wall thickness, normal global systolic function with an estimated EF of 65 - 70%. 2. Right ventricular cavity size is normal, global systolic RV function is normal. 3. Normal diastolic function. 4. No significant valve disease detected. 5. Current global longitudinal strain is borderline at -17 %. Comparison Compared to prior exam of 12/21/23, there has been no significant change. Chamber Sizes and Function Normal left ventricular size, normal wall thickness, normal global systolic function with an estimated EF of 65 - 70%. No resting regional wall motion abnormality visualized. Left atrial size is normal. Left atrial pressure is normal. Right ventricular cavity size is normal, global systolic RV function is normal. RV wall thickness is normal. The right atrium is normal. The pulmonary artery is of normal size and origin. The sinus of Valsalva is normal sized. The ascending aorta is normal sized. Current global longitudinal strain is borderline at -17 %. Valves, RV Pressures and Diastolic Function The aortic valve is normal in structure and trileaflet, no stenosis and no regurgitation. The mitral valve is normal in structure, trace mitral regurgitation. Normal diastolic function. The tricuspid valve is normal in structure. Tricuspid regurgitation is trace regurgitation. Unable to assess right ventricular systolic pressure. The pulmonic valve is not well visualized. Trace pulmonary regurgitation. Masses, Effusion, Shunts There is no pericardial effusion. The inferior vena cava is normal sized, respiratory size variation greater than 50%. No left to right shunting was detected by limited color flow Doppler interrogation of the interatrial septum. MEASUREMENTS AND CALCULATIONS 2-D Measurements and LV Function: LVID (d) 4.4 cm LV FS% (2D) ?? 37 % LVID (s) 2.8 cm LVOT diameter 2.0 cm IVS (d) ??0.6 cm HR ?79 bpm LVPW (d) 0.6 cm LA Vol index ??11 ml/m2 Ao Sinus 2.8 cm RV Max 4C (d) 3.4 cm Asc Ao ?? 2.7 cm GLS current ?? -17% Diastology: Mitral ?Tissue Doppler E Peak 0.8 m/s ??e', Septum ? 0.10 m/s A Peak 0.6 m/s ??e', Lateral ?0.15 m/s E/A ?1.2 ?E/e' Average ?? 6.23 DT ? 152 msec Aortic Valve: Vmax ? 1.4 m/s ??KEVEN (V) ?? 2.40 cm? ? ? VTI ?0.26 m ?? KEVEN (I) ?? 2.39 cm? ? ? LVOT V max 1.0 m/s ??Max PG ?7 mmHg LVOT VTI ?? 0.20 m ?? Mean PG ?? 4 mmHg SV ? 63 ml ?Dim Index 0.76 SV index ?? 36 ml/m? ? ? CO ?4.9 l/min ?CI ?2.8 l/min/m? ? ? Mitral Valve: MVA ?5.0 cm? ? ? MV P 1/2 44 msec Tricuspid Valve and estimated PA pressures: TAPSE 2.0 cm . This study was interpreted by an [facility] accredited facility. CC: HIM ([facility]) [facility]. ??Final ?? Procedure Note Ant Matt MD - 05/18/2024 ECHOCARDIOGRAM CARMEN ESTRADA : 1980 43 years Study Date: 05/18/2024 2:10:26 PM Gender: F BP: 104/71 mmHg Height: 165.00 cm BSA: 1.75 m? ? ? Weight: 68.00 kg Tech: R Referring MD: SYEDA BINGHAM Site: [facility] Reading Location: Mobile OP Patient Location: Outpatient. Procedure: 2D, Color Doppler, Spectral Doppler and strain. Indication for study: Encounter for therapeutic drug level monitoring Cardiac Rhythm: Regular.Study quality: Good. Final Impressions: 1. Normal LV size, normal wall thickness, normal global systolic functionwith an estimated EF of 65 - 70%. 2. Right ventricular cavity size is normal, global systolic RV functionis normal. 3. Normal diastolic function. 4. No significant valve disease detected. 5. Current global longitudinal strain is borderline at -17 %. Comparison Compared to prior exam of 12/21/23, there has been no significant change. Chamber Sizes and Function Normal left ventricular size, normal wall thickness, normal globalsystolic function with an estimated EF of 65 - 70%. No resting regionalwall motion abnormality visualized. Left atrial size is normal. Leftatrial pressure is normal. Right ventricular cavity size is normal, globalsystolic RV function is normal. RV wall thickness is normal. The rightatrium is normal. The pulmonary artery is of normal size and origin. Thesinus of Valsalva is normal sized. The ascending aorta is normal sized.Current global longitudinal strain is borderline at -17 %. Valves, RV Pressures and Diastolic Function The aortic valve is normal in structure and trileaflet, no stenosis and noregurgitation. The mitral valve is normal in structure, trace mitralregurgitation. Normal diastolic function. The tricuspid valve is normal instructure. Tricuspid regurgitation is trace regurgitation. Unable toassess right ventricular systolic pressure. The pulmonic valve is not wellvisualized. Trace pulmonary regurgitation. Masses, Effusion, Shunts There is no pericardial effusion. The inferior vena cava is normal sized,respiratory size variation greater than 50%. No left to right shunting wasdetected by limited color flow Doppler interrogation of the interatrialseptum. MEASUREMENTS AND CALCULATIONS 2-D Measurements and LV Function: LVID (d) 4.4 cm LV FS% (2D) 37 % LVID (s) 2.8 cm LVOT diameter 2.0 cm IVS (d) 0.6 cm HR 79 bpm LVPW (d) 0.6 cm LA Vol index 11 ml/m2 Ao Sinus 2.8 cm RV Max 4C (d) 3.4 cm Asc Ao 2.7 cm GLS current -17% Diastology: Mitral Tissue Doppler E Peak 0.8 m/s e', Septum 0.10 m/s A Peak 0.6 m/s e', Lateral 0.15 m/s E/A 1.2 E/e' Average 6.23 DT 152 msec Aortic Valve: Vmax 1.4 m/s KEVEN (V) 2.40 cm? ? ? VTI 0.26 m KEVEN (I) 2.39 cm? ? ? LVOT V max 1.0 m/s Max PG 7 mmHg LVOT VTI 0.20 m Mean PG 4 mmHg SV 63 ml Dim Index 0.76 SV index 36 ml/m? ? ? CO 4.9 l/min CI 2.8 l/min/m? ? ? Mitral Valve: MVA 5.0 cm? ? ? MV P 1/2 44 msec Tricuspid Valve and estimated PA pressures: TAPSE 2.0 cm . This study was interpreted by an [facility] accredited facility. CC: RANDI ([facility]) [facility]. Final Syeda Bingham PA-C ECHO ORD * SCAN-CT INTERPRETATION (05/14/2024 12:00 AM CDT) Anatomical Region Laterality Modality Other Scanner OTHER * PET CT SKULL BASE TO MID THIGH SUBSEQUENT TREAT (05/10/2024 12:00 AM CDT) Anatomical Region Laterality Modality Positron Emissio n Tomography (PET) [place] PET * HPV HIGH RISK (08/13/2022 9:45 AM GRAY MIXING OPERATOR) TYPE 16 Negative Negative 08/19/2022 4:45 PM GRAY MIXING OPERATOR [facility] TYPE 18 Negative Negative 08/19/2022 4:45 PM GRAY MIXING OPERATOR [facility] OTHER HIGH RISK TYPES Negative Negative 08/19/2022 4:45 PM GRAY MIXING OPERATOR [facility] Other (Cervical) 08/13/2022 9:45 AM GRAY MIXING OPERATOR 08/17/2022 11:37 AM GRAY MIXING OPERATOR Narrative [facility] - 08/19/2022 4:45 PM GRAY MIXING OPERATOR HPV types 16, 18, 31, 33, 35, 39, 45, 51, 52, 56, 58, 59, 66 and 68 DNA were undetectable or below the pre-set threshold. Methodology: Linnette Luann 4800 HPV Test Saima Millan MD MICROBIOLO GY [facility] [address] [place] [address], from Last 3 Months or Most Recently Relevant to Health Maintenance Advance Directives * Full Code (Latest Code Status on File) Date Activated Date Inactivated Comments 05/23/2024 1:43 PM 05/23/2024 7:11 PM Question Answer Comments Code Status Discussion: Unable to Assess Preferences, Provider to review later Care Teams Certified Solid Waste Facility Operator Relationship Specialty Start Date End Date Pcp, No . PCP - General 06/23/23
--- OUTSIDE RECORDS SUMMARY | 2024-05-31 15:24 | XMS_ITS ---
Author Organization [facility] Address [address] [place] [address] Care Team Providers Care Field Application Engineer Name Role Phone Unavailable Unavailable Unavailable Surgery Details Not on file Complications Check Surgery Details section. Procedure Estimated Blood Loss Check Surgery Details section. Procedure Findings Check Surgery Details section. Procedure Specimens Taken Check Surgery Details section.
--- OUTSIDE RECORDS SUMMARY | 2024-05-31 15:24 | XMS_ITS | Referral Summary ---
Author Organization [facility] Address [address] [place] [address] Care Team Providers Care Regulatory Associate Name Role Phone Unavailable Primary Care Provider Unavailabl e Source Comments Patient records contain information from all sites at [facility]. For routine questions regarding patient records, call [phone] during business hours, M-F 8:00 AM - 5:00 PM Central Time. Record requests for emergency care only can be directed to [phone] at any time.[facility] Allergies No known active allergies Medications multivitamin capsule Take 1 capsule by mouth daily. Active Active Problems Problem Noted Date Diagnosed Date Other Malignant Neuroendocrine Tumors 01/28/2023 Malignant Neoplasm Of Breast Lower Inner Quadrant Female Left 03/03/2012 Cancer Staging:Pathologic stage from 12/28/2022:Stage IA(pT1c, pN0(i+)(sn), cM0, G3, ER-, WY-, HER2+) - Unsigned Overview (01/28/2023): Last Assessment & Plan: History of Stage IIA (T2, N0, cM0) Right breast Neuroendocrine cancer, ER/WY positive, HER-2 negative, diagnosed 12/2011. S/p right [...] Comments Blood Pressure 108/73 06/02/2023 12:23 PM RAW HIDE TRIMMER Pulse 88 06/02/2023 12:23 PM RAW HIDE TRIMMER Temperature 36.4 ??C (97.6 ??F) 06/16/2023 12:[address] Respiratory Rate - - Oxygen Saturation - - Inhaled Oxygen Concentration - - Weight 68 kg (149 lb 14.6 oz) 06/23/2023 1:13 PM RAW HIDE TRIMMER Height - - Body Mass Index - [...] PROCEDURES Final R esult Performing Organization Address [facility] de Phone Number IIMS NA * PET skull to mid thigh-Outside NM Pet (05/10/2024 3:30 PM CDT) Narrative [facility] - 05/10/2024 9:13 PM CDT This [...] PROCEDURES Final R esult Performing Organization Address [facility] de Phone Number IIMS NA * MM surgical specimen LT-Outside Mammogram (12/28/2022 12:15 PM CDT) Narrative [facility] - 01/25/2023 9:09 AM CDT This order [...] PROCEDURES Final R esult Performing Organization Address [facility] de Phone Number IIMS NA from Last 3 Months or Most Recently Relevant to Health Maintenance Insurance [place]ICA[place]
[2024-06-01 13:57] LABS: Basophils Absolute Auto 0.03 K/uL (0.00-0.30); Basophils Percent Auto 0.3 % (0.0-3.0); Eosinophils Absolute Auto 0.18 K/uL (0.00-0.50); Eosinophils Percent Auto 2.1 % (0.0-7.0); Hematocrit 33.7 % (33.0-51.0); Hemoglobin* 10.8 gm/dL (12.0-16.0); Immature Granulocytes Abs Auto 0.02 K/uL (0.00-0.30); Immature Granulocytes Pct Auto 0.2 %; Lymphocytes Percent Auto 19.6 % (20-44); Mean Corpuscular HGB Conc 32 gm/dL (32-36); Mean Corpuscular Hemoglobin 27 pg (26-34); Mean Corpuscular Volume 83 fL (80-100); Monocytes Percent Auto 5.7 % (0.0-11.0); Neutrophils Percent Auto 72.1 % (42.0-72.0); Platelet Count* 299 K/uL (140-440); RDW Coefficient of Variation % 13.7 % (11.5-15.5); Red Blood Count 4.06 m/uL (4.00-5.20); White Blood Count* 8.73 K/uL (4.50-11.00)
[2024-06-01 14:12] LABS: Slide Review Reflex No
[2024-06-01 14:42] LABS: Albumin* 4.2 g/dL (3.3-5.0); Chloride* 98 mmol/L (96-114); Potassium* 4.4 mmol/L (3.6-5.1); Sodium* 133 mmol/L (135-149)
[2024-06-01 14:44] LABS: Bilirubin Total* 0.2 mg/dL (0.1-1.5); Creatinine* 0.6 mg/dL (0.5-1.5); Estimated Glomerular Filt Rate 115 ml/min
[2024-06-01 14:45] LABS: Alanine Aminotransferase* 28 U/L (4-35); Alkaline Phosphatase* 144 U/L (40-150); Anion Gap 7 mEq/L (7-15); Aspartate Amino Transferase* 33 U/L (12-35); Blood Urea Nitrogen* 10 mg/dL (5-24); Calcium* 9.2 mg/dL (8.4-10.6); Carbon Dioxide* 28 mmol/L (20-32); Glucose* 140 mg/dL (60-115); Total Protein* 8.1 g/dL (6.0-8.3)
[2024-06-03 17:02] LABS: Estradiol Premenol Female 141 pg/mL
[2024-06-04 14:33] LABS: Follicle Stimulating Hormone 24.6 IU/L; Luteinizing Hormone, Serum 43.3 IU/L
--- OUTSIDE RECORDS SUMMARY | 2024-06-06 11:18 | XMS_ITS | Clinical Summary ---
Author Organization [facility] Address [address] [place] [address] Care Team Providers Care Vocational Auto Body Instructor Name Role Phone Unavailable Primary Care Provider Unavailabl e Source Comments Patient records contain information from all sites at [facility]. For routine questions regarding patient records, call [phone] during business hours, M-F 8:00 AM - 5:00 PM Central Time. Record requests for emergency care only can be directed to [phone] at any time.[facility] Allergies No known active allergies Medications multivitamin [...] Comments Blood Pressure 108/73 06/02/2023 12:23 PM QUARTER DOPER Pulse 88 06/02/2023 12:23 PM QUARTER DOPER Temperature 36.4 C (97.6 F) 06/16/2023 12:58 PM QUARTER DOPER Respiratory Rate - - Oxygen Saturation - - Inhaled Oxygen Concentration - - Weight 68 kg (149 lb 14.6 oz) 06/23/2023 1:13 PM QUARTER DOPER Height - - Body Mass Index - - Plan of Treatment Health Maintenance Due Date Last Done Comments HIV Screening 1980 Hepatitis C Screening 1980 Lipid (Cholesterol) Screening 1980 Pneumococcal vaccine (0-64 years) (1 of 2 - PCV) 12/14/1987 Zoster Vaccines (1 of 2) 2000 Hepatitis B Vaccines (2 of 3 - 19+ 3-dose series) 12/18/2002 11/20/2002 HPV Vaccines (1 - Risk 3-dose SCDM series) 2008 COVID-19 Vaccine (3 - Pfizer risk series) 07/23/2021 06/25/2021, 05/15/2021 Cervical/Vaginal Cancer Screening 11/13/2022 11/14/2019 Depression Screening (Annual PHQ-2) 07/18/2023 Influenza Vaccine (#1) 2024 0, 05/26/2015, 08/15/2014, Additional history exists DTaP,Tdap,and Td Vaccines (5 - Td or Tdap) 04/15/2030 04/15/2020, 08/13/2013, 11/20/2002, Additional history exists Mammogram Discontinued 12/28/2022, 11/15, 12/02/2022, Additional history exists IPV Vaccines Aged Out No longer eligi [...] CT Body (05/14/2024 2:15 PM CDT) Narrative [facility] - 05/14/2024 8:58 PM CDT This order has been created and auto-finalized to support the import of outside images. If available, original interpretation can be found on the Media Tab in Chart Review, in Document Viewer, as an image in QREADS or as an Addendum. If a re-interpretation or overread is required please follow defined workflow. us Provider Not In System IMG CT PROCEDURES Final R esult IIMS NA * PET skull to mid thigh-Outside NM Pet (05/10/2024 3:30 PM CDT) Narrative [facility] - 05/10/2024 9:13 PM CDT This order has been created and auto-finalized to support the import of outside images. If available, original interpretation can be found on the Media Tab in Chart Review, in Document Viewer, as an image in QREADS or as an Addendum. If a re-interpretation or overread is required please follow defined workflow. us Provider Not In System IMG NM PROCEDURES Final R esult Performing Organization Address [facility] Co de Phone Number IIMS NA * [...] overread is required please follow defined workflow. us Provider Not In System IMG BI PROCEDURES Final R esult Performing Organization Address [facility] de Phone Number IIMS NA from Last 3 Months or Most Recently Relevant to Health Maintenance Insurance [place] [address]
--- OUTSIDE RECORDS SUMMARY | 2024-06-06 11:18 | XMS_ITS | Encounter Summary ---
Author Organization [facility] Address [address], [place] [address] Care Team Providers Care Burial Vault Setter Name Role Phone Suman Sheets MD Primary Care Provider [phone] Encounter Details Date Type Department Care Team (Late st Contact Info) Description 07/27/2018 Scanned History External to Transferred Record, Provider [facility] Social History Tobacco Use Types Packs/Day [...] on filedocumented in this encounter Care Teams Burial Vault Setter Relationship Specialty Start Date End Date Suman Sheets MD [address] [address] PCP - General Internal Medicine 11/01/18 documented as of this encounter
--- OUTSIDE RECORDS SUMMARY | 2024-06-06 11:18 | XMS_ITS | Clinical Summary ---
Author Organization [facility] Address [address] [place] [address] Care Team Providers Care Bobbin Handler Name Role Phone Suman Sheets MD Primary Care Provider [phone] Source Comments You are receiving this document as you are listed as the primary care provider,follow-up provider, or the patient has been referred to you for consultation.This is in compliance with the Medicare and[facility] EHR Incentive Program,which states Providers who transition [...] Gemini Guillaume RN, Healthy [employer]nings Specialist, at [phone]. Not immune to hepatitis B virus 11/15/2019 Primigravida of advanced maternal age in first t rimester 11/14/2019 Overview (11/14/2019): EDC 06/18/2020 by LMP, confirmed by U/S at 9 wks NIPS discussed [place] CNM pt Needs historic interpreter Encounter for screening mammogram for breast can cer 10/27/2018 Personal history of malignant neoplasm of breast 09/07/2018 Overview (09/07/2018): Added automatically from request for surgery [id number] Myopia of both eyes with astigmatism 02/09/2018 [...] Risk Other Than 16/18 38 y.o. Plan: [place] BRCA negative 12/21/2012 Overview (10/27/2018): Patient had [...] breast cancer 10/28/2010 Overview (10/27/2018): 10/16/10 - MIRNA 1941 - FLORI visit with sherita at [facility]. Pap -na. Mammo - diagnostic right- ACR 0 Enrollment form sent:10/28/10 [place] summary form sent:01/25/11 DX Mammo or US form sent: benign 01/25/11 MD F/U sent: Plan : under age 40 for lump on cbe. mammo due age 41 Immunizations Name Administration Dates Next Due DTaP 11/20/2002 Flu Vac (3+ yrs) 10/18/2011,10/16/2010 Flu Vac Preserv Free (3+yrs) 05/26/2015,08/15/19 15,05/21/2013 HepB, Unspecified Formulation 11/20/2002 Influenza (Fluzone 0.25, 6-35 mos) 05/21/2013 Influenza IIV4 (Quadrivalent) 0.5mL (87435) 03/19,05/26/2015,08/15/2014 Influenza, Unspecified Formulation 10/18/2011, MMR 11/20/2002 [...] 90 04/15/2020 11:27 AM CDT Temperature 36.3 C (97.3 F) 11/01/2018 3:00 PM CDT Respiratory Rate 20 11/01/2018 3:00 PM CDT [...] ( season) 2024 Influenza (#1) 2024 04/15/2020, 11/03/2015, 05/26/2015, Additional history exists DTaP/Tdap/Td (4 - [...] on patient's age to complete this topic Infant RSV Aged Out No longer eligi ble based on patient's age to complete this topic MCV4 Aged Out No longer eligi ble based on patient's age to complete this topic Pneumococcal Aged Out No longer eligi ble based on patient's age to complete this topic Medical Devices Implanted Type Area First Aid Director Device Identifier Shelf Expiration Date Model / Serial / Lot Imp Mamm Full [facility] 520cc - [id number] Implanted:Qty: 1 on 11/01/2018 by Yana Li MD at [facility] DEVICE Right: BREAST [employer] 04/03/2022 [facility]-520 / [id number] / [id number] Procedures Procedure Name Priority Date/Time Associated Diagnosis Comments PAP TEST Routine 11/14/2019 11:23 AM CDT Pap smear for cervical cancer screening HIV 1/2 AG/AB 4TH GEN Routine 11/14/2019 10:47 AM CDT Supervision of high-risk of elderly primigravida from Last 3 Months or Most Recently Relevant to Health Maintenance Results * PAP Test (11/14/2019 11:23 AM CDT) Case Report Pap Case: [id number] Authorizing Provider: Jackeline Harris APRN, Collected: 11/14/2019 11:23 AM [facility]AK[facility] Ordering Location: [facility] Received: 11/14/2019 11:26 AM Obstetrics and Gynecology First Screen: Gwendolyn Hess Specimen: Pap Test, Routine, Cervix/Endocervix 11/16/2019 9:56 AM [facility] Pap Specimen Adequacy Satisfactory for evaluation, endocervical/lorenz sformation zone component present. 11/16/2019 9:56 AM [facility] Pap Interpretation Negative for intraepithelial lesion or malignancy (NILM). 11/16/2019 9:56 AM [facility] Pap Disclaimer The Pap test is a screening test designed to aid in the detection of cervical cancer and its precursor lesions. It is not a diagnostic procedure and should not be used as the sole means of detecting cervical cancer. Both false-positive and false-negative reports may occur. 11/16/2019 9:56 AM [facility] Gross Description The specimen is received in SurePath fixative and properly labeled. 1 Pap-stained SurePath slide is prepared. 11/16/2019 9:56 AM [facility] Embedded Images 0 9:56 AM [facility] Other Specimen Type ENTIRE ENDOCERVIX / Unknown 11/14/2019 11:23 AM CDT 11/14/2019 11:26 AM CDT Comment:LMP: Patient's last menstrual period was 09/12/2019. Jackeline Harris APRN, [facility] [address] [address], [facility] [phone] * HIV 1/2 AG/AB 4TH GEN (11/14/2019 10:47 AM CDT) HIV 1/2 Antigen/Anti body (4th generation) Negative (Non Reactive) Negative (Non Reactive) 11/14/2019 6:57 PM CDT [facility] Comment:HIV-1 p24 Antigen an d HIV-1/HIV-2 Antibody not detected Blood Venipuncture Butterfly / Unknown 11/14/2019 10:47 AM CDT 11/14/2019 10:48 AM CDT Jackeline Harris APRN, CNM LAB_1 Performing Organization Address City/State/[facility] Co de Phone Number [facility] [address] [phone] from Last 3 Months or Most Recently Relevant to Health Maintenance Care Teams Bobbin Handler Relationship Specialty Start Date End Date Suman Sheets MD [address] [address] PCP - General Internal Medicine 11/01/18
--- OUTSIDE RECORDS SUMMARY | 2024-06-06 11:18 | XMS_ITS | Encounter Summary ---
Author Organization [facility] Address [address], [place] [address] Care Team Providers Care Detasseling Crew Supervisor Name Role Phone Suman Sheets MD Primary Care Provider [phone] Encounter Details Date Type Department Care Team (Late st Contact Info) Description 07/27/2018 [facility] Hand Surgery [address] [facility] [place], [place] [id number] Yana Li MD [address] [place] [address] CONSIGNMENT [employer]PL[employer] EXPANDERS Social History Tobacco [...] on filedocumented in this encounter Care Teams Detasseling Crew Supervisor Relationship Specialty Start Date End Date Suman Sheets MD [address] [facility] [address] [id number] PCP - General Internal Medicine 11/01/18 documented as of this encounter
--- OUTSIDE RECORDS SUMMARY | 2024-06-06 11:18 | XMS_ITS | Clinical Summary ---
Author Organization [facility] Address [place], [place] [address] Care Team Providers Care Physician Name Role Phone Pcp, No Primary Care [...] Encounters Date Type Department Care Team Description 06/04/2024 Telephone [facility] [place] [address] [facility] [address] [place] [address] Tish Roberts MS, [place] Appointment (Lab Appointment needs to be rescheduled to hospital based lab) 05/28/2024 Telephone [facility] [address] [place] [address] Anthony Mckinley MD 05/25/2024 7:59 AM ENGINEERING ASSISTANT - 05/25/2024 11:59 PM ENGINEERING ASSISTANT Hospital Encounter [facility] Medical Imaging [address] [place] [address] Syeda Bingham PA-C Breast cancer (HC) 05/25/2024 Travel 05/23/2024 3:00 PM ENGINEERING ASSISTANT Anesthesia Event [facility] [address] [place] [address] Lata Fontanez MD Dylla, Kimberly Marie, CRNA 05/23/2024 1:44 PM ENGINEERING ASSISTANT - 05/23/2024 2:46 PM ENGINEERING ASSISTANT Surgery [facility] [address] [place] [address] Anthony Mckinley MD ENDOBRONCHIAL ULTRASOUND FNA 05/23/2024 12:51 PM ENGINEERING ASSISTANT - 05/23/2024 5:10 PM ENGINEERING ASSISTANT Hospital Encounter [facility] [address] [place] [address] Anthony Mckinley MD Discharge Disposition: Home Self Care 05/23/2024 Travel 05/22/2024 1:00 PM ENGINEERING ASSISTANT Telemedicine [facility] [place] [address] [place] [address] Tish Roberts MS, CGC Counseling (Cancer genetic counseling) 05/21/2024 Telephone [facility] Lung and Sleep [place] [address] [place] [phone] Jose Daniel MD Prior Authorization (HYDROPULPER OPERATOR (Care Plan Certificate) needed for DOS 05/23 CAROL) 05/18/2024 2:00 PM CDT Ancillary Procedure [place] [facility] [address] [place] [address] 05/18/2024 Travel 05/17/2024 Telephone [facility] [address] [place] [address] [facility] Cancer Genetics 05/17/2024 Orders Only [facility] [address] [place] [address] Haily [place] 1 scan: (1-Ord) [facility], PET SKULL TO MID THIGH, 05/10/2024 05/16/2024 Telephone [facility] [place] [address] [place] [phone] Jose Daniel MD 05/14/2024 Orders Only [facility] Scanner 1 scan: (1-Ord) [facility], CT ANGIO CHEST PE PROTOCOL, 05/14/2024 05/14/2024 Transcribe Orders [facility] [address], [place] [address] Syeda Bingham PA-C from Last 3 Months [...] Comments Blood Pressure 99/69 05/25/2024 10:45 AM ENGINEERING ASSISTANT Pulse 96 05/25/2024 10:30 AM ENGINEERING ASSISTANT Temperature 35.6 C (96 F) 05/25/2024 10:00 AM ENGINEERING ASSISTANT Respiratory Rate 14 05/25/2024 10:45 AM ENGINEERING ASSISTANT Oxygen Saturation 91% 05/25/2024 10:45 AM ENGINEERING ASSISTANT Inhaled Oxygen Concentration - - Weight 63.5 kg (140 lb) 05/25/2024 8:25 AM ENGINEERING ASSISTANT Height 165.1 cm (5' 5) 05/25/2024 8:25 AM ENGINEERING ASSISTANT Body Mass Index 23.3 05/25/2024 8:25 AM ENGINEERING ASSISTANT Plan of Treatment Health Maintenance Due Date [...] BONE DEEP Routine 05/25/2024 1 0:07 AM ENGINEERING ASSISTANT Breast cancer (HC) PATH FNA CYTOLOGY ASP CYTOLOGY Today 05/25/2024 9:59 AM ENGINEERING ASSISTANT URINE Preop 05/25/2024 8:17 AM ENGINEERING ASSISTANT HEMOGLOBIN STAT 05/25/2024 8:04 AM ENGINEERING ASSISTANT PLATELET COUNT STAT 05/25/2024 8:04 AM ENGINEERING ASSISTANT PROTIME-INR STAT 05/25/2024 8:04 AM ENGINEERING ASSISTANT SCAN CORRESP-IMAGING 05/24/2024 8:19 AM ENGINEERING ASSISTANT PATH NON FOREST PRODUCTS TEACHER CYTOLOGY Today 05/23/2024 3:15 PM ENGINEERING ASSISTANT MSO AP SEND-OUT Timed 05/23/2024 3:15 PM ENGINEERING ASSISTANT ENDOTRACHEAL TUBE Routine 05/23/2024 3:1 0 PM ENGINEERING ASSISTANT ENDOTRACHEAL TUBE Routine 05/23/2024 3:1 0 PM ENGINEERING ASSISTANT ENDOTRACHEAL TUBE Routine 05/23/2024 3:1 0 PM ENGINEERING ASSISTANT ENDOBRONCHIAL ULTRASOUND FINE NEEDLE ASPIRATION 05/23/2024 2:50 PM ENGINEERING ASSISTANT See notes BRONCHOSCOPY 05/23/2024 2:49 PM ENGINEERING ASSISTANT URINE Preop 05/23/2024 1:45 PM ENGINEERING ASSISTANT ECHO TTE COMPLETE WO CONTRAST Routine 05/18/2024 2:44 PM CDT Encounter for therapeutic drug level monitoring SCAN-CT INTERPRETATION 12:[address] SKULL BASE TO MID THIGH SUBSEQUENT TREAT Routine 05/10/2024 12:00 AM CDT Malignant neoplasm of midline of breast, left (HC) HPV HIGH RISK Routine 08/13/2022 9:45 AM ENGINEERING ASSISTANT from Last 3 Months or Most Recently Relevant to Health Maintenance Results * CT BIOPSY BONE DEEP (05/25/2024 10:07 AM ENGINEERING ASSISTANT) Anatomical Region Laterality Modality Computed Tomogra phy, Other, Other, Other Narrative 05/25/2024 11:00 AM ENGINEERING ASSISTANT RADIOLOGY POST PROCEDURE NOTE 05/25/2024 Carmen Estrada [id number] 1980 INFORMEDCONSENT: In my discussion, prior to the signing of the consent, I reviewed the procedure, benefits, risks, long-term effects, treatment options, possible use of pain or sedation medications, and how the procedure will meet the treatment goal with the patient and/or family. The patient was given ample time to ask questions. All questions were answered. MODERATESEDATION: Under physician supervision, midazolam and fentanyl [...] the left posterior iliac crest was targeted. 11-gauge bone biopsy needle was placed. Multiple samples were obtained. Cytology was adequate on preliminary evaluation. The needle was removed. No immediate complication. POST-PROCEDURE DIAGNOSIS: Status post lytic lesion left posterior iliac crest status post biopsy. PATIENT POSITION: Prone ANTISEPTIC PREPARATION and BARRIER TECHNIQUES USED: Skin was prepped and draped in the usual sterile fashion. IMAGING GUIDANCE FOR ACCESS / PROCEDURE: CT-guided permanently recorded images are archived in PACS. ACCESS LOCATION / SITE / TECHNIQUE: Left side. EQUIPMENT UTILIZED: 11-gauge bone biopsy needle system. CLOSURE: None. RADIATION DOSE: total exam DLP: Recorded on CT images in the PACS system. mGy-cm MEDICATIONS GIVEN: versed 3.0 mg IV and fentanyl 150 mcg IV. 1% Lidocaine was used for local anesthesia. SPECIMEN(S): Core samples COMPLICATIONS: No complications. DRAINS: No drains. ESTIMATED BLOOD LOSS: Less than 10 cc. PHYSICIAN(S) AND ASSISTANTS (if any): Kb Pikcett MD Additional Comments: Please call with questions. Kb Pickett MD [place] Protocol A. Pre-procedure verification complete yes 1-relevant [...] dose to as low as reasonably achievable. Syeda Bingham PA-C CT * PATH FNA CYTOLOGY ASP CYTOLOGY (05/25/2024 9:59 AM ENGINEERING ASSISTANT) Case Report Medical Cytology Report Case: [id number] Authorizing Provider: Kb Pickett MD Collected: 05/25/2024 [facility] Ordering Location: [facility] Received: 05/25/[address] [place] [address] Medical Imaging Pathologist: Jessica Platt DO Specimen: Bone Biopsy, left iliac crest 4 2:04 PM ENGINEERING ASSISTANT [facility] Amendment 05/29/2024 - Amendme nt issued to incorporate ancillary studies. 4 2:04 PM ENGINEERING ASSISTANT [facility] Final Diagnosis A) BONE, LEFT POSTERIOR ILIAC CREST LYTIC LESION, CT-GUIDED NEEDLE CORE BIOPSY WITH TOUCH IMPRINTS: 1. Positive for malignancy, metastatic carcinoma consistent with metastasis from breast primary 2. Breast Ancillary Testing: a. Hormone Receptors: Estrogen receptor: Positive (91%, moderate staining) Progesterone receptor: Positive (47%, moderate staining) b. HER2 by IHC: Negative (1+ by manual morphometry) 4 2:04 PM ENGINEERING ASSISTANT [facility] Amendment electronically signed by Kyree De Leon MD on 05/29/2024 at 2:04 PM Comment The tumor is cytologically and immunophenotypically similar to the patient's metastatic breast cancer involving the right hilum ([id number] reviewed for morphologic comparison). 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 Per report, she also has a history of neuroendocrine carcinoma of the breast in 2011 ([facility] case [id number]) CT scan of the chest on 05/06/2024 revealed a large confluent mass measuring 7 cm in the right upper lobe which is contiguous with the right hilum. Also noted were multiple skeletal lytic lesions, including lesions in the iliac wing, lumbar vertebrae, and manubrium. 4 2:04 PM [facility] Gross Description A) Received identified as Left posterior Illiac Crest is a radiologic guided bone biopsy specimen. The core biopsy sampling measures 0.2 cm x 0.3 cm in aggregate. The specimen consists of: -6 Air dried slides -1 Formalin vial -0 RPMI vials The following were prepared from the specimen submitted: -6 Diff-Quik stained slides -4 H&E stained cell block slides The [...] hours and no more than 72 hours. 4 2:04 PM [facility] Adequacy Assessment A) DPorfirio assessed adequacy from the air-dried smears at the time of the procedure with an impression of Adequate. 4 2:04 PM [facility] Microscopic Description Specimen adequacy: Adequate for interpretation. [...] situ hybridization tests that were performed by [facility] and whose performance characteristics were evaluated by [...] complexity clinical laboratory testing. 4 2:04 PM [facility] SYNOPTIC REPORTING Breast Biomarker Reporting Template BREAST BIOMARKER REPORTING TEMPLATE - A Protocol posted: 06/29/2023 Test(s) Performed: Estrogen Receptor (ER) Status: Positive (greater than 10% of cells demonstrate nuclear positivity) Percentage of Cells with Nuclear Positivity: 91 % Average Intensity of Staining: Moderate Test Type: Laboratory-developed test Primary Antibody: SP1 Test(s) Performed: Progesterone Receptor (PgR) Status: Positive Percentage of Cells with Nuclear Positivity: 47 % Average Intensity of Staining: Moderate Test Type: Laboratory-developed test Primary Antibody: 16 Test(s) Performed: HER2 by Immunohistochemistry: Negative (Score 1+) Test Type: Laboratory-developed test Primary Antibody: 4B5 Cold Ischemia and Fixation Times: Meet requirements specified in latest version of the ASCO / CAP Guidelines Testing Performed on Block Number(s): A4 METHODS Fixative: Formalin Image Analysis: Performed Method: Aperio morphometric analysis Biomarkers Scored by Image Analysis: ER Biomarkers Scored by Image Analysis: PgR 2:04 PM [facility] Additional Information Cytology is screened at [facility] - [address], [place] [address] and [facility] - [address], [place] [address] and [facility] - [address] [place] [address] Patients with breast cancers that are HER2 [...] not result in eligibility currently). Interpreted at [facility] - [address], [place] [address] Immunohistochemistry controls were reviewed and approved by the pathologist during this examination. 2:04 PM ENGINEERING ASSISTANT [facility] Aspirate (Bone Biopsy) 05/25/2024 9:59 AM ENGINEERING ASSISTANT 05/25/2024 9:59 AM ENGINEERING ASSISTANT Kb Pickett MD PATHOLOGY/CYTOLOG Y Performing Organization Address City/[facility] Co de Phone Number [facility] [address] [place] [address], [place] * Urine (05/25/2024 8:17 AM ENGINEERING ASSISTANT) Only the most recent of2 resultswithin the time period is included. ,URIN E Negative Negative 05/25/2024 8:34 AM ENGINEERING ASSISTANT [facility] Urine URINE SPECIMEN / Unknown Non-Blood / Unknown 05/25/2024 8:17 AM ENGINEERING ASSISTANT 05/25/2024 8:25 AM ENGINEERING ASSISTANT Kb Pickett MD URINE Performing Organization Address [facility] Co de Phone Number [facility] [address] [place] [address], [place] * Platelet Count (05/25/2024 8:04 AM ENGINEERING ASSISTANT) PLATELET COUNT 321 140 - 440 thou/cu mm 05/25/2024 8:26 AM ENGINEERING ASSISTANT [facility] MPV 10.3 6.5 - 11.0 fL 05/25/2024 8:26 AM ENGINEERING ASSISTANT [facility] Blood BLOOD SPECIMEN / Unknown Venipuncture / Unknown 05/25/2024 8:04 AM ENGINEERING ASSISTANT 05/25/2024 8:11 AM ENGINEERING ASSISTANT Kb Pickett MD HEMATOLOGY Performing Organization Address City/[facility]/ZIP Co de Phone Number [facility] [address] [place] [address], * Hemoglobin (05/25/2024 8:04 AM ENGINEERING ASSISTANT) HEMOGLOBIN 12.0 12.0 - 16.0 g/dL 05/25/2024 8:26 AM ENGINEERING ASSISTANT [facility] MCV 83 80 - 100 fL 05/25/2024 8:26 AM ENGINEERING ASSISTANT [facility] Blood BLOOD SPECIMEN / Unknown Venipuncture / Unknown 05/25/2024 8:04 AM ENGINEERING ASSISTANT 05/25/2024 8:11 AM ENGINEERING ASSISTANT Kb Pickett MD HEMATOLOGY [facility] [address] [place] [address], * (ABNORMAL) Protime-INR (05/25/2024 8:04 AM ENGINEERING ASSISTANT) INR 1.3(H) <1.3 05/25/2024 8:50 AM ENGINEERING ASSISTANT [facility] PROTIME 14.5(H) 10.6 - 12.4 sec 05/25/2024 8:50 AM ENGINEERING ASSISTANT [facility] Blood BLOOD SPECIMEN / Unknown Venipuncture / Unknown 05/25/2024 8:04 AM ENGINEERING ASSISTANT 05/25/2024 8:11 AM ENGINEERING ASSISTANT Narrative [facility] - 05/25/2024 8:50 AM ENGINEERING ASSISTANT Therapeutic Range 2.0-3.0 for most anticoagulated patients 2.5-3.5 [...] is on UFH. Kb Pickett MD HEMATOLOGY Performing Organization Address [facility] Co de Phone Number [facility] [address] [place] [address], [place] * SCAN CORRESP-IMAGING (05/24/2024 8:19 AM ENGINEERING ASSISTANT) Anatomical Region Laterality Modality Other Narrative 05/24/2024 8:19 AM ENGINEERING ASSISTANT Ordered by an unspecified provider. Other Clinical Staff OTHER * MSO AP SEND-OUT (05/23/2024 3:15 PM ENGINEERING ASSISTANT) Aspirate (Mass) 05/23/2024 3 :15 PM ENGINEERING ASSISTANT 05/31/2024 1:31 PM ENGINEERING ASSISTANT Anthony Mckinley MD LABORATORY Performing Organization Address [facility] Co de Phone Number [facility] [address] [place] [address], [place] * PATH NON FOREST PRODUCTS TEACHER CYTOLOGY (05/23/2024 3:15 PM ENGINEERING ASSISTANT) Case Report Medical Cytology Report Case: [id number] Authorizing Provider: Anthony Mckinley MD Collected: 05/23/2024 1515 Ordering Location: [facility] Received: 05/23/2024 1538 [facility] Pathologist: Christiano Rees MD Specimen: Mass, R Hilar Mass 5:14 PM ENGINEERING ASSISTANT [facility] Final Diagnosis A) RIGHT HILAR MASS, ENDOBRONCHIAL ULTRASOUND-GUIDED FINE-NEEDLE ASPIRATION: 1. Positive for malignancy; metastatic carcinoma consistent with breast origin 2. Breast Ancillary Testing: a. Hormone Receptors: Estrogen receptor: Positive (98%, strong staining) Progesterone receptor: Positive (85%, moderate staining) b. HER2 by IHC: Negative (1+ by manual morphometry) 4 5:14 PM [facility] Comment The current tumor castillo s a neuroendocrine immunophenotype by immunohistochemistry as well as neuroendocrine morphology. GATA3 (suggestive of breast origin) is diffusely positive in the current case. Although the original slides from the 2011 invasive breast carcinoma ([facility] case [id number]) are not available for review, the current metastatic carcinoma appears to more closely resemble the patient's 2011 breast carcinoma with neuroendocrine differentiation based on the results of breast ancillary testing. The metastatic carcinoma is morphologically dissimilar to the 2022 HER2 positive ER/MO negative breast carcinoma. Dr. Rees discussed the preliminary findings with Dr. Syeda Bingham on 05/24/2024. Dr. Weir discussed the final results with her. 5:14 PM [facility] Clinical Information History of grade 3 invasive ductal carcinoma of the left breast in 2022, ER/MO negative, HER2 positive. History of a neuroendocrine tumor of the breast ([facility] case [id number]), ER/MO positive, HER2 negative. Now with numerous PET avid skeletal, right upper lobe, endocervical lesions worrisome for metastasis. 5:14 PM [facility] Gross Description A) Received identified as Right Hilar Mass, is a fine needle aspirate specimen. The specimen consists of: -5 Air dried slides -1 CytoLyt vial -0 RPMI vials -2 Formalin vials The following were prepared from the specimen submitted: -5 Diff-Quik stained slides -1 Papanicolaou stained ThinPrep slide -2 H&E stained cell block slides A2 [...] hours and no more than 72 hours. 4 5:14 PM [facility] Adequacy Assessment Ruchi) Sukumar assessed adequacy from the air-dried smears at the time of the procedure with an impression of Adequate. 4 5:14 PM [facility] Microscopic Description Specimen adequacy: Adequate for interpretation. [...] situ hybridization tests that were performed by [facility] and whose performance characteristics were evaluated by [...] complexity clinical laboratory testing. 4 5:14 PM [facility] SYNOPTIC REPORTING Breast Biomarker Reporting Template BREAST BIOMARKER REPORTING TEMPLATE - A Protocol posted: 06/29/2023 Test(s) Performed: Estrogen Receptor (ER) Status: Positive (greater than 10% of cells demonstrate nuclear positivity) Percentage of Cells with Nuclear Positivity: 98 % Average Intensity of Staining: Strong Test Type: Laboratory-developed test Primary Antibody: SP1 Test(s) Performed: Progesterone Receptor (PgR) Status: Positive Percentage of Cells with Nuclear Positivity: 85 % Average Intensity of Staining: Moderate Test Type: Laboratory-developed test Primary Antibody: 16 Test(s) Performed: HER2 by Immunohistochemistry: Negative (Score 1+) Test Type: Laboratory-developed test Primary Antibody: 4B5 Cold Ischemia and Fixation Times: Meet requirements specified in latest version of the ASCO / CAP Guidelines Testing Performed on Block Number(s): A2 METHODS Fixative: Formalin Image Analysis: Performed Method: Aperio morphometric analysis Biomarkers Scored by Image Analysis: ER Biomarkers Scored by Image Analysis: PgR 4 5:14 PM ENGINEERING ASSISTANT [facility]AL [facility] Additional Information Cytology is screened at [facility] - [address], [place] [address] and [facility] - [address] [place] [address] and [facility] - [address] [place] [address] Interpreted at [facility] - [address], [place] [address] Immunohistochemistry controls were reviewed and approved by the pathologist during this examination. 4 5:14 PM ENGINEERING ASSISTANT [facility] Aspirate (Mass) 05/23/2024 3 :15 PM ENGINEERING ASSISTANT 05/23/2024 3:38 PM ENGINEERING ASSISTANT Anthony Mckinley MD PATHOLOGY/CYTOL OGY Performing Organization Address City/State/[facility] Co de Phone Number [facility] [address] [place] [address], * HCHG TUBE PR1, HCHG KIT CO2 DETECTOR PR5, HCHG STYLET PR1 (05/23/2024 3:10 PM ENGINEERING ASSISTANT) Narrative Munira Ryan CRNA - 05/23/2024 3:10 PM ENGINEERING ASSISTANT Munira Ryan CRNA 05/23/2024 3:11 PM Procedure: ETT Patient location during procedure: [...] OTE ORDERABLES * BRONCHOSCOPY (05/23/2024 2:49 PM ENGINEERING ASSISTANT) 05/23/2024 2:49 PM ENGINEERING ASSISTANT Narrative Transcriptions Anthony Mckinley MD - 05/23/2024 3:49 PM CST [facility] Patient Name: Carmen Estrada Procedure Date: 05/23/2024 Gender: Female Date of : 1980 Admit Type: Ambulatory Instrument Name: BRONCH [id number] [id number] Procedure: Bronchoscopy with EBUS-TBNA R Hilar mass; Therapeutic Aspiration Proceduralist: Anthony Mckinley MD [facility] Indications/Pre-Op Diagnosis: C50.812 - breast cancer; FDG avidadenopathy Procedure Description: Risks of bleeding, infection, pneumothorax, need for surgery, remote chance of and alternatives were discussed, and the patient gave informed consent. The endoscope [id number] was introducedthrough the mouth, via the endotracheal tube (the patient was intubated forthe procedure) and advanced to the tracheobronchial tree of both lungs.The endoscope [id number] was introduced through the mouth, via the [...] Narrative 05/18/2024 3:28 PM CDT ECHOCARDIOGRAM CARMEN ESTRADA : 1980 43 years Study Date: 05/18/2024 2:10:26 PM Gender: F BP: 104/71 mmHg Height: 165.00 cm BSA: 1.75 m Weight: 68.00 kg Tech: INGRIS Referring MD: SYEDA BINGHAM Site: [facility] Reading Location: Mobile [...] Valve: Vmax 1.4 m/s KEVEN (V) 2.40 cm VTI 0.26 m KEVEN (I) 2.39 cm LVOT V max 1.0 m/s Max PG 7 mmHg LVOT VTI 0.20 m Mean PG 4 mmHg SV 63 ml Dim Index 0.76 SV index 36 ml/m CO 4.9 l/min CI 2.8 l/min/m Mitral Valve: MVA 5.0 cm MV P 1/2 44 msec Tricuspid Valve and estimated PA pressures: TAPSE 2.0 cm . This study was interpreted by an [facility] accredited facility. CC: [facility] (med records) [facility]. Final Procedure Note Ant Matt MD - 05/18/2024 ECHOCARDIOGRAM CARMEN ESTRADA : 1980 43 years Study Date: 05/18/2024 2:10:26 PM Gender: F BP: 104/71 mmHg Height: 165.00 cm BSA: 1.75 m Weight: 68.00 kg Tech: MSR Referring MD: SYEDA BINGHAM Site: [facility] Reading Location: Mobile [...] Valve: Vmax 1.4 m/s KEVEN (V) 2.40 cm VTI 0.26 m KEVEN (I) 2.39 cm LVOT V max 1.0 m/s Max PG 7 mmHg LVOT VTI 0.20 m Mean PG 4 mmHg SV 63 ml Dim Index 0.76 SV index 36 ml/m CO 4.9 l/min CI 2.8 l/min/m Mitral Valve: MVA 5.0 cm MV P 1/2 44 msec Tricuspid Valve and estimated PA pressures: TAPSE 2.0 cm . This study was interpreted by an [facility] accredited facility. CC: [facility] ([facility]) [facility]. Final Syeda Felicita Boss PA-C ECHO ORD * SCAN-CT INTERPRETATION (05/14/2024 12:00 AM CDT) Anatomical Region Laterality Modality Other Scanner OTHER * PET CT SKULL BASE TO MID THIGH SUBSEQUENT TREAT (05/10/2024 12:00 AM CDT) Anatomical Region Laterality Modality Positron Emissio n Tomography (PET) [place] PET * HPV HIGH RISK (08/13/2022 9:45 AM ENGINEERING ASSISTANT) TYPE 16 Negative Negative 08/19/2022 4:45 PM ENGINEERING ASSISTANT [facility] [employer] [facility] TYPE 18 Negative Negative 08/19/2022 4:45 PM ENGINEERING ASSISTANT [facility] [employer] [facility] OTHER HIGH RISK TYPES Negative Negative 08/19/2022 4:45 PM ENGINEERING ASSISTANT [facility] Other (Cervical) 08/13/2022 9:45 AM ENGINEERING ASSISTANT 08/17/2022 11:37 AM ENGINEERING ASSISTANT Narrative [facility] LABOR[facility]-CENTRAL LABORATORY - 08/19/2022 4:45 PM ENGINEERING ASSISTANT HPV types 16, 18, 31, 33, 35, 39, 45, 51, 52, 56, 58, 59, 66 and 68 DNA were undetectable or below the pre-set threshold. Methodology: Linnette Luann 4800 HPV Test Saima Millan MD [facility] [employer] [facility] [facility] LABORATORY-CENTRAL LABORATORY [address] [place] [address], [place] from Last 3 Months or Most Recently Relevant to Health Maintenance Advance Directives * Full Code (Latest Code Status on File) Date Activated Date Inactivated Comments 05/23/2024 1:43 PM 05/23/2024 7:11 PM Question Answer Comments Code Status Discussion: Unable to Assess Preferences, Provider to review later Care Teams Physician Relationship Specialty Start Date End Date Pcp, No . PCP - General 06/23/23
--- OUTSIDE RECORDS SUMMARY | 2024-06-06 11:18 | XMS_ITS ---
Author Organization [facility] Address [address] [place] [address] Care Team Providers Care Escort Vehicle Driver Name Role Phone Unavailable Unavailable Unavailable Surgery Details Not on file Complications Check Surgery Details section. Procedure Estimated Blood Loss Check Surgery Details section. Procedure Findings Check Surgery Details section. Procedure Specimens Taken Check Surgery Details section.
--- OUTSIDE RECORDS SUMMARY | 2024-06-06 11:18 | XMS_ITS | Referral Summary ---
Author Organization [facility] Address [address] [place] [id number] Care Team Providers Care Single Pass Soil Stabilizer Operator Name Role Phone Unavailable Primary Care Provider Unavailabl e Source Comments Patient records contain information from all sites at [facility]. For routine questions regarding patient records, call [phone] during business hours, M-F 8:00 AM - 5:00 PM Central Time. Record requests for emergency care only can be directed to [phone] at any time.[facility] Allergies No known active allergies Medications multivitamin capsule Take 1 capsule by mouth daily. Active Active Problems Problem Noted Date Diagnosed Date Other Malignant Neuroendocrine Tumors 01/28/2023 Malignant Neoplasm Of Breast Lower Inner Quadrant Female Left 03/03/2012 Cancer Staging:Pathologic stage from 12/28/2022:Stage IA(pT1c, pN0(i+)(sn), cM0, G3, ER-, SC-, HER2+) - Unsigned Overview (01/28/2023): Last Assessment & Plan: History of Stage IIA (T2, N0, cM0) Right breast Neuroendocrine cancer, ER/SC positive, HER-2 negative, diagnosed 12/2011. S/p right [...] Comments Blood Pressure 108/73 06/02/2023 12:23 PM PROPRIETARY TRADER Pulse 88 06/02/2023 12:23 PM PROPRIETARY TRADER Temperature 36.4 C (97.6 F) 06/16/2023 12:58 PM PROPRIETARY TRADER Respiratory Rate - - Oxygen Saturation - - Inhaled Oxygen Concentration - - Weight 68 kg (149 lb 14.6 oz) 06/23/2023 1:13 PM PROPRIETARY TRADER Height - - Body Mass Index - [...] CT Body (05/14/2024 2:15 PM CDT) Narrative [facility] - 05/14/2024 8:58 PM CDT This order [...] PROCEDURES Final R esult Performing Organization Address [facility] Co de Phone Number IIMS NA * PET skull to mid thigh-Outside NM Pet (05/10/2024 3:30 PM CDT) Narrative [facility] - 05/10/2024 9:13 PM CDT This [...] PROCEDURES Final R esult Performing Organization Address [facility] de Phone Number IIMS NA * MM surgical specimen LT-Outside Mammogram (12/28/2022 12:15 PM CDT) Narrative [facility] - 01/25/2023 9:09 AM CDT This [...] PROCEDURES Final R esult Performing Organization Address [facility] Co de Phone Number IIMS NA from Last 3 Months or Most Recently Relevant to Health Maintenance Insurance [place] [employer]
--- OUTSIDE RECORDS SUMMARY | 2024-06-06 11:18 | XMS_ITS ---
Author Organization [facility] Address [address] [place] [address] Care Team Providers Care Biologist Name Role Phone Unavailable Primary Care Provider Unavailabl e Active Problems Problem Noted Date Diagnosed Date Other Malignant Neuroendocrine Tumors 01/28/2023 Malignant Neoplasm Of Breast Lower Inner Quadrant Female Left 03/03/2012 Cancer Staging:Pathologic stage from 12/28/2022:Stage IA(pT1c, pN0(i+)(sn), cM0, G3, ER-, MT-, HER2+) - Unsigned Overview (01/28/2023): Last Assessment & Plan: History of Stage IIA (T2, N0, cM0) Right breast Neuroendocrine cancer, ER/MT positive, HER-2 negative, diagnosed 12/2011. S/p right [...] Treated Prescribed Fraction Dose Prescribed Total Dose [id number] 06/27/2023 35 8 of 8 220 cGy 1,760 cG y [id number] 06/15/2023 23 17 of 17 220 cGy 3,740 cGy Reference Point Last Treated On Elapsed Days Session Dose Total Dose [id number] 06/27/2023 35 220 cGy 5,500 cGy
--- OUTSIDE RECORDS SUMMARY | 2024-06-06 11:18 | XMS_ITS | Encounter Summary ---
Author Organization [facility] Address [address], [place] [address] Care Team Providers Care Raimann Machine Operator Name Role Phone Suman Sheets MD Primary Care Provider [phone] Encounter Details Date Type Department Care Team [...] on filedocumented in this encounter Care Teams Raimann Machine Operator Relationship Specialty Start Date End Date Suman Sheets MD [address] [address] PCP - General Internal Medicine 11/01/18 documented as of this encounter
== END 2024-06-01 14:56 | disposition home or self-care (01) ==
PROVIDERS: PCP Family Medicine; Visit Provider Internal Medicine Hematology & Oncology
DX: C50.912 Malignant neoplasm of unspecified site of left female breast (principal); C50.919 Malignant neoplasm of unspecified site of unspecified female breast; C78.00 Secondary malignant neoplasm of unspecified lung; C79.51 Secondary malignant neoplasm of bone
CPT/HCPCS: 80053; 82670; 83001; 83002; 85025

== ENCOUNTER 2024-07-27 10:15 | Outpatient (RCR) | payer MEDICAID, OTHER, SELFPAY ==
[2024-02-01 14:21] LABS: Basophils Absolute Auto 0.03 K/uL (0.00-0.30); Basophils Percent Auto 0.3 % (0.0-3.0); Eosinophils Absolute Auto 0.34 K/uL (0.00-0.50); Eosinophils Percent Auto 3.8 % (0.0-7.0); Hematocrit 37.1 % (33.0-51.0); Hemoglobin* 11.9 gm/dL (12.0-16.0); Immature Granulocytes Abs Auto 0.01 K/uL (0.00-0.30); Immature Granulocytes Pct Auto 0.1 %; Lymphocytes Absolute Auto 1.97 K/uL (0.90-2.90); Lymphocytes Percent Auto 21.8 % (20-44); Mean Corpuscular HGB Conc 32 gm/dL (32-36); Mean Corpuscular Hemoglobin 27 pg (26-34); Mean Corpuscular Volume 84 fL (80-100); Monocytes Percent Auto 5.1 % (0.0-11.0); Neutrophils Absolute Auto 6.24 K/uL (1.7-7.0); Neutrophils Percent Auto 68.9 % (42.0-72.0); Platelet Count* 289 K/uL (140-440); RDW Coefficient of Variation % 14.2 % (11.5-15.5); White Blood Count* 9.05 K/uL (4.50-11.00)
[2024-02-01 14:24] LABS: Slide Review Reflex No
[2024-02-01 14:45] LABS: Albumin* 4.8 g/dL (3.3-5.0); Chloride* 103 mmol/L (96-114); Potassium* 4.1 mmol/L (3.6-5.1); Sodium* 136 mmol/L (135-149)
[2024-02-01 14:47] LABS: Anion Gap 9 mEq/L (7-15); Bilirubin Total* 0.6 mg/dL (0.1-1.5); Carbon Dioxide* 24 mmol/L (20-32); Creatinine* 0.6 mg/dL (0.5-1.5); Estimated Glomerular Filt Rate 115 ml/min
[2024-02-01 14:48] LABS: Alanine Aminotransferase* 34 U/L (4-35); Alkaline Phosphatase* 153 U/L (40-150); Aspartate Amino Transferase* 35 U/L (12-35); Blood Urea Nitrogen* 13 mg/dL (5-24); Glucose* 83 mg/dL (60-115); Total Protein* 8.8 g/dL (6.0-8.3)
[2024-02-01 16:11] LABS: HCG Quantitative* < 2.39 mIU/mL
[2024-02-02 09:14] VITALS: BP 99/67; PULSE 88; RESP 16; TEMP 36.1; O2SAT 99
[2024-02-02] MEDS: 0.9 % SODIUM CHLORIDE 250 ml IV (09:40)
[2024-02-02] MEDS: SODIUM CHLORIDE 0.9 % (FLUSH) 10 ML SYRINGE IVF (09:40)
[2024-02-02] MEDS: PERTUZUMAB 420 MG, TUBING SECONDARY 1 EACH in 0.9 % SODIUM CHLORIDE 250 ml 250 ML 528 MG IV (09:40)
[2024-02-22 14:31] LABS: Basophils Absolute Auto 0.04 K/uL (0.00-0.30); Basophils Percent Auto 0.4 % (0.0-3.0); Eosinophils Absolute Auto 0.28 K/uL (0.00-0.50); Eosinophils Percent Auto 2.9 % (0.0-7.0); Hematocrit 34.1 % (33.0-51.0); Hemoglobin* 11.1 gm/dL (12.0-16.0); Immature Granulocytes Abs Auto 0.01 K/uL (0.00-0.30); Immature Granulocytes Pct Auto 0.1 %; Lymphocytes Percent Auto 16.6 % (20-44); Mean Corpuscular HGB Conc 33 gm/dL (32-36); Mean Corpuscular Hemoglobin 27 pg (26-34); Mean Corpuscular Volume 83 fL (80-100); Monocytes Percent Auto 4.5 % (0.0-11.0); Neutrophils Percent Auto 75.5 % (42.0-72.0); Platelet Count* 341 K/uL (140-440); RDW Coefficient of Variation % 14.2 % (11.5-15.5); Red Blood Count 4.09 m/uL (4.00-5.20); White Blood Count* 9.57 K/uL (4.50-11.00)
[2024-02-22 14:38] LABS: Slide Review Reflex No
[2024-02-22 14:45] LABS: Albumin* 4.4 g/dL (3.3-5.0); Chloride* 105 mmol/L (96-114); Potassium* 4.1 mmol/L (3.6-5.1); Sodium* 137 mmol/L (135-149)
[2024-02-22 14:47] LABS: Bilirubin Total* 0.4 mg/dL (0.1-1.5); Creatinine* 0.6 mg/dL (0.5-1.5); Estimated Glomerular Filt Rate 115 ml/min
[2024-02-22 14:48] LABS: Alanine Aminotransferase* 29 U/L (4-35); Alkaline Phosphatase* 155 U/L (40-150); Anion Gap 7 mEq/L (7-15); Aspartate Amino Transferase* 28 U/L (12-35); Blood Urea Nitrogen* 10 mg/dL (5-24); Calcium* 9.1 mg/dL (8.4-10.6); Carbon Dioxide* 25 mmol/L (20-32); Glucose* 122 mg/dL (60-115)
[2024-02-22 15:45] LABS: HCG Quantitative* < 2.39 mIU/mL
[2024-02-23] MEDS: PERTUZUMAB 420 MG, TUBING SECONDARY 1 EACH in 0.9 % SODIUM CHLORIDE 250 ml 250 ML 528 MG IV (11:05)
--- NOTE | 2024-03-08 13:58 | ONC.NURNOTE ---
[facility] Care Plan Certification Request and supporting documents faxed to [phone].
[2024-03-14 14:05] LABS: Basophils Absolute Auto 0.03 K/uL (0.00-0.30); Basophils Percent Auto 0.4 % (0.0-3.0); Eosinophils Absolute Auto 0.31 K/uL (0.00-0.50); Eosinophils Percent Auto 3.9 % (0.0-7.0); Hematocrit 35.4 % (33.0-51.0); Hemoglobin* 11.6 gm/dL (12.0-16.0); Mean Corpuscular HGB Conc 33 gm/dL (32-36); Mean Corpuscular Hemoglobin 27 pg (26-34); Mean Corpuscular Volume 83 fL (80-100); Monocytes Percent Auto 6.1 % (0.0-11.0); Neutrophils Absolute Auto 5.16 K/uL (1.7-7.0); Neutrophils Percent Auto 64.6 % (42.0-72.0); Platelet Count* 288 K/uL (140-440); RDW Coefficient of Variation % 15.5 % (11.5-15.5); Red Blood Count 4.26 m/uL (4.00-5.20); White Blood Count* 7.99 K/uL (4.50-11.00)
[2024-03-14 14:07] LABS: Slide Review Reflex No
[2024-03-14 14:26] LABS: Albumin* 4.6 g/dL (3.3-5.0)
[2024-03-14 14:27] LABS: Chloride* 106 mmol/L (96-114); Potassium* 4.1 mmol/L (3.6-5.1); Sodium* 138 mmol/L (135-149)
[2024-03-14 14:29] LABS: Anion Gap 9 mEq/L (7-15); Aspartate Amino Transferase* 33 U/L (12-35); Bilirubin Total* 0.3 mg/dL (0.1-1.5); Carbon Dioxide* 23 mmol/L (20-32); Creatinine* 0.6 mg/dL (0.5-1.5); Estimated Glomerular Filt Rate 115 ml/min
[2024-03-14 14:30] LABS: Alanine Aminotransferase* 23 U/L (4-35); Alkaline Phosphatase* 157 U/L (40-150); Blood Urea Nitrogen* 14 mg/dL (5-24); Glucose* 92 mg/dL (60-115); Total Protein* 8.2 g/dL (6.0-8.3)
[2024-03-15 11:24] LABS: HCG Quantitative* < 2.39 mIU/mL
[2024-03-29] MEDS: PERTUZUMAB 420 MG, TUBING SECONDARY 1 EACH in 0.9 % SODIUM CHLORIDE 250 ml 250 ML 528 MG IV (10:14)
[2024-03-29] MEDS: SODIUM CHLORIDE 0.9 % (FLUSH) 10 ML SYRINGE IVF (10:16)
[2024-03-29] MEDS: 0.9 % SODIUM CHLORIDE 250 ml IV (10:16)
--- NOTE | 2024-04-06 08:24 | URNOTE ---
Trastuzumab ([id number]) auth #[id number] and Pertuzumab (J9306) auth #[id number] have been approved 04/10/2024-10/06/2024.
--- NOTE | 2024-04-11 14:00 | ONC.NURNOTE ---
Patient called to report that she is unable to get her PET/CT on 04/12 because she has a bad cold. She would like to have it rescheduled in [place]. Call placed to [facility] to cancel PET/CT. Will coordinated with [facility] to see when first available PET/CT in [place] is.
[2024-04-18 15:01] LABS: Basophils Absolute Auto 0.04 K/uL (0.00-0.30); Basophils Percent Auto 0.4 % (0.0-3.0); Eosinophils Percent Auto 3.2 % (0.0-7.0); Hemoglobin* 12.5 gm/dL (12.0-16.0); Immature Granulocytes Abs Auto 0.01 K/uL (0.00-0.30); Immature Granulocytes Pct Auto 0.1 %; Lymphocytes Absolute Auto 2.02 K/uL (0.90-2.90); Lymphocytes Percent Auto 21.7 % (20-44); Mean Corpuscular HGB Conc 33 gm/dL (32-36); Mean Corpuscular Hemoglobin 27 pg (26-34); Mean Corpuscular Volume 83 fL (80-100); Monocytes Percent Auto 5.4 % (0.0-11.0); Neutrophils Absolute Auto 6.44 K/uL (1.7-7.0); Neutrophils Percent Auto 69.2 % (42.0-72.0); Platelet Count* 275 K/uL (140-440); RDW Coefficient of Variation % 14.2 % (11.5-15.5); Red Blood Count 4.59 m/uL (4.00-5.20); White Blood Count* 9.31 K/uL (4.50-11.00)
[2024-04-18 15:02] LABS: Slide Review Reflex No
[2024-04-18 15:37] LABS: Albumin* 4.8 g/dL (3.3-5.0); Chloride* 102 mmol/L (96-114); Sodium* 137 mmol/L (135-149)
[2024-04-18 15:38] LABS: Potassium* 4.1 mmol/L (3.6-5.1)
[2024-04-18 15:40] LABS: Alanine Aminotransferase* 33 U/L (4-35); Alkaline Phosphatase* 169 U/L (40-150); Anion Gap 10 mEq/L (7-15); Aspartate Amino Transferase* 37 U/L (12-35); Bilirubin Total* 0.4 mg/dL (0.1-1.5); Blood Urea Nitrogen* 15 mg/dL (5-24); Carbon Dioxide* 25 mmol/L (20-32); Creatinine* 0.7 mg/dL (0.5-1.5); Est. Creatinine Clearance* 90.41; Estimated Glomerular Filt Rate 111 ml/min; Glucose* 101 mg/dL (60-115); Total Protein* 8.8 g/dL (6.0-8.3)
[2024-04-18 15:41] LABS: Calcium* 9.5 mg/dL (8.4-10.6)
[2024-04-18 16:35] LABS: HCG Quantitative* < 2.39 mIU/mL
[2024-04-19 09:33] VITALS: BP 109/68; PULSE 75; RESP 16; TEMP 36.4; O2SAT 98
[2024-04-19] MEDS: PERTUZUMAB 420 MG, TUBING SECONDARY 1 EACH in 0.9 % SODIUM CHLORIDE 250 ml 250 ML 528 MG IV (10:21)
[2024-05-09 14:15] LABS: Basophils Absolute Auto 0.02 K/uL (0.00-0.30); Basophils Percent Auto 0.3 % (0.0-3.0); Eosinophils Absolute Auto 0.16 K/uL (0.00-0.50); Eosinophils Percent Auto 2.7 % (0.0-7.0); Hematocrit 37.4 % (33.0-51.0); Hemoglobin* 12.3 gm/dL (12.0-16.0); Immature Granulocytes Abs Auto 0.01 K/uL (0.00-0.30); Immature Granulocytes Pct Auto 0.2 %; Lymphocytes Absolute Auto 1.26 K/uL (0.90-2.90); Lymphocytes Percent Auto 21.1 % (20-44); Mean Corpuscular HGB Conc 33 gm/dL (32-36); Mean Corpuscular Hemoglobin 27 pg (26-34); Mean Corpuscular Volume 83 fL (80-100); Monocytes Percent Auto 7.4 % (0.0-11.0); Neutrophils Absolute Auto 4.09 K/uL (1.7-7.0); Neutrophils Percent Auto 68.3 % (42.0-72.0); Platelet Count* 266 K/uL (140-440); RDW Coefficient of Variation % 14.4 % (11.5-15.5); Red Blood Count 4.53 m/uL (4.00-5.20); White Blood Count* 5.98 K/uL (4.50-11.00)
[2024-05-09 14:19] LABS: Slide Review Reflex No
[2024-05-09 14:30] LABS: Chloride* 101 mmol/L (96-114); Sodium* 135 mmol/L (135-149)
[2024-05-09 14:33] LABS: Alanine Aminotransferase* 103 U/L (4-35); Alkaline Phosphatase* 158 U/L (40-150); Anion Gap 13 mEq/L (7-15); Aspartate Amino Transferase* 77 U/L (12-35); Bilirubin Total* 0.5 mg/dL (0.1-1.5); Blood Urea Nitrogen* 18 mg/dL (5-24); Carbon Dioxide* 21 mmol/L (20-32); Creatinine* 0.8 mg/dL (0.5-1.5); Est. Creatinine Clearance* 79.11; Estimated Glomerular Filt Rate 94 ml/min; Glucose* 100 mg/dL (60-115); Total Protein* 9.1 g/dL (6.0-8.3)
[2024-05-09 14:34] LABS: Calcium* 9.2 mg/dL (8.4-10.6)
[2024-05-09 19:00] LABS: HCG Quantitative* < 2.39 mIU/mL
--- NOTE | 2024-05-16 15:48 | ONC.NURNOTE ---
[facility] radiologist reviewed patients imaging and recommend lung biopsy via bronchoscopy vs. CT guided. Verbal order obtained from Sayra Bingham and referral faxed to [facility], . Dr. Rice called to discuss patients case and requested ECHO as part of the pre-procedure clearance. He will plan to do the procedure 05/23, time TBD. With the assistance of the interpreters, patient informed of pre-op visit with Sayra Bingham 05/17 and ECHO 05/18. Dr. Rice's office will give email BCN with details for the bronchoscopy. For now, we will hold the spot for CT guided bone biopsy on 05/25.
--- NOTE | 2024-05-17 15:37 | ONC.NURNOTE ---
Patient is scheduled for bronchoscopy on 05/23 at [facility] with 12:45PM check in. Instructions (prep, parking, etc.) emailed to patient at the request of spouse
--- NOTE | 2024-05-28 15:54 | ONC.NURNOTE ---
EBUS pathology report reviewed with Sayra Bingham PA-C. Tempus testing requested on this specimen, case [id number] . Previous liquid biopsy testing cancelled.
[2024-06-01 14:45] VITALS: BP 104/67; PULSE 85; RESP 18; TEMP 37.1; O2SAT 97
[2024-06-01] MEDS: GOSERELIN ACETATE 3.6 MG IMPLANT SUBCUT (15:12)
[2024-06-01] MEDS: SODIUM CHLORIDE 0.9 % (FLUSH) 10 ML SYRINGE IVF (15:15)
[2024-06-01] MEDS: ZOLEDRONIC ACID 4 MG in 0.9 % SODIUM CHLORIDE 100 ml 100 ML 420 MG IVPB (15:23)
[2024-06-01 15:33] LABS: HCG Quantitative* < 2.39 mIU/mL
--- NOTE | 2024-06-05 14:32 | ONC.NURNOTE ---
Letrozole Prescription Prescription sent electronically to [facility]. Pt's s/o Bereket Jordan and pt completed registration with his email: [email or web address] . Pt was able to have a partial fill of Letrozole #27 pills at [facility] pharmacy today paying pro and will begin today. Ibrance prescription transferred from [facility] to [facility] this morning, per w Specialty Pharm.
--- NOTE | 2024-06-19 16:13 | ONC.NURNOTE ---
With the assistance of an hourly sign language interpreter I spoke with Carmen about Ibrance insurance approval and her plan of care. Patient will start the Ibrance on 06/20. She verbalizes understanding to take the medication daily for 3 weeks and then one week off. Discussed side effects with special attention to risk for neutropenia. Patient is due for her next Zoladex injection 06/29 and continues to take her Letrozole daily. Patient encouraged to call with any questions or concerns.
--- NOTE | 2024-06-28 16:48 | ONC.NURNOTE ---
Dr. Castle recommends LFT labs while patient is here for Zoladex injection tomorrow. Injection can be given without waiting for results. Patient will be called with results.
[2024-06-29 11:03] VITALS: BP 106/71; PULSE 97; RESP 16; TEMP 36.2; O2SAT 97
[2024-06-29] MEDS: GOSERELIN ACETATE 3.6 MG IMPLANT SUBCUT (11:25)
[2024-06-29 11:33] LABS: Albumin* 4.4 g/dL (3.3-5.0)
[2024-06-29 11:36] LABS: Alanine Aminotransferase* 40 U/L (4-35); Alkaline Phosphatase* 153 U/L (40-150); Aspartate Amino Transferase* 30 U/L (12-35); Bilirubin Total* 0.6 mg/dL (0.1-1.5); Total Protein* 8.1 g/dL (6.0-8.3)
--- NOTE | 2024-06-29 12:37 | URNOTE ---
Request received for authorization for Zoledronic acid (J3489) approved 4mg/100ml from 04/10/2024 to 10/06/2024 from [employer] Auth#[id number]. Zoladex ([id number]) approved 3.6mg from 04/10/2024 to 10/06/2024 from [employer] Auth #[id number], does not need PA Req#[id number]. [facility] care plan approval on 04/09/24-10/06/2024 for diagnosis codes C50.812, Z51.11, Z51.81, see scanned documents.
[2024-07-16 14:14] LABS: Basophils Percent Auto 0.7 % (0.0-3.0); Eosinophils Percent Auto 1.7 % (0.0-7.0); Hemoglobin* 11.6 gm/dL (12.0-16.0); Lymphocytes Percent Auto 36.1 % (20-44); Mean Corpuscular HGB Conc 33 gm/dL (32-36); Mean Corpuscular Hemoglobin 28 pg (26-34); Mean Corpuscular Volume 85 fL (80-100); Monocytes Percent Auto 15.1 % (0.0-11.0); Neutrophils Percent Auto 46.4 % (42.0-72.0); Platelet Count* 207 K/uL (140-440); RDW Coefficient of Variation % 17.8 % (11.5-15.5); Red Blood Count 4.14 m/uL (4.00-5.20); White Blood Count* 2.99 K/uL (4.50-11.00)
[2024-07-16 14:16] LABS: Albumin* 4.5 g/dL (3.3-5.0); Chloride* 104 mmol/L (96-114); Sodium* 137 mmol/L (135-149)
[2024-07-16 14:17] LABS: Slide Review Reflex No
[2024-07-16 14:18] LABS: Anion Gap 8 mEq/L (7-15); Bilirubin Total* 0.3 mg/dL (0.1-1.5); Carbon Dioxide* 25 mmol/L (20-32); Creatinine* 0.6 mg/dL (0.5-1.5); Est. Creatinine Clearance* 105.47; Estimated Glomerular Filt Rate 115 ml/min
[2024-07-16 14:19] LABS: Alanine Aminotransferase* 19 U/L (4-35); Alkaline Phosphatase* 129 U/L (40-150); Aspartate Amino Transferase* 25 U/L (12-35); Blood Urea Nitrogen* 13 mg/dL (5-24); Calcium* 8.7 mg/dL (8.4-10.6); Glucose* 107 mg/dL (60-115); Total Protein* 8.2 g/dL (6.0-8.3)
[2024-07-27 10:29] VITALS: BP 106/72; PULSE 98; RESP 16; TEMP 36.4; O2SAT 98
[2024-07-27 11:05] LABS: Basophils Absolute Auto 0.06 K/uL (0.00-0.30); Basophils Percent Auto 1.3 % (0.0-3.0); Eosinophils Absolute Auto 0.04 K/uL (0.00-0.50); Eosinophils Percent Auto 0.9 % (0.0-7.0); Hematocrit 33.4 % (33.0-51.0); Hemoglobin* 11.3 gm/dL (12.0-16.0); Immature Granulocytes Abs Auto 0.01 K/uL (0.00-0.30); Immature Granulocytes Pct Auto 0.2 %; Lymphocytes Absolute Auto 1.11 K/uL (0.90-2.90); Mean Corpuscular HGB Conc 34 gm/dL (32-36); Mean Corpuscular Hemoglobin 29 pg (26-34); Mean Corpuscular Volume 85 fL (80-100); Monocytes Percent Auto 2.8 % (0.0-11.0); Neutrophils Absolute Auto 3.27 K/uL (1.7-7.0); Neutrophils Percent Auto 70.8 % (42.0-72.0); Platelet Count* 413 K/uL (140-440); RDW Coefficient of Variation % 18.9 % (11.5-15.5); Red Blood Count 3.94 m/uL (4.00-5.20); White Blood Count* 4.62 K/uL (4.50-11.00)
[2024-07-27 11:27] LABS: Albumin* 4.4 g/dL (3.3-5.0); Chloride* 106 mmol/L (96-114); Sodium* 138 mmol/L (135-149)
[2024-07-27 11:28] LABS: Potassium* 4.6 mmol/L (3.6-5.1)
[2024-07-27 11:30] LABS: Alkaline Phosphatase* 114 U/L (40-150); Anion Gap 8 mEq/L (7-15); Aspartate Amino Transferase* 38 U/L (12-35); Bilirubin Total* 0.6 mg/dL (0.1-1.5); Blood Urea Nitrogen* 13 mg/dL (5-24); Carbon Dioxide* 24 mmol/L (20-32); Creatinine* 0.6 mg/dL (0.5-1.5); Est. Creatinine Clearance* 105.47; Estimated Glomerular Filt Rate 115 ml/min; Total Protein* 8.1 g/dL (6.0-8.3)
[2024-07-27 11:31] LABS: Alanine Aminotransferase* 39 U/L (4-35); Calcium* 8.7 mg/dL (8.4-10.6); Glucose* 155 mg/dL (60-115)
[2024-07-27 11:48] LABS: Slide Review Reflex No
[2024-07-27] MEDS: GOSERELIN ACETATE 3.6 MG IMPLANT SUBCUT (11:57)
--- NOTE | 2024-07-27 14:35 | ONC.NURNOTE ---
Left message for Rivet Driver and called patient to let them know that she needs to do her next injection on 08/24 as originally planned and not on 08/30.
== END 2024-07-30 23:59 | disposition home or self-care (01) ==
LOC: CCIC 10:15
PROVIDERS: Clinical Nurse Specialist; Internal Medicine Hematology & Oncology; PCP Family Medicine; Referring Provider Family Medicine; Visit Provider Physician Assistant
DX: C50.812 Malignant neoplasm of overlapping sites of left female breast (principal); Z17.1 Estrogen receptor negative status [ER-]; C79.51 Secondary malignant neoplasm of bone
CPT/HCPCS: 36415; 71275; 78815; 80053; 80076; 83002; 84702; 85025; 96374; 96401; 96402; 96413; 96415; 96417; 99213; 99214; 99215; G0463; T1013; A9552; J3489; J7050; J9202; J9306; J9355; Q9967

== ENCOUNTER 2024-08-16 15:20 | Outpatient (CLI) | payer MEDICAID, SELFPAY ==
--- NOTE | 2024-08-16 15:30 | CRLHL7_ITS ---
For Patients: As a result of the Century Cures Act, medical imaging exams and procedure reports are released immediately into your electronic medical record. You may view this report before your referring provider. If you have questions, please contact your health care provider. PET CT SKULL TO THIGH History: Breast cancer Technique: The patient was injected with 11.0 millicuries of 18F-FDG (fluorodeoxyglucose). Following the appropriate delay interval, PET imaging from the mid brain to the mid thigh was obtained in conjunction with a noncontrast CT examination for improved localization and attenuation correction. The fused volume set was reviewed utilizing 3-D reconstruction. Blood glucose: 92 Comparison: PET-CT 05/10/2024 Findings: Max SUV within the liver today is 3.2, previously 3.2. PET: Head and Neck: --Interval resolution of avidity within the previously seen tiny right neck nodes. There is now no abnormal FDG avidity within the head and neck. Thorax: -Anatomically stable right upper lobe pulmonary nodularities with borderline (<20% but less than 30%) interval decreased avidity now with a max SUV of 11.4, previously 15.1. *stable subcentimeter right ascending thoracic aortic node with a max SUV of 6.3, previously 7.2. Abdomen/Pelvis: No focal areas of increased uptake. Bones/soft tissues: -Multifocal FDG avid osseous metastasis are redemonstrated, the majority of which have decreased avidity and a couple of which are unchanged. Samples: Stable focal avidity within the left femoral neck with a max SUV today of 8.2, previously 7.5; right femoral neck now with a max SUV of 2.5, previously 8.3; right iliac wing with a max SUV today of 4.3, previously 14.7; left posterior iliac wing max SUV today of 3.9, previously 15.4; L4 with a max SUV today of 4.3, previously 10.2; left manubrium with a max SUV of 5.7, previously 15.3. ADDITIONAL CT findings include left mastectomy, right mastectomy and right breast implant. IMPRESSION: Partial response to therapy. Dictated by Randolph Blair MD @ 08/17/2024 10:38:07 AM (Electronically Signed)
== END 2024-08-16 15:21 | disposition home or self-care (01) ==
PROVIDERS: PCP Family Medicine; Visit Provider Physician Assistant
DX: C50.812 Malignant neoplasm of overlapping sites of left female breast (principal); C50.919 Malignant neoplasm of unspecified site of unspecified female breast
CPT/HCPCS: 78815; T1013; A9552

== ENCOUNTER 2024-08-30 11:03 | Outpatient (CLI) | payer MEDICAID, SELFPAY | END 2024-08-30 11:04 | disposition home or self-care (01) | LOC: CT 11:04 | PROVIDERS: PCP Family Medicine; Visit Provider Internal Medicine Hematology & Oncology | DX: R07.9 Chest pain, unspecified (principal); C50.919 Malignant neoplasm of unspecified site of unspecified female breast; C78.00 Secondary malignant neoplasm of unspecified lung | CPT/HCPCS: 71275; T1013; Q9967 ==

== ENCOUNTER 2024-11-08 14:34 | Outpatient (CLI) | payer MEDICAID, OTHER, SELFPAY ==
--- NOTE | 2024-11-08 15:00 | CRLHL7_ITS ---
For Patients: As a result of the 21st Century Cures Act, medical imaging exams and procedure reports are released immediately into your electronic medical record. You may view this report before your referring provider. If you have questions, please contact your health care provider. EXAM: FDG PET-CT Skull Base to Thighs CLINICAL INFORMATION: 43-year-old woman with history of breast cancer. Restaging. TECHNIQUE: Radiopharmaceutical: 18F-fluorodeoxyglucose (18F-FDG) Dose: 11.39 milliCurie. Blood glucose: 97 mg/dL. Image acquisition: At approximately 60 minutes following IV tracer administration via a right forearm vein, positron emission tomography was performed from the skull base through the mid thigh. Non-contrast low-dose helical CT imaging was performed over the same range without breath-hold for attenuation correction of PET images and anatomic correlation; it is neither sufficient, nor should it be substituted for diagnostic purposes. COMPARISON: FDG PET-CT 08/16/2024 FINDINGS: Mediastinal blood pool FDG uptake: SUVMax 2.6 (PET series 301 image 77) Liver background parenchymal FDG uptake: SUVMax 3.1 (PET series 301 image 115) HEAD AND NECK: No abnormal FDG uptake in the imaged head and neck. Series 301 CHEST: Ports and devices: None. Lungs/Thoracic lymph nodes: Overall decreased extent and intensity of heterogeneous moderate FDG uptake in a multilobulated 7.8 x 4.4 cm right upper lobe mass extending to the right hilum (CT series images 78-80) and adjacent pulmonary nodules, previously 7.9 x 4.4 cm (Series 202, image 85, remeasured in the same plane). There is associated new cavitary change and overall decreased solid appearance of the multilobulated mass on CT images, likely representing posttreatment change. As examples: *Greatest FDG uptake has overall decreased in the anterolateral mass, SUVMax 7.0 (image 80) previously SUVMax 11.4 (image 84, remeasured in the same plane). *Decreased 0.7 x 0.5 cm faintly FDG avid nodular component in the posterior aspect of the mass, SUVMax 2.1 (PET series image 78, CT series image 79), previously 1.8 x 0.7 cm, SUVMax 10.1 (PET series image 84, CT series image 85, remeasured in the same plane). Decreased 0.9 x 0.5 cm lymph node adjacent to the ascending thoracic aorta SUVMax 2.9 (PET Series 301 image 77) previously 1.1 x 0.6 Cm, SUVMax 6.3 (301:81, 202:82, remeasured in the same plane). Pleura: No abnormal FDG uptake. No abnormal FDG uptake. Mediastinum: No abnormal FDG uptake. Breasts/Chest Wall: No abnormal increased FDG uptake. Bilateral mastectomies with reconstruction in the right breast. ABDOMEN/PELVIS: Liver/biliary system: No abnormal FDG uptake. Pancreas: No abnormal FDG uptake. Spleen: No abnormal FDG uptake. Adrenal Glands: No abnormal FDG uptake. Kidneys: No abnormal FDG uptake. Bowel: No abnormal FDG uptake. Mesentery, Omentum and Peritoneum: No abnormal FDG uptake. Pelvic Organs: No abnormal FDG uptake. Abdominopelvic lymph Nodes: No abnormal FDG uptake. Musculoskeletal: Overall decreased FDG avid osseous metastases in the axial and appendicular skeleton with increased sclerotic changes. As examples: *Decreased extent of moderate FDG uptake in a manubrial lesion, with increased sclerotic changes, most conspicuously with decreased uptake in the left aspect of the manubrial lesion SUVMax 2.6 (Image 68) previously SUVMax 5.7 (image 72, remeasured in the same plane). Similar moderate FDG uptake at the lesion component in the midline manubrium, SUV max 4.3 (image 69), previously SUVMax 4.9 (image 73, remeasured in the same plane). *Left posterior iliac bone with increased sclerotic changes SUVMax 2.1 (image 198) previously SUVMax 3.9 (image 202, remeasured in the same plane). *Similar left femoral neck lytic lesion without evidence of cortical thinning SUVMax 6.2 (image 241) previously SUVMax 8.2 (image 244, remeasured in the same plane). IMPRESSION: Since 08/16/2024: 1. Decreased moderately FDG avid right upper lobe multilobulated mass with associated pulmonary nodules, likely representing posttreatment change. 2. Decreased mildly FDG avid right ascending thoracic aortic melania metastasis, previously intensely FDG avid, likely representing posttreatment change. 3. Overall decreased FDG avid osseous metastases likely representing posttreatment change. Similar left femoral neck lytic lesion without evidence of cortical thinning. Dictated by Minh Caal MD @ 11/11/2024 2:45:29 PM (Electronically Signed)
== END 2024-11-08 14:35 | disposition home or self-care (01) ==
PROVIDERS: PCP Family Medicine; Visit Provider Physician Assistant
DX: C50.911 Malignant neoplasm of unspecified site of right female breast (principal); C79.51 Secondary malignant neoplasm of bone; C78.00 Secondary malignant neoplasm of unspecified lung
CPT/HCPCS: 78815; T1013; A9552

== ENCOUNTER 2025-02-07 11:00 | Outpatient (RCR) | payer MEDICAID, OTHER, SELFPAY ==
[2024-08-13 12:11] LABS: Hematocrit* 35.6 % (33.0-51.0); Hemoglobin* 12.0 gm/dL (12.0-16.0); Immature Granulocytes Abs Auto 0.00 K/uL (0.00-0.30); Immature Granulocytes Pct Auto 0.0 %; Mean Corpuscular HGB Conc 34 gm/dL (32-36); Mean Corpuscular Hemoglobin 30 pg (26-34); Mean Corpuscular Volume 88 fL (80-100); RDW Coefficient of Variation % 21.4 % (11.5-15.5); Red Blood Count* 4.07 m/uL (4.00-5.20); White Blood Count* 3.36 K/uL (4.50-11.00)
[2024-08-13 12:16] LABS: Lymphocytes Absolute Auto 1.40 K/uL (0.90-2.90); Slide Review Reflex No
[2024-08-13 12:23] LABS: Albumin* 4.7 g/dL (3.3-5.0); Chloride* 103 mmol/L (96-114)
[2024-08-13 12:24] LABS: Potassium* 4.2 mmol/L (3.6-5.1); Sodium* 139 mmol/L (135-149)
[2024-08-13 12:26] LABS: Anion Gap 9 mEq/L (7-15); Aspartate Amino Transferase* 20 U/L (12-35); Bilirubin Total* 0.4 mg/dL (0.1-1.5); Carbon Dioxide* 27 mmol/L (20-32); Creatinine* 0.6 mg/dL (0.5-1.5); Estimated Glomerular Filt Rate 115 ml/min
[2024-08-13 12:27] LABS: Alanine Aminotransferase* 16 U/L (4-35); Alkaline Phosphatase* 86 U/L (40-150); Blood Urea Nitrogen* 12 mg/dL (5-24); Calcium* 9.2 mg/dL (8.4-10.6); Glucose* 87 mg/dL (60-115); Total Protein* 8.5 g/dL (6.0-8.3)
--- NOTE | 2024-08-13 14:32 | ONC.NURNOTE ---
Addendum entered by Petty Hoffman 08/13/24 16:01: Patients returned call and [facility] spoke with the county and their monthly spend down is $5800 per month. Original Note: Labs reviewed with Sayra Bingham. Patient informed that her labs are within parameters to begin her next cycle of Ibrance on Tuesday. Unfortunately, patient was unable to fill her medication at [facility] due to the high co-pay. She states the pharmacy said it would be over $5000. I placed a call to [facility], for an update on her application for free drug and was informed that they are still processing her application. I informed them that the patient is now without medication and they will try and expedite her application. I encouraged patients spouse to try calling the [facility] again to get a better understanding of their monthly spend down. Patient will call N with any updates.
--- NOTE | 2024-08-14 09:05 | ONC.NURNOTE ---
Ibrance - Free Drug Program Approval Pt has been approved to receive free Ibrance through the [employer] Patient Assistance Program (PAP) until 07/17/2025. Program ID#: [id number] [employer] will call her to schedule the 1st delivery -- instructed to let BNN know when the delivery date is Then she will need to order her refills going forward. 3 ways to order: 1) use the PAP Refill Texting Program -- will receive a text reminder to request a refill via text 2) Call them 7-10 days prior to next shipment needed and used automated refill line 3) Call them 7-10 days prior to next shipment needed and speak with a live agent [employer] contact for all 3 options: This information communicated to pt via phone call with Interpreters and emailed to s/o Bereket.
--- NOTE | 2024-08-20 15:45 | ONC.NURNOTE ---
Call to patient with the assistance of the interpreters. Patient informed that her PET/CT shows treatment response. Scan will be reviewed in more detail at her follow up with Dr. Castle visit next week. Patient hopes to recieve her Ibrance in the mail today or tomorrow. She will begin taking it once it arrives. Patient confirms plan for Zoladex injection 08/24 and follow up +Zometa 08/30.
[2024-08-24 10:49] VITALS: BP 96/62; PULSE 92; RESP 16; TEMP 36.4; O2SAT 98
[2024-08-24] MEDS: GOSERELIN ACETATE 3.6 MG IMPLANT SUBCUT (11:08)
--- NOTE | 2024-08-24 11:32 | ONC.NURNOTE ---
Rey Start Date : 08/20 at 1630. Takes daily at 1630.
--- NOTE | 2024-08-24 12:41 | ONC.NURNOTE ---
Pt present at [facility] for Zoladex injection accompanied by [facility] Application Support Engineer. Upon doing endoscopy support specialist, pt reports that she had RIGHT sided chest pain upon inspiration yesterday. The pain/discomfort was mostly gone today. Carmen states that she had a cough about a month ago but it has since resolved. She has not had any fevers and denies shortness of breath. Pt has no UE or LE edema. RN discussed case with NOÉ Pierre who thoroughly reviewed her case. It was determined that because pt's symptoms were mostly resolved and that she has no other symptoms at this time, she can go home and continue to monitor. RN instructed Carmen to call if she has return of her sharp chest pains, shortness of breath, or infection symptoms. Pt verbalized understanding.
[2024-08-30 09:55] VITALS: BP 111/75; PULSE 87; RESP 16; TEMP 36.7; O2SAT 97
[2024-08-30 10:25] LABS: Ur HCG Qualitative* Negative (Negative)
--- NOTE | 2024-09-05 09:31 | ONC.NURNOTE ---
[facility] care plan certification submitted. Current GLENN will on 10/06/2024.
[2024-09-17 11:30] LABS: Calcium* 9.2 mg/dL (8.4-10.6); Creatinine* 0.6 mg/dL (0.5-1.5); Est. Creatinine Clearance* 105.47; Estimated Glomerular Filt Rate 115 ml/min
[2024-09-17 11:56] LABS: HCG Quantitative* < 2.39 mIU/mL
[2024-09-17 12:02] LABS: Hematocrit* 35.5 % (33.0-51.0); Hemoglobin* 11.9 gm/dL (12.0-16.0); Immature Granulocytes Abs Auto 0.00 K/uL (0.00-0.30); Immature Granulocytes Pct Auto 0.0 %; Lymphocytes Absolute Auto 1.48 K/uL (0.90-2.90); Mean Corpuscular HGB Conc 34 gm/dL (32-36); Mean Corpuscular Hemoglobin 31 pg (26-34); Mean Corpuscular Volume 93 fL (80-100); RDW Coefficient of Variation % 22.2 % (11.5-15.5); Red Blood Count* 3.83 m/uL (4.00-5.20); White Blood Count* 4.62 K/uL (4.50-11.00)
[2024-09-17 12:07] LABS: Slide Review Reflex No
[2024-09-17 13:06] LABS: Albumin* 4.6 g/dL (3.3-5.0); Chloride* 104 mmol/L (96-114)
[2024-09-17 13:07] LABS: Potassium* 4.0 mmol/L (3.6-5.1); Sodium* 140 mmol/L (135-149)
[2024-09-17 13:09] LABS: Anion Gap 9 mEq/L (7-15); Aspartate Amino Transferase* 26 U/L (12-35); Bilirubin Total* 0.4 mg/dL (0.1-1.5); Carbon Dioxide* 27 mmol/L (20-32)
[2024-09-17 13:10] LABS: Alanine Aminotransferase* 19 U/L (4-35); Alkaline Phosphatase* 108 U/L (40-150); Blood Urea Nitrogen* 11 mg/dL (5-24); Glucose* 109 mg/dL (60-115); Total Protein* 8.3 g/dL (6.0-8.3)
[2024-09-21 10:38] VITALS: BP 106/70; PULSE 98; RESP 16; TEMP 36.1; O2SAT 98
[2024-09-21] MEDS: SODIUM CHLORIDE 0.9 % (FLUSH) 10 ML SYRINGE IVF (11:00)
[2024-09-21] MEDS: ZOLEDRONIC ACID 4 MG in 0.9 % SODIUM CHLORIDE 100 ml 100 ML 420 MG IVPB (11:08)
[2024-09-21] MEDS: GOSERELIN ACETATE 3.6 MG IMPLANT SUBCUT (11:19)
[2024-10-15 09:22] LABS: Hematocrit* 35.1 % (33.0-51.0); Hemoglobin* 12.0 gm/dL (12.0-16.0); Immature Granulocytes Abs Auto 0.01 K/uL (0.00-0.30); Immature Granulocytes Pct Auto 0.2 %; Lymphocytes Absolute Auto 1.38 K/uL (0.90-2.90); Mean Corpuscular HGB Conc 34 gm/dL (32-36); Mean Corpuscular Hemoglobin 33 pg (26-34); Mean Corpuscular Volume 96 fL (80-100); RDW Coefficient of Variation % 21.2 % (11.5-15.5); Red Blood Count* 3.64 m/uL (4.00-5.20); White Blood Count* 4.63 K/uL (4.50-11.00)
[2024-10-15 09:40] LABS: Albumin* 4.8 g/dL (3.3-5.0); Chloride* 106 mmol/L (96-114); Potassium* 4.0 mmol/L (3.6-5.1); Sodium* 142 mmol/L (135-149)
[2024-10-15 09:42] LABS: Blood Urea Nitrogen* 11 mg/dL (5-24); Creatinine* 0.6 mg/dL (0.5-1.5); Est. Creatinine Clearance* 105.47; Estimated Glomerular Filt Rate 115 ml/min; Slide Review Reflex Yes
[2024-10-15 09:43] LABS: Alanine Aminotransferase* 19 U/L (4-35); Alkaline Phosphatase* 95 U/L (40-150); Anion Gap 8 mEq/L (7-15); Aspartate Amino Transferase* 29 U/L (12-35); Bilirubin Total* 0.5 mg/dL (0.1-1.5); Calcium* 9.0 mg/dL (8.4-10.6); Carbon Dioxide* 28 mmol/L (20-32); Glucose* 108 mg/dL (60-115); Slide Review Acceptable Review (Acceptable); Total Protein* 8.3 g/dL (6.0-8.3)
[2024-10-15 11:08] LABS: HCG Qualitative Serum* Negative (Negative)
[2024-10-19 11:29] VITALS: BP 112/74; PULSE 97; RESP 18; TEMP 36.6; O2SAT 97
[2024-10-19] MEDS: GOSERELIN ACETATE 3.6 MG IMPLANT SUBCUT (11:56)
--- NOTE | 2024-11-14 14:17 | URNOTE ---
Request received for authorization for Zoledronic acid (J3489) approved 4mg/100ml from 10/16/2024 to 04/04/2025 from [employer] Auth#[id number]. Zoladex (J9202) approved 3.6mg from 10/16/2024 to 04/04/2025 from [employer] Auth #[id number]. [facility] care plan approval on 04/09/24-10/06/2024 for diagnosis codes C50.911, Z51.11, C78.00, C79.51, see scanned documents.
[2024-11-15 14:13] LABS: Hematocrit* 32.3 % (33.0-51.0); Hemoglobin* 11.2 gm/dL (12.0-16.0); Immature Granulocytes Pct Auto 0.3 %; Mean Corpuscular HGB Conc 35 gm/dL (32-36); Mean Corpuscular Hemoglobin 34 pg (26-34); Mean Corpuscular Volume 99 fL (80-100); RDW Coefficient of Variation % 17.9 % (11.5-15.5); Red Blood Count* 3.27 m/uL (4.00-5.20); White Blood Count* 3.37 K/uL (4.50-11.00)
[2024-11-15 14:29] LABS: Albumin* 4.5 g/dL (3.3-5.0); Chloride* 105 mmol/L (96-114); Potassium* 4.2 mmol/L (3.6-5.1); Sodium* 140 mmol/L (135-149)
[2024-11-15 14:32] LABS: Alanine Aminotransferase* 20 U/L (4-35); Alkaline Phosphatase* 108 U/L (40-150); Anion Gap 12 mEq/L (7-15); Aspartate Amino Transferase* 27 U/L (12-35); Bilirubin Total* 0.5 mg/dL (0.1-1.5); Blood Urea Nitrogen* 14 mg/dL (5-24); Carbon Dioxide* 23 mmol/L (20-32); Creatinine* 0.7 mg/dL (0.5-1.5); Est. Creatinine Clearance* 94.21; Estimated Glomerular Filt Rate 111 ml/min; Total Protein* 8.0 g/dL (6.0-8.3)
[2024-11-15 14:33] LABS: Calcium* 9.2 mg/dL (8.4-10.6); Glucose* 84 mg/dL (60-115)
[2024-11-15 14:41] LABS: Immature Granulocytes Abs Auto 0.00 K/uL (0.00-0.30); Lymphocytes Absolute Auto 1.20 K/uL (0.90-2.90); Slide Review Reflex No
[2024-11-15 15:03] LABS: HCG Quantitative* < 2.39 mIU/mL
[2024-11-15] MEDS: GOSERELIN ACETATE 3.6 MG IMPLANT SUBCUT (15:24)
--- NOTE | 2024-11-19 09:41 | ONC.NURNOTE ---
Addendum entered by Jenny Steward RN 12/14/24 11:10: Ibrance restarted on 12/08/24 after radiation. Pt will complete cycle on 12/22/24. Original Note: Radiation Oncology consult scheduled for 11/20. BCN will continue to monitor as patient will need to hold Ibrance 2-3 days before and after radiation.
[2024-12-14 10:42] VITALS: BP 108/73; PULSE 84; RESP 16; TEMP 36.6; O2SAT 98
[2024-12-14 11:08] LABS: Hematocrit* 34.5 % (33.0-51.0); Hemoglobin* 11.7 gm/dL (12.0-16.0); Immature Granulocytes Pct Auto 0.2 %; Mean Corpuscular HGB Conc 34 gm/dL (32-36); Mean Corpuscular Hemoglobin 33 pg (26-34); Mean Corpuscular Volume 98 fL (80-100); RDW Coefficient of Variation % 16.3 % (11.5-15.5); Red Blood Count* 3.52 m/uL (4.00-5.20); White Blood Count* 4.43 K/uL (4.50-11.00)
[2024-12-14 11:10] LABS: Immature Granulocytes Abs Auto 0.00 K/uL (0.00-0.30); Lymphocytes Absolute Auto 0.50 K/uL (0.90-2.90); Slide Review Reflex No
[2024-12-14] MEDS: GOSERELIN ACETATE 3.6 MG IMPLANT SUBCUT (11:15)
[2024-12-14 11:17] LABS: Albumin* 4.6 g/dL (3.3-5.0); Chloride* 109 mmol/L (96-114); Potassium* 4.4 mmol/L (3.6-5.1); Sodium* 142 mmol/L (135-149)
[2024-12-14 11:20] LABS: Alanine Aminotransferase* 20 U/L (4-35); Alkaline Phosphatase* 117 U/L (40-150); Anion Gap 8 mEq/L (7-15); Aspartate Amino Transferase* 36 U/L (12-35); Bilirubin Total* 0.6 mg/dL (0.1-1.5); Blood Urea Nitrogen* 14 mg/dL (5-24); Carbon Dioxide* 25 mmol/L (20-32); Creatinine* 0.7 mg/dL (0.5-1.5); Est. Creatinine Clearance* 93.25; Estimated Glomerular Filt Rate 110 ml/min; Total Protein* 8.3 g/dL (6.0-8.3)
[2024-12-14 11:21] LABS: Calcium* 9.1 mg/dL (8.4-10.6); Glucose* 108 mg/dL (60-115)
--- NOTE | 2024-12-19 10:13 | ONC.NURNOTE ---
Patient took the first week of her Ibrance cycle 11/19 to 11/26. She held her Ibrance during radiation and then resumed her cycle 12/08 and will complete her week off on 12/28. Patient will wait to resume her next cycle until after her labs and follow up on 12/31. This plan was communicated with the patient with the assistance of our interpreters.
[2024-12-31 11:16] LABS: Creatinine* 0.6 mg/dL (0.5-1.5); Est. Creatinine Clearance* 104.40; Estimated Glomerular Filt Rate 114 ml/min
[2024-12-31 11:17] LABS: Calcium* 9.0 mg/dL (8.4-10.6)
[2024-12-31 11:19] LABS: Albumin* 4.2 g/dL (3.3-5.0); Chloride* 103 mmol/L (96-114); Potassium* 4.1 mmol/L (3.6-5.1); Sodium* 139 mmol/L (135-149)
[2024-12-31 11:21] LABS: Blood Urea Nitrogen* 8 mg/dL (5-24); Creatinine* 0.6 mg/dL (0.5-1.5); Est. Creatinine Clearance* 104.40; Estimated Glomerular Filt Rate 114 ml/min; Hematocrit* 32.7 % (33.0-51.0); Hemoglobin* 11.1 gm/dL (12.0-16.0); Immature Granulocytes Abs Auto 0.00 K/uL (0.00-0.30); Immature Granulocytes Pct Auto 0.0 %; Lymphocytes Absolute Auto 0.70 K/uL (0.90-2.90); Mean Corpuscular HGB Conc 34 gm/dL (32-36); Mean Corpuscular Hemoglobin 33 pg (26-34); Mean Corpuscular Volume 97 fL (80-100); RDW Coefficient of Variation % 17.2 % (11.5-15.5); Red Blood Count* 3.36 m/uL (4.00-5.20); Slide Review Reflex No; White Blood Count* 3.49 K/uL (4.50-11.00)
[2024-12-31 11:22] LABS: Alanine Aminotransferase* 41 U/L (4-35); Alkaline Phosphatase* 91 U/L (40-150); Anion Gap 10 mEq/L (7-15); Aspartate Amino Transferase* 42 U/L (12-35); Bilirubin Total* 0.4 mg/dL (0.1-1.5); Calcium* 9.1 mg/dL (8.4-10.6); Carbon Dioxide* 26 mmol/L (20-32); Glucose* 136 mg/dL (60-115); Total Protein* 7.6 g/dL (6.0-8.3)
[2025-01-10 10:42] VITALS: BP 104/66; PULSE 97; RESP 18; TEMP 36.4; O2SAT 100
[2025-01-10 11:07] LABS: Ur HCG Qualitative* Negative (Negative)
[2025-01-10 11:19] LABS: Albumin* 4.6 g/dL (3.3-5.0)
[2025-01-10 11:21] LABS: Alanine Aminotransferase* 38 U/L (4-35); Aspartate Amino Transferase* 30 U/L (12-35)
[2025-01-10 11:22] LABS: Alkaline Phosphatase* 102 U/L (40-150); Bilirubin Direct* 0.0 mg/dL (0.0-0.5); Bilirubin Total* 0.6 mg/dL (0.1-1.5); Total Protein* 8.3 g/dL (6.0-8.3)
[2025-01-10] MEDS: SODIUM CHLORIDE 0.9 % (FLUSH) 10 ML SYRINGE IVF ×2 (12:07→12:28)
[2025-01-10] MEDS: ZOLEDRONIC ACID 4 MG in 0.9 % SODIUM CHLORIDE 100 ml 100 ML 420 MG IVPB (12:09)
[2025-01-10] MEDS: GOSERELIN ACETATE 3.6 MG IMPLANT SUBCUT (12:12)
[2025-01-28 10:42] LABS: Hematocrit* 33.3 % (33.0-51.0); Hemoglobin* 11.4 gm/dL (12.0-16.0); Immature Granulocytes Abs Auto 0.00 K/uL (0.00-0.30); Immature Granulocytes Pct Auto 0.0 %; Mean Corpuscular HGB Conc 34 gm/dL (32-36); Mean Corpuscular Hemoglobin 34 pg (26-34); Mean Corpuscular Volume 98 fL (80-100); RDW Coefficient of Variation % 17.7 % (11.5-15.5); Red Blood Count* 3.40 m/uL (4.00-5.20); White Blood Count* 3.90 K/uL (4.50-11.00)
[2025-01-28 10:49] LABS: Lymphocytes Absolute Auto 0.80 K/uL (0.90-2.90); Slide Review Reflex No
[2025-01-28 10:59] LABS: Chloride* 104 mmol/L (96-114)
[2025-01-28 11:00] LABS: Albumin* 4.5 g/dL (3.3-5.0); Potassium* 4.0 mmol/L (3.6-5.1); Sodium* 139 mmol/L (135-149)
[2025-01-28 11:02] LABS: Blood Urea Nitrogen* 9 mg/dL (5-24); Creatinine* 0.6 mg/dL (0.5-1.5); Est. Creatinine Clearance* 104.40; Estimated Glomerular Filt Rate 114 ml/min
[2025-01-28 11:03] LABS: Alanine Aminotransferase* 25 U/L (4-35); Alkaline Phosphatase* 103 U/L (40-150); Anion Gap 7 mEq/L (7-15); Aspartate Amino Transferase* 26 U/L (12-35); Bilirubin Total* 0.4 mg/dL (0.1-1.5); Calcium* 9.0 mg/dL (8.4-10.6); Carbon Dioxide* 28 mmol/L (20-32); Glucose* 92 mg/dL (60-115); Total Protein* 8.3 g/dL (6.0-8.3)
[2025-01-28 11:39] LABS: HCG Quantitative* < 2.39 mIU/mL
[2025-02-07 10:56] VITALS: BP 101/68; PULSE 91; TEMP 36.1; O2SAT 96
[2025-02-07] MEDS: GOSERELIN ACETATE 3.6 MG IMPLANT SUBCUT (11:24)
== END 2025-02-09 23:59 | disposition home or self-care (01) ==
LOC: CCIC 11:00
PROVIDERS: Clinical Nurse Specialist; Internal Medicine Hematology & Oncology; PCP Family Medicine; Referring Provider Family Medicine; Visit Provider Physician Assistant
DX: C50.911 Malignant neoplasm of unspecified site of right female breast (principal); Z17.0 Estrogen receptor positive status [ER+]; C79.51 Secondary malignant neoplasm of bone
CPT/HCPCS: 36415; 71275; 80053; 80076; 81025; 82310; 82565; 84702; 84703; 85025; 96365; 96367; 96374; 96402; 99214; 99215; G0463; T1013; J3489; J9202; Q9967

== ENCOUNTER 2025-02-14 13:20 | Outpatient (CLI) | payer MEDICAID, OTHER, SELFPAY ==
--- NOTE | 2025-02-14 13:30 | CRLHL7_ITS ---
For Patients: As a result of the 21st Century Cures Act, medical imaging exams and procedure reports are released immediately into your electronic medical record. You may view this report before your referring provider. If you have questions, please contact your health care provider. EXAM: FDG PET-CT Skull Base to Thighs CLINICAL INFORMATION: 44-year-old woman with history of breast cancer. Interval radiation to the right upper lung completed 12/07/2024. Restaging TECHNIQUE: Radiopharmaceutical: 18F-fluorodeoxyglucose (18F-FDG) Dose: 11.72 milliCurie. Blood glucose: 88 mg/dL. Image acquisition: At approximately 60 minutes following IV tracer administration via a right hand vein, positron emission tomography was performed from the skull base through the mid thigh. Non-contrast low-dose helical CT imaging was performed over the same range without breath-hold for attenuation correction of PET images and anatomic correlation; it is neither sufficient, nor should it be substituted for diagnostic purposes. COMPARISON: FDG PET-CT 11/08/2024 FINDINGS: Mediastinal blood pool FDG uptake: SUVMax 2.8 (Image 88) Liver background parenchymal FDG uptake: SUVMax 3.6 (Image 121) PET Findings: Bilateral mastectomies with reconstruction in the right breast. No abnormal focal increased FDG uptake in the chest wall. *Increased size, intensity, and extent of intense FDG uptake in a multilobulated 8.5 x 6.0 cm right upper lobe lung mass extending to the right hilum SUVMax 11.9 (images 87 - 92) previously 7.8 x 4.4 cm, SUVMax 7.8 (image 79, remeasured in the same plane). Previously visualized discrete adjacent pulmonary nodules to the mass are not well seen, with probable interval confluence of these nodules with the lung mass. Overall decreased FDG avid mediastinal and right hilar lymphadenopathy, for example: *Resolved faint FDG uptake in a 0.9 x 0.5 cm lymph node adjacent to the ascending thoracic aorta SUVMax 2.0 (image 88) previously 0.9 x 0.5 cm SUVMax 2.9. *Decreased right hilar node SUVMax 4.6 (image 88) previously SUVMax 6.8 (image 77, remeasured in the same plane). Overall decreased multifocal FDG avid osseous metastases in the axial and appendicular skeleton. As examples: *Decreased faint FDG uptake in a midline manubrial lesion SUVMax 1.7 (image 68) previously SUVmax 4.3. *Similar left femoral neck lesion lytic lesion without cortical thinning SUVMax 7.3 (image 252) previously SUV max 6.2. No substantial change of other scattered osseous lesions that are either non FDG avid or faintly FDG avid, for example a faintly FDG avid lesion in the left posterior iliac bone, likely treated/quiescent disease. Tracer uptake elsewhere is physiologic. Non-PET findings: Postradiation changes in the anterior left upper lobe. IMPRESSION: 1. Increased size, intensity, and extent of intense FDG uptake in a multilobulated 8.5 x 6.0 cm right upper lobe lung mass extending to the right hilum. This raises concern for increased metabolically active lung metastatic disease. Differential consideration includes post radiation inflammatory changes. 2. Overall decreased multifocal FDG avid osseous metastases in the axial and appendicular skeleton. 3. Overall decreased FDG avid mediastinal and right hilar lymphadenopathy. Dictated by Minh Caal MD @ 02/19/2025 2:33:00 PM (Electronically Signed)
== END 2025-02-14 13:21 | disposition home or self-care (01) ==
LOC: RAD 13:20
PROVIDERS: PCP Family Medicine; Visit Provider Physician Assistant
DX: C50.911 Malignant neoplasm of unspecified site of right female breast (principal); C78.00 Secondary malignant neoplasm of unspecified lung; C79.51 Secondary malignant neoplasm of bone
CPT/HCPCS: 78815; T1013; A9552

== ENCOUNTER 2025-04-17 09:57 | Emergency (ER) | payer MEDICAID, SELFPAY ==
[2025-04-17 10:06] VITALS: BP 106/75; PULSE 127; RESP 18; TEMP 36.3; O2SAT 98
--- NOTE | 2025-04-17 10:27 | CRLHL7_ITS ---
For Patients: As a result of the Cures Act, medical imaging exams and procedure reports are released immediately into your electronic medical record. You may view this report before your referring provider. If you have questions, please contact your health care provider. Indication: Cough Comparison: None available. Technique: Single AP view chest Findings: There is moderate central bronchial thickening. There is dense airspace opacification of the right upper lobe with minimal volume loss. The left hemithorax is clear. The cardiomediastinal silhouette is within normal limits. The bony thorax is grossly intact. Impression: Dense airspace opacification of the right upper lobe commensurate with lobar pneumonia. Dictated by Iggy Crowder MD @ 04/17/2025 11:02:21 AM (Electronically Signed)
--- NOTE | 2025-04-17 10:29 | ED.GENADULT ---
HPI - General Adult General Chief complaint: Nausea/Vomiting Stated complaint: Cough, sore throat, nausea Time Seen by Provider: 04/17/25 10:06 History of Present Illness HPI narrative: Patient is a 41 year female presents with her , and through her and nursing admin she reports that she has had nausea vomiting and a slight cough over the last week, worse since Tuesday. She has been able to eat some fruit but has not felt generally well. She does have metastatic breast cancer. 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 She is under the care of Dr. Brant palafox. She is getting chemotherapy agents. At this point the reports that the breast cancers been quiet, not advancing. She denies chest pain denies fever or rigors denies production to her cough. Denies chest pain denies leg swelling or edema or bleeding or clotting problems. Her main complaint today is nausea. Related Data Home Medications ?Medication ?Instructions ?Recorded ?Confirmed ibuprofen 200 mg capsule 400 mg PO Q6H PRN 10/06/23 04/17/25 docusate sodium 100 mg capsule 100 mg PO DAILY PRN 08/24/24 04/17/25 (Colace) calcium 500 mg (as 2 tab PO QDAY 03/25/25 04/17/25 carbonate)-vitamin D3 10 mcg (400 unit) tablet (Calcium 500 + D) Previous Rx's ?Medication ?Instructions ?Recorded doxycycline hyclate 100 mg capsule 100 mg PO BID #14 caps 04/17/25 ondansetron HCl 4 mg tablet 4 mg PO Q6-8H PRN nausea and 04/17/25 vomiting #10 tabs Allergies Allergy/AdvReac Type Severity Reaction Status Date / Time No Known Drug Allergies Allergy Verified 04/17/25 10:14 Review of Systems Status of ROS: Reports: 6 or more systems reviewed and unremarkable except as noted in History and below [facility] Medical History Chest pain ?R07.9 - Chest pain, unspecified (ICD-10) Breast cancer metastasized to lung ?C50.919 - Malignant neoplasm of unspecified site of unspecified female breast (ICD-10) ?C78.00 - Secondary malignant neoplasm of unspecified lung (ICD-10) Breast cancer metastasized to bone ?C50.919 - Malignant neoplasm of unspecified site of unspecified female breast (ICD-10) ?C79.51 - Secondary malignant neoplasm of bone (ICD-10) Cancer, metastatic to lung ?C78.00 - Secondary malignant neoplasm of unspecified lung (ICD-10) 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 - Malignant neoplasm of unspecified site of unspecified female breast (ICD-10) IUD (intrauterine device) in place ?Z97.5 - Presence of (intrauterine) contraceptive device (ICD-10) Malignant neoplasm of breast (12/2011) ?C50.919 - Malignant neoplasm of unspecified site of unspecified female breast (ICD-10) History of cervical dysplasia ?Z87.410 - Personal history of cervical dysplasia (ICD-10) Surgical History S/P left mastectomy ?Z90.12 - Acquired absence of left breast and nipple (ICD-10) History of right mastectomy () ?Z90.11 - Acquired absence of right breast and nipple (ICD-10) Status post delivery (06/07/20) ?Z98.891 - History of uterine scar from previous surgery (ICD-10) Social History Narrative: . Has 3 year old daughter. What is your current living situation?: I presently have a place to live Problems where you live: no known problems In the past 12 months, utilities in danger of being shut off: no In past 12 months, lack of transportation kept you from medical appts, meetings, work, or getting things needed for daily living: no In the past 12 mos, have been you worried that your food would run out before you had money to buy more?: never true In the past 12 mos, the food you bought just didn't last and you didn't have money to buy more?: never true Smoking Status: Never smoker How often do you have a drink containing alcohol: never AUDIT-C Alcohol total score: 0 Non-prescribed substance use: denies use Caffeine: Yes (soda once in a while) How often does anyone, including family, friends and others, physically hurt you: never How often does anyone, including family, friends and others, insult or talk down to you: never How often does anyone, including family, friends and others, threaten you with harm: never How often does anyone, including family, friends and others, scream or curse at you: never service: No Exam Narrative: Exam Narrative: Objective the patient's vital signs show slightly elevated pulse, otherwise unremarkable, O2 sat is excellent at 90% HEENT is unremarkable Neck is supple Chest no rales or wheezing noted Heart rhythm regular without murmur Abdomen benign soft Extremities are no edema neurologic nonfocal Good peripheral perfusion noted upper lower extremities. Const: Vital Signs, click to edit/add: Vital Signs - 24 hr 04/17/25 10:06 04/17/25 12:08 Temperature 97.4 F L Pulse Rate [Right Pulse Oximeter] 127 H 117 H Respiratory Rate 18 18 Blood Pressure [Ri ght Upper Arm] 106/75 107/85 Pulse Oximetry 98 97 Oxygen Delivery Me thod Room Air Room Air Course Vital Signs Vital signs: Initial Vital Signs Temperature 97.4 F L 04/17/25 10:06 Temperature Source Temporal Artery Scan 04/17/25 10:06 Pulse Rate 127 H 04/17/25 10:06 Pulse Rhythm Regular 04/17/25 10:06 Pulse Strength 3+ Normal 04/17/25 10:06 Respiratory Rate 18 04/17/25 10:06 Blood Pressure 106/75 04/17/25 10:06 Blood Pressure Mean 85 04/17/25 10:06 Blood Pressure Position Sitting 04/17/25 10:06 Pulse Oximetry 98 04/17/25 10:06 Oxygen Delivery Method Room Air 04/17/25 10:06 Vital Signs Temperature 97.4 F L 04/17/25 10:06 Pulse Rate 127 H 04/17/25 10:06 Respiratory Rate 18 04/17/25 10:06 Blood Pressure 106/75 04/17/25 10:06 Pulse Oximetry 98 04/17/25 10:06 Oxygen Delivery Method Room Air 04/17/25 10:06 Temperature 97.4 F L 04/17/25 10:06 Pulse Rate 117 H 04/17/25 12:08 Respiratory Rate 18 04/17/25 12:08 Blood Pressure 107/85 04/17/25 12:08 Pulse Oximetry 97 04/17/25 12:08 Oxygen Delivery Method Room Air 04/17/25 12:08 Medications Administered Medications: Discontinued Medications Generic Name Dose Route Start Last Admin Trade Name Clyde PRN Reason Stop Dose Admin Sodium Chloride 1,000 mls @ 6,000 mls/hr 04/17/25 10:30 04/17/25 10:48 0.9 % Sodium Chloride 1000 Ml IV 04/17/25 10:39 6,000 mls/hr .Q10M EDEN Administration Ceftriaxone Sodium 1 gm/ 100 mls @ 200 mls/hr 04/17/25 11:10 04/17/25 11:28 Sodium Chloride IVPB 04/17/25 11:11 200 mls/hr ONCE ONE Administration Ondansetron HCl 4 mg 04/17/25 10:26 04/17/25 10:48 Ondansetron 2 Mg/Ml Inj IVP 04/17/25 10:27 4 mg ONCE ONE Administration Medical Decision Making MDM Narrative Medical decision making narrative: 44-year-old female with metastatic breast cancer with nausea vomiting and a cough. She is not short of breath, has an excellent O2 sat. She has no leg swelling or edema. I think at this point to be reasonable check a chest x-ray, she does have a known lung mass. Will insure that there is no marked changes in that she does not have pneumonia. Will give her Zofran IV and IV fluid. Will check labs and electrolytes. Disposition pending findings above. Will also check triple swab. If she feels little better after the fluid we can try some Zofran for home, and may benefit for some antibiotics given her cough and immune suppression from chemotherapy agents Addendum 11:09 a.m.: Patient has again demonstrated a right upper lung mass on her x-ray. Her lab studies show a low hemoglobin 9.5. White count is normal at 5220. Some of her lab studies are still pending. I think we can treat her with doxycycline for her cough. Looking back at her x-rays it appears that this right upper lobe mass is still present noted on x-ray per. It is possible with her tumor she could develop a postobstructive pneumonia. Will cover with antibiotics doxycycline as mention will give her a dose of IV Rocephin as well. Follow up with regular doctor in the next 2-3 days. Lab Data Labs: Lab Results 10/01/25 10/01/25 Range/Units 10:35 10:48 WBC 5.22 (4.50-11.00) K/uL RBC 2.70 L (4.00-5.20) m/uL Hgb 9.5 L (12.0-16.0) gm/dL Hct 26.5 L (33.0-51.0) % MCV 98 (80-100) fL MCH 35 H (26-34) pg MCHC 36 (32-36) gm/dL RDW Coeff of Johnny 16.8 H (11.5-15.5) % Plt Count 129 L (140-440) K/uL Neut % (Auto) 83.2 H (42.0-72.0) % Lymph % (Auto) 6.7 L (20-44) % [place] % (Auto) 8.0 (0.0-11.0) % Eos % (Auto) 0.2 (0.0-7.0) % Baso % (Auto) 0.2 (0.0-3.0) % Neut # (Auto) 4.30 (1.7-7.0) K/uL Lymph # (Auto) 0.30 L (0.90-2.90) K/uL [place] # (Auto) 0.40 (0.00-0.90) K/UL Eos # (Auto) 0.01 (0.00-0.50) K/uL Baso # (Auto) 0.01 (0.00-0.30) K/uL Abs Immat Gran (auto) 0.09 (0.00-0.30) K/uL Imm/Tot Granulo (auto) 1.7 % Diff Slide Review Acceptable Review (Acceptable) Sodium 135 (135-149) mmol/L Potassium 4.9 (3.6-5.1) mmol/L Chloride 99 (96-114) mmol/L Carbon Dioxide 24 (20-32) mmol/L Anion Gap 12 (7-15) mEq/L BUN 15 (5-24) mg/dL Creatinine 0.8 (0.5-1.5) mg/dL Estimated GFR 94 ml/min Glucose 120 H (60-115) mg/dL Calcium 8.2 L (8.4-10.6) mg/dL C-Reactive Protein 38.6 H (0.5-1.0) mg/dL SARS-CoV-2 (PCR) Negative SARS-CoV-2 (Negative) Influenza Type A (PCR) Negative PCR FLU A (Negative) Influenza Type B (PCR) Negative PCR FLU B (Negative) RSV (PCR) Negative PCR RSV (Negative) Discharge Plan Discharge Clinical Impression: Nausea, Cough, Cancer, metastatic to lung Patient Disposition: Home w/ Parent or Adult Condition: Stable Additional Instructions: Light activity, drink plenty of fluids, doxycycline as prescribed, Zofran as needed for nausea. Update regular doctor in the next 2-3 days, return to ED sooner problems or concerns. Activity Level: Light activity Discharge Diet: Regular Prescriptions: New doxycycline hyclate 100 mg capsule 100 mg PO BID Qty: 14 0RF ondansetron HCl 4 mg tablet 4 mg PO Q6-8H PRN (Reason: nausea and vomiting) Qty: 10 0RF No Action ibuprofen 200 mg capsule 400 mg PO Q6H PRN calcium carbonate-vitamin D3 [Calcium 500 + D] 500 mg-10 mcg (400 unit) tablet 2 tab PO QDAY docusate sodium [Colace] 100 mg capsule 100 mg PO DAILY PRN Follow Up/Referrals: Kyree Funez MD [Primary Care Provider, Family Practice] Stand Alone Forms: [employer] Info Instructions
[2025-04-17 10:45] LABS: Hematocrit* 26.5 % (33.0-51.0); Hemoglobin* 9.5 gm/dL (12.0-16.0); Immature Granulocytes Abs Auto 0.09 K/uL (0.00-0.30); Immature Granulocytes Pct Auto 1.7 %; Lymphocytes Absolute Auto 0.30 K/uL (0.90-2.90); Mean Corpuscular HGB Conc 36 gm/dL (32-36); Mean Corpuscular Hemoglobin 35 pg (26-34); Mean Corpuscular Volume 98 fL (80-100); RDW Coefficient of Variation % 16.8 % (11.5-15.5); Red Blood Count* 2.70 m/uL (4.00-5.20); White Blood Count* 5.22 K/uL (4.50-11.00)
[2025-04-17 10:46] LABS: Slide Review Reflex Yes
[2025-04-17] MEDS: ONDANSETRON 2 MG/ML inj 4 MG IVP (10:48)
--- OUTSIDE RECORDS SUMMARY | 2025-04-17 10:58 | XMS_ITS | Encounter Summary ---
Author Organization [facility] Address [address], [place] [address] Care Team Providers Care Interchange Agent Name Role Phone Suman Sheets MD Primary Care Provider [phone] Encounter Details Date Type Department Care Team (Late st Contact Info) Description 11/01/2018 Consent for Procedure/Treatme nt [facility] INFORMED CONSENT RECORD Social History Tobacco Use Types Packs/Day Years Used Date Smoking Tobacco: Former Cigarettes Q uit: 07/27/2004 Smokeless Tobacco: Never Alcohol Use Standard Drinks/Week Comments Not Currently 0 (1 standard drink = 0.6 oz pur e alcohol) Comments Unknown Sex and Gender Information Value Date Recorded Sex Assigned at Not on file Legal Sex Female 1:51 PM HIGH SCALER Gender Identity Not on file Sexual Orientation Not on file documented as of this encounter Plan of Treatment Not on file documented as of this encounter Visit Diagnoses Not on filedocumented in this encounter Care Teams Interchange Agent Relationship Specialty Start Date End Date Suman Sheets MD [address] [address] PCP - General Internal Medicine 11/01/18 documented as of this encounter
--- OUTSIDE RECORDS SUMMARY | 2025-04-17 10:58 | XMS_ITS | Encounter Summary ---
Author Organization [facility] Address [address] [address] Care Team Providers Care Laborer Adjustable Steel Joist Name Role Phone Suman Sheets MD Primary Care Provider [phone] Encounter Details Date Type Department Care Team (Late st Contact Info) Description 07/27/2018 Scanned History External to Transferred Record, Provider [facility] Social History Tobacco Use Types Packs/Day Years Used Date Smoking Tobacco: Former Cigarettes Q uit: 07/27/2004 Smokeless Tobacco: Never Alcohol Use Standard Drinks/Week Comments Not Currently 0 (1 standard drink = 0.6 oz pur e alcohol) Comments Unknown Sex and Gender Information Value Date Recorded Sex Assigned at Not on file 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
--- OUTSIDE RECORDS SUMMARY | 2025-04-17 10:58 | XMS_ITS | Clinical Summary ---
Author Organization [facility] Address [address] [place] [address] Care Team Providers Care Processing Technologist Name Role Phone Suman Sheets MD Primary Care Provider [phone] Source Comments You are receiving this document as you are listed as the primary care provider,follow-up provider, or the patient has been referred to you for consultation.This is in compliance with the Medicare and[facility] EHR Incentive Program,which states Providers who transition their patient to another setting of careor provider of care or refers their patient to another provider of care shouldprovide summary care record for each transition of care or referral. [facility] Allergies No known active allergies Medications MV-Min-Fe Fum-FA-DHA (+DHA OR)Indications:P t is taking two kinds of PNV. One has DHA. Indications : Pt is taking two kinds of PNV. One has DHA. Active polyethylene glycol (MIRALAX) 17 g packetIndication s:Constipation in in second trimester Take 1 Packet [...] Gemini Guillaume RN, [facility] Specialist, at [phone]. Not immune to hepatitis B virus 11/15/2019 Primigravida of advanced maternal age in first t rimester 11/14/2019 Overview (11/14/2019): EDC 06/18/2020 by LMP, confirmed by U/S at 9 wks NIPS discussed RI CNM pt Needs wire fence erector Encounter for screening mammogram for breast can cer 10/27/2018 Personal history of malignant neoplasm of breast 09/07/2018 Overview (09/07/2018): Added automatically from request for surgery [id number] Myopia of both eyes with astigmatism 02/09/2018 [...] Risk Other Than 16/18 38 y.o. Plan: [place] BRCA negative 12/21/2012 Overview (10/27/2018): Patient had BRCA gene testing, sequencing and large rearrangement panel. No mutations were detected in either the BRCA1 or BRCA2 genes. H/O mastectomy 04/26/2012 Malignant neoplasm of right female breast 2011 Overview (10/27/2018): Last Assessment & Plan: History of Stage IIA (T2, N0, cM0) Right breast Neuroendocrine cancer, ER/MI positive, HER-2 negative, diagnosed 12/2011. S/p right [...] 194 - FLORI visit with sherita at [facility]. Pap -na. Mammo - diagnostic right- ACR 0 Enrollment form sent:10/28/10 [place] summary form sent:01/25/11 DX Mammo or US form sent: benign 01/25/11 MD F/U sent: Plan : under age 40 for lump on cbe. mammo due age 41 Immunizations Immunization Administration Dates Next Due DTaP 11/20/2002 Flu Vac (3+ yrs) 10/18/2011,10/16/2010 Flu Vac Preserv Free (3+yrs) 05/26/2015,08/15/19 15,05/21/2013 HepB, Unspecified Formulation 11/20/2002 Influenza (Fluzone 0.25, 6-35 mos) 05/21/2013 Influenza IIV4 (Quadrivalent) 0.5mL ([id number]) 03/19,05/26/2015,08/15/2014 Influenza, Unspecified Formulation 10/18/2011, MMR 11/20/2002 [...] pur e alcohol) hasn't for 12 years Comments No Sex and Gender Information Value Date Recorded Sex Assigned at Not on file Legal Sex Female 1:51 PM REWINDER Gender Identity Not on file Sexual Orientation Not on file Occupation Industry Job Start Date Job End Date [employer] Not on file Not on file Not on file Last Filed Vital Signs [...] Mammogram 1981 Adult Preventive Visit 12/14/1999 HepB Vaccine (2) 12/18/2002 11/20/2002 HPV Vaccine (1 - 3-dose SCDM series) 2008 Cervical Cancer Screening 11/13/2020 11/14/2019, COVID-19 Vaccine (1 - season) 2025 Influenza Vaccine (#1) 2025 0, 05/26/2015, 05/26/2015, Additional history exists DTaP/Tdap/Td Vaccine (4 - Tdap) 04/15/2030 04/15/2020, 08/13/2013, 11/20/2002, Additional history exists Zoster/Shingles Vaccine (1 of 2) 12/14/2031 HIV Screening (Preventive Services) Completed 11/14/2019 HepA Vaccine Aged Out No longer eligi ble based on patient's age to complete this topic Hib Vaccine Aged Out No longer eligi ble based on patient's age to complete this topic IPV (Polio) Vaccine Aged Out No longe r eligible based on patient's age to complete this topic MCV4 Vaccine Aged Out No longer eligi ble based on patient's age to complete this topic Meningococcal B Vaccine Aged Out No l onger eligible based on patient's age to complete this topic Pneumococcal Vaccine Aged Out No long er eligible based on patient's age to complete this topic Medical Devices Implanted Type Area Tool Honing Machine Set Up Operator Device Identifier Shelf Expiration Date Model / Serial / Lot Imp Mamm Full [facility] 520cc - [id number] Implanted:Qty: 1 on 11/01/2018 by Yana Li MD at [facility] DEVICE Right: BREAST [employer] 04/03/2022 [facility]-520 / [id number] Procedures Procedure Name Priority Date/Time Associated Diagnosis Comments CYTOLOGY (PAP) Routine 11/14/2019 11:23 AM CDT Pap smear for cervical cancer screening HIV 1/2 AG/AB 4TH GEN Routine 11/14/2019 10:47 AM CDT Supervision of high-risk of elderly primigravida from Last 3 Months or Most Recently Relevant to Health Maintenance Results * PAP Test (11/14/2019 11:23 AM CDT) Case Report Pap Case: [id number] Authorizing Provider: Jackeline Harris APRN, Collected: 11/14/2019 11:23 AM RAKESH Ordering Location: [facility] Received: 11/14/2019 11:26 AM Obstetrics and Gynecology First Screen: Gwendolyn Hess Specimen: Pap Test, Routine, Cervix/Endocervix 11/16/2019 9:56 AM [facility] Pap Specimen Adequacy Satisfactory for evaluation, endocervical/lorenz sformation zone component present. 11/16/2019 9:56 AM [facility] Pap Interpretation Negative for intraepithelial lesion or malignancy (NILM). 11/16/2019 9:56 AM [facility] at 0956 CDT Pap Disclaimer The Pap test is a screening test designed to aid in the detection of cervical cancer and its precursor lesions. It is not a diagnostic procedure and should not be used as the sole means of detecting cervical cancer. Both false-positive and false-negative reports may occur. 11/16/2019 9:56 AM [facility] Gross Description The specimen is received in SurePath fixative and properly labeled. 1 Pap-stained SurePath slide is prepared. 11/16/2019 9:56 AM [facility] Embedded Images 0 9:56 AM [facility] Other Specimen Type ENTIRE ENDOCERVIX / Unknown 11/14/2019 11:23 AM CDT 11/14/2019 11:26 AM CDT Comment:LMP: Patient's last menstrual period was 09/12/2019. Jackeline Harris APRN, CNM LAB PATHOLOGY Fin al Result [address] [address], [place] [phone] * HIV 1/2 AG/AB 4TH GEN (11/14/2019 10:47 AM CDT) HIV 1/2 Antigen/Anti body (4th generation) Negative (Non Reactive) Negative (Non Reactive) 11/14/2019 6:57 PM CDT [facility] Comment:HIV-1 p24 Antigen an d HIV-1/HIV-2 Antibody not detected Blood Venipuncture Butterfly / Unknown 11/14/2019 10:47 AM CDT 11/14/2019 10:48 AM CDT us Jackeline Harris APRN, RAKESH LAB_1 Fin al Result [facility] [address] [phone] from Last 3 Months or Most Recently Relevant to Health Maintenance Insurance [address] [place] [address] OUT OF STATE Care Teams Processing Technologist Relationship Specialty Start Date End Date Suman Sheets MD [address] [place] [address] [address] PCP - General Internal Medicine 11/01/18
--- OUTSIDE RECORDS SUMMARY | 2025-04-17 10:58 | XMS_ITS | Clinical Summary ---
Author Organization [facility] [facility] Address [address] [place] [address] Care Team Providers Care Solar Systems Designer Name Role Phone Pcp, No Primary Care Provider Unavailabl e Allergies No known active allergies Medications ibuprofen (ADVIL; MOTRIN) 200 mg cap Take 200 mg by mouth every 6 hours. Active multivit with iron,minerals (MULTIVITAMIN AND MINERALS ORAL) Take by mouth. Active Active Problems Problem Noted Date Diagnosed Date Malignant neoplasm of overla pping sites of left female breast 05/23/2024 Social History Tobacco Use Types Packs/Day Years Used Date Smoking Tobacco: Never Smokeless Tobacco: Never Tobacco Cessation:Counseling Given: Not Answered Alcohol Use Standard Drinks/Week Comments Not Currently 0 (1 standard drink = 0.6 oz pur e alcohol) Comments No Sex and Gender Information Value Date Recorded Sex Assigned at Not on file Legal Sex Female 2:06 PM DATA COLLECTION INTERVIEWER Gender Identity Not on file Sexual Orientation Not on file Obstetrics History Last Filed Vital Signs Vital Sign Reading Time Taken Comments Blood Pressure 99/69 05/25/2024 10:45 AM DATA COLLECTION INTERVIEWER Pulse 96 05/25/2024 10:30 AM DATA COLLECTION INTERVIEWER Temperature 35.6 C (96 F) 05/25/2024 10:00 AM DATA COLLECTION INTERVIEWER Respiratory Rate 14 05/25/2024 10:45 AM DATA COLLECTION INTERVIEWER Oxygen Saturation 91% 05/25/2024 10:45 AM DATA COLLECTION INTERVIEWER Inhaled Oxygen Concentration - - Weight 63.5 kg (140 lb) 05/25/2024 8:25 AM DATA COLLECTION INTERVIEWER Height 165.1 cm (5' 5) 05/25/2024 8:25 AM DATA COLLECTION INTERVIEWER Body Mass Index 23.3 05/25/2024 8:25 AM DATA COLLECTION INTERVIEWER Plan of Treatment Health Maintenance Due Date Last Done Comments Tetanus booster 1992 Depression screening for age 12+ 1993 HIV for age 15-65 1996 BMI (ht and wt on same day) for age 18+ 12/14/1999 Hepatitis C screening for age 18-79 12/14/1999 Hepatitis B series for 19+ (1 of 3 - 19+ 3-dose series) 2000 HPV series for age 9-45 (1 - 3-dose SCDM series) 2008 COVID-19 vaccine series ( - 2024- season) 2025 06/25/2021, 05/15/2021 Influenza Vaccine (#1) 2025 Pap test for age 21-65 08/13/2025 , 08/13/2022, 07/23/2020, Additional history exists RSV vaccine for adults or (1 - 1-dose 75+ series) 2056 Pneumococcal series for age 6-49 Aged Out No longer eligible based on patient's age to complete this topic Procedures Procedure Name Priority Date/Time Associated Diagnosis Comments HPV HIGH RISK Routine 08/13/2022 9:45 AM DATA COLLECTION INTERVIEWER from Last 3 Months or Most Recently Relevant to Health Maintenance Results * HPV HIGH RISK (08/13/2022 9:45 AM DATA COLLECTION INTERVIEWER) TYPE 16 Negative Negative 08/19/2022 4:45 PM DATA COLLECTION INTERVIEWER [facility] TYPE 18 Negative Negative 08/19/2022 4:45 PM DATA COLLECTION INTERVIEWER [facility] OTHER HIGH RISK TYPES Negative Negative 08/19/2022 4:45 PM DATA COLLECTION INTERVIEWER [facility] Other (Cervical) 08/13/2022 9:45 AM DATA COLLECTION INTERVIEWER 08/17/2022 11:37 AM DATA COLLECTION INTERVIEWER [facility] - 08/19/2022 4:45 PM DATA COLLECTION INTERVIEWER HPV types 16, 18, 31, 33, 35, 39, 45, 51, 52, 56, 58, 59, 66 and 68 DNA were undetectable or below the pre-set threshold. Methodology: Linnette Luann 4800 HPV Test us Saima Millan MD MICROBIOLOGY Fi nal Result [facility] [address] [place] [address], [place] from Last 3 Months or Most Recently Relevant to Health Maintenance Insurance MEDICAID [place] Advance Directives * Full Code (Latest Code Status on File) Date Activated Date Inactivated Comments 05/23/2024 1:43 PM 05/23/2024 7:11 PM Question Answer Comments Code Status Discussion: Unable to Assess Preferences, Provider to review later Care Teams Solar Systems Designer Relationship Specialty Start Date End Date Pcp, No . PCP - General 06/23/23
--- OUTSIDE RECORDS SUMMARY | 2025-04-17 10:58 | XMS_ITS | Encounter Summary ---
Author Organization [facility] Address [address], [place] [address] Care Team Providers Care Director Medical Science Name Role Phone Suman Sheets MD Primary Care Provider [phone] Encounter Details Date Type Department Care Team (Late st Contact Info) Description 07/27/2018 [facility] [address] [facility]. 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
[2025-04-17 11:08] LABS: Chloride* 99 mmol/L (96-114); Potassium* 4.9 mmol/L (3.6-5.1); Sodium* 135 mmol/L (135-149)
[2025-04-17 11:11] LABS: Blood Urea Nitrogen* 15 mg/dL (5-24); Creatinine* 0.8 mg/dL (0.5-1.5); Estimated Glomerular Filt Rate 94 ml/min; Slide Review Acceptable Review (Acceptable)
[2025-04-17 11:12] LABS: Anion Gap 12 mEq/L (7-15); Calcium* 8.2 mg/dL (8.4-10.6); Carbon Dioxide* 24 mmol/L (20-32); Glucose* 120 mg/dL (60-115)
[2025-04-17] MEDS: cefTRIAXone 1 GM in 0.9 % SODIUM CHLORIDE Mini-bag 100 ML IVPB (11:28)
[2025-04-17 11:39] LABS: PCR FLU A Negative PCR FLU A (Negative); PCR FLU B Negative PCR FLU B (Negative); PCR RSV Negative PCR RSV (Negative); SARS PCR* Negative SARS-CoV-2 (Negative)
[2025-04-17 12:08] VITALS: BP 107/85; PULSE 117; RESP 18; O2SAT 97
== END 2025-04-17 12:09 | disposition home or self-care (01) ==
LOC: ED 10:56
PROVIDERS: Emergency Provider Family Medicine; PCP Family Medicine
DX: R11.2 Nausea with vomiting, unspecified (principal)
CPT/HCPCS: 36415; 71045; 80048; 85025; 86140; 87631; 96365; 96375; 99284; J0696; J2405; J7030

== ENCOUNTER 2025-05-09 14:45 | Outpatient (CLI) | payer MEDICAID, SELFPAY ==
--- NOTE | 2025-05-09 15:00 | CRLHL7_ITS ---
For Patients: As a result of the Century Cures Act, medical imaging exams and procedure reports are released immediately into your electronic medical record. You may view this report before your referring provider. If you have questions, please contact your health care provider. CLINICAL HISTORY: Breast cancer. TECHNIQUE: Following IV injection of 35-xegtno-0-deoxyglucose (FDG) and a standard uptake period of approximately 60 minutes, a non-contrast CT scan followed by a PET scan were acquired along the length of the body from the mid portion of the head to the mid thighs. The non-contrast CT was used for anatomic localization and photon attenuation correction of the PET scan. Blood Glucose Level (mg/dL): 88 FDG Dose (mCi): 12.4 COMPARISON: PET-CT scans dated 14 February 2025 and 08 November 2024. FINDINGS: Head/Neck: No abnormal activity identified in head and neck. Chest: Small right hilar lymph node SUV max 2.7 previously 4.6. No mediastinal adenopathy. New very small right axillary lymph node SUV max 28.4 is new. Right breast implant. Left mastectomy. The lungs show a right upper lobe irregular airspace opacity measuring 7.2 x 5.3 cm in the axial plane which shows decreased activity in the lower portion, SUV max 4.2 previously 11.9, but a new portion extending into the lateral aspect of the right lung apex measuring 4.3 x 3.5 cm, SUV max 6.9. No pneumothorax. Abdomen/Pelvis: No focal abnormalities identified in the visualized portions of the liver, spleen, pancreas, adrenal glands, and kidneys. No hydronephrosis. The GI tract is incompletely distended but shows no gross abnormalities. No retroperitoneal, pelvic sidewall, or mesenteric adenopathy. Bones: A few lytic and sclerotic bony metastases, examples: Upper portion of the sternum SUV max 1.5 previously 1.7. T10 vertebral body SUV max 1.6 previously 2.2. L4 vertebral body SUV max 1.9 previously 2.0. Medial aspect of the left iliac bone SUV max 1.4 previously 1.6. IMPRESSION: 1. Right upper lobe masslike airspace opacity shows decreased activity in the lower portion but a new portion extending into the right lung apex shows increased activity and may represent infectious/inflammatory process but can not exclude an underlying neoplastic process. 2. New very small right axillary lymph nodes show significantly increased activity and could represent a melania metastasis. 3. A few bony metastases show low activity. Dictated by Jamar Raymond MD @ 05/14/2025 6:57:00 AM (Electronically Signed)
== END 2025-05-09 14:46 | disposition home or self-care (01) ==
LOC: RAD 14:47
PROVIDERS: PCP Family Medicine; Visit Provider Internal Medicine Hematology & Oncology
DX: C50.911 Malignant neoplasm of unspecified site of right female breast (principal); C78.00 Secondary malignant neoplasm of unspecified lung; C79.51 Secondary malignant neoplasm of bone
CPT/HCPCS: 78815; T1013; A9552

== ENCOUNTER 2025-05-24 15:52 | Outpatient (CLI) | payer MEDICAID, SELFPAY ==
--- NOTE | 2025-05-24 16:00 | CRLHL7_ITS ---
For Patients: As a result of the 21st Century Cures Act, medical imaging exams and procedure reports are released immediately into your electronic medical record. You may view this report before your referring provider. If you have questions, please contact your health care provider. INDICATION: Conductive hearing loss of right ear. TECHNIQUE: CT of the temporal bones without contrast. Coronal and axial small field of view reconstructions of both temporal bones are included. COMPARISON: No prior studies are available for comparison at this institution. FINDINGS: RIGHT temporal bone: The external auditory canal is widely patent. No EAC stenosis or obstruction. The tympanic membrane is not thickened. The right middle ear is clear. No material is present within the sinus tympani. The ossicles are normal in appearance and location with no erosions or dislocation. The otic capsule is normal in appearance. No sclerosis within the labyrinthine canal. No fistula between the labyrinth and the middle ear. The vestibule and semicircular canals are normal in morphology with no evidence of semicircular canal dehiscence. Normal cochlear morphology with appropriate number of turns. Vestibular aqueduct is normal in size. Facial nerve canal is intact and normal in course/caliber. Petrous apex is normal. Mastoid air cells are clear. The carotid canal and jugular foramen are normal. Moderate fluid opacification of the right mastoid air cells. LEFT temporal bone: The external auditory canal is widely patent. No EAC stenosis or obstruction. The tympanic membrane is not thickened. The left middle ear is clear. No material is present within the sinus tympani. The ossicles are normal in appearance and location with no erosions or dislocation. The otic capsule is normal in appearance. No sclerosis within the labyrinthine canal. No fistula between the labyrinth and the middle ear. The vestibule and semicircular canals are normal in morphology with no evidence of semicircular canal dehiscence. Normal cochlear morphology with appropriate number of turns. Vestibular aqueduct is normal in size. Facial nerve canal is intact and normal in course/caliber. Petrous apex is normal. Mastoid air cells are clear. The carotid canal and jugular foramen are normal. OTHER: No fracture or significant degenerative change, lytic or blastic process is demonstrated in the skull base. Degenerative changes in the right temporomandibular joint. The imaged intracranial structures are normal in appearance. Orbits are normal. Imaged soft tissue structures are normal in appearance. The paranasal sinuses are unremarkable. IMPRESSION: 1. Moderate fluid opacification of the right mastoid air cells concerning for mastoiditis or Eustachian tube dysfunction. The right middle ear cavity is clear. Unremarkable ossicles. Unremarkable otic capsule structures. 2. Unremarkable left temporal bone structures. Please note that all CT scans at this facility use dose modulation, iterative reconstruction, and/or weight-based dosing when appropriate to reduce radiation dose to as low as reasonably achievable. Dictated by Kyree Mojica MD @ 05/27/2025 2:33:43 PM (Electronically Signed)
== END 2025-05-24 15:53 | disposition home or self-care (01) ==
LOC: CT 15:52
PROVIDERS: PCP Family Medicine; Visit Provider Physician Assistant
DX: H90.11 Conductive hearing loss, unilateral, right ear, with unrestricted hearing on the contralateral side (principal)
CPT/HCPCS: 70480; T1013

== ENCOUNTER 2025-05-27 07:57 | Outpatient (CLI) | payer MEDICAID, SELFPAY ==
--- NOTE | 2025-05-27 08:15 | CRLHL7_ITS ---
For Patients: As a result of the Century Cures Act, medical imaging exams and procedure reports are released immediately into your electronic medical record. You may view this report before your referring provider. If you have questions, please contact your health care provider. Indication: Abnormal finding on PET Technique: Grayscale ultrasound of the right axilla performed. Comparison: CT PET 02/14/2025 Findings: Careful dedicated ultrasound of the right axillary soft tissues performed by the hazardous waste material technician and radiologist. Postop changes to the right breast tissue with implant reconstruction noted. No discernible lymph node appreciated in the axilla to correspond with the CT PET finding. Impression: No suspicious findings by ultrasound. Dictated by Kyree Blackmon MD @ 05/27/2025 10:30:39 AM (Electronically Signed)
== END 2025-05-27 07:58 | disposition home or self-care (01) ==
LOC: US 08:00
PROVIDERS: PCP Family Medicine; Visit Provider Internal Medicine Hematology & Oncology
DX: C50.911 Malignant neoplasm of unspecified site of right female breast (principal); C78.00 Secondary malignant neoplasm of unspecified lung; C79.51 Secondary malignant neoplasm of bone
CPT/HCPCS: 76882; T1013

== ENCOUNTER 2025-07-01 08:53 | Outpatient (CLI) | payer MEDICAID, SELFPAY ==
--- NOTE | 2025-07-01 09:00 | CRLHL7_ITS ---
For Patients: As a result of the Century Cures Act, medical imaging exams and procedure reports are released immediately into your electronic medical record. You may view this report before your referring provider. If you have questions, please contact your health care provider. Indication: malignant neoplasm of the breast, follow up pet scan 05/09/2025 Technique: Postcontrast CT chest. 75 cc Isovue 370 intravenous contrast. Please note that all CT scans at this facility use dose modulation, iterative reconstruction, and/or weight-based dosing when appropriate to reduce radiation dose to as low as reasonably achievable. Comparison: CT-PET 05/09/2025 Findings: Status post left mastectomy and right breast implant reconstruction. Fatty liver. Spleen normal. No upper abdominal adenopathy. Thyroid unremarkable. Normal-sized axillary lymph nodes. Stable sub cm right axillary lymph node previously visualized on the CT PET. Decreased amount of consolidative density within the superolateral right upper lobe compared to the prior study representing resolution of previous inflammatory process superimposed upon chronic post treatment change. Similar lung parenchymal densities within right upper lobe elsewhere. No pleural effusion. Mild postradiation changes in the anterior left lung. No suspicious pulmonary nodule. Unchanged appearance of the vertebral bodies. Similar appearance of the manubrium. Impression: Resolution of inflammatory process involving the right upper lobe superimposed upon posttreatment changes in the remainder of the right upper lobe. Similar appearance of the osseous structures compared to 08/30/2024. Postradiation changes to the anterior left lung, mild. Stable sub cm right axillary lymph node. No new pulmonary nodule. Please note that all CT scans at this facility use dose modulation, iterative reconstruction, and/or weight-based dosing when appropriate to reduce radiation dose to as low as reasonably achievable. Dictated by Kyree Blackmon MD @ 07/01/2025 10:27:19 AM (Electronically Signed)
== END 2025-07-01 08:54 | disposition home or self-care (01) ==
LOC: CT 08:54
PROVIDERS: PCP Family Medicine; Visit Provider Internal Medicine Hematology & Oncology
DX: C50.911 Malignant neoplasm of unspecified site of right female breast (principal); Z90.13 Acquired absence of bilateral breasts and nipples; Z98.890 Other specified postprocedural states; J98.4 Other disorders of lung; K76.0 Fatty (change of) liver, not elsewhere classified
CPT/HCPCS: 71260; T1013; Q9967

== ENCOUNTER 2025-07-02 10:41 | Outpatient (CLI) | payer MEDICAID, SELFPAY ==
--- NOTE | 2025-07-02 10:45 | CRLHL7_ITS ---
For Patients: As a result of the Century Cures Act, medical imaging exams and procedure reports are released immediately into your electronic medical record. You may view this report before your referring provider. If you have questions, please contact your health care provider. INDICATION: hx of breast cancer, on tamoxifen, desires hysterectomy COMPARISON: None. TECHNIQUE: 2D bocanegra-scale and color Doppler images were acquired of the pelvis using a transabdominal and transvaginal approach. Transvaginal imaging performed to better visualize the endometrial stripe and ovaries. FINDINGS: Sonographic images demonstrate a normal size and smooth outer contour of the uterus. Uterus measures 10.2 cm in length by 4.1 cm in AP diameter by 4.6 cm in transverse dimension. The myometrium has a normal uniform echotexture. The endometrial lining appears normal and measures 6.7 mm in composite thickness. The right ovary measures 2.1 x 1.0 x 1.4 cm in size and the left ovary measures 2.1 x 1.2 x 1.4 cm. The ovaries demonstrate normal arterial and venous blood flow on color Doppler analysis. There are no suspicious fluid collections within the cul-de-sac. IMPRESSION: Endometrial thickness 6.7 millimeters. No uterine fibroid. Normal ovaries. Dictated by Kyree Blackmon MD @ 07/02/2025 11:45:46 AM (Electronically Signed)
== END 2025-07-02 10:42 | disposition home or self-care (01) ==
LOC: US 10:41
PROVIDERS: PCP Family Medicine; Visit Provider Obstetrics & Gynecology
DX: Z85.3 Personal history of malignant neoplasm of breast (principal); N85.8 Other specified noninflammatory disorders of uterus
CPT/HCPCS: 76830; 76856; T1013